=== PATIENT | female | born 1945 | race Caucasian/White ===

== ENCOUNTER → 2017-01-18 | Outpatient (CLI) | payer MEDICARE, MEDICAID ==
[~2017-01-18] MED LIST: ALBU0.632 IH; ALBU0.8322 IH; ALBU8.5H2 IH; ALLBUTEROL; AMOX-355 PO; CITA20TA4 PO; CITALOPRAM PO; DOXY100C2 PO; INHA1INH8 MC; LEVOTHYROXINE PO; LVT.025T PO; LVT.05T PO; PRD20T PO; RIVA1PAT4; SULF1TAB23 PO; SULF1TAB34 PO
[2017-01-18 17:46] LABS: BILIRUBIN,URINE NEGATIVE (NEGATIVE); KETONES,URINE NEGATIVE (NEGATIVE); LEUKOCYTE ESTERASE ,URINE 1+ (NEGATIVE); NITRITE,URINE NEGATIVE (NEGATIVE); PH,URINE 5 (5-9); PROTEIN,URINE 2+ (NEGATIVE); UROBILINOGEN,URINE NORMAL (NORMAL)
== END ==
LOC: LABNPT 17:38
PROVIDERS: ATTEND Internal Medicine
DX: Z87.440 Personal history of urinary (tract) infections (principal)
CPT/HCPCS: 81000

== ENCOUNTER → 2017-03-10 | Outpatient (CLI) | payer MEDICARE, MEDICAID ==
[2017-03-10 20:42] LABS: BILIRUBIN,URINE NEGATIVE (NEGATIVE); KETONES,URINE NEGATIVE (NEGATIVE); LEUKOCYTE ESTERASE ,URINE 3+ (NEGATIVE); NITRITE,URINE NEGATIVE (NEGATIVE); PH,URINE 6 (5-9); PROTEIN,URINE 1+ (NEGATIVE); UROBILINOGEN,URINE NORMAL (NORMAL)
[2017-03-10 20:56] LABS: SQUAMOUS EPITHELIAL CELL,UR 0-2 /HPF; WBC,URINE TNTC /HPF
== END ==
PROVIDERS: ATTEND Internal Medicine
DX: M54.5 Low back pain (principal); R82.90 Unspecified abnormal findings in urine
CPT/HCPCS: 81000; 87088

== ENCOUNTER → 2017-04-24 | Outpatient (CLI) | payer MEDICARE, MEDICAID ==
[~2017-04-24] MED LIST changes: +CATHETER FLUSH 10 ML SYR IV PRN; +REGADENOSON 0.4 MG/5 ML SYR (LEXISCAN) IV ONE
[2017-04-24 09:43] VITALS: BP 153/91
[2017-04-24 09:48] VITALS: BP 143/68
[2017-04-24 09:50] VITALS: BP 145/71
--- NOTE | 2017-04-25 08:49 | STRESS TEST ---
DATE OF SERVICE: 04/24/2017 RESTING AND POST-REGADENOSON TECHNETIUM-[address] IMAGING: Baseline images were carried out after injection of 10.94 mCi technetium-99 Tetrofosmin. This was followed by 0.4 mg regadenoson and 27.8 mCi technetium-99 Tetrofosmin for stress imaging. The electrocardiogram showed sinus rhythm at baseline and did not change significantly. Following regadenoson infusion, she had mild shortness of breath and a tired feeling which resolved in a few minutes. Review of images at rest and following stress does not indicate any significant perfusion defects consistent with significant myocardial ischemia or infarction. Gated images show normal global left ventricular systolic function with normal regional wall motion. Left ventricular ejection fraction is calculated to be 70%. Left ventricular end diastolic volume is 38 mL. TID is absent (1.09). CONCLUSIONS: 1. No evidence of any significant myocardial ischemia or infarction on this study. 2. Normal regional wall motion. 3. Normal global left ventricular systolic function with a calculated ejection fraction of 70%. Job ID: [id number] DocumentID: [id number] Dictated Date: 04/24/2017 13:08:03 Machine Adjuster Leader Case Trim Date: 04/24/2017 15:23:40 Dictated By: JOESPH ROTH MD, MA, FACP, FACC,
== END ==
LOC: CARD 07:43
PROVIDERS: ATTEND Internal Medicine Cardiovascular Disease
DX: R06.02 Shortness of breath (principal); R55 Syncope and collapse; M79.89 Other specified soft tissue disorders; I10 Essential (primary) hypertension; G30.8 Other Alzheimer's disease
CPT/HCPCS: 78452; 93017

== ENCOUNTER → 2017-05-08 | Outpatient (CLI) | payer MEDICARE, MEDICAID ==
[~2017-05-08] MED LIST changes: -CATHETER FLUSH 10 ML SYR IV PRN; -REGADENOSON 0.4 MG/5 ML SYR (LEXISCAN) IV ONE
== END ==
LOC: CARD 09:34
PROVIDERS: ATTEND Internal Medicine Cardiovascular Disease
DX: R06.02 Shortness of breath (principal); R55 Syncope and collapse; I10 Essential (primary) hypertension; M79.89 Other specified soft tissue disorders; G30.8 Other Alzheimer's disease
CPT/HCPCS: 93225; 93226; 93306

== ENCOUNTER → 2017-08-23 | Outpatient (CLI) | payer MEDICARE, MEDICAID ==
[2017-08-23 14:29] LABS: BILIRUBIN,URINE NEGATIVE (NEGATIVE); KETONES,URINE 2+ (NEGATIVE); LEUKOCYTE ESTERASE ,URINE 3+ (NEGATIVE); NITRITE,URINE POSITIVE (NEGATIVE); PH,URINE 5 (5-9); PROTEIN,URINE 2+ (NEGATIVE); UROBILINOGEN,URINE NORMAL (NORMAL)
[2017-08-23 14:40] LABS: WBC,URINE TNTC /HPF
== END ==
PROVIDERS: ATTEND Internal Medicine
DX: R41.82 Altered mental status, unspecified (principal); R82.90 Unspecified abnormal findings in urine
CPT/HCPCS: 81000; 87077; 87088; 87186

== ENCOUNTER 2018-06-11 01:46 | Emergency (ER) | payer MEDICARE, MEDICAID ==
[~2018-06-11] VITALS: Ht 167.6 cm; Wt 63.5 kg
--- NOTE | 2018-06-11 02:38 | ED Fall/Injury ---
General Chief Complaint: Trauma-Non Activation Stated Complaint: FALL,RT WRIST & RIB PAIN Nursing Triage Note: FALL, RIGHT WRIST PAIN Source: patient, EMS Exam Limitations: clinical condition (dementia) History of Present Illness Date Seen by Provider: Jun 11, 2018 Time Seen by Provider: 01:50 Initial Comments Here with report of fall at the [facility] that was unwitnessed. Patient has formerly of the right wrist and they wanted her evaluated for that. Patient denies any other pain. She was able to walk to the cot. Denies head injury. Patient reported a little chest wall pain on the right but then was on the left. No obvious injury except for of the right wrist. Location Injury Occurred: HOME Occurred: this morning (patient found on the floor in her room. Unknown exact time a fall but believed to be recently this morning.) Severity: moderate Injuries/Pain Location: upper extremity Context: unknown Loss of Consciousness: unsure Modifying Factors: Improves With Immobilization; Worse With Movement Associated Symptoms (Fall): No Abdominal Pain, No Headache, No Neck Pain Allergies and Home Medications Allergies Coded Allergies: No Known Drug Allergies (Verified , 01/24/14) Home Medications Albuterol 8.5 Gm Hfa.aer.ad, 2 PUFF IH QID PRN for SHORTNESS OF BREATH, ( Reported) NEEDED FOR SHORTNESS OF BREATH Albuterol Sulfate 2.5 Mg/3 Ml Solution, 2.5 MG IH Q4H PRN for SHORTNESS OF BREATH, (Reported) NEEDED FOR SHORTNESS OF BREATH Citalopram Hydrobromide 20 Mg Tablet, 20 MG PO DAILY @ 1400, (Reported) Levothyroxine Sodium 50 Mcg Tablet, 1 EACH PO DAILY, (Reported) Patient Home Medication List Home Medication List Reviewed: Yes Review of Systems Review of Systems Constitutional: see HPI; No chills, No fever Eyes: No Symptoms Reported Ears, Nose, Mouth, Throat: no symptoms reported Respiratory: no symptoms reported Cardiovascular: no symptoms reported Gastrointestinal: No nausea, No vomiting Genitourinary: no symptoms reported Musculoskeletal: see HPI, joint pain, muscle pain Skin: change in color (right wrist); No lesions Psychiatric/Neurological: Denies Headache, Denies Numbness Past Klqtrwi-Msszdx-Vkbfln Hx Past Med/Social Hx: Reviewed Nursing Past Med/Soc Hx Patient Social History Alcohol Use: Denies Use Recreational Drug Use: No Smoking Status: Never a Smoker 2nd Hand Smoke Exposure: No Recent Foreign Travel: No Contact w/Someone Who Travel: No Recent Infectious Disease Expo: No Recent Hopitalizations: Yes Immunizations Up To Date Tetanus Booster (TDap): Less than 5yrs Date of Pneumonia Vaccine: January 24, 2014 Seasonal Allergies Seasonal Allergies: Yes Past Medical History Surgeries: Yes (COLO-RECTAL CANCER, COLOSTOMY) Respiratory: Yes (ASTHMA) Asthma, COPD, Emphysema Cardiac: Yes High Cholesterol, Hypertension Neurological: Yes Dementia Reproductive Disorders: No Genitourinary: Yes UTI-Chronic Gastrointestinal: Yes (COLOSTOMY) Musculoskeletal: Yes Arthritis, Chronic Back Pain Endocrine: Yes Hypothyroidsim HEENT: No Cancer: Yes Colon Psychosocial: Yes Depression Integumentary: No Blood Disorders: No Family Medical History Reviewed Nursing Family Hx Family history: Diabetes mellitus 19 MOTHER Parkinson's disease 19 FATHER No Family History of: Abdominal aortic aneurysm Physical Exam Vital Signs Vital Signs - First Documented 06/11/18 01:48 Temp 97.3 Pulse 77 Resp 18 B/P (MAP) 140/60 (86) Pulse Ox 99 O2 Delivery Room Air Capillary Refill : Less Than 3 Seconds Height, Weight, BMI Height: 5'6" Weight: 140lbs. 4.0oz. [id number]; 20.17 BMI Method:Estimated General Appearance: WD/WN, no apparent distress HEENT: PERRL/EOMI, pharynx normal Neck: non-tender, full range of motion, supple, normal inspection Cardiovascular: regular rate, rhythm, no murmur Respiratory: lungs clear, normal breath sounds, no respiratory distress, other (question of tenderness to the left anterior chest wall) Gastrointestinal: non tender, soft Back: normal inspection, no CVA tenderness, no vertebral tenderness Extremities: pelvis stable, other (right wrist with pain over the distal radius and ulna with deformity noted) Neurologic/Psychiatric: alert, oriented x 3 Skin: normal color, warm/dry Vikas Coma Score Best Eye Response: (4) Open Spontaneously Best Verbal Response: (5) Oriented Best Motor Response: (6) Obeys Commands Procedures/Interventions Splinting and Joint Reduction : Pre-Proc Neuro Vasc Exam: normal Post-Proc Neuro Vasc Exam: normal Hand-Made Type: fiberglass Splint Application: Short Arm Progress/Results/Core Measures Results/Orders My Orders Orders - SCOTT OSORIO MD Chest 1 View, Ap/Pa Only (06/11/18 01:59) Wrist, Right, 3 Views Or More (06/11/18 01:59) Lidocaine 2% Injection 20 Ml (Xylocaine (06/11/18 03:00) Lidocaine 2% Injection 20 Ml (Xylocaine (06/11/18 02:55) Medications Given in ED Current Medications Medications Dose Ordered Sig/Rosy Route Start Time Stop Time Status Last Admin Dose Admin Lidocaine HCl 20 ml ONCE ONCE INJ 06/11/18 03:00 06/11/18 03:01 DC 06/11/18 03:01 20 ML Vital Signs/I&O 06/11/18 01:48 Temp 97.3 Pulse 77 Resp 18 B/P (MAP) 140/60 (86) Pulse Ox 99 O2 Delivery Room Air Blood Pressure Mean: 86 Progress Progress Note : Progress Note Seen and evaluated. Chest x-ray and right wrist x-ray ordered. Monitor patient. Right wrist x-ray is positive for both distal radius and ulnar fracture. Splint placed after hematoma block with 2 percent lidocaine 4 mL to area of fracture. Discharged home with return precautions. Patient instructions sent with [facility] staff. Diagnostic Imaging Diagonstic Imaging: Xray Plain Films/CT/US/NM/MRI: chest Comments No acute findings Diagonstic Imaging: Xray Plain Films/CT/US/NM/MRI: other (right wrist 3 view) Comments Distal radius and ulna fracture with displacement of the distal radius volar approximately 50 percent. Ulna fracture nondisplaced Reviewed: Reviewed by Me Departure Impression Primary Impression: Right wrist fracture Qualified Codes: S62.101A - Fracture of unspecified carpal bone, right wrist, initial encounter for closed fracture Disposition: HOME, SELF-CARE Condition: Stable Departure-Patient Inst. Decision time for Depature: 02:43 Referrals: JUAN DANIEL CASTELLANOS MD (PCP/Family) Primary Care Physician ALEX LAO MICHAEL P MD Patient Instructions: SPLINT CARE, Wrist Fracture (DC) Add. Discharge Instructions: All discharge instructions reviewed with patient and/or family. Voiced understanding. Keep splint clean and dry. Follow-up with one of the orthopedists listed or of your choosing within one week for recheck and for further evaluation and casting as needed. Call today for appointment. Return for worse pain, weakness , numbness, breathing problems or other concerns as needed. Follow-up with your Dr. within the next few days for recheck and further evaluation as well. Copy Copies To 1: JUAN DANIEL CASTELLANOS MD, TIMOTHY D MD Jun 11, 2018 02:38
[2018-06-11] MEDS ORDERED: LIDOCAINE 2% 20 ML (XYLOCAINE) VIAL ONE (02:55)
[2018-06-11] MEDS ORDERED: LIDOCAINE 2% 20 ML (XYLOCAINE) VIAL INJ ONE (03:00)
[2018-06-11 03:39] VITALS: BP 145/74
--- NOTE | 2018-06-11 07:52 | Diagnostic Imaging Report ---
INDICATION: Fall with right wrist pain. FINDINGS: AP, oblique and lateral views of the right wrist reveal comminuted, angulated fracture of the distal radial metaphysis with dorsal displacement of the distal fracture fragment. There is also mildly displaced fracture involving the distal ulna which extends into the joint space. Carpus appears to be intact. IMPRESSION: Fractures involving distal radius and ulna with dorsal angulation and displacement of the distal radial fracture fragment. Dictated by: Dictated on workstation # [id number]
--- NOTE | 2018-06-11 08:00 | Diagnostic Imaging Report ---
Indication: Fall with wrist fractures. Single AP view of the chest is obtained with comparison made to study of 06/03/2012. Overall heart size within normal limits. There is a small left apical pneumothorax with mild left pleural fluid. No midline shift is seen. Impression: Small left pneumothorax with mild left pleural fluid. Critical finding Dictated by: Dictated on workstation # [id number]
== END 2018-06-11 03:39 | disposition home or self-care (01) ==
LOC: EDUNIT# 01:46 → ER 01:48
DX: S52.601A Unspecified fracture of lower end of right ulna, initial encounter for closed fracture (principal); S52.501A Unspecified fracture of the lower end of right radius, initial encounter for closed fracture; R07.81 Pleurodynia; J43.9 Emphysema, unspecified; E78.00 Pure hypercholesterolemia, unspecified; I10 Essential (primary) hypertension; R40.2142 Coma scale, eyes open, spontaneous, at arrival to emergency department; R40.2252 Coma scale, best verbal response, oriented, at arrival to emergency department; R40.2362 Coma scale, best motor response, obeys commands, at arrival to emergency department; F03.90 Unspecified dementia, unspecified severity, without behavioral disturbance, psychotic disturbance, mood disturbance, and anxiety; E03.9 Hypothyroidism, unspecified; F32.9 Major depressive disorder, single episode, unspecified; Z87.440 Personal history of urinary (tract) infections; Z79.51 Long term (current) use of inhaled steroids; Z93.3 Colostomy status; Z85.048 Personal history of other malignant neoplasm of rectum, rectosigmoid junction, and anus; W19.XXXA Unspecified fall, initial encounter; Y92.129 Unspecified place in nursing home as the place of occurrence of the external cause
CPT/HCPCS: 29125; 71045; 73110

== ENCOUNTER → 2018-06-25 | Outpatient (CLI) | payer MEDICARE, MEDICAID ==
--- NOTE | 2018-06-25 14:44 | Diagnostic Imaging Report ---
INDICATION: Pneumothorax. Comparison is made with prior examination from 06/11/2018. FINDINGS: Heart size is normal. The previously seen left apical pneumothorax has resolved. There is no pleural effusion. Mediastinum is unremarkable. There is minimal scarring in the lung bases. IMPRESSION: 1. No evidence of residual pneumothorax. 2. Minimal scarring in the lung bases. Dictated by: Dictated on workstation # [id number]
== END ==
LOC: RAD 13:36
PROVIDERS: ATTEND Internal Medicine
DX: J93.9 Pneumothorax, unspecified (principal)
CPT/HCPCS: 71046

== ENCOUNTER 2018-07-18 20:43 | Observation (INO) | payer MEDICARE, MEDICAID ==
[~2018-07-18] VITALS: Ht 165.1 cm; Wt 86.0 kg
[2018-07-18 21:08] LABS: BASOPHILS # (AUTO) 0.1 10^3/uL (0.0-0.1); BASOPHILS % (AUTO) 1 % (0-10); EOSINOPHILS # (AUTO) 0.3 10^3/uL (0.0-0.3); EOSINOPHILS % (AUTO) 4 % (0-10); HEMATOCRIT 29 % (35-52); HEMOGLOBIN 9.6 G/DL (11.5-16.0); LYMPHOCYTES # (AUTO) 0.7 X 10^3 (1.0-4.0); LYMPHOCYTES % (AUTO) 10 % (12-44); MEAN CORPUSCULAR HEMOGLOBIN 31 PG (25-34); MEAN CORPUSCULAR HGB CONC 33 G/DL (32-36); MEAN CORPUSCULAR VOLUME 92 FL (80-99); MEAN PLATELET VOLUME 10.4 FL (7.4-10.4); MONOCYTES % (AUTO) 14 % (0-12); NEUTROPHILS # (AUTO) 4.9 X 10^3 (1.8-7.8); NEUTROPHILS % (AUTO) 71 % (42-75); PLATELET COUNT 279 10^3/uL (130-400); RED BLOOD COUNT 3.15 10^6/uL (4.35-5.85); RED CELL DISTRIBUTION WIDTH 14.2 % (10.0-14.5); WHITE BLOOD COUNT 6.8 10^3/uL (4.3-11.0)
[2018-07-18 21:20] LABS: PROTHROMBIN TIME PATIENT 13.4 SEC (12.2-14.7)
[2018-07-18 21:28] LABS: ALANINE AMINOTRANSFERASE 15 U/L (0-55); ALBUMIN 3.4 GM/DL (3.2-4.5); ALKALINE PHOSPHATASE 108 U/L (40-136); BILIRUBIN,TOTAL 0.3 MG/DL (0.1-1.0); BUN/CREATININE RATIO 25; CALCIUM 9.3 MG/DL (8.5-10.1); CARBON DIOXIDE 19 MMOL/L (21-32); CHLORIDE 101 MMOL/L (98-107); CREATININE SERUM 1.85 MG/DL (0.60-1.30); GFR ESTIMATED 27; GLUCOSE 99 MG/DL (70-105); MAGNESIUM 1.8 MG/DL (1.8-2.4); SODIUM 131 MMOL/L (135-145); TOTAL PROTEIN 6.4 GM/DL (6.4-8.2)
[2018-07-18 21:35] LABS: POTASSIUM 5.8 MMOL/L (3.6-5.0)
[2018-07-18] MEDS ORDERED: NS IV 1000 ML 1,000 ML IV ONE (21:41)
--- NOTE | 2018-07-18 21:56 | Diagnostic Imaging Report ---
PROCEDURE: CT head, face, and cervical spine without contrast. TECHNIQUE: Multiple contiguous axial images were obtained through the head, neck, and facial bones without the use of intravenous contrast. Sagittal and coronal reformations through the cervical spine and facial bones were also performed. INDICATION: Fall. Bruised right eye. Comparison with CT head 06/18/2014. FINDINGS: CT head: There is diffuse cortical atrophy present. Ventricles are not dilated. No evidence of masses. No evidence of intracranial hemorrhage. No evidence of recurrent subdural hematomas when compared with previous exam. Basal cisterns are clear. The mastoid air cells are clear. No calvarial fractures are demonstrated. The paranasal sinuses are clear where visualized. IMPRESSION: Marked cortical atrophy and white matter changes consistent with chronic small vessel disease. No acute abnormalities demonstrated. CT facial bones: Paranasal sinuses are clear. No air-fluid levels. There is moderate motion artifact present. No facial bone fractures are demonstrated. Orbital contents are symmetrical. No significant swelling is seen over the right orbit. Orbital contents appear symmetrical and normal. The nasal bone is normal. Mandible appears intact. The temporomandibular joints are symmetrical. IMPRESSION: Limited study with motion artifact. No findings to indicate acute fractures of the facial bones or air-fluid levels within the paranasal sinuses. CT cervical spine: Sagittal and coronal reformatted images show good alignment of vertebral bodies. Body height is well-maintained. Mild narrowing of disc space is noted with hypertrophic lipping of the endplates. The atlantoaxial joint in good alignment with degenerative change. Facets show good alignment throughout. No fractures are demonstrated. The surrounding soft tissues appear normal. IMPRESSION: Degenerative cervical disc disease without acute abnormality. Dictated by: Dictated on workstation # [id number]
--- NOTE | 2018-07-18 22:00 | Diagnostic Imaging Report ---
INDICATION: Fall. FINDINGS: There is comminuted distal right radial fracture involving articulating surface with impaction and dorsal angulation. Also ulnar styloid fracture. The carpal bones appear intact. IMPRESSION: Colles' type fracture of the distal radius with intra-articular involvement with dorsal angulation and impaction right wrist. Dictated by: Dictated on workstation # [id number]
--- NOTE | 2018-07-18 22:01 | Diagnostic Imaging Report ---
INDICATION: Fall. EXAMINATION: Portable chest. FINDINGS: Lungs are well-aerated and clear. Heart is mildly enlarged. No pulmonary edema. No pneumothorax or pleural effusion. No bony abnormalities. IMPRESSION: Cardiomegaly without acute changes. Dictated by: Dictated on workstation # [id number]
--- NOTE | 2018-07-18 22:01 | Diagnostic Imaging Report ---
INDICATION: Fall. FINDINGS: AP pelvis. Bony ring is intact. SI joints show degenerative changes. Hips show normal articulation bilaterally without fracture. IMPRESSION: Degenerative changes without acute abnormality. Dictated by: Dictated on workstation # [id number]
--- NOTE | 2018-07-18 22:01 | Diagnostic Imaging Report ---
Indication: Fall. Findings: Sagittal: Reformatted images the thoracic and lumbar spine. There is supraglottic compression fracture of L1 with approximately 50% loss of body height anteriorly. Minimal posterior bulging of the superior endplate into the canal without high-grade stenosis noted. There is also mild inferior plate compression fracture of L2. There is sclerosis along the endplates. Body height otherwise remains normal throughout the thoracic and lumbar spine. No evidence of pars defect. Moderate degenerative hypertrophic changes noted in the lower lumbar region. The paraspinal soft tissues appear normal. No evidence of hematomas. The lungs are clear were visualized. IMPRESSION: Superior plate compression fracture of L1 and inferior endplate compression fracture of L2. There is no evidence of high-grade stenosis. These are of indeterminate age. Due to sclerosis I suspect these are more likely chronic. The no recent lumbar images for comparison. Dictated by: Dictated on workstation # [id number]
[2018-07-18 22:14] LABS: BILIRUBIN,URINE NEGATIVE (NEGATIVE); CLARITY,URINE VERY CLOUDY; COLOR,URINE YELLOW; GLUCOSE, URINE (UA) NEGATIVE (NEGATIVE); KETONES,URINE 1+ (NEGATIVE); LEUKOCYTE ESTERASE ,URINE 3+ (NEGATIVE); NITRITE,URINE NEGATIVE (NEGATIVE); PH,URINE 5 (5-9); PROTEIN,URINE 1+ (NEGATIVE); UROBILINOGEN,URINE NORMAL (NORMAL)
[2018-07-18 22:42] LABS: BACTERIA,URINE LARGE /HPF; WBC,URINE >100 /HPF
[2018-07-18] MEDS ORDERED: cefTRIAXone FOR IV USE 1,000 MG in NS (IVPB) 50 ML IV ONE (23:00)
[2018-07-18] MEDS ORDERED: NS (IVPB) 50 ML ONE (23:04)
[2018-07-18] MEDS ORDERED: cefTRIAXone 1 GM/10 ML for IV (ROCEPHIN) ONE (23:04)
[2018-07-19] VITALS (8 sets, daily range): BP systolic 118–175; BP diastolic 59–81
[2018-07-19] MEDS: NS IV 1000 ML 1,000 ML IV SCH ×4 (01:25→22:57)
[2018-07-19 05:29] LABS: BASOPHILS # (AUTO) 0.1 10^3/uL (0.0-0.1); BASOPHILS % (AUTO) 1 % (0-10); EOSINOPHILS # (AUTO) 0.3 10^3/uL (0.0-0.3); EOSINOPHILS % (AUTO) 4 % (0-10); HEMATOCRIT 27 % (35-52); HEMOGLOBIN 8.9 G/DL (11.5-16.0); LYMPHOCYTES # (AUTO) 0.7 X 10^3 (1.0-4.0); LYMPHOCYTES % (AUTO) 11 % (12-44); MEAN CORPUSCULAR HEMOGLOBIN 31 PG (25-34); MEAN CORPUSCULAR HGB CONC 33 G/DL (32-36); MEAN CORPUSCULAR VOLUME 93 FL (80-99); MONOCYTES # (AUTO) 1.1 X 10^3 (0.0-1.0); MONOCYTES % (AUTO) 17 % (0-12); NEUTROPHILS # (AUTO) 4.5 X 10^3 (1.8-7.8); NEUTROPHILS % (AUTO) 67 % (42-75); PLATELET COUNT 244 10^3/uL (130-400); RED BLOOD COUNT 2.92 10^6/uL (4.35-5.85); RED CELL DISTRIBUTION WIDTH 14.2 % (10.0-14.5); WHITE BLOOD COUNT 6.7 10^3/uL (4.3-11.0)
[2018-07-19 05:42] LABS: ALBUMIN 2.9 GM/DL (3.2-4.5); BILIRUBIN,TOTAL 0.2 MG/DL (0.1-1.0); CALCIUM 8.5 MG/DL (8.5-10.1); CREATININE SERUM 1.56 MG/DL (0.60-1.30); POTASSIUM 5.1 MMOL/L (3.6-5.0); TOTAL PROTEIN 5.6 GM/DL (6.4-8.2)
--- NOTE | 2018-07-19 06:12 | History & Physicial (CHS) ---
HPI History of Present Illness: 72-year-old female who presents to [facility] emergency department during the evening of July 18, 2018 after having a fall. I spoke with staff from [facility] prior to patient arriving at the emergency department. Apparently she had taken this fall but it was unknown exactly when it occurred. She was found on the floor by nursing staff. Patient is not able to give much history and does not states she hurts anywhere specifically. Source: caregiver Exam Limitations: clinical condition Date seen by provider: Jul 19, 2018 Time Seen by Provider: 06:45 Attending Physician Patric Li MD PCP Patric Li MD Consult Date of Admission Jul 18, 2018 at 22:25 Home Medications Home Medications Reviewed patient Home Medication Reconciliation performed by pharmacy medication reconciliations registered veterinary technician and/or nursing. Patients Allergies have been reviewed. Allergies Coded Allergies: No Known Drug Allergies (Verified , 01/24/14) WYU-Ezxjgl-Eewuaf Hx Patient Social History Alcohol Use: Denies Use Recreational Drug Use: No Smoking Status: Never a Smoker 2nd Hand Smoke Exposure: No Recent Foreign Travel: No Contact w/other who traveled: No Recent Hopitalizations: Yes Recent Infectious Disease Expo: No Physical Abuse Screen: No Sexual Abuse: No Immunizations Up To Date Tetanus Booster (TDap): Less than 5yrs Date of Pneumonia Vaccine: January 24, 2014 Date of Influenza Vaccine: Jul 14, 2018 Family Medical History Family History: Family history: Diabetes mellitus 19 MOTHER Parkinson's disease 19 FATHER No Family History of: Abdominal aortic aneurysm Review of Systems (CHC) Constitutional: see HPI Reviewed Test Results Reviewed Test Results Lab Laboratory Tests Test 07/18/18 20:52 07/18/18 22:07 07/19/18 04:55 Range/Units White Blood Count 6.8 6.7 4.3-11.0 10^3/uL Red Blood Count 3.15 L 2.92 L 4.35-5.85 10^6/uL Hemoglobin 9.6 L 8.9 L 11.5-16.0 G/DL Hematocrit 29 L 27 L 35-52 % Mean Corpuscular Volume 92 93 80-99 FL Mean Corpuscular Hemoglobin 31 31 25-34 PG Mean Corpuscular Hemoglobin Concent 33 33 32-36 G/DL Red Cell Distribution Width 14.2 14.2 10.0-14.5 % Platelet Count 279 244 130-400 10^3/uL Mean Platelet Volume 10.4 11.0 H 7.4-10.4 FL Neutrophils (%) (Auto) 71 67 42-75 % Lymphocytes (%) (Auto) 10 L 11 L 12-44 % Monocytes (%) (Auto) 14 H 17 H 0-12 % Eosinophils (%) (Auto) 4 4 0-10 % Basophils (%) (Auto) 1 1 0-10 % Neutrophils # (Auto) 4.9 4.5 1.8-7.8 X 10^3 Lymphocytes # (Auto) 0.7 L 0.7 L 1.0-4.0 X 10^3 Monocytes # (Auto) 1.0 1.1 H 0.0-1.0 X 10^3 Eosinophils # (Auto) 0.3 0.3 0.0-0.3 10^3/uL Basophils # (Auto) 0.1 0.1 0.0-0.1 10^3/uL Prothrombin Time 13.4 12.2-14.7 SEC INR Comment 1.0 0.8-1.4 Activated Partial Thromboplast Time 27 24-35 SEC Sodium Level 131 L 131 L 135-145 MMOL/L Potassium Level 5.8 H 5.1 H 3.6-5.0 MMOL/L Chloride Level 101 106 98-107 MMOL/L Carbon Dioxide Level 19 L 16 L 21-32 MMOL/L Anion Gap 11 9 5-14 MMOL/L Blood Urea Nitrogen 47 H 41 H 7-18 MG/DL Creatinine 1.85 H 1.56 H 0.60-1.30 MG/DL Estimat Glomerular Filtration Rate 27 33 BUN/Creatinine Ratio 25 26 Glucose Level 99 93 70-105 MG/DL Calcium Level 9.3 8.5 8.5-10.1 MG/DL Corrected Calcium 9.8 9.4 8.5-10.1 MG/DL Magnesium Level 1.8 1.8-2.4 MG/DL Total Bilirubin 0.3 0.2 0.1-1.0 MG/DL Aspartate Amino Transf (AST/SGOT) 15 15 5-34 U/L Alanine Aminotransferase (ALT/SGPT) 15 14 0-55 U/L Alkaline Phosphatase 108 96 40-136 U/L Troponin I < 0.30 <0.30 NG/ML Total Protein 6.4 5.6 L 6.4-8.2 GM/DL Albumin 3.4 2.9 L 3.2-4.5 GM/DL Urine Color YELLOW Urine Clarity VERY CLOUDY H Urine pH 5 5-9 Urine Specific Temple 1.020 1.016-1.022 Urine Protein 1+ H NEGATIVE Urine Glucose (UA) NEGATIVE NEGATIVE Urine Ketones 1+ H NEGATIVE Urine Nitrite NEGATIVE NEGATIVE Urine Bilirubin NEGATIVE NEGATIVE Urine Urobilinogen NORMAL NORMAL MG/DL Urine Leukocyte Esterase 3+ H NEGATIVE Urine RBC (Auto) 2+ H NEGATIVE Urine RBC NONE /HPF Urine WBC >100 H /HPF Urine Squamous Epithelial Cells NONE /HPF Urine Crystals NONE /LPF Urine Bacteria LARGE H /HPF Urine Casts NONE /LPF Urine Mucus NEGATIVE /LPF Urine Culture Indicated YES Radiology NAME: FATOU LUBIN REC#: [id number] PT STATUS: REG ER : 1945 PHYSICIAN: SALO KOENIG DO ADMIT DATE: 07/18/18/ER Signed Date of Exam: 07/18/18 CT HEAD/FACE/CERVICAL WO PROCEDURE: CT head, face, and cervical spine without contrast. TECHNIQUE: Multiple contiguous axial images were obtained through the head, neck, and facial bones without the use of intravenous contrast. Sagittal and coronal reformations through the cervical spine and facial bones were also performed. INDICATION: Fall. Bruised right eye. Comparison with CT head 06/18/2014. FINDINGS: CT head: There is diffuse cortical atrophy present. Ventricles are not dilated. No evidence of masses. No evidence of intracranial hemorrhage. No evidence of recurrent subdural hematomas when compared with previous exam. Basal cisterns are clear. The mastoid air cells are clear. No calvarial fractures are demonstrated. The paranasal sinuses are clear where visualized. IMPRESSION: Marked cortical atrophy and white matter changes consistent with chronic small vessel disease. No acute abnormalities demonstrated. CT facial bones: Paranasal sinuses are clear. No air-fluid levels. There is moderate motion artifact present. No facial bone fractures are demonstrated. Orbital contents are symmetrical. No significant swelling is seen over the right orbit. Orbital contents appear symmetrical and normal. The nasal bone is normal. Mandible appears intact. The temporomandibular joints are symmetrical. IMPRESSION: Limited study with motion artifact. No findings to indicate acute fractures of the facial bones or air-fluid levels within the paranasal sinuses. CT cervical spine: Sagittal and coronal reformatted images show good alignment of vertebral bodies. Body height is well-maintained. Mild narrowing of disc space is noted with hypertrophic lipping of the endplates. The atlantoaxial joint in good alignment with degenerative change. Facets show good alignment throughout. No fractures are demonstrated. The surrounding soft tissues appear normal. IMPRESSION: Degenerative cervical disc disease without acute abnormality. Dictated by: Dictated on workstation # [id number] Dict: 07/18/182135 Trans: 07/18/182158 Interpreted by: JAK HERRING MD Electronically signed by: JAK HERRING MD 07/18/182158 Physical Exam-(CHC) Physical Exam Vital Signs VS - Last 72 Hours, by Label 07/18/18 07/18/18 07/19/18 07/19/18 20:45 23:34 00:00 00:00 Temp 98.1 98.0 97.3 Pulse 103 109 103 Resp 16 18 14 B/P (MAP) 136/65 (88) 129/62 (84) 125/60 (81) Pulse Ox 98 99 97 O2 Delivery Room Air Room Air Room Air 07/19/18 07/19/18 07/19/18 01:36 02:00 04:00 Temp 96.8 97.6 Pulse 99 104 108 Resp 16 16 B/P (MAP) 142/64 (90) 118/59 (78) Pulse Ox 99 98 O2 Delivery Room Air Room Air Capillary Refill : Less Than 3 SecondsLess Than 3 Seconds General Appearance: no apparent distress Eyes: Bilateral Eye Normal Inspection HEENT: other (Mucous membranes mildly moist) Neck: non-tender Respiratory: lungs clear Cardiovascular: regular rate, rhythm (Occasional ectopy) Gastrointestinal: soft Rectal: deferred Skin: other (Rash under left axilla circular and erythematous) Assessment/Plan Assessment/Plan Admission Dx 1. Dehydration 2. Fall most likely secondary to number 1 3. Urinary tract infection 4. Anemia suspect chronic disease 5. Dementia Admission Status: Inpatient Order (span 2 midnights) Reason for Inpatient Admission: To receive IV fluids as well as IV ceftriaxone for urinary tract infection clearing. Corrected electrolyte imbalance Assessment & Plan 1. Dehydration with electrolyte imbalance -IV fluid rehydration 2. Fall most likely secondary to number 1 -Care measures 3. Urinary tract infection -Continuation of ceftriaxone 1 g every 24 hours. She has received first dose in ED. 4. Anemia suspect chronic disease -Monitor CBC 5. Dementia (1) Anemia of chronic disease Status: Chronic (2) Urinary tract infection Status: Acute (3) Dehydration Status: Acute Clinical Quality Measures DVT/VTE Risk/Contraindication: Risk Factor Score Per Nursin RFS Level Per Nursing on Admit: 4+=Very High DARÍO MAC MD Jul 19, 2018 06:12
--- NOTE | 2018-07-19 07:27 | ED General ---
General Chief Complaint: Trauma-Non Activation Stated Complaint: FALL VS SYNCOPE,DEHYDRATION,ACUTE RENAL FAILURE,DE Nursing Triage Note: FALL FROM A STANDING POSITION-BRUISING PRESENT TO LEFT EYE, PATIENT COMPLAINING OF NECK PAIN, HEADACHE Nursing Sepsis Screen: No Definite Risk Source of Information: Assisted Records Exam Limitations: Other (PT WITH DEMENTIA AND UNABLE TO GIVE ANY INFORMATION OF ANY KIND) History of Present Illness Date Seen by Provider: Jul 18, 2018 Time Seen by Provider: 20:46 Initial Comments PT ARRIVES VIA EMS FROM [facility]--C-COLLAR IN PLACE PT HAD AN UNWITNESSED "FALL" --PT WAS FOUND ON FLOOR BY HALFWAY STAFF IS UNKNOWN HOW LONG IT HAD BEEN SINCE PT WAS LAST SEEN PRIOR TO THAT PT IS ABLE TO ANSWER A FEW YES/NO QUESTIONS IN REGARDS TO PAIN. ON DIRECT QUESTIONING ABOUT AREAS OF PAIN" HEADACHE--YES NECK PAIN--YES BACK PAIN--NO CHEST PAIN--A LITTLE ABDOMINAL PAIN--NO ARM PAIN--YES--RIGHT ARM/WRIST--ON REVIEW OF OLD RECORD, PT WAS SEEN HERE ALSO FOR UNWITNESSED "FALL" AND FRACTURED RIGHT WRIST. PT IS NOT WEARING A SPLINT ON ARRIVAL TO ER LEG PAIN--NO HIP PAIN--NO PT DOES HAVE A LARGE LEFT PERIORBITAL HEMATOMA. NO OTHER INFORMATION IS OBTAINABLE FROM PT PCP: DR. CASTELLANOS, [facility] Allergies and Home Medications Allergies Coded Allergies: No Known Drug Allergies (Verified , 01/24/14) Home Medications Albuterol 8.5 Gm Hfa.aer.ad, 2 PUFF IH QID PRN for SHORTNESS OF BREATH, ( Reported) NEEDED FOR SHORTNESS OF BREATH Albuterol Sulfate 2.5 Mg/3 Ml Solution, 2.5 MG IH Q4H PRN for SHORTNESS OF BREATH, (Reported) NEEDED FOR SHORTNESS OF BREATH Citalopram Hydrobromide 20 Mg Tablet, 20 MG PO DAILY @ 1400, (Reported) Levothyroxine Sodium 50 Mcg Tablet, 1 EACH PO DAILY, (Reported) Patient Home Medication List Home Medication List Reviewed: Yes Review of Systems Review of Systems Constitutional: see HPI EENTM: see HPI Cardiovascular: chest pain Gastrointestinal: No abdominal pain Musculoskeletal: see HPI, neck pain Skin: no symptoms reported Psychiatric/Neurological: See HPI, Headache, Pre-Existing Deficit Past Ezluofr-Xxpbjp-Xmadyw Hx Patient Social History Alcohol Use: Denies Use Number of Drinks Today: AA Recreational Drug Use: No Smoking Status: Never a Smoker 2nd Hand Smoke Exposure: No Recent Foreign Travel: No Contact w/Someone Who Travel: No Recent Infectious Disease Expo: No Recent Hopitalizations: Yes Physical Abuse: No Sexual Abuse: No Mistreated: No Fear: No Immunizations Up To Date Tetanus Booster (TDap): Less than 5yrs Date of Pneumonia Vaccine: January 24, 2014 Date of Influenza Vaccine: Jul 14, 2018 Seasonal Allergies Seasonal Allergies: Yes Past Medical History Surgeries: Yes (COLO-RECTAL CANCER, COLOSTOMY) Bowel Surgery Respiratory: Yes (ASTHMA) Asthma, COPD, Emphysema Cardiac: Yes High Cholesterol, Hypertension Neurological: Yes (BILATERAL SUBDURAL HEMATOMAS 2013) Dementia, Traumatic Brain Injury Reproductive Disorders: No Genitourinary: Yes UTI-Chronic Gastrointestinal: Yes (COLON CANCER WITH RESECTION AND COLOSTOMY) Musculoskeletal: Yes (WALKING DIFFICULTY) Arthritis, Chronic Back Pain Endocrine: Yes Hypothyroidsim HEENT: Yes (RHINITIS, BLEPHARITIS, CHALAZION) Cancer: Yes Colon Did You Recieve Any Treatments: Yes What Type of Treatment Did You: Surgical Intervention Psychosocial: Yes Sleep Difficulties, Depression Integumentary: Yes (CELLULLITIS) Blood Disorders: No Family Medical History Family history: Diabetes mellitus 19 MOTHER Parkinson's disease 19 FATHER No Family History of: Abdominal aortic aneurysm Physical Exam Vital Signs Vital Signs - First Documented 07/18/18 07/18/18 20:45 23:34 Temp 98.1 Pulse 103 Resp 16 B/P (MAP) 136/65 (88) Pulse Ox 98 O2 Delivery Room Air Capillary Refill : Less Than 3 SecondsLess Than 3 Seconds Height, Weight, BMI Height: 5'5.00" Weight: 191lbs. 2.0oz. [id number]; 29.3 BMI Method:Estimated General Appearance: No Apparent Distress, WD/WN HEENT: PERRL/EOMI, TMs Normal, Other (LARGE LEFT PERIORBITAL HEMATOMA) Neck: Other (IN CERVICAL COLLAR) Respiratory: Chest Non Tender, Normal Breath Sounds, No Accessory Muscle Use, No Respiratory Distress Cardiovascular: Regular Rate, Rhythm, No Edema, No Murmur Gastrointestinal: Non Tender, Soft Back: Normal Inspection, No CVA Tenderness Extremity: Normal Capillary Refill, Normal Range of Motion, No Pedal Edema, Other (SWELLING AND QUESTIONABLE MILD DEFORMITY TO RIGHT WRIST. NO BRUISING OR SKIN DISCOLORATION. PT FREELY USING RIGHT HAND AND WRIST. ) Neurologic/Psychiatric: Alert, No Motor/Sensory Deficits (GROSSLY INTACT. ), Other (PT WITH HISTORY OF DEMENTIA. ) Skin: Normal Color, Warm/Dry, Ecchymosis Progress/Results/Core Measures Suspected Sepsis Recent Fever Within 48 Hours: No Infection Criteria Present: Documented Infection New/Unexplained Altered Menta: No Sepsis Screen: No Definite Risk SIRS Temperature:97.6 Pulse: 108 Respiratory Rate: 16 Laboratory Tests 07/18/18 20:52: White Blood Count 6.8 07/19/18 04:55: White Blood Count 6.7 Blood Pressure 118 /59 Mean: 78 Laboratory Tests 07/18/18 20:52: Creatinine 1.85H, INR Comment 1.0, Platelet Count 279, Total Bilirubin 0.3 07/19/18 04:55: Creatinine 1.56H, Platelet Count 244, Total Bilirubin 0.2 Results/Orders Lab Results Laboratory Tests Test 07/18/18 20:52 07/18/18 22:07 07/19/18 04:55 Range/Units White Blood Count 6.8 6.7 4.3-11.0 10^3/uL Red Blood Count 3.15 L 2.92 L 4.35-5.85 10^6/uL Hemoglobin 9.6 L 8.9 L 11.5-16.0 G/DL Hematocrit 29 L 27 L 35-52 % Mean Corpuscular Volume 92 93 80-99 FL Mean Corpuscular Hemoglobin 31 31 25-34 PG Mean Corpuscular Hemoglobin Concent 33 33 32-36 G/DL Red Cell Distribution Width 14.2 14.2 10.0-14.5 % Platelet Count 279 244 130-400 10^3/uL Mean Platelet Volume 10.4 11.0 H 7.4-10.4 FL Neutrophils (%) (Auto) 71 67 42-75 % Lymphocytes (%) (Auto) 10 L 11 L 12-44 % Monocytes (%) (Auto) 14 H 17 H 0-12 % Eosinophils (%) (Auto) 4 4 0-10 % Basophils (%) (Auto) 1 1 0-10 % Neutrophils # (Auto) 4.9 4.5 1.8-7.8 X 10^3 Lymphocytes # (Auto) 0.7 L 0.7 L 1.0-4.0 X 10^3 Monocytes # (Auto) 1.0 1.1 H 0.0-1.0 X 10^3 Eosinophils # (Auto) 0.3 0.3 0.0-0.3 10^3/uL Basophils # (Auto) 0.1 0.1 0.0-0.1 10^3/uL Prothrombin Time 13.4 12.2-14.7 SEC INR Comment 1.0 0.8-1.4 Activated Partial Thromboplast Time 27 24-35 SEC Sodium Level 131 L 131 L 135-145 MMOL/L Potassium Level 5.8 H 5.1 H 3.6-5.0 MMOL/L Chloride Level 101 106 98-107 MMOL/L Carbon Dioxide Level 19 L 16 L 21-32 MMOL/L Anion Gap 11 9 5-14 MMOL/L Blood Urea Nitrogen 47 H 41 H 7-18 MG/DL Creatinine 1.85 H 1.56 H 0.60-1.30 MG/DL Estimat Glomerular Filtration Rate 27 33 BUN/Creatinine Ratio 25 26 Glucose Level 99 93 70-105 MG/DL Calcium Level 9.3 8.5 8.5-10.1 MG/DL Corrected Calcium 9.8 9.4 8.5-10.1 MG/DL Magnesium Level 1.8 1.8-2.4 MG/DL Total Bilirubin 0.3 0.2 0.1-1.0 MG/DL Aspartate Amino Transf (AST/SGOT) 15 15 5-34 U/L Alanine Aminotransferase (ALT/SGPT) 15 14 0-55 U/L Alkaline Phosphatase 108 96 40-136 U/L Troponin I < 0.30 <0.30 NG/ML Total Protein 6.4 5.6 L 6.4-8.2 GM/DL Albumin 3.4 2.9 L 3.2-4.5 GM/DL Urine Color YELLOW Urine Clarity VERY CLOUDY H Urine pH 5 5-9 Urine Specific [place] 1.020 1.016-1.022 Urine Protein 1+ H NEGATIVE Urine Glucose (UA) NEGATIVE NEGATIVE Urine Ketones 1+ H NEGATIVE Urine Nitrite NEGATIVE NEGATIVE Urine Bilirubin NEGATIVE NEGATIVE Urine Urobilinogen NORMAL NORMAL MG/DL Urine Leukocyte Esterase 3+ H NEGATIVE Urine RBC (Auto) 2+ H NEGATIVE Urine RBC NONE /HPF Urine WBC >100 H /HPF Urine Squamous Epithelial Cells NONE /HPF Urine Crystals NONE /LPF Urine Bacteria LARGE H /HPF Urine Casts NONE /LPF Urine Mucus NEGATIVE /LPF Urine Culture Indicated YES My Orders Orders - SALO KOENIG DO Saline Lock/Iv-Start (07/18/18 20:51) Ekg Tracing (07/18/18 20:51) Monitor-Rhythm Ecg Trace Only (07/18/18 20:51) Straight Cath For Spec.-Adult (07/18/18 20:51) Ct Head/Face/Cervical Wo (07/18/18 20:51) Ct Thoracic/Lumbar Spine Wo (07/18/18 20:51) Cbc With Automated Diff (07/18/18 20:51) Comprehensive Metabolic Panel (07/18/18 20:51) Magnesium (07/18/18 20:51) Protime With Inr (07/18/18 20:51) Partial Thromboplastin Time (07/18/18 20:51) Troponin I (07/18/18 20:51) Ua Culture If Indicated (07/18/18 20:51) Chest 1 View, Ap/Pa Only (07/18/18 20:51) Wrist, Right, 3 Views Or More (07/18/18 20:51) Pelvis (07/18/18 20:51) Saline Lock/Iv-Start (07/18/18 21:41) Ns Iv 1000 Ml (Sodium Chloride 0.9%) (07/18/18 21:41) Restraints: Medically Indicate Q2H (07/18/18 22:30) Urine Culture (07/18/18 22:07) Ceftriaxone For Iv Use (Rocephin For I (07/18/18 23:00) Ceftriaxone For Iv Use (Rocephin For I (07/18/18 23:04) Ns (Ivpb) (Sodium Chloride 0.9% Ivpb Bag (07/18/18 23:04) Medications Given in ED Current Medications Medications Dose Ordered Sig/Rosy Route Start Time Stop Time Status Last Admin Dose Admin Sodium Chloride 1,000 ml @ 0 mls/hr Q0M ONCE IV 07/18/18 21:41 07/18/18 21:54 DC 07/18/18 22:02 1,000 MLS/HR Vital Signs/I&O 07/18/18 07/18/18 07/19/18 07/19/18 20:45 23:34 00:00 00:00 Temp 98.1 98.0 97.3 Pulse 103 109 103 Resp 16 18 14 B/P (MAP) 136/65 (88) 129/62 (84) 125/60 (81) Pulse Ox 98 99 97 O2 Delivery Room Air Room Air Room Air 07/19/18 07/19/18 07/19/18 01:36 02:00 04:00 Temp 96.8 97.6 Pulse 99 104 108 Resp 16 16 B/P (MAP) 142/64 (90) 118/59 (78) Pulse Ox 99 98 O2 Delivery Room Air Room Air Capillary Refill : Less Than 3 SecondsLess Than 3 Seconds Blood Pressure Mean: 78 Progress Note : Progress Note PT PULLED OFF HER COLOSTOMY BAG X 2 IN ER--FLINGING AND SPILLING STOOL ALL OVER HERSELF, ER CART, FLOOR , EQUIPMENT, ETC. PT PLACED IN SOFT WRIST RESTRAINTS AFTER SHE WAS CLEANED UP . 2221--CERVICAL COLLAR REMOVED ON RECEIVING CT SCAN REPORT. NO DETERIORATION IN PT'S CONDITION DURING ER STAY ECG Initial ECG Impression Date: Jul 18, 2018 Initial ECG Impression Time: 21:58 Initial ECG Rate: 95 Initial ECG Rhythm: Normal Sinus Diagnostic Imaging Comments CXR--NO ACUTE PROCESS CT HEAD/MAXILLOFACIALS/CERVICAL SPINE--SOFT TISSUE SWELLING LEFT PERIORBITAL AREA CT THORACIC/LUMBAR SPINE--CHRONIC APPEARING COMPRESSION FRACTURES L1 AND L2 RIGHT WRIST XRAYS--IMPACTED COMMINUTED COLLES' FRACTURE OF DISTAL RADIUS. ALL PER RADIOLOGIST REPORTS AT 2207 Reviewed: Reviewed by Me Departure Communication (Admissions) 2224--SPOKE WITH DR. MAC, [facility]. ACCEPTS PT FOR ADMIT. Impression Primary Impression: FALL VS SYNCOPE Additional Impressions: DEHYDRATION RENAL FAILURE ANEMIA UTI HYPERKALEMIA DEMENTIA Disposition: 09 ADMITTED INPATIENT Condition: Stable Admissions Decision to Admit Reason: Admit from ER (General) Decision to Admit/Date: Jul 18, 2018 Time/Decision to Admit Time: 22:25 Departure-Patient Inst. Referrals: JUAN DANIEL CASTELLANOS MD (PCP/Family) Primary Care Physician SALO KOENIG DO Jul 19, 2018 07:26
[2018-07-19] MEDS ORDERED: FLU QUADRIvalent (5+ YOA) 2018-2019 (AFLURIA) 0.5 ML IM ONE (08:00)
[2018-07-19] MEDS: CLOTRIMAZOLE 1% CREAM (LOTRIMIN) 30 GM TOP SCH ×2 (08:59→20:30)
[2018-07-19] MEDS ORDERED: cefTRIAXone 1 GM/NS 50 ML IVPB IV SCH ×2 (23:00)
[2018-07-20 03:35] VITALS: BP 170/88
[2018-07-20] MEDS: NS IV 1000 ML 1,000 ML IV SCH ×2 (06:03→11:46)
[2018-07-20 07:33] VITALS: BP 162/85
[2018-07-20 07:40] LABS: BASOPHILS % (AUTO) 1 % (0-10); EOSINOPHILS # (AUTO) 0.2 10^3/uL (0.0-0.3); EOSINOPHILS % (AUTO) 3 % (0-10); HEMATOCRIT 27 % (35-52); HEMOGLOBIN 8.6 G/DL (11.5-16.0); LYMPHOCYTES # (AUTO) 0.5 X 10^3 (1.0-4.0); LYMPHOCYTES % (AUTO) 9 % (12-44); MEAN CORPUSCULAR HEMOGLOBIN 30 PG (25-34); MEAN CORPUSCULAR HGB CONC 32 G/DL (32-36); MEAN CORPUSCULAR VOLUME 94 FL (80-99); MEAN PLATELET VOLUME 9.8 FL (7.4-10.4); MONOCYTES # (AUTO) 0.9 X 10^3 (0.0-1.0); MONOCYTES % (AUTO) 15 % (0-12); NEUTROPHILS # (AUTO) 4.6 X 10^3 (1.8-7.8); NEUTROPHILS % (AUTO) 73 % (42-75); PLATELET COUNT 256 10^3/uL (130-400); RED BLOOD COUNT 2.86 10^6/uL (4.35-5.85); RED CELL DISTRIBUTION WIDTH 14.1 % (10.0-14.5); WHITE BLOOD COUNT 6.3 10^3/uL (4.3-11.0)
[2018-07-20 07:57] LABS: CALCIUM 8.4 MG/DL (8.5-10.1); POTASSIUM 4.7 MMOL/L (3.6-5.0)
[2018-07-20] MEDS ORDERED: amLODIPine 5 MG (NORVASC) TAB PO ONE (08:45)
[2018-07-20] MEDS: CLOTRIMAZOLE 1% CREAM (LOTRIMIN) 30 GM TOP SCH (08:53)
[2018-07-20] MEDS ORDERED: amLODIPine 5 MG (NORVASC) TAB PO SCH (09:00)
[2018-07-20] MEDS ORDERED: CLOT15CR5 TOP (09:39)
[2018-07-20] MEDS ORDERED: AMLO5TAB7 PO (09:39)
[2018-07-20] MEDS ORDERED: CEFD300C3 PO (09:41)
--- NOTE | 2018-07-20 09:43 | Discharge Summary-Hospitalist ---
Diagnosis/Chief Complaint Date of Admission Jul 18, 2018 at 22:25 Date of Discharge Discharge Date: Jul 20, 2018 Discharge Diagnosis (1) Anemia of chronic disease Status: Chronic (2) Urinary tract infection Status: Acute (3) Dehydration Status: Acute Discharge Summary Discharge Physical Exam Allergies: Coded Allergies: No Known Drug Allergies (Verified , 01/24/14) Vitals & I&Os Vital Signs Date Time Temp Pulse Resp B/P (MAP) Pulse Ox O2 Delivery O2 Flow Rate FiO2 07/20/18 08:00 Room Air 07/20/18 07:33 98.9 111 12 162/85 (110) 96 Hospital Course Labs (last 24 hrs) Laboratory Tests 07/20/18 07:34: White Blood Count 6.3, Red Blood Count 2.86L, Hemoglobin 8.6L, Hematocrit 27L, Mean Corpuscular Volume 94, Mean Corpuscular Hemoglobin 30, Mean Corpuscular Hemoglobin Concent 32, Red Cell Distribution Width 14.1, Platelet Count 256, Mean Platelet Volume 9.8, Neutrophils (%) (Auto) 73, Lymphocytes (%) (Auto) 9L, Monocytes (%) (Auto) 15H, Eosinophils (%) (Auto) 3, Basophils (%) (Auto) 1, Neutrophils # (Auto) 4.6, Lymphocytes # (Auto) 0.5L, Monocytes # (Auto) 0.9, Eosinophils # (Auto) 0.2, Basophils # (Auto) 0.0, Sodium Level 134L, Potassium Level 4.7, Chloride Level 109H, Carbon Dioxide Level 17L, Anion Gap 8, Blood Urea Nitrogen 20H, Creatinine 1.00, Estimat Glomerular Filtration Rate 55, BUN/ Creatinine Ratio 20, Glucose Level 72, Calcium Level 8.4L Microbiology 07/18/18 Urine Culture - Preliminary, Resulted Klebsiella pneumoniae Patient resulted labs reviewed. Pending Labs Laboratory Tests 07/20/18 07:34: White Blood Count 6.3, Red Blood Count 2.86, Hemoglobin 8.6, Hematocrit 27, Mean Corpuscular Volume 94, Mean Corpuscular Hemoglobin 30, Mean Corpuscular Hemoglobin Concent 32, Red Cell Distribution Width 14.1, Platelet Count 256, Mean Platelet Volume 9.8, Neutrophils (%) (Auto) 73, Lymphocytes (%) (Auto) 9, Monocytes (%) (Auto) 15, Eosinophils (%) (Auto) 3, Basophils (%) (Auto) 1, Neutrophils # (Auto) 4.6, Lymphocytes # (Auto) 0.5, Monocytes # (Auto) 0.9, Eosinophils # (Auto) 0.2, Basophils # (Auto) 0.0, Sodium Level 134, Potassium Level 4.7, Chloride Level 109, Carbon Dioxide Level 17, Anion Gap 8, Blood Urea Nitrogen 20, Creatinine 1.00, Estimat Glomerular Filtration Rate 55, BUN/ Creatinine Ratio 20, Glucose Level 72, Calcium Level 8.4 Discharge Home Medications: Active Scripts Active Cefdinir 300 Mg Capsule 300 Mg PO BID Clotrimazole 15 Gm Cream..g. 0 Gm TOP BID Amlodipine Besylate 5 Mg Tablet 5 Mg PO DAILY Reported Melatonin 3 Mg Tablet 3 Mg PO HS Lisinopril 20 Mg Tablet 20 Mg PO DAILY Incruse Ellipta (Umeclidinium [place]) 62.5 Mcg Blst.w.dev 1 Puff IH 1500 Ibuprofen 400 Mg Tablet 400 Mg PO Q6H PRN Fluticasone Propionate 16 Gm [place].susp 2 Sprays NS HS Cyanocobalamin Injection (Cyanocobalamin) 1,000 Mcg/Ml Inj 1,000 Mcg IM EVERY 14 DAYS Vitamin D3 (Cholecalciferol (Vitamin D3)) 1,000 Unit Capsule 2,000 Unit PO DAILY Tramadol HCl 50 Mg Tablet 100 Mg PO BID Toprol Xl (Metoprolol Succinate) 50 Mg Tab.er.24h 50 Mg PO DAILY Symbicort 80-4.5 Mcg Inhaler (Budesonide/Formoterol Fumarate) 10.2 Gm Hfa.aer.ad 2 Puff IH BID Risperidone 1 Mg Tablet 1 Mg PO BID Potassium Chloride 20 Meq Tablet.er 20 Meq PO DAILY Zofran (Ondansetron HCl) 8 Mg Tablet 8 Mg PO Q6H PRN Namzaric 28 mg-10 mg Capsule (Memantine HCl/Donepezil HCl) 1 Each Cap.spr.24 1 Cap PO DAILY Levothyroxine Sodium 75 Mcg Tablet 75 Mcg PO DAILY Proair Hfa (Albuterol Sulfate) 1 Puff Puff 2 Puff IH Q6H PRN 1 PUFF = 90 MCG Instructions to patient/family Please see electronic discharge instructions given to patient. Clinical Quality Measures DVT/VTE Risk/Contraindication: Risk Factor Score Per Nursin RFS Level Per Nursing on Admit: 4+=Very High DMITRIY WEST DO Jul 20, 2018 09:43
[2018-07-20] MEDS ORDERED: LISI-552 PO (10:21)
[2018-07-20] MEDS ORDERED: UMEC62.5 IH (10:21)
[2018-07-20] MEDS ORDERED: TRAM50TA2 PO (10:21)
[2018-07-20] MEDS ORDERED: METO-352 PO (10:21)
[2018-07-20] MEDS ORDERED: LEVO75TA6 PO (10:21)
[2018-07-20] MEDS ORDERED: POTA-51 PO (10:21)
[2018-07-20] MEDS ORDERED: RISP1TAB3 PO (10:21)
[2018-07-20] MEDS ORDERED: BUDE10.22 IH (10:21)
[2018-07-20] MEDS ORDERED: CNC1KV IM (10:21)
[2018-07-20] MEDS ORDERED: CHOL10007 PO (10:21)
[2018-07-20] MEDS ORDERED: RT-ALBUINH IH (10:21)
[2018-07-20] MEDS ORDERED: FLUT16SP22 NS (10:21)
[2018-07-20] MEDS ORDERED: ONDA8TAB6 PO (10:21)
[2018-07-20] MEDS ORDERED: MELA3TAB PO (10:21)
[2018-07-20] MEDS ORDERED: MEMA1CAP3 PO (10:21)
[2018-07-20] MEDS ORDERED: IBUP-1779 PO (10:21)
--- NOTE | 2018-07-20 10:29 | Discharge Summary-Hospitalist ---
Diagnosis/Chief Complaint Date of Admission Jul 18, 2018 at 22:25 Date of Discharge Discharge Date: Jul 20, 2018 Discharge Diagnosis (1) Urinary tract infection Status: Acute (2) Dehydration Status: Acute (3) Anemia of chronic disease Status: Chronic (4) Dementia Status: Chronic (5) DNR (do not resuscitate) Status: Chronic (6) Poor prognosis Status: Chronic (7) Hypertension Status: Chronic (8) Asthma Status: Chronic Discharge Summary Discharge Physical Exam Allergies: Coded Allergies: No Known Drug Allergies (Verified , 01/24/14) Vitals & I&Os Vital Signs Date Time Temp Pulse Resp B/P (MAP) Pulse Ox O2 Delivery O2 Flow Rate FiO2 07/20/18 08:00 Room Air 07/20/18 07:33 98.9 111 12 162/85 (110) 96 General Appearance: No Apparent Distress, Other (minimal conversation) Respiratory: Lungs Clear Cardiovascular: Regular Rate, Rhythm Neurologic/Psychiatric: Alert, Disoriented Hospital Course Hospital course: Patient had an uneventful and short hospital course on observation. Patient was admitted from snf for dehydration and UTI placed on empiric Rocephin and IV antibiotics. Klebsiella was revealed on urine culture and all home medications were restarted. Overall poor prognosis because of the severe dementia and history of subdural hematomas and just overall poor prognosis she will be readmitted back to the snf maintain DO NOT RESUSCITATE status complete antibiotics and restarted all home meds. Labs (last 24 hrs) Laboratory Tests 07/20/18 07:34: White Blood Count 6.3, Red Blood Count 2.86L, Hemoglobin 8.6L, Hematocrit 27L, Mean Corpuscular Volume 94, Mean Corpuscular Hemoglobin 30, Mean Corpuscular Hemoglobin Concent 32, Red Cell Distribution Width 14.1, Platelet Count 256, Mean Platelet Volume 9.8, Neutrophils (%) (Auto) 73, Lymphocytes (%) (Auto) 9L, Monocytes (%) (Auto) 15H, Eosinophils (%) (Auto) 3, Basophils (%) (Auto) 1, Neutrophils # (Auto) 4.6, Lymphocytes # (Auto) 0.5L, Monocytes # (Auto) 0.9, Eosinophils # (Auto) 0.2, Basophils # (Auto) 0.0, Sodium Level 134L, Potassium Level 4.7, Chloride Level 109H, Carbon Dioxide Level 17L, Anion Gap 8, Blood Urea Nitrogen 20H, Creatinine 1.00, Estimat Glomerular Filtration Rate 55, BUN/ Creatinine Ratio 20, Glucose Level 72, Calcium Level 8.4L Microbiology 07/18/18 Urine Culture - Preliminary, Resulted Klebsiella pneumoniae Patient resulted labs reviewed. Pending Labs Laboratory Tests 07/20/18 07:34: White Blood Count 6.3, Red Blood Count 2.86, Hemoglobin 8.6, Hematocrit 27, Mean Corpuscular Volume 94, Mean Corpuscular Hemoglobin 30, Mean Corpuscular Hemoglobin Concent 32, Red Cell Distribution Width 14.1, Platelet Count 256, Mean Platelet Volume 9.8, Neutrophils (%) (Auto) 73, Lymphocytes (%) (Auto) 9, Monocytes (%) (Auto) 15, Eosinophils (%) (Auto) 3, Basophils (%) (Auto) 1, Neutrophils # (Auto) 4.6, Lymphocytes # (Auto) 0.5, Monocytes # (Auto) 0.9, Eosinophils # (Auto) 0.2, Basophils # (Auto) 0.0, Sodium Level 134, Potassium Level 4.7, Chloride Level 109, Carbon Dioxide Level 17, Anion Gap 8, Blood Urea Nitrogen 20, Creatinine 1.00, Estimat Glomerular Filtration Rate 55, BUN/ Creatinine Ratio 20, Glucose Level 72, Calcium Level 8.4 Discussion & Recommendations Discharge Planning: <30 minutes discharge planning Discharge Home Medications: Active Scripts Active Cefdinir 300 Mg Capsule 300 Mg PO BID Clotrimazole 15 Gm Cream..g. 0 Gm TOP BID Amlodipine Besylate 5 Mg Tablet 5 Mg PO DAILY Reported Melatonin 3 Mg Tablet 3 Mg PO HS Lisinopril 20 Mg Tablet 20 Mg PO DAILY Incruse Ellipta (Umeclidinium [place]) 62.5 Mcg Blst.w.dev 1 Puff IH 1500 Ibuprofen 400 Mg Tablet 400 Mg PO Q6H PRN Fluticasone Propionate 16 Gm [place].susp 2 Sprays NS HS Cyanocobalamin Injection (Cyanocobalamin) 1,000 Mcg/Ml Inj 1,000 Mcg IM EVERY 14 DAYS Vitamin D3 (Cholecalciferol (Vitamin D3)) 1,000 Unit Capsule 2,000 Unit PO DAILY Tramadol HCl 50 Mg Tablet 100 Mg PO BID Toprol Xl (Metoprolol Succinate) 50 Mg Tab.er.24h 50 Mg PO DAILY Symbicort 80-4.5 Mcg Inhaler (Budesonide/Formoterol Fumarate) 10.2 Gm Hfa.aer.ad 2 Puff IH BID Risperidone 1 Mg Tablet 1 Mg PO BID Potassium Chloride 20 Meq Tablet.er 20 Meq PO DAILY Zofran (Ondansetron HCl) 8 Mg Tablet 8 Mg PO Q6H PRN Namzaric 28 mg-10 mg Capsule (Memantine HCl/Donepezil HCl) 1 Each Cap.spr.24 1 Cap PO DAILY Levothyroxine Sodium 75 Mcg Tablet 75 Mcg PO DAILY Proair Hfa (Albuterol Sulfate) 1 Puff Puff 2 Puff IH Q6H PRN 1 PUFF = 90 MCG Instructions to patient/family Please see electronic discharge instructions given to patient. Clinical Quality Measures DVT/VTE Risk/Contraindication: Risk Factor Score Per Nursin RFS Level Per Nursing on Admit: 4+=Very High Problem Qualifiers (1) Dementia: Dementia type: Alzheimer's disease Alzheimer's disease onset: unspecified onset Dementia behavioral disturbance: without behavioral disturbance Qualified Codes: G30.9 - Alzheimer's disease, unspecified; F02.80 - Dementia in other diseases classified elsewhere without behavioral disturbance (2) Hypertension: Hypertension type: essential hypertension Qualified Codes: I10 - Essential ( primary) hypertension (3) Asthma: Asthma severity: unspecified severity Asthma persistence: unspecified Asthma complication type: unspecified Qualified Codes: J45.909 - Unspecified asthma, uncomplicated DMITRIY WEST DO Jul 20, 2018 10:29
[2018-07-20 12:08] VITALS: BP 145/68
== END 2018-07-20 09:42 ==
LOC: EDUNIT# 20:43 → ER 20:44 → 4TH 22:25
PROVIDERS: ADMIT Family Medicine; ATTEND Internal Medicine
DX: E86.0 Dehydration (principal); N39.0 Urinary tract infection, site not specified; S05.12XA Contusion of eyeball and orbital tissues, left eye, initial encounter; E87.5 Hyperkalemia; D63.8 Anemia in other chronic diseases classified elsewhere; I10 Essential (primary) hypertension; G30.9 Alzheimer's disease, unspecified; F02.80 Dementia in other diseases classified elsewhere, unspecified severity, without behavioral disturbance, psychotic disturbance, mood disturbance, and anxiety; Z66 Do not resuscitate; J43.9 Emphysema, unspecified; J45.909 Unspecified asthma, uncomplicated; E78.00 Pure hypercholesterolemia, unspecified; E03.9 Hypothyroidism, unspecified; B96.1 Klebsiella pneumoniae [K. pneumoniae] as the cause of diseases classified elsewhere; Z85.038 Personal history of other malignant neoplasm of large intestine; W19.XXXA Unspecified fall, initial encounter; Y92.129 Unspecified place in nursing home as the place of occurrence of the external cause; Z93.3 Colostomy status; Z87.820 Personal history of traumatic brain injury; Z79.899 Other long term (current) drug therapy
CPT/HCPCS: 36415; 51701; 70450; 70486; 71045; 72125; 72128; 72131; 72170; 73110; 80048; 80053; 81000; 83735; 84484; 85025; 85610; 85730; 87077; 87088; 87186; 93005; 96361; 96374; G0378

== ENCOUNTER 2018-08-22 13:50 | Inpatient (IN) | payer MEDICARE, MEDICAID ==
[~2018-08-22] VITALS: Ht 165.1 cm; Wt 86.0 kg
[~2018-08-22 13:50] MED LIST changes: +AMLO5TAB7 PO; +BUDE10.22 IH; +CEFD300C3 PO; +CHOL10007 PO; +CLOT15CR5 TOP; +CNC1KV IM; +FLUT16SP22 NS; +IBUP-1779 PO; +LEVO75TA6 PO; +LISI-552 PO; +MELA3TAB PO; +MEMA1CAP3 PO; +METO-352 PO; +ONDA8TAB6 PO; +POTA-51 PO; +RISP1TAB3 PO; +RT-ALBUINH IH; +TRAM50TA2 PO; +UMEC62.5 IH
[2018-08-22] MEDS ORDERED: cefTRIAXone FOR IV USE 2,000 MG in NS (IVPB) 50 ML IV ONE (14:00)
[2018-08-22 14:11] LABS: BASOPHILS % (AUTO) 1 % (0-10); EOSINOPHILS # (AUTO) 0.4 10^3/uL (0.0-0.3); EOSINOPHILS % (AUTO) 6 % (0-10); HEMATOCRIT 30 % (35-52); HEMOGLOBIN 9.2 G/DL (11.5-16.0); LYMPHOCYTES # (AUTO) 0.5 X 10^3 (1.0-4.0); LYMPHOCYTES % (AUTO) 8 % (12-44); MEAN CORPUSCULAR HEMOGLOBIN 30 PG (25-34); MEAN CORPUSCULAR HGB CONC 31 G/DL (32-36); MEAN CORPUSCULAR VOLUME 98 FL (80-99); MEAN PLATELET VOLUME 12.6 FL (7.4-10.4); MONOCYTES # (AUTO) 0.9 X 10^3 (0.0-1.0); MONOCYTES % (AUTO) 13 % (0-12); NEUTROPHILS # (AUTO) 4.9 X 10^3 (1.8-7.8); NEUTROPHILS % (AUTO) 72 % (42-75); PLATELET COUNT 188 10^3/uL (130-400); RED BLOOD COUNT 3.03 10^6/uL (4.35-5.85); RED CELL DISTRIBUTION WIDTH 14.4 % (10.0-14.5); WHITE BLOOD COUNT 6.7 10^3/uL (4.3-11.0)
--- NOTE | 2018-08-22 14:15 | ED General ---
General Chief Complaint: Fever-Adult/Adol Stated Complaint: DECREASED LOC/FEVER Source of Information: Patient, EMS Exam Limitations: Physical Impairments History of Present Illness Date Seen by Provider: Aug 22, 2018 Time Seen by Provider: 14:11 Initial Comments This 72-year-old white female presents with a decreased level of consciousness in last 24 hours. Patient has had associated fever. Patient has demonstrated a mild cough. EMSs brought the patient from the intermediate. Allergies and Home Medications Allergies Coded Allergies: No Known Drug Allergies (Verified , 01/24/14) Home Medications Albuterol Sulfate 1 Puff Puff, 2 PUFF IH Q6H PRN for SHORTNESS OF BREATH, ( Reported) 1 PUFF = 90 MCG Amlodipine Besylate 5 Mg Tablet, 5 MG PO DAILY Prescribed by: DMITRIY WEST on 07/20/18 09 Budesonide/Formoterol Fumarate 10.2 Gm Hfa.aer.ad, 2 PUFF IH BID, (Reported) Cefdinir 300 Mg Capsule, 300 MG PO BID Prescribed by: DMITRIY WEST on 07/20/18 0941 Cholecalciferol (Vitamin D3) 1,000 Unit Capsule, 2,000 UNIT PO DAILY, (Reported) Clotrimazole 15 Gm Cream..g., 0 GM TOP BID Prescribed by: DMITRIY WEST on 07/20/18938 Cyanocobalamin 1,000 Mcg/Ml Inj, 1,000 MCG IM EVERY 14 DAYS, (Reported) Fluticasone Propionate 16 Gm [place].susp, 2 SPRAYS NS HS, (Reported) Ibuprofen 400 Mg Tablet, 400 MG PO Q6H PRN for PAIN-MILD, (Reported) Levothyroxine Sodium 75 Mcg Tablet, 75 MCG PO DAILY, (Reported) Lisinopril 20 Mg Tablet, 20 MG PO DAILY, (Reported) Melatonin 3 Mg Tablet, 3 MG PO HS, (Reported) Memantine HCl/Donepezil HCl 1 Each Cap.spr.24, 1 CAP PO DAILY, (Reported) Metoprolol Succinate 50 Mg Tab.er.24h, 50 MG PO DAILY, (Reported) Ondansetron HCl 8 Mg Tablet, 8 MG PO Q6H PRN for NAUSEA/VOMITING-1ST LINE, ( Reported) Potassium Chloride 20 Meq Tablet.er, 20 MEQ PO DAILY, (Reported) Risperidone 1 Mg Tablet, 1 MG PO BID, (Reported) Tramadol HCl 50 Mg Tablet, 100 MG PO BID, (Reported) Umeclidinium [place] 62.5 Mcg Blst.w.dev, 1 PUFF IH 1500, (Reported) Patient Home Medication List Home Medication List Reviewed: Yes Review of Systems Review of Systems Constitutional: fever, weakness EENTM: no symptoms reported Respiratory: see HPI, cough; No short of breath Cardiovascular: No chest pain, No palpitations Gastrointestinal: No abdominal pain, No diarrhea, No nausea, No vomiting Genitourinary: No dysuria, No hematuria : No Musculoskeletal: No back pain, No joint pain Skin: No change in color, No rash Psychiatric/Neurological: No Symptoms Reported Hematologic/Lymphatic: No Symptoms Reported Immunological/Allergic: no symptoms reported Past Hnahsjg-Ugeeen-Fnczjl Hx Past Med/Social Hx: Reviewed Nursing Past Med/Soc Hx Patient Social History 2nd Hand Smoke Exposure: No Recent Hopitalizations: Yes Immunizations Up To Date Tetanus Booster (TDap): Less than 5yrs Date of Pneumonia Vaccine: January 24, 2014 Date of Influenza Vaccine: Jul 14, 2018 Seasonal Allergies Seasonal Allergies: Yes Past Medical History Surgeries: Yes (COLO-RECTAL CANCER, COLOSTOMY) Bowel Surgery Respiratory: Yes (ASTHMA) Asthma, COPD, Emphysema Cardiac: Yes High Cholesterol, Hypertension Neurological: Yes (BILATERAL SUBDURAL HEMATOMAS 2013) Dementia, Traumatic Brain Injury Reproductive Disorders: No Genitourinary: Yes UTI-Chronic Gastrointestinal: Yes (COLON CANCER WITH RESECTION AND COLOSTOMY) Musculoskeletal: Yes (WALKING DIFFICULTY) Arthritis, Chronic Back Pain Endocrine: Yes Hypothyroidsim HEENT: Yes (RHINITIS, BLEPHARITIS, CHALAZION) Cancer: Yes Colon Did You Recieve Any Treatments: Yes What Type of Treatment Did You: Surgical Intervention Psychosocial: Yes Sleep Difficulties, Depression Integumentary: Yes (CELLULLITIS) Blood Disorders: No Family Medical History Family history: Diabetes mellitus 19 MOTHER Parkinson's disease 19 FATHER No Family History of: Abdominal aortic aneurysm Physical Exam-Suspected Sepsis Physical Exam Vital Signs Vital Signs - First Documented 08/22/18 13:50 Temp 100.1 Pulse 96 Resp 20 B/P (MAP) 135/61 (85) Pulse Ox 96 O2 Delivery Room Air Capillary Refill : Height, Weight, BMI Height: 5'5.00" Weight: 189lbs. 11.2oz. [id number]; 29.3 BMI Method:Estimated General Appearance: No Apparent Distress, Obese Eyes: Bilateral Eye Normal Inspection HEENT: Normal ENT Inspection Neck: Full Range of Motion, Normal Inspection, Non Tender, Supple Respiratory: Decreased Breath Sounds Cardiovascular: Regular Rate, Rhythm Gastrointestinal: Normal Bowel Sounds, Non Tender, Soft Back: Normal Inspection Extremity: Normal Capillary Refill Neurologic/Psychiatric: No Motor/Sensory Deficits Skin: normal color; No rash on exposed areas Focused Exam Lactate Level 08/22/18 14:00: Lactic Acid Level 0.62 Lactic Acid Level Laboratory Tests Test 08/22/18 14:00 Lactic Acid Level 0.62 MMOL/L (0.50-2.00) Progress/Results/Core Measures Suspected Sepsis SIRS Temperature: Pulse: Respiratory Rate: Laboratory Tests 08/22/18 14:00: White Blood Count 6.7 Blood Pressure / Mean: 08/22/18 14:00: Lactic Acid Level 0.62 Laboratory Tests 08/22/18 14:00: Creatinine 1.50H, Platelet Count 188, Total Bilirubin 0.3 Results/Orders Lab Results Laboratory Tests Test 08/22/18 14:00 08/22/18 14:19 Range/Units White Blood Count 6.7 4.3-11.0 10^3/uL Red Blood Count 3.03 L 4.35-5.85 10^6/uL Hemoglobin 9.2 L 11.5-16.0 G/DL Hematocrit 30 L 35-52 % Mean Corpuscular Volume 98 80-99 FL Mean Corpuscular Hemoglobin 30 25-34 PG Mean Corpuscular Hemoglobin Concent 31 L 32-36 G/DL Red Cell Distribution Width 14.4 10.0-14.5 % Platelet Count 188 130-400 10^3/uL Mean Platelet Volume 12.6 H 7.4-10.4 FL Neutrophils (%) (Auto) 72 42-75 % Lymphocytes (%) (Auto) 8 L 12-44 % Monocytes (%) (Auto) 13 H 0-12 % Eosinophils (%) (Auto) 6 0-10 % Basophils (%) (Auto) 1 0-10 % Neutrophils # (Auto) 4.9 1.8-7.8 X 10^3 Lymphocytes # (Auto) 0.5 L 1.0-4.0 X 10^3 Monocytes # (Auto) 0.9 0.0-1.0 X 10^3 Eosinophils # (Auto) 0.4 H 0.0-0.3 10^3/uL Basophils # (Auto) 0.0 0.0-0.1 10^3/uL Neutrophils % (Manual) 69 % Lymphocytes % (Manual) 7 % Monocytes % (Manual) 16 % Eosinophils % (Manual) 7 % Basophils % (Manual) 1 % Band Neutrophils 0 % Blood Morphology Comment NORMAL Sodium Level 142 135-145 MMOL/L Potassium Level 5.4 H 3.6-5.0 MMOL/L Chloride Level 114 H 98-107 MMOL/L Carbon Dioxide Level 20 L 21-32 MMOL/L Anion Gap 8 5-14 MMOL/L Blood Urea Nitrogen 61 H 7-18 MG/DL Creatinine 1.50 H 0.60-1.30 MG/DL Estimat Glomerular Filtration Rate 34 BUN/Creatinine Ratio 41 Glucose Level 86 70-105 MG/DL Lactic Acid Level 0.62 0.50-2.00 MMOL/L Calcium Level 9.4 8.5-10.1 MG/DL Corrected Calcium 10.0 8.5-10.1 MG/DL Total Bilirubin 0.3 0.1-1.0 MG/DL Aspartate Amino Transf (AST/SGOT) 20 5-34 U/L Alanine Aminotransferase (ALT/SGPT) 17 0-55 U/L Alkaline Phosphatase 99 40-136 U/L Total Protein 6.3 L 6.4-8.2 GM/DL Albumin 3.3 3.2-4.5 GM/DL Urine Color YELLOW Urine Clarity SLIGHTLY CLOUDY Urine pH 5 5-9 Urine Specific [place] 1.020 1.016-1.022 Urine Protein 1+ H NEGATIVE Urine Glucose (UA) NEGATIVE NEGATIVE Urine Ketones 1+ H NEGATIVE Urine Nitrite NEGATIVE NEGATIVE Urine Bilirubin NEGATIVE NEGATIVE Urine Urobilinogen NORMAL NORMAL MG/DL Urine Leukocyte Esterase 1+ H NEGATIVE Urine RBC (Auto) 2+ H NEGATIVE Urine RBC 2-5 H /HPF Urine WBC RARE /HPF Urine Squamous Epithelial Cells 0-2 /HPF Urine Crystals NONE /LPF Urine Bacteria NEGATIVE /HPF Urine Casts NONE /LPF Urine Mucus NEGATIVE /LPF Urine Culture Indicated NO Micro Results Microbiology 08/22/18 Influenza Types A,B Antigen (OLLIE) - Final, Complete My Orders Orders - NNAMDI MOON MD Cbc With Automated Diff (08/22/18 13:57) Comprehensive Metabolic Panel (08/22/18 13:57) Ua Culture If Indicated (08/22/18 13:57) Blood Culture (08/22/18 13:57) Chest 1 View, Ap/Pa Only (08/22/18 13:57) Lactic Acid Analyzer (08/22/18 13:57) Ceftriaxone For Iv Use (Rocephin For I (08/22/18 14:00) Manual Differential (08/22/18 14:00) Influenza A And B Antigens (08/22/18 14:21) Medications Given in ED Current Medications Medications Dose Ordered Sig/Rosy Route Start Time Stop Time Status Last Admin Dose Admin Ceftriaxone Sodium 2000 mg/ Sodium Chloride 50 ml @ 100 mls/hr ONCE ONCE IV 08/22/18 14:00 08/22/18 14:29 DC 08/22/18 14:35 100 MLS/HR Vital Signs/I&O 08/22/18 13:50 Temp 100.1 Pulse 96 Resp 20 B/P (MAP) 135/61 (85) Pulse Ox 96 O2 Delivery Room Air Capillary Refill : Progress Note : Time: 15:00 Progress Note Patient's laboratory and radiographic evaluation emesis treated evidence of a possible UTI, essentially clear chest x-ray, and significant dehydration ( creatinine 1.5 and BUN 50) Patient received 2 g Rocephin long the emergency department and IV fluids. Telephone consultation was undertaken with who was kind enough to admit the patient. The patient is DO NOT RESUSCITATE. ECG Initial ECG Impression Date: Aug 22, 2018 Departure Communication (Admissions) Time/Spoke to Admitting Phy: 15:01 Dr. Ramires. Impression Primary Impression: Dehydration Additional Impression: Fever Qualified Codes: R50.9 - Fever, unspecified Disposition: 09 ADMITTED INPATIENT Condition: Improved Admissions Decision to Admit Reason: Admit from ER (General) Decision to Admit/Date: Aug 22, 2018 Time/Decision to Admit Time: 15:02 Departure-Patient Inst. Referrals: JUAN DANIEL CASTELLANOS MD (PCP/Family) Primary Care Physician NNAMDI MOON MD Aug 22, 2018 14:15
--- NOTE | 2018-08-22 14:23 | Diagnostic Imaging Report ---
INDICATION: Weakness and pneumonia. TIME OF EXAM: 2:09 PM Comparison is made with prior chest from 07/18/2018. FINDINGS: The heart size is normal. The pulmonary vascularity is unremarkable. The lungs are clear. No infiltrate, effusion or pneumothorax is detected. IMPRESSION: No acute cardiopulmonary process is detected. Dictated by: Dictated on workstation # [id number]
[2018-08-22 14:27] LABS: BILIRUBIN,URINE NEGATIVE (NEGATIVE); CLARITY,URINE SLIGHTLY CLOUDY; COLOR,URINE YELLOW; GLUCOSE, URINE (UA) NEGATIVE (NEGATIVE); KETONES,URINE 1+ (NEGATIVE); LEUKOCYTE ESTERASE ,URINE 1+ (NEGATIVE); NITRITE,URINE NEGATIVE (NEGATIVE); PH,URINE 5 (5-9); PROTEIN,URINE 1+ (NEGATIVE); UROBILINOGEN,URINE NORMAL (NORMAL)
[2018-08-22 14:29] LABS: ALBUMIN 3.3 GM/DL (3.2-4.5); BILIRUBIN,TOTAL 0.3 MG/DL (0.1-1.0); CALCIUM 9.4 MG/DL (8.5-10.1); CREATININE SERUM 1.5 MG/DL (0.60-1.30); POTASSIUM 5.4 MMOL/L (3.6-5.0); TOTAL PROTEIN 6.3 GM/DL (6.4-8.2)
[2018-08-22 14:50] LABS: BACTERIA,URINE NEGATIVE /HPF; SQUAMOUS EPITHELIAL CELL,UR 0-2 /HPF; WBC,URINE RARE /HPF
[2018-08-22 14:55] LABS: BAND NEUTROPHILS 0 %; BASOPHILS % (MANUAL) 1 %; EOSINOPHILS % (MANUAL) 7 %; LYMPHOCYTES % (MANUAL) 7 %; MONOCYTES % (MANUAL) 16 %; NEUTROPHILS % (MANUAL) 69 %; RBC MORPH NORMAL
--- OUTSIDE RECORDS SUMMARY | 2018-08-22 16:01 | XMS REPORT ---
Author Author JUAN DANIEL CASTELLANOS [facility] Address [address] [place] [address] Care Team Providers Care Dishwasher Preparer Name Role Phone JUAN DANIEL CASTELLANOS Unavailable PROBLEMS Type Condition ICD9-CM Code PVZ79-TU Code Onset Dates Condition Status SNOMED Code Problem Anorexia R63.0 Active 08762517 Problem Brief psychotic disorder F23 Active 9554385 Problem Primary insomnia F51.01 Active 5898428 Problem Recurrent major depressive disorder, remission status unspecified F33.9 Active 81214969 Problem 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 Active 48949032 Problem Hyperlipidemia, unspecified hyperlipidemia type E78.5 Active 15517375 Problem Dementia with behavioral disturbance, unspecified dementia type F03.91 Active 4048235225263 Problem Essential (primary) hypertension I10 Active 08035864 Problem Dementia F03.90 Active 58043410 Problem Acquired hypothyroidism E03.9 Active 949545279 Problem COPD (chronic obstructive pulmonary disease) J44.9 Active 20629822 Problem Allergy, subsequent encounter T78.40XD Active 675092305 ALLERGIES No Information ENCOUNTERS Encounter Location Date Diagnosis [place] [address], [place] [address] Jul, Left hip pain M25.552 [facility] [address] [place] [address] Jun, Urinary tract infection without hematuria, site unspecified N39.0 ; Dehydration E86.0 and Fall, sequela W19.XXXS [facility] [address], [place] [address] Jun, Weight loss R63.4 and Acquired hypothyroidism E03.9 [facility] [id number] [address] Jun, Left hip pain M25.552 [facility] [address] [place] [id number] May, Dementia with behavioral disturbance, unspecified dementia type F03.91 [facility] [address] [place] [id number] [place] [address] 64231- 2738 22 May, 2018 [facility] [address] [place] [id number] May, Traumatic pneumothorax, initial encounter S27.0XXA ; COPD (chronic obstructive pulmonary disease) J44.9 and Dementia F03.90 [place] [id number] [place] [address] 14690- 8983 18 May, 2018 [place] [id number] [place] [address] 15518- 4669 May, Left hip pain M25.552 [place] [id number] [place] [address] 97983- 3815 May, Dementia with behavioral disturbance, unspecified dementia type F03.91 [place] [id number] [place] [address] 10321- 8065 Apr, Left hip pain M25.552 [place] [address] [id number] [place] [address] 65248- 9418 Apr, [facility] [address] [place] [id number] Apr, [place] [address] [place] [address] 73729- 6355 Apr, Left hip pain M25.552 [facility] [address] [place] [id number] Apr, Dementia F03.90 and Left hip pain M25.552 [place] [id number] [place] [address] 31981- 0481 Mar, [facility] [id number] [place] [address] 78834- 8085 Mar, [facility] [id number] [place] [address] 57341- 3150 Mar, [facility] [address] [place] [id number] Feb, Dementia F03.90 [facility] [address] [facility] [id number], [place] [address] Feb, [facility] [address] [facility] [id number], [place] [address] January, [facility] [id number], [place] [address] Dec, [facility] [address] [place] [place] [id number] Nov, Dementia F03.90 and COPD (chronic obstructive pulmonary disease) J44.9 [facility] [id number] [id number] Nov, [facility] [address] [id number] [address] Oct, [facility] [address] [place] [id number] Sep, Anemia, unspecified type D64.9 [facility] [id number], [place] [address] Sep, [facility] [id number], [place] [address] Sep, [facility] [address] [place] [id number] [address] Sep, [facility] [address] [id number] [id number] Aug, [facility] [address] [id number] [address] Aug, [facility] [address] [facility] [id number], [place] [address] Aug, [facility] [address] [id number][place] [id number] Aug, [facility] [id number], [place] [address] 25[address] Aug, [facility] [address] [id number], [place] [address] Jul, [facility] [address] [id number][place] [id number] Jul, [facility] [address] [id number][place] [address] Jul, [facility] [address] [id number][place] [address] Jun, [facility] [address] [facility] [id number], [place] [address] Jun, [facility] [address] [place] [id number] Jun, Left hip pain M25.552 and Dementia F03.90 [facility] [address] [facility] [id number], [place] [address] May, [facility] [address] [id number][place] [address] May, [facility] [address] [id number][place] [address] May, [facility] [address] [facility] [id number], [place] [address] May, [facility] [address] [id number], [place] [id number] Apr, [facility] [address] [facility] [id number], [place] [address] 2546 Apr, [facility] [address] [facility] [id number], [place] [address] 64[address] Apr, [facility] [address] [id number], [place] [id number] Apr, Dementia F03.90 [facility] [address] [id number], [place] [address] Apr, [facility] [address] [facility] [id number], [place] [address]- [address] Apr, [facility] [address] [place] [id number] Apr, Edema of both legs R60.0 [facility] [address] [id number], [place] [id number] Mar, [facility] [address] [id number][place] [address] Mar, [facility] [address] [id number], [place] [id number] Mar, Anorexia R63.0 [facility] [address] [id number], [place] [address]- 2546 Mar, [facility] [address] [id number], [place] [address] Mar, [facility] [address] [id number], [place] [id number] Feb, [facility] [address] [id number], [place] [address] Feb, [facility] [address] [facility] [id number], [place] [address]106 Feb, Urinary tract infection without hematuria, site unspecified N39.0 [facility] [address] [id number] [address] January, Anorexia R63.0 [facility] [address] [id number], [place] [address] 2546 January, [facility] [address] [id number][place] [id number] January, [facility] [address] [id number], [place] [address] 4[address] January, Dementia F03.90 [facility] [address] [id number], [place] [address] January, [facility] [address] [place] [id number] Dec, Left hip pain M25.552 and Dementia F03.90 [facility] [address] [place] [address] [id number], [place] [address] Dec, [facility] [address] [id number], [place] [address] Nov, [facility] [address] [facility] [id number], [place] [address]- 7742 Oct, [facility] [address] [place] [id number] Oct, Dementia F03.90 and Other depression F32.89 [facility] [address] [place] [id number] Oct, Dementia F03.90 ; Essential (primary) hypertension I10 and COPD (chronic obstructive pulmonary disease) J44.9 [place] [address], [place] [address] Oct, [facility] [address], [place] [address]- 3482 Sep, [facility] [address] [place] [id number] Aug, COPD (chronic obstructive pulmonary disease) J44.9 and Dementia F03.90 [facility] [address] [place] [id number] Jun, Dementia F03.90 and COPD (chronic obstructive pulmonary disease) J44.9 [facility] [address] [place] [id number] Apr, COPD (chronic obstructive pulmonary disease) J44.9 and Essential (primary ) hypertension I10 [facility] [address] [facility] [id number], [place] [address]- 6624 Apr, [facility] [address] [facility] [id number], [place] [address]- 0165 Mar, [facility] [address] [facility] [id number], [place] [address]- 2268 Mar, COPD (chronic obstructive pulmonary disease) J44.9 [facility] [address] [place] [id number] [place] [address] 20522- 0124 January, COPD (chronic obstructive pulmonary disease) J44.9 and Allergy, subsequent encounter T78.40XD [place] [address] [place] [id number] [place] [address] 28330- 8107 Nov, COPD (chronic obstructive pulmonary disease) J44.9 ; Dementia F03.90 and Essential (primary) hypertension I10 [place] [address] [address] [id number] [place] [address] 35418- 1600 Oct, COPD (chronic obstructive pulmonary disease) J44.9 [place] [address] [address] [id number] [place] [address] 95457- 2970 Sep, COPD (chronic obstructive pulmonary disease) J44.9 [place] [address] [address] [id number] [place] [address] 55803- 0868 Sep, Essential (primary) hypertension I10 [place] [address] [address] [id number] [place] [address] 52858- 4634 Sep, Dementia F03.90 and Essential hypertension, benign 401.1 [place] [address] [address] [id number] [place] [address] 18712- 9567 Jul, Dementia F03.90 and COPD (chronic obstructive pulmonary disease) J44.9 [place] [address] [place] [id number] [place] [address] 73885- 8717 Jun, [place] [address] [id number] [place] [address] 36045- 2782 Jun, [place] [address] [place] [address] [id number] [place] [address] 14128- 7349 May, Chronic airway obstruction, not elsewhere classified 496 and Essential hypertension, benign 401.1 [place] [address] [place] [id number] [place] [address] 26251- 9137 Mar, Essential hypertension, benign 401.1 and Dementia 294.20 [place] [address] [place] [address] [id number] [place] [address] 55437- 5162 January, Dementia 294.20 [facility] [address] [id number] [place] [address]- 0898 Dec, [facility] [address] [id number] [place] [address]- 8523 Dec, [facility] [address] [place] [id number] Nov, [facility] [address] [id number] [place] [address]- 1119 Nov, [facility] [address] [id number] [place] [address]- 0947 Sep, [facility] [address] [id number] [place] [address]- 5606 Sep, [facility] [address] [id number] [place] [address] Aug, [facility] [address] [id number] [place] [address]- 3825 Aug, [facility] [address] [id number] [place] [address]- 5086 Jul, [facility] [address] [id number] [place] [address]- 7428 Jul, [facility] [address] [id number] [place] [address]- 9327 Jun, [facility] [address] [id number] [place] [address]- 6015 Jun, [facility] [address] [id number] [place] [address]- 2422 Mar, [facility] [place] [facility] [address] [id number] [place] [address] 8189 Mar, [facility] [address] [id number] [place] [address]- 2130 Mar, [facility] [address] [id number] [place] [address]- 6419 Mar, [facility] [place] [facility] [address] [id number] [place] [address]- 4641 Mar, [facility] [place] [facility] [address] [id number] [place] [address]- 6935 Mar, [facility] [place] [facility] [address] [id number] [place] [address]- 1561 January, [facility] [place] [facility] [address] [id number] [place] [address]- 4608 January, [facility] [place] [facility] [address] [id number] [place] [address]- 0241 January, [facility] [place] [facility] [address] [id number] [place] [address]- 1729 January, [facility] [place] [facility] [address] [id number] [place] [address]- 8802 January, [facility] [place] [facility] [address] [id number] [place] [address]- 9880 Aug, [facility] [place] [facility] [address] [id number] [place] [address]- 4320 Aug, [facility] [place] [facility] [address] [id number] [place] [address]- 5687 Mar, [facility] [place] [facility] [address] [id number] [place] [address]- 3252 Mar, [facility] [place] [facility] [address] [id number] [place] [address]- 6164 Jun, [facility] [place] [facility] [address] [id number] [place] [address]- 7220 Jun, [facility] [place] [facility] [address] [id number] [place] 1320 Jun, [facility] [place] [facility] [address] [id number] [place] [address] Jun, [facility] [place] [facility] [address], [place] [address]- 7323 10 Jun, 2012 [facility] [address], [place] [address]- 7182 Jun, [facility] [address], [place] [address]- 3956 Jun, [facility] [address], [place] [address]- 6586 Apr, [facility] [address], [place] [address]- 9903 Feb, [facility] [address] [place] [address] 87825- 2443 Oct, [facility] [address] [place] [address] 64051- 0896 Aug, [facility] [address] [place] [address] 56092- 9471 Aug, [facility] [address] 7387 Aug, [facility] [address] [place] [address] 739187- 5721 Aug, [facility] [address] [address]- 5866 Apr, [facility] [address], [place] [address]- 7416 January, [facility] [address], [place] [address]- 2135 January, [facility] [address], [place] [address]- 0914 Dec, IMMUNIZATIONS No Known Immunizations SOCIAL HISTORY Never Assessed REASON FOR VISIT PLAN OF CARE VITAL SIGNS MEDICATIONS Medication Instructions Dosage Frequency Start Date End Date Duration Status Tramadol HCl 50 mg Orally 2 times a day 2 tablet 12h 30 Feb, 2017 Dec, 28 days Active RESULTS No Results PROCEDURES No Known procedures INSTRUCTIONS MEDICATIONS ADMINISTERED No Known Medications MEDICAL (GENERAL) HISTORY Type Description Date Surgical History No Surgical history information
--- OUTSIDE RECORDS SUMMARY | 2018-08-22 16:01 | XMS REPORT ---
Author Author TEJ CHILEL [facility] Address [address] [place] [address] Care Team Providers Care Social Welfare Administrator Name Role Phone TEJ CHILEL Unavailable PROBLEMS Type Condition ICD9-CM Code UNR46-OG Code Onset Dates Condition Status SNOMED Code Problem Anorexia R63.0 Active 46763395 Problem Brief psychotic disorder F23 Active 4455152 Problem Primary insomnia F51.01 Active 0898252 Problem Recurrent major depressive disorder, remission status unspecified F33.9 Active 07453695 Problem 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 Active 97651714 Problem Hyperlipidemia, unspecified hyperlipidemia type E78.5 Active 76086486 Problem Dementia with behavioral disturbance, unspecified dementia type F03.91 Active 1734859577327 Problem Essential (primary) hypertension I10 Active 05091385 Problem Dementia F03.90 Active 93371473 Problem Acquired hypothyroidism E03.9 Active 636451285 Problem COPD (chronic obstructive pulmonary disease) J44.9 Active 38282450 Problem Allergy, subsequent encounter T78.40XD Active 136064910 ALLERGIES No Known Allergies ENCOUNTERS Encounter Location Date Diagnosis [facility] [address] [place] [id number] Jun, Urinary tract infection without hematuria, site unspecified N39.0 ; Dehydration E86.0 and Fall, sequela W19.XXXS [facility] [address] [facility] [id number] [address] Jun, Weight loss R63.4 and Acquired hypothyroidism E03.9 [facility] [address] [facility] [id number], [place] [address] Jun, Left hip pain M25.552 [facility] [address] [place] [id number] May, Dementia with behavioral disturbance, unspecified dementia type F03.91 [facility] [address], [place] [address] May, [facility] [address] [place] [id number] May, Traumatic pneumothorax, initial encounter S27.0XXA ; COPD (chronic obstructive pulmonary disease) J44.9 and Dementia F03.90 [place] [facility] [address] [id number] [address] 18 May, 2018 [place] [id number] [place] [address]- [address]349 14 May, 2018 Left hip pain M25.552 [facility] [id number] [place] [address]- 4229 May, Dementia with behavioral disturbance, unspecified dementia type F03.91 [place] [id number] [place] [address]5785- 5448 Apr, Left hip pain M25.552 [facility] [id number] [place] [address]95- 4282 Apr, [facility] [address] [place] [id number] Apr, [place] [address] [place] [address]37- 6640 Apr, Left hip pain M25.552 [facility] [address] [place] [id number] Apr, Dementia F03.90 and Left hip pain M25.552 [place] [address], [place] [address] Mar, [facility] [facility] [id number] [place] [address]78- 0676 Mar, [facility] [id number] [place] [address] 05286- 5818 Mar, [facility] [address] [place] [id number] Feb, Dementia F03.90 [place] [address] [id number], [place] [address] Feb, [facility] [address] [facility] [id number], [place] [address] January, [facility] [address] [facility] [id number], [place] [address] Dec, [facility] [address] [place] [id number] Nov, Dementia F03.90 and COPD (chronic obstructive pulmonary disease) J44.9 [facility] [address] [id number][place] [id number] Nov, [facility] [id number] [place] [id number] Oct, [facility] [address] [place] [id number] Sep, Anemia, unspecified type D64.9 [facility] [address], [place] [address] Sep, [facility] [address], [place] [address] Sep, [facility] [address] [id number] [id number] Sep, [facility] [id number][place] [id number] Aug, [facility] [id number], [place] [id number] Aug, [facility] [address] [facility] [id number], [place] [address] Aug, [facility] [address] [id number] [address] Aug, [facility] [address] [facility] [id number], [place] [address] Aug, [facility] [address] [id number], [place] [address] Jul, [facility] [address] [id number][place] [id number] Jul, [facility] [address] [id number][place] [id number] Jul, [facility] [address] [id number][place] [address] Jun, [facility] [address] [facility] [id number], [place] [address] Jun, [facility] [address] [id number] Jun, Left hip pain M25.552 and Dementia F03.90 [facility] [address] [facility] [id number], [place] [address] May, [facility] [address] [id number] [id number] May, [facility] [address] [id number] [id number] May, [facility] [address] [facility] [id number], [place] [address] May, [facility] [address] [id number][place] [address] Apr, [facility] [address] [id number], [place] [address] 7[address] Apr, [facility] [address], [place] [address] Apr, [facility] [address] [id number][place] [id number] Apr, Dementia F03.90 [facility] [address] [facility] [id number], [place] [address] Apr, [facility] [address] [facility] [id number], [place] [address] Apr, [facility] [address] [id number] Apr, Edema of both legs R60.0 [facility] [address] [id number], [place] [id number] Mar, [facility] [address] [id number][place] [id number] Mar, [facility] [address] [id number][place] [id number] Mar, Anorexia R63.0 [facility] [address] [facility] [id number], [place] [address]- [address]46 Mar, [facility] [address] [id number], [place] [address] Mar, [facility] [id number] [place] [id number] Feb, [facility] [address] [id number] [id number] Feb, [facility] [address], [place] [address] Feb, Urinary tract infection without hematuria, site unspecified N39.0 [facility] [address], [place] [address] January, Anorexia R63.0 [facility] [address] [id number], [place] [address]46 January, [facility] [id number], [place] [address] January, [facility] [address] [id number], [place] [address]46 January, Dementia F03.90 [facility] [id number], [place] [id number] January, [facility] [address] [place] [id number] Dec, Left hip pain M25.552 and Dementia F03.90 [facility] [id number], [place] [address] Dec, [facility] [id number], [place] [id number] Nov, [facility] [address] [place] [address] 46375- 6099 Oct, [facility] [address] [place] [id number] Oct, Dementia F03.90 and Other depression F32.89 [facility] [address] [place] [id number] Oct, Dementia F03.90 ; Essential (primary) hypertension I10 and COPD (chronic obstructive pulmonary disease) J44.9 [facility] [address], [place] [address]- 7110 Oct, [facility] [address] [place] [address] 73279- 1138 Sep, [facility] [address] [place] [id number] Aug, COPD (chronic obstructive pulmonary disease) J44.9 and Dementia F03.90 [facility] [address] [place] [id number] Jun, Dementia F03.90 and COPD (chronic obstructive pulmonary disease) J44.9 [facility] [address] [place] [address] Apr, COPD (chronic obstructive pulmonary disease) J44.9 and Essential (primary ) hypertension I10 [facility] [address], [place] [address]- 2682 Apr, [facility] [address], [place] [address]- 1602 Mar, [facility] [address] [place] [address] 02904- 6226 Mar, COPD (chronic obstructive pulmonary disease) J44.9 [facility] [address], [place] [address]- 6[address] January, COPD (chronic obstructive pulmonary disease) J44.9 and Allergy, subsequent encounter T78.40XD [facility] [address], [place] [address]- 2589 Nov, COPD (chronic obstructive pulmonary disease) J44.9 ; Dementia F03.90 and Essential (primary) hypertension I10 [facility] [id number] [place] [address] 98103- 9652 Oct, COPD (chronic obstructive pulmonary disease) J44.9 [facility] [id number] [place] [address] 29636- 2844 Sep, COPD (chronic obstructive pulmonary disease) J44.9 [facility] [id number] [place] [address] 87318- 2366 Sep, Essential (primary) hypertension I10 [place] [id number] [place] [address] 66546- 8099 Sep, Dementia F03.90 and Essential hypertension, benign 401.1 [place] [id number] [place] [address] 75243- 3820 Jul, Dementia F03.90 and COPD (chronic obstructive pulmonary disease) J44.9 [facility] [id number] [place] [address] 70827- 3886 Jun, [facility] [id number] [place] [address] 26858- 4626 Jun, [facility] [id number] [place] [address] 89910- 1899 May, Chronic airway obstruction, not elsewhere classified 496 and Essential hypertension, benign 401.1 [facility] [id number] [place] [address] 92556- 1664 Mar, Essential hypertension, benign 401.1 and Dementia 294.20 [facility] [id number] [place] [address] 98448- 8682 January, Dementia 294.20 [facility] [id number] [place] [address] 64223- 5467 Dec, [facility] [place] [facility] [address] [id number] [place] [address]- 9456 Dec, [facility] [address] [facility] [place] [id number] Nov, [facility] [address] [id number] [place] [address]- 1759 Nov, [facility] [address] [id number] [place] [address]- 4143 Sep, [facility] [place] [facility] [address] [id number] [place] [address]- 2588 Sep, [facility] [address] [id number] [place] [address]- 7617 Aug, [facility] [place] [facility] [address] [id number] [place] [address]- 7746 Aug, [facility] [place] [facility] [address] [id number] [place] [address]- 6549 Jul, [facility] [place] [facility] [address] [id number] [place] [address]- 8012 Jul, [facility] [place] [facility] [address] [id number] [place] [address]- 5585 Jun, [facility] [place] [facility] [address] [id number] [place] [address]- 0642 Jun, [facility] [place] [facility] [address] [id number] [place] [address]- 7653 Mar, [facility] [place] [facility] [address] [id number] [place] [address]- 5315 Mar, [facility] [place] [facility] [address] [id number] [place] [address]- 8779 Mar, [facility] [place] [facility] [address] [id number] [place] [address]- 2611 Mar, [facility] [place] [facility] [address] [id number] [place] [address]- 1584 Mar, [facility] [place] [facility] [address] [id number] [place] [address]- 3968 Mar, [facility] [place] [facility] [address] [id number] [place] [address]- 8765 January, [facility] [place] [facility] [address] [id number] [place] [address]- 3672 January, [facility] [place] [facility] [address] [id number] [place] [address]- 3419 January, [facility] [place] [facility] [address] [id number] [place] [address]- 1004 January, [facility] [place] [facility] [address] [id number] [place] [address]- 2802 January, [facility] [place] [facility] [address] [id number] [place] [address]- 9980 Aug, [facility] [place] [facility] [address] [id number] [place] [address]- 4546 Aug, [facility] [place] [facility] [address] [id number] [place] [address]- 7688 Mar, [facility] [place] [facility] [address] [id number] [place] [address]- 6709 Mar, [facility] [place] [facility] [address] [id number] [place] [address]- 8048 Jun, [facility] [place] [facility] [address] [id number], [place] [address]- 0881 Jun, [facility] [place] [facility] [address] [id number] [place] [address]- 6620 Jun, [facility] [place] [facility] [address] [id number] [place] [address]- 2980 Jun, [facility] [place] [facility] [address] [id number] [place] [address]- 1277 Jun, [facility] [place] [facility] [address], [place] [address]- 1039 10 Jun, 2012 [facility] [address], [place] [address]- 5272 Jun, [facility] [address], [place] [address]- 9026 Apr, [facility] [address], [place] [address]- 7438 Feb, [facility] [address], [place] [address]- 6453 Oct, [facility] [address] [place] [address] 70171- 9405 Aug, [facility] [address] [place] [address] 13260- 6056 Aug, [facility] [address] [place] [address] 955611- 7619 Aug, [facility] [address] 5038 Aug, [facility] [address] [place] [address] 007092- 9319 Apr, [facility] [address], [place] [address]- 6914 January, [facility] [address], [place] [address]- 0069 January, [facility] [address], [place] [address]- 5241 Dec, IMMUNIZATIONS No Known Immunizations SOCIAL HISTORY Never Assessed REASON FOR VISIT Hospital follow up --ANGI Willoughby PLAN OF CARE Activity Details Follow Up prn Reason: VITAL SIGNS MEDICATIONS Medication Instructions Dosage Frequency Start Date End Date Duration Status Tramadol HCl 50 mg Orally 2 times a day 2 tablet 12h Feb, 28 days Active Risperidone 1 MG Orally 2 times a day 1 tablet 12h Jul, 30 days Active RESULTS No Results PROCEDURES Procedure Date Ordered Result Body Site Minor complication (15 mins) Jul 21, 2018 INSTRUCTIONS MEDICATIONS ADMINISTERED No Known Medications MEDICAL (GENERAL) HISTORY Type Description Date Surgical History No Surgical history information
--- OUTSIDE RECORDS SUMMARY | 2018-08-22 16:02 | XMS REPORT ---
Author Author TEJ CHILEL [facility] Address [address] [place] [address] Care Team Providers Care Furnace Stock Inspector Name Role Phone TEJ CHILEL Unavailable PROBLEMS Type Condition ICD9-CM Code WWO77-RO Code Onset Dates Condition Status SNOMED Code Problem Anorexia R63.0 Active 47231162 Problem Brief psychotic disorder F23 Active 1396121 Problem Primary insomnia F51.01 Active 5310982 Problem Recurrent major depressive disorder, remission status unspecified F33.9 Active 31397370 Problem 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 Active 98390604 Problem Hyperlipidemia, unspecified hyperlipidemia type E78.5 Active 22655911 Problem Dementia with behavioral disturbance, unspecified dementia type F03.91 Active 7234907695408 Problem Essential (primary) hypertension I10 Active 42635670 Problem Dementia F03.90 Active 39559381 Problem Acquired hypothyroidism E03.9 Active 266083762 Problem COPD (chronic obstructive pulmonary disease) J44.9 Active 07252349 Problem Allergy, subsequent encounter T78.40XD Active 287023216 ALLERGIES No Information ENCOUNTERS Encounter Location Date Diagnosis [facility] [address] [place] [id number] May, Dementia with behavioral disturbance, unspecified dementia type F03.91 [facility] [address] [id number] [address] May, [facility] [address] [place] [id number] May, Traumatic pneumothorax, initial encounter S27.0XXA ; COPD (chronic obstructive pulmonary disease) J44.9 and Dementia F03.90 [facility] [address] [id number], [place] [address] May, [facility] [address] [id number] [address] May, Left hip pain M25.552 [facility] [address] [facility] [id number], [place] [address] May, Dementia with behavioral disturbance, unspecified dementia type F03.91 [facility] [address], [place] [address] Apr, Left hip pain M25.552 [facility] [address], [place] [address] Apr, [facility] [address] [place] [id number] Apr, [place] [address], [place] [address] Apr, Left hip pain M25.552 [facility] [address] [place] [id number] Apr, Dementia F03.90 and Left hip pain M25.552 [facility] [address], [place] [address] Mar, [facility] [address], [place] [address] Mar, [facility] [address], [place] [address] Mar, [facility] [address] [place] [id number] Feb, Dementia F03.90 [facility] [address], [place] [address] Feb, [facility] [address], [place] [address] January, [facility] [address], [place] [address] Dec, [facility] [address] [place] [id number] Nov, Dementia F03.90 and COPD (chronic obstructive pulmonary disease) J44.9 [facility] [address] [id number] [id number] Nov, [facility] [address] [id number] [id number] Oct, [facility] [address] [id number] Sep, Anemia, unspecified type D64.9 [facility] [address] [facility] [id number], [place] [address] Sep, [facility] [address] [facility] [id number], [place] [address] Sep, [facility] [address] [id number] [id number] Sep, [facility] [address] [id number] [id number] Aug, [facility] [address] [id number] [id number] Aug, [facility] [address] [facility] [id number], [place] [address] Aug, [facility] [address] [id number] [id number] Aug, [facility] [address] [facility] [id number], [place] [address] Aug, [facility] [address] [facility] [id number], [place] [address] Jul, [facility] [address] [id number][place] [id number] Jul, [facility] [address] [id number][place] [id number] Jul, [facility] [address] [id number][place] [id number] Jun, [facility] [address] [facility] [id number], [place] [address] Jun, [facility] [address] [id number] Jun, Left hip pain M25.552 and Dementia F03.90 [facility] [address] [facility] [id number], [place] [address] May, [facility] [address] [id number][place] [id number] May, [facility] [address] [id number] [id number] May, [facility] [address] [facility] [id number], [place] [address] May, [facility] [address] [id number][place] [id number] Apr, [facility] [address] [facility] [id number], [place] [address] Apr, [facility] [address] [facility] [id number] [address] Apr, [facility] [address] [id number], [place] [address] Apr, Dementia F03.90 [facility] [address] [facility] [id number][place] Apr, [facility] [address] [facility] [id number], [place] [address] Apr, [facility] [address] [facility] [place] [place] [id number] Apr, Edema of both legs R60.0 [facility] [address] [id number][place] [address] Mar, [facility] [address] [id number], [place] [id number] Mar, [facility] [address] [id number][place] [id number] Mar, Anorexia R63.0 [facility] [address] [facility] [id number], [place] [address] Mar, [facility] [address] [id number], [place] [id number] Mar, [facility] [address] [id number] [id number] Feb, [facility] [id number], [place] [address] Feb, [facility] [address] [id number], [place] [address] Feb, Urinary tract infection without hematuria, site unspecified N39.0 [facility] [address] [id number], [place] [address] January, Anorexia R63.0 [facility] [address] [id number], [place] [address] January, [facility] [id number] [id number] January, [facility] [address] [id number], [place] [address] January, Dementia F03.90 [facility] [address] [id number], [place] [id number] January, [facility] [address] [id number] Dec, Left hip pain M25.552 and Dementia F03.90 [facility] [address] [id number], [place] [id number] Dec, [facility] [address] [id number], [place] [address] Nov, [facility] [address] [facility] [id number], [place] [address] Oct, [facility] [address] [id number] Oct, Dementia F03.90 and Other depression F32.89 [facility] [address] [id number] Oct, Dementia F03.90 ; Essential (primary) hypertension I10 and COPD (chronic obstructive pulmonary disease) J44.9 [facility] [address], [place] [address] Oct, [facility] [address], [place] [address] Sep, [facility] [address] [id number] Aug, COPD (chronic obstructive pulmonary disease) J44.9 and Dementia F03.90 [facility] [address] [id number] Jun, Dementia F03.90 and COPD (chronic obstructive pulmonary disease) J44.9 [facility] [address] [place] [id number] Apr, COPD (chronic obstructive pulmonary disease) J44.9 and Essential (primary ) hypertension I10 [facility] [address], [place] [address] Apr, [facility] [address], [place] [address] Mar, [facility] [id number] [place] [address] Mar, COPD (chronic obstructive pulmonary disease) J44.9 [facility] [address], [place] [address] January, COPD (chronic obstructive pulmonary disease) J44.9 and Allergy, subsequent encounter T78.40XD [facility] [address], [place] [address] Nov, COPD (chronic obstructive pulmonary disease) J44.9 ; Dementia F03.90 and Essential (primary) hypertension I10 [facility] [address], [place] [address] Oct, COPD (chronic obstructive pulmonary disease) J44.9 [facility] [address], [place] [address] Sep, COPD (chronic obstructive pulmonary disease) J44.9 [facility] [address], [place] [address] 87[address] Sep, Essential (primary) hypertension I10 [facility] [address] [place] [address] Sep, Dementia F03.90 and Essential hypertension, benign 401.1 [facility] [id number] [place] [address] Jul, Dementia F03.90 and COPD (chronic obstructive pulmonary disease) J44.9 [facility] [address], [place] [address] Jun, [facility] [id number] [place] [address] Jun, [facility] [id number] [place] [address] May, Chronic airway obstruction, not elsewhere classified 496 and Essential hypertension, benign 401.1 [facility] [address] [place] [address]98 Mar, Essential hypertension, benign 401.1 and Dementia 294.20 [facility] [address] [place] [address] January, Dementia 294.20 [facility] [address], [place] [address] 39[address] Dec, [facility] [address], [place] [address] Dec, [facility] [address] [place] [id number] Nov, [facility] [address] [place] [address] Nov, [facility] [address], [place] [address]- [address] Sep, [facility] [id number] [place] [address] [place] [address] Sep, [facility] [place] [facility] [address] [id number] [place] [address] Aug, [facility] [place] [facility] [address] [id number] [place] [address]- 289[address] Aug, [facility] [place] [facility] [address] [id number] [place] [address]- [address]18 Jul, [facility] [place] [facility] [address] [id number] [place] [address] Jul, [facility] [place] [facility] [address] [id number] [place] [address]- 9143 Jun, [facility] [place] [facility] [address] [id number] [place] [address]- 1849 Jun, [facility] [place] [facility] [address] [id number] [place] [address]- 1723 Mar, [facility] [place] [facility] [address] [id number] [place] [address]- 4299 Mar, [facility] [place] [facility] [address] [id number] [place] [address]- 4[address] Mar, [facility] [place] [facility] [address] [id number] [place] [address]- 4036 Mar, [facility] [place] [facility] [address] [id number] [place] [address]- 4797 Mar, [facility] [place] [facility] [address] [id number] [place] [address]- 4261 Mar, [facility] [place] [facility] [address] [id number] [place] [address]- 2889 January, [facility] [place] [facility] [address] [id number] [place] [address]- 4467 January, [facility] [place] [facility] [address] [id number] [place] [address]- 8734 January, [facility] [place] [facility] [address] [id number] [place] [address]- 5199 January, [facility] [place] [facility] [address] [id number] [place] [address]- 7552 January, [facility] [place] [facility] [address] [id number] [place] [address]- 1420 Aug, [facility] [place] [facility] [address] [id number] [place] [address]- 4251 Aug, [facility] [place] [facility] [address] [id number] [place] [address]- 0505 Mar, [facility] [place] [facility] [address] [id number] [place] [address]- 1169 Mar, [facility] [place] [facility] [address] [id number] [place] [address]- 0063 Jun, [facility] [place] [facility] [address] [id number] [place] [address]- 7684 Jun, [facility] [place] [facility] [address] [id number] [place] [address]- 6038 Jun, [facility] [place] [facility] [address] [id number] [place] [address]- 9316 Jun, [facility] [place] [facility] [address] [id number] [place] [address]- 9609 Jun, [facility] [place] [facility] [address] [id number] [place] [address]- 6842 Jun, [facility] [place] [facility] [address] [id number] [place] [address]- 5452 Jun, [facility] [place] [facility] [address] [id number] [place] [address]- 6245 Apr, [facility] [place] [facility] [address] [id number] [place] [address] 2542 Feb, [facility] [place] [facility] [address] [id number] [place] [address]- 1069 Oct, [facility] [id number] Aug, [facility] [address] Aug, [facility] [address] Aug, [facility] [address], [place] [address]- 8470 Aug, [facility] [address], [place] [address]- 4777 Apr, [facility] [address] 5[address] January, [facility] [address], [place] [address]- [address] January, [facility] [address] Dec, IMMUNIZATIONS No Known Immunizations SOCIAL HISTORY Never Assessed REASON FOR VISIT Requests return call PLAN OF CARE VITAL SIGNS MEDICATIONS Unknown Medications RESULTS No Results PROCEDURES No Known procedures INSTRUCTIONS MEDICATIONS ADMINISTERED No Known Medications
--- OUTSIDE RECORDS SUMMARY | 2018-08-22 16:02 | XMS REPORT ---
Author Author TEJ CHILEL [facility] Address [address] [place] [address] Care Team Providers Care Buttermilk Drier Operator Name Role Phone TEJ CHILEL Unavailable PROBLEMS Type Condition ICD9-CM Code CZR33-HA Code Onset Dates Condition Status SNOMED Code Problem Anorexia R63.0 Active 92634691 Problem Brief psychotic disorder F23 Active 4894292 Problem Primary insomnia F51.01 Active 6954244 Problem Recurrent major depressive disorder, remission status unspecified F33.9 Active 09445473 Problem 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 Active 65196479 Problem Hyperlipidemia, unspecified hyperlipidemia type E78.5 Active 75762198 Problem Dementia with behavioral disturbance, unspecified dementia type F03.91 Active 0477146300665 Problem Essential (primary) hypertension I10 Active 79470327 Problem Dementia F03.90 Active 05913566 Problem Acquired hypothyroidism E03.9 Active 380326319 Problem COPD (chronic obstructive pulmonary disease) J44.9 Active 93760824 Problem Allergy, subsequent encounter T78.40XD Active 737930985 ALLERGIES No Information ENCOUNTERS Encounter Location Date Diagnosis [facility] [address] [place] [id number] May, Dementia with behavioral disturbance, unspecified dementia type F03.91 [facility] [address] [id number], [place] [address] May, [facility] [address] [place] [id number] May, Traumatic pneumothorax, initial encounter S27.0XXA ; COPD (chronic obstructive pulmonary disease) J44.9 and Dementia F03.90 [facility] [address] [id number], [place] [address] May, [facility] [address] [id number], [place] [address] May, Left hip pain M25.552 [facility] [address] [address] [facility] [id number], [place] [address] May, Dementia with behavioral disturbance, unspecified dementia type F03.91 [facility] [address], [place] [address] Apr, Left hip pain M25.552 [facility] [address], [place] [address] Apr, [facility] [address] [place] [id number] Apr, [place] [address], [place] [address] Apr, Left hip pain M25.552 [facility] [address] [place] [id number] Apr, Dementia F03.90 and Left hip pain M25.552 [facility] [address], [place] [address] Mar, [facility] [address], [place] [address] Mar, [facility] [address], [place] [address] Mar, [facility] [address] [place] [id number] Feb, Dementia F03.90 [facility] [address], [place] [address] Feb, [facility] [address], [place] [address] January, [facility] [address], [place] [address] Dec, [facility] [address] [place] [id number] Nov, Dementia F03.90 and COPD (chronic obstructive pulmonary disease) J44.9 [facility] [address] [id number] [id number] Nov, [facility] [address] [id number] [id number] Oct, [facility] [address] [place] [id number] Sep, Anemia, unspecified type D64.9 [facility] [address] [address] [facility] [id number], [place] [address] Sep, [facility] [address] [facility] [id number], [place] [address] Sep, [facility] [address] [id number] [id number] Sep, [facility] [address] [id number] [id number] Aug, [facility] [address] [id number] [id number] Aug, [facility] [address] [facility] [id number], [place] [address] Aug, [facility] [address] [id number] [id number] Aug, [facility] [address] [facility] [id number], [place] [address] Aug, [facility] [address] [facility] [id number], [place] [address] Jul, [facility] [address] [id number] [id number] Jul, [facility] [address] [id number][place] [address] Jul, [facility] [address] [id number] [id number] Jun, [facility] [address] [facility] [id number], [place] [address] Jun, [facility] [address] [place] [id number] Jun, Left hip pain M25.552 and Dementia F03.90 [facility] [address] [facility] [id number], [place] [address] May, [facility] [address] [id number] [id number] May, [facility] [address] [id number] [id number] May, [facility] [address] [facility] [id number], [place] [address] May, [facility] [address] [id number] [id number] Apr, [facility] [address] [facility] [id number], [place] [address] Apr, [facility] [address] [facility] [id number] [address] Apr, [facility] [address] [id number] [address] Apr, Dementia F03.90 [facility] [address] [facility] [id number] [address] Apr, [facility] [address] [facility] [id number] [address] Apr, [facility] [address] [facility] [place] [place] [id number] Apr, Edema of both legs R60.0 [facility] [address] [id number] [id number] Mar, [facility] [address] [id number] [id number] Mar, [facility] [address] [id number], [place] [id number] Mar, Anorexia R63.0 [facility] [address] [facility] [id number], [place] [address] Mar, [facility] [address] [id number] [id number] Mar, [facility] [address] [id number] [id number] Feb, [facility] [id number] [address] Feb, [facility] [address] [id number], [place] [address] Feb, Urinary tract infection without hematuria, site unspecified N39.0 [facility] [address] [id number], [place] [address] January, Anorexia R63.0 [facility] [address] [id number], [place] [address] January, [facility] [id number], [place] [id number] January, [facility] [address] [id number], [place] [address] January, Dementia F03.90 [facility] [address] [id number], [place] [address] January, [facility] [address] [place] [id number] Dec, Left hip pain M25.552 and Dementia F03.90 [facility] [address] [id number], [place] [id number] Dec, [facility] [address] [id number] [id number] Nov, [facility] [address] [facility] [id number], [place] [address] Oct, [facility] [address] [id number] Oct, Dementia F03.90 and Other depression F32.89 [facility] [address] [place] [id number] Oct, Dementia F03.90 ; Essential (primary) hypertension I10 and COPD (chronic obstructive pulmonary disease) J44.9 [facility] [address], [place] [address] Oct, [facility] [address], [place] [address] Sep, [facility] [address] [place] [id number] Aug, COPD (chronic obstructive pulmonary disease) J44.9 and Dementia F03.90 [facility] [address] [place] [id number] Jun, Dementia F03.90 and COPD (chronic obstructive pulmonary disease) J44.9 [facility] [address] [place] [id number] Apr, COPD (chronic obstructive pulmonary disease) J44.9 and Essential (primary ) hypertension I10 [facility] [address], [place] [address] Apr, [facility] [address], [place] [address] Mar, [facility] [id number] [place] [address] Mar, COPD (chronic obstructive pulmonary disease) J44.9 [facility] [address], [place] [address] January, COPD (chronic obstructive pulmonary disease) J44.9 and Allergy, subsequent encounter T78.40XD [facility] [address], [place] [address] Nov, COPD (chronic obstructive pulmonary disease) J44.9 ; Dementia F03.90 and Essential (primary) hypertension I10 [facility] [address], [place] [address] Oct, COPD (chronic obstructive pulmonary disease) J44.9 [facility] [address], [place] [address] Sep, COPD (chronic obstructive pulmonary disease) J44.9 [facility] [address], [place] [address] Sep, Essential (primary) hypertension I10 [facility] [address] [place] [address] Sep, Dementia F03.90 and Essential hypertension, benign 401.1 [facility] [id number] [place] [address] Jul, Dementia F03.90 and COPD (chronic obstructive pulmonary disease) J44.9 [facility] [address], [place] [address] Jun, [facility] [id number] [place] [address] Jun, [facility] [id number] [place] [address] May, Chronic airway obstruction, not elsewhere classified 496 and Essential hypertension, benign 401.1 [facility] [address] [place] [address] Mar, Essential hypertension, benign 401.1 and Dementia 294.20 [facility] [address] [place] [address] 2630 January, Dementia 294.20 [facility] [address], [place] [address] Dec, [facility] [address], [place] [address] Dec, [facility] [address] [place] [id number] Nov, [facility] [address] [place] [address] Nov, [facility] [address], [place] [address]- 6[address] Sep, [facility] [id number] [place] [address] [place] [address] Sep, [facility] [place] [facility] [address] [id number] [place] [address] Aug, [facility] [place] [facility] [address] [id number] [place] [address]- 0459 Aug, [facility] [place] [facility] [address] [id number] [place] [address]- 57[address] Jul, [facility] [place] [facility] [address] [id number] [place] [address]- 1338 Jul, [facility] [place] [facility] [address] [id number] [place] [address]- 2424 Jun, [facility] [place] [facility] [address] [id number] [place] [address]- 5128 Jun, [facility] [place] [facility] [address] [id number] [place] [address]- 3831 Mar, [facility] [place] [facility] [address] [id number] [place] [address]- 3582 Mar, [facility] [place] [facility] [address] [id number] [place] [address]- 0651 Mar, [facility] [place] [facility] [address] [id number] [place] [address]- 5967 Mar, [facility] [place] [facility] [address] [id number] [place] [address]- 9176 Mar, [facility] [place] [facility] [address] [id number] [place] [address]- 4703 Mar, [facility] [place] [facility] [address] [id number] [place] [address]- 5112 January, [facility] [place] [facility] [address] [id number] [place] [address]- 0685 January, [facility] [place] [facility] [address] [id number] [place] [address]- 2768 January, [facility] [place] [facility] [address] [id number] [place] [address]- 5136 January, [facility] [place] [facility] [address] [id number] [place] [address]- 1051 January, [facility] [place] [facility] [address] [id number] [place] [address]- 8198 Aug, [facility] [place] [facility] [address] [id number] [place] [address]- 3126 Aug, [facility] [place] [facility] [address] [id number] [place] [address]- 0077 Mar, [facility] [place] [facility] [address] [id number] [place] [address]- 1380 Mar, [facility] [place] [facility] [address] [id number] [place] [address]- 8256 Jun, [facility] [place] [facility] [address] [id number] [place] [address]- 3472 Jun, [facility] [place] [facility] [address] [id number] [place] [address]- 5170 Jun, [facility] [place] [facility] [address] [id number] [place] [address]- 0615 Jun, [facility] [place] [facility] [address] [id number] [place] [address]- 0781 Jun, [facility] [place] [facility] [address] [id number] [place] [address]- 2919 Jun, [facility] [place] [facility] [address] [id number] [place] [address]- 6599 Jun, [facility] [place] [facility] [address] [id number] [place] [address]- 7846 Apr, [facility] [place] [facility] [address] [id number] [place] [address] 2544 Feb, [facility] [place] [facility] [address] [id number] [place] [address]- 6446 Oct, [facility] [id number], [place] [address] Aug, [facility] [address], [place] [address] Aug, [facility] [address], [place] [address] Aug, [facility] [address], [place] [address]- 2[address] Aug, [facility] [address], [place] [address]15 Apr, [facility] [address], [place] [address]- 4889 January, [facility] [address], [place] [address] January, [facility] [address], [place] [address] 2531 Dec, IMMUNIZATIONS No Known Immunizations SOCIAL HISTORY Never Assessed REASON FOR VISIT Alf PLAN OF CARE Activity Details Follow Up prn Reason: VITAL SIGNS MEDICATIONS Medication Instructions Dosage Frequency Start Date End Date Duration Status Risperidone 1 MG Orally 2 times a day 1 tablet 12h Jul, 30 days Active RESULTS No Results PROCEDURES Procedure Date Ordered Result Body Site Stable Visit (10 minutes) Jun 16, 2018 INSTRUCTIONS MEDICATIONS ADMINISTERED No Known Medications
--- OUTSIDE RECORDS SUMMARY | 2018-08-22 16:02 | XMS REPORT ---
Author Author TEJ CHILEL [facility] Address [address] [place] [address] Care Team Providers Care Wireless Sales Representative Name Role Phone TEJ CHILEL Unavailable PROBLEMS Type Condition ICD9-CM Code CHW88-ZV Code Onset Dates Condition Status SNOMED Code Problem Anorexia R63.0 Active 21010567 Problem Brief psychotic disorder F23 Active 6908488 Problem Primary insomnia F51.01 Active 1969053 Problem Recurrent major depressive disorder, remission status unspecified F33.9 Active 33506327 Problem 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 Active 57584350 Problem Hyperlipidemia, unspecified hyperlipidemia type E78.5 Active 46189882 Problem Dementia with behavioral disturbance, unspecified dementia type F03.91 Active 2090213260193 Problem Essential (primary) hypertension I10 Active 63704868 Problem Dementia F03.90 Active 16952419 Problem Acquired hypothyroidism E03.9 Active 871174188 Problem COPD (chronic obstructive pulmonary disease) J44.9 Active 22125735 Problem Allergy, subsequent encounter T78.40XD Active 640847079 ALLERGIES No Information ENCOUNTERS Encounter Location Date Diagnosis [facility] [id number] [place] [address]- [address] Jun, Left hip pain M25.552 [facility] [address] [place] [id number] May, Dementia with behavioral disturbance, unspecified dementia type F03.91 [facility] [address] [place] [address]- [address] May, [facility] [address] [place] [id number] May, Traumatic pneumothorax, initial encounter S27.0XXA ; COPD (chronic obstructive pulmonary disease) J44.9 and Dementia F03.90 [facility] [id number] [place] [address] 38345- 8483 18 May, 2018 [facility] [address] [facility] [id number] [place] [address] May, Left hip pain M25.552 [facility] [address] [facility] [id number] [address] 11 May, 2018 Dementia with behavioral disturbance, unspecified dementia type F03.91 [facility] [address] [facility] [id number] [place] [address] Apr, Left hip pain M25.552 [facility] [address] [facility] [id number] [place] [address] Apr, [facility] [address] [place] [id number] Apr, [facility] [address] [address] Apr, Left hip pain M25.552 [facility] [address] [place] [id number] Apr, Dementia F03.90 and Left hip pain M25.552 [facility] [address] [address] Mar, [facility] [id number] [address] Mar, [facility] [address] [address] Mar, [facility] [address] [place] [id number] Feb, Dementia F03.90 [facility] [address] [facility] [id number] [place] [address] Feb, [facility] [address] [address] January, [facility] [address] [id number] [address] Dec, [facility] [address] [place] [id number] Nov, Dementia F03.90 and COPD (chronic obstructive pulmonary disease) J44.9 [facility] [address] [id number] [place] [id number] Nov, [facility] [address] [id number] [place] [id number] Oct, [facility] [address] [place] [id number] Sep, Anemia, unspecified type D64.9 [facility] [address] [id number] [place] [address] Sep, [facility] [address] [id number] [place] [address] 25[address] Sep, [facility] [address] [id number] [place] [id number] Sep, [facility] [address] [id number] [place] [address] Aug, [facility] [address] [id number] [place] [id number] Aug, [facility] [address] [id number] [place] [address] Aug, [facility] [address] [id number] [place] [id number] Aug, [facility] [address] [id number] [place] [address] Aug, [facility] [address] [id number] [place] [address] Jul, [facility] [address] [id number] [place] [id number] Jul, [facility] [address] [id number] [place] [id number] Jul, [facility] [address] [id number] [place] [id number] Jun, [facility] [address] [id number] [place] Jun, [facility] [address] [place] [id number] Jun, Left hip pain M25.552 and Dementia F03.90 [facility] [address] [id number] [place] [address] May, [facility] [address] [id number] [place] [address] May, [facility] [address] [id number] [place] [address] May, [facility] [address] [id number] [place] [address] May, [facility] [address] [id number] [place] [id number] Apr, [facility] [address] [facility] [id number] [place] [address]- 4436 Apr, [facility] [address] [facility] [id number] [place] [address]- 8196 Apr, [facility] [address] [id number] [place] [id number] Apr, Dementia F03.90 [facility] [address] [facility] [id number] [place] [address] 3980 Apr, [facility] [address] [facility] [id number] [place] [address]- 89[address] Apr, [facility] [address] [place] [id number] Apr, Edema of both legs R60.0 [facility] [address] [id number] [place] [id number] Mar, [facility] [address] [id number] [place] [id number] Mar, [facility] [address] [id number] [place] [id number] Mar, Anorexia R63.0 [facility] [address] [facility] [id number] [place] [address] 2546 Mar, [facility] [address] [id number] [place] [id number] Mar, [facility] [address] [id number] [place] [address] Feb, [facility] [address] [id number] [place] [id number] Feb, [facility] [address] [facility] [id number] [place] [address] Feb, Urinary tract infection without hematuria, site unspecified N39.0 [facility] [address] [facility] [id number] [place] [address]- 6466 January, Anorexia R63.0 [facility] [address] [id number] [address]- 2426 January, [facility] [address] [id number] [place] [address] January, [facility] [address] [facility] [id number] [place] [address]- 8726 January, Dementia F03.90 [facility] [address] [id number] [place] [address] January, [facility] [address] [place] [id number] Dec, Left hip pain M25.552 and Dementia F03.90 [facility] [address] [id number] [place] [id number] Dec, [facility] [address] [id number] [place] [address] Nov, [facility] [address] [facility] [id number] [place] [address]- 2546 Oct, [facility] [address] [id number] Oct, Dementia F03.90 and Other depression F32.89 [facility] [address] [place] [id number] Oct, Dementia F03.90 ; Essential (primary) hypertension I10 and COPD (chronic obstructive pulmonary disease) J44.9 [facility] [address]100[place] [address] 97[address] Oct, [facility] [id number] [place] [address] 29149- 6065 Sep, [facility] [address] [place] [id number] Aug, COPD (chronic obstructive pulmonary disease) J44.9 and Dementia F03.90 [facility] [address] [place] [id number] Jun, Dementia F03.90 and COPD (chronic obstructive pulmonary disease) J44.9 [facility] [address] [place] [id number] Apr, COPD (chronic obstructive pulmonary disease) J44.9 and Essential (primary ) hypertension I10 [facility] [address] [id number] [address]- 6301 Apr, [facility] [id number] [place] [address] 84749- 6309 Mar, [facility] [id number] [place] [address] 31962- 8914 Mar, COPD (chronic obstructive pulmonary disease) J44.9 [facility] [address] [id number] [address]- 0879 January, COPD (chronic obstructive pulmonary disease) J44.9 and Allergy, subsequent encounter T78.40XD [facility] [id number] [place] [address] 67666- 9625 Nov, COPD (chronic obstructive pulmonary disease) J44.9 ; Dementia F03.90 and Essential (primary) hypertension I10 [facility] [address] [address]- 5[address] Oct, COPD (chronic obstructive pulmonary disease) J44.9 [facility] [address]100[place] [address]- 0605 Sep, COPD (chronic obstructive pulmonary disease) J44.9 [facility] [address] [place] [address] 54990- 9685 Sep, Essential (primary) hypertension I10 [facility] [address] [place] [address] 61603- 7492 Sep, Dementia F03.90 and Essential hypertension, benign 401.1 [facility] [id number] [place] [address] 72319- 0135 Jul, Dementia F03.90 and COPD (chronic obstructive pulmonary disease) J44.9 [facility] [address] [id number] [address]- 2542 Jun, [facility] [id number] [place] [address] 95741- 7745 Jun, [facility] [address] [address]- [address] May, Chronic airway obstruction, not elsewhere classified 496 and Essential hypertension, benign 401.1 [facility] [address] [address]- 9431 Mar, Essential hypertension, benign 401.1 and Dementia 294.20 [address] [place] [address] 33570- 2305 January, Dementia 294.20 [facility] [address] [address]- [address]361 Dec, [place] [address] [place] [address] 64652- 6911 Dec, [facility] [address] [place] [id number] Nov, [facility] [address]100[place] [address]- 1115 Nov, [facility] [id number] [place] [address]- 3910 Sep, [facility] [place] [facility] [address] [id number] [place] [address]- 0889 Sep, [facility] [place] [facility] [address] [id number] [place] [address]- 6900 Aug, [facility] [place] [facility] [address] [id number] [place] [address]- 5578 Aug, [facility] [place] [facility] [address] [id number] [place] [address]- 3187 Jul, [facility] [place] [facility] [address] [id number] [place] [address]- 4536 Jul, [facility] [place] [facility] [address] [id number] [place] [address]- 6967 Jun, [facility] [place] [facility] [address] [id number] [place] [address]- 3767 Jun, [facility] [place] [facility] [address] [id number] [place] [address]- 7735 Mar, [facility] [place] [facility] [address] [id number] [place] [address]- 1733 Mar, [facility] [place] [facility] [address] [id number] [place] [address]- 3293 Mar, [facility] [place] [facility] [address] [id number] [place] [address]- 9226 Mar, [facility] [place] [facility] [address] [id number] [place] [address]- 3459 Mar, [facility] [place] [facility] [address] [id number] [place] [address]- 0621 Mar, [facility] [place] [facility] [address] [id number] [place] [address]- 1022 January, [facility] [place] [facility] [address] [id number] [place] [address]- 8437 January, [facility] [place] [facility] [address] [id number] [place] [address]- 2785 January, [facility] [place] [facility] [address] [id number] [place] [address]- 7683 January, [facility] [place] [facility] [address] [id number] [place] [address] January, [facility] [place] [facility] [address] [id number] [place] [address]- 0080 Aug, [facility] [place] [facility] [address] [id number] [place] [address]- 1017 Aug, [facility] [place] [facility] [address] [id number] [place] [address]- 5552 Mar, [facility] [place] [facility] [address] [id number] [place] [address]- 7250 Mar, [facility] [place] [facility] [address] [id number] [place] [address]- 4498 Jun, [facility] [place] [facility] [address] [id number] [place] [address]- 3335 Jun, [facility] [place] [facility] [address] [id number] [place] [address]- 4549 Jun, [facility] [place] [facility] [address] [id number] [place] [address]- 8642 Jun, [facility] [place] [facility] [address] [id number] [place] [address]- 4979 Jun, [facility] [place] [facility] [address] [id number] [place] [address]- 4330 Jun, [facility] [place] [facility] [address] [id number] [place] [address]- 9145 Jun, [facility] [place] [facility] [address] [id number] [place] [address]329 Apr, [facility] [place] [facility] [address] [id number] [place] [address]- 8890 Feb, [facility] [id number] [address]- 2439 Oct, [facility] [address] [address]- 2812 Aug, [facility] [address] [address]- 5542 Aug, [facility] [address] [address]- 7477 Aug, [facility] [address] [address]- 8723 Aug, [facility] [address] [address]- 8158 Apr, [facility] [address] [address]- 2560 January, [facility] [address] [id number] [address]- 3660 January, [facility] [address] [id number] [address] 2699 Dec, IMMUNIZATIONS No Known Immunizations SOCIAL HISTORY Never Assessed REASON FOR VISIT Controlled Med Refill PLAN OF CARE VITAL SIGNS MEDICATIONS Medication Instructions Dosage Frequency Start Date End Date Duration Status Tramadol HCl 50 mg Orally 2 times a day 2 tablet 12h Feb, 28 days Active RESULTS No Results PROCEDURES No Known procedures INSTRUCTIONS MEDICATIONS ADMINISTERED No Known Medications
--- OUTSIDE RECORDS SUMMARY | 2018-08-22 16:03 | XMS REPORT ---
Author Author JUAN DANIEL CASTELLANOS [facility] Address [address] [place] [address] Care Team Providers Care Clerical Transcriber Name Role Phone JUAN DANIEL CASTELLANOS Unavailable PROBLEMS ALLERGIES No Information ENCOUNTERS IMMUNIZATIONS No Known Immunizations SOCIAL HISTORY No smoking Hx information available REASON FOR VISIT PLAN OF CARE VITAL SIGNS MEDICATIONS RESULTS No Results PROCEDURES INSTRUCTIONS MEDICATIONS ADMINISTERED No Known Medications
--- OUTSIDE RECORDS SUMMARY | 2018-08-22 16:03 | XMS REPORT ---
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 Active 76419723 Problem Hyperlipidemia, unspecified hyperlipidemia type E78.5 Active 27214433 Problem Dementia with behavioral disturbance, unspecified dementia type F03.91 Active 7951930536226 Problem Essential (primary) hypertension I10 Active 64048067 Problem Dementia F03.90 Active 39670545 Problem Acquired hypothyroidism E03.9 Active 079165150 Problem COPD (chronic obstructive pulmonary disease) J44.9 Active 80399859 Problem Allergy, subsequent encounter T78.40XD Active 567575828 ALLERGIES No Information ENCOUNTERS Encounter Location Date Diagnosis [facility] [address] [place] [id number] May, Dementia with behavioral disturbance, unspecified dementia type F03.91 [facility] [id number] [address] May, [facility] [address] [place] [id number] May, Traumatic pneumothorax, initial encounter S27.0XXA ; COPD (chronic obstructive pulmonary disease) J44.9 and Dementia F03.90 [facility] [id number], [place] [address] May, [facility] [address] [id number], [place] [address] May, Left hip pain M25.552 [facility] [address] [facility] [id number], [place] [address] May, Dementia with behavioral disturbance, unspecified dementia type F03.91 [facility] [address], [place] [address] Apr, Left hip pain M25.552 [facility] [address], [place] [address] Apr, [facility] [address] [place] [id number] Apr, [place] [address], [place] [address] Apr, Left hip pain M25.552 [facility] [address] [place] [id number] Apr, Dementia F03.90 and Left hip pain M25.552 [facility] [address], [place] [address] Mar, [facility] [address], [place] [address] Mar, [facility] [address], [place] [address] Mar, [facility] [address] [place] [id number] Feb, Dementia F03.90 [facility] [address], [place] [address] Feb, [facility] [address], [place] [address] January, [facility] [address], [place] [address] Dec, [facility] [address] [place] [id number] Nov, Dementia F03.90 and COPD (chronic obstructive pulmonary disease) J44.9 [facility] [id number] [id number] Nov, [facility] [address] [id number] [id number] Oct, [facility] [address] [place] [id number] Sep, Anemia, unspecified type D64.9 [facility] [address] [facility] [id number], [place] [address] Sep, [facility] [address] [facility] [id number], [place] [address] Sep, [facility] [address] [id number] [id number] Sep, [facility] [address] [id number][place] [id number] Aug, [facility] [address] [id number] [id number] Aug, [facility] [address] [facility] [id number], [place] [address] Aug, [facility] [address] [id number] [address] Aug, [facility] [address] [facility] [id number], [place] [address] Aug, [facility] [address] [facility] [id number], [place] [address] Jul, [facility] [address] [id number] [id number] Jul, [facility] [address] [id number][place] [id number] Jul, [facility] [address] [id number][place] [address] Jun, [facility] [address] [facility] [id number], [place] [address] Jun, [facility] [address] [id number] Jun, Left hip pain M25.552 and Dementia F03.90 [facility] [address] [facility] [id number], [place] [address] May, [facility] [address] [id number][place] [id number] May, [facility] [address] [id number][place] [address] May, [facility] [address] [facility] [id number], [place] [address] May, [facility] [address] [id number][place] [id number] Apr, [facility] [address] [facility] [id number], [place] [address] Apr, [facility] [address] [facility] [id number], [place] [address] Apr, [facility] [address] [id number][place] [address] Apr, Dementia F03.90 [facility] [address] [facility] [id number], [place] Apr, [facility] [address] [facility] [id number][place] [address] Apr, [facility] [address] [facility] [place] [id number] Apr, Edema of both legs R60.0 [facility] [address] [id number][place] [id number] Mar, [facility] [address] [id number][place] [id number] Mar, [facility] [address] [id number], [place] [address] Mar, Anorexia R63.[address] [facility] [address] [facility] [id number], [place] [address] Mar, [facility] [address] [id number][place] [id number] Mar, [facility] [address] [id number], [place] [id number] Feb, [facility] [id number] [address] Feb, [facility] [address] [id number], [place] [address] Feb, Urinary tract infection without hematuria, site unspecified N39.0 [facility] [address] [id number], [place] [address] January, Anorexia R63.0 [facility] [address] [id number], [place] [address] January, [facility] [id number] [id number] January, [facility] [address] [id number], [place] [address] January, Dementia F03.90 [facility] [address] [id number], [place] [address] January, [facility] [address] [place] [id number] Dec, Left hip pain M25.552 and Dementia F03.90 [facility] [address] [id number] [address] Dec, [facility] [address] [id number], [place] [address] Nov, [facility] [address] [facility] [id number], [place] [address] Oct, [facility] [address] [id number] Oct, Dementia F03.90 and Other depression F32.89 [facility] [address] [id number] Oct, Dementia F03.90 ; Essential (primary) hypertension I10 and COPD (chronic obstructive pulmonary disease) J44.9 [facility] [address], [place] [address] Oct, [facility] [address], [place] [address] Sep, [facility] [address] [id number] Aug, COPD (chronic obstructive pulmonary disease) J44.9 and Dementia F03.90 [facility] [address] [id number] Jun, Dementia F03.90 and COPD (chronic obstructive pulmonary disease) J44.9 [facility] [address] [place] [id number] Apr, COPD (chronic obstructive pulmonary disease) J44.9 and Essential (primary ) hypertension I10 [facility] [address], [place] [address] Apr, [facility] [address], [place] [address] Mar, [facility] [id number] [place] [address] Mar, COPD (chronic obstructive pulmonary disease) J44.9 [facility] [address], [place] [address] January, COPD (chronic obstructive pulmonary disease) J44.9 and Allergy, subsequent encounter T78.40XD [facility] [address], [place] [address] Nov, COPD (chronic obstructive pulmonary disease) J44.9 ; Dementia F03.90 and Essential (primary) hypertension I10 [facility] [address], [place] [address] Oct, COPD (chronic obstructive pulmonary disease) J44.9 [facility] [address], [place] [address] Sep, COPD (chronic obstructive pulmonary disease) J44.9 [facility] [address], [place] [address] 79[address] Sep, Essential (primary) hypertension I10 [facility] [address] [place] [address] Sep, Dementia F03.90 and Essential hypertension, benign 401.1 [facility] [id number] [place] [address] Jul, Dementia F03.90 and COPD (chronic obstructive pulmonary disease) J44.9 [facility] [address], [place] [address]- [address] Jun, [facility] [id number] [place] [address]- 56[address] Jun, [facility] [id number] [place] [address]- [address] May, Chronic airway obstruction, not elsewhere classified 496 and Essential hypertension, benign 401.1 [facility] [address] [place] [address]70 Mar, Essential hypertension, benign 401.1 and Dementia 294.20 [facility] [address] [place] [address]- [address]25 January, Dementia 294.20 [facility] [address], [place] [address]- 6[address] Dec, [facility] [address], [place] [address] Dec, [facility] [address] [place] [id number] Nov, [facility] [address] [place] [address]- 5898 Nov, [facility] [address], [place] [address]- [address]70 Sep, [facility] [id number] [place] [address] [place] [address] Sep, [facility] [place] [facility] [address] [id number] [place] Aug, [facility] [place] [facility] [address] [id number] [place] [address]- 2035 Aug, [facility] [place] [facility] [address] [id number] [place] [address]- 7[address] Jul, [facility] [place] [facility] [address] [id number] [place] [address]- 7443 Jul, [facility] [place] [facility] [address] [id number] [place] [address]- 1290 Jun, [facility] [place] [facility] [address] [id number] [place] [address]- 2909 Jun, [facility] [place] [facility] [address] [id number] [place] [address]- 0469 Mar, [facility] [place] [facility] [address] [id number] [place] [address]- 4515 Mar, [facility] [place] [facility] [address] [id number] [place] [address]- 4327 Mar, [facility] [place] [facility] [address] [id number] [place] [address]- 5679 Mar, [facility] [place] [facility] [address] [id number] [place] [address]- 5216 Mar, [facility] [place] [facility] [address] [id number] [place] [address]- 4812 Mar, [facility] [place] [facility] [address] [id number] [place] [address]- 2909 January, [facility] [place] [facility] [address] [id number] [place] [address]- 9[address] January, [facility] [place] [facility] [address] [id number] [place] [address]- 9098 January, [facility] [place] [facility] [address] [id number] [place] [address]- 2913 January, [facility] [place] [facility] [address] [id number] [place] [address]- 9987 January, [facility] [place] [facility] [address] [id number] [place] [address]- 0322 Aug, [facility] [place] [facility] [address] [id number] [place] [address]- 1807 Aug, [facility] [place] [facility] [address] [id number] [place] [address]- 6175 Mar, [facility] [place] [facility] [address] [id number] [place] [address]- 2173 Mar, [facility] [place] [facility] [address] [id number] [place] [address]- 0033 Jun, [facility] [place] [facility] [address] [id number] [place] [address]- 9826 Jun, [facility] [place] [facility] [address] [id number] [place] [address]- 8311 Jun, [facility] [place] [facility] [address] [id number] [place] [address]- 7115 Jun, [facility] [place] [facility] [address] [id number] [place] [address]- 6670 Jun, [facility] [place] [facility] [address] [id number] [place] [address]- 4540 Jun, [facility] [place] [facility] [address] [id number] [place] [address]- 4317 Jun, [facility] [place] [facility] [address] [id number] [place] [address]- 4639 Apr, [facility] [place] [facility] [address] [id number] [place] [address] 2542 Feb, [facility] [place] [facility] [address] [id number] [place] [address]- 9258 Oct, [facility] [address] [id number], [place] [address] Aug, [facility] [address], [place] [address] 9[address] Aug, [facility] [address], [place] [address]- 06[address] Aug, [facility] [address], [place] [address]- 8499 Aug, [facility] [address], [place] [address]- 6[address] Apr, [facility] [address], [place] [address] 89[address] January, [facility] [address], [place] [address]- [address] January, [facility] [id number], [place] [address] 4270 Dec, IMMUNIZATIONS No Known Immunizations SOCIAL HISTORY Never Assessed REASON FOR VISIT Controlled Med Refill PLAN OF CARE VITAL SIGNS MEDICATIONS Medication Instructions Dosage Frequency Start Date End Date Duration Status Tramadol HCl 50 mg Orally 2 times a day 2 tablet 12h 30 Feb, 2017 28 days Active RESULTS No Results PROCEDURES No Known procedures INSTRUCTIONS MEDICATIONS ADMINISTERED No Known Medications
--- OUTSIDE RECORDS SUMMARY | 2018-08-22 16:03 | XMS REPORT ---
Author Author TEJ CHILEL [facility] Address [address] [place] [address] Care Team Providers Care Field Assessor Name Role Phone TEJ CHILEL Unavailable PROBLEMS Type Condition ICD9-CM Code [id number] Code Onset Dates Condition Status SNOMED Code Problem Anorexia R63.0 Active 59311821 Problem Brief psychotic disorder F23 Active 9045252 Problem Primary insomnia F51.01 Active 0595619 Problem Recurrent major depressive disorder, remission status unspecified F33.9 Active 15514530 Problem 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 Active 96864028 Problem Hyperlipidemia, unspecified hyperlipidemia type E78.5 Active 26391218 Problem Dementia with behavioral disturbance, unspecified dementia type F03.91 Active 4708988595609 Problem Essential (primary) hypertension I10 Active 38588587 Problem Dementia F03.90 Active 12883336 Problem Acquired hypothyroidism E03.9 Active 907325097 Problem COPD (chronic obstructive pulmonary disease) J44.9 Active 58832324 Problem Allergy, subsequent encounter T78.40XD Active [id number] ALLERGIES No Information ENCOUNTERS Encounter Location Date Diagnosis [facility] [address] [place] [id number] May, Dementia with behavioral disturbance, unspecified dementia type F03.91 [facility] [address] [id number] [address] May, [facility] [address] [place] [id number] May, Traumatic pneumothorax, initial encounter S27.0XXA ; COPD (chronic obstructive pulmonary disease) J44.9 and Dementia F03.90 [facility] [address] [id number], [place] [address] May, [facility] [address] [id number], [place] [address] May, Left hip pain M25.552 [facility] [address] [facility] [id number], [place] [address] May, Dementia with behavioral disturbance, unspecified dementia type F03.91 [facility] [address], [place] [address] Apr, Left hip pain M25.552 [facility] [address], [place] [address] Apr, [facility] [address] [place] [id number] Apr, [place] [address], [place] [address] Apr, Left hip pain M25.552 [facility] [address] [place] [id number] Apr, Dementia F03.90 and Left hip pain M25.552 [facility] [address], [place] [address] Mar, [facility] [address], [place] [address] Mar, [facility] [address], [place] [address] Mar, [facility] [address] [place] [id number] Feb, Dementia F03.90 [facility] [address], [place] [address] Feb, [facility] [address], [place] [address] January, [facility] [address], [place] [address] Dec, [facility] [address] [place] [id number] Nov, Dementia F03.90 and COPD (chronic obstructive pulmonary disease) J44.9 [facility] [address] [id number] [id number] Nov, [facility] [address] [id number] [id number] Oct, [facility] [address] [place] [id number] Sep, Anemia, unspecified type D64.9 [facility] [address] [facility] [id number], [place] [address] Sep, [facility] [address] [facility] [id number], [place] [address] Sep, [facility] [address] [id number][place] [id number] Sep, [facility] [address] [id number] [id number] Aug, [facility] [address] [id number] [id number] Aug, [facility] [address] [facility] [id number], [place] [address] Aug, [facility] [address] [id number] [id number] Aug, [facility] [address] [facility] [id number], [place] [address] Aug, [facility] [address] [facility] [id number], [place] [address] Jul, [facility] [address] [id number] [address] Jul, [facility] [address] [id number] [address] Jul, [facility] [address] [id number][place] [address] Jun, [facility] [address] [facility] [id number], [place] [address] Jun, [facility] [address] [place] [id number] Jun, Left hip pain M25.552 and Dementia F03.90 [facility] [address] [facility] [id number], [place] [address] May, [facility] [address] [id number][place] [id number] May, [facility] [address] [id number] [id number] May, [facility] [address] [facility] [id number], [place] [address] May, [facility] [address] [id number], [place] [id number] Apr, [facility] [address] [facility] [facility] [id number][place] [address] Apr, [facility] [address] [facility] [id number][place] [address] Apr, [facility] [address] [id number] [address] Apr, Dementia F03.90 [facility] [address] [facility] [id number][place] [address] Apr, [facility] [address] [facility] [id number][place] [address] Apr, [facility] [address] [facility] [place] [id number] Apr, Edema of both legs R60.0 [facility] [address] [id number][place] [id number] Mar, [facility] [address] [id number][place] [id number] Mar, [facility] [address] [id number][place] [address] Mar, Anorexia R63.0 [facility] [address] [id number], [place] [address] Mar, [facility] [address] [id number][place] [address] Mar, [facility] [address] [id number] [id number] Feb, [facility] [id number] [id number] Feb, [facility] [address] [id number], [place] [address] Feb, Urinary tract infection without hematuria, site unspecified N39.0 [facility] [address] [id number], [place] [address] January, Anorexia R63.0 [facility] [address] [id number], [place] [address] January, [facility] [id number], [place] [address] January, [facility] [address] [id number], [place] [address] January, Dementia F03.90 [facility] [address] [id number][place] [address] January, [facility] [address] [place] [id number] Dec, Left hip pain M25.552 and Dementia F03.90 [facility] [address] [id number][place] [address] Dec, [facility] [address] [id number] [id number] Nov, [facility] [address] [id number], [place] [address] Oct, [facility] [address] [place] [id number] Oct, Dementia F03.90 and Other depression F32.89 [facility] [address] [place] [id number] Oct, Dementia F03.90 ; Essential (primary) hypertension I10 and COPD (chronic obstructive pulmonary disease) J44.9 [facility] [address], [place] [address] Oct, [facility] [address], [place] [address] Sep, [facility] [address] [place] [place] [id number] Aug, COPD (chronic obstructive pulmonary disease) J44.9 and Dementia F03.90 [facility] [address] [place] [place] [id number] Jun, Dementia F03.90 and COPD (chronic obstructive pulmonary disease) J44.9 [facility] [address] [place] [id number] Apr, COPD (chronic obstructive pulmonary disease) J44.9 and Essential (primary ) hypertension I10 [facility] [address], [place] [address] Apr, [facility] [address], [place] [address] Mar, [facility] [id number] [place] [address] Mar, COPD (chronic obstructive pulmonary disease) J44.9 [facility] [address], [place] [address] January, COPD (chronic obstructive pulmonary disease) J44.9 and Allergy, subsequent encounter T78.40XD [facility] [address], [place] [address] Nov, COPD (chronic obstructive pulmonary disease) J44.9 ; Dementia F03.90 and Essential (primary) hypertension I10 [facility] [address], [place] [address] Oct, COPD (chronic obstructive pulmonary disease) J44.9 [facility] [address], [place] [address] Sep, COPD (chronic obstructive pulmonary disease) J44.9 [facility] [address], [place] [address] Sep, Essential (primary) hypertension I10 [facility] [address] [place] [address] Sep, Dementia F03.90 and Essential hypertension, benign 401.1 [facility] [id number] [place] [address] Jul, Dementia F03.90 and COPD (chronic obstructive pulmonary disease) J44.9 [facility] [address], [place] [address] Jun, [facility] [id number] [place] [address] Jun, [facility] [id number] [place] [address]61 May, Chronic airway obstruction, not elsewhere classified 496 and Essential hypertension, benign 401.1 [facility] [address] [place] [address]99 Mar, Essential hypertension, benign 401.1 and Dementia 294.20 [facility] [address] [place] [address] January, Dementia 294.20 [facility] [address], [place] [address] Dec, [facility] [address], [place] [address] Dec, [facility] [address] [place] [id number] Nov, [facility] [address] [place] [address] 0795 Nov, [facility] [address], [place] [address] Sep, [facility] [id number] [place] [address] [place] [address] Sep, [facility] [place] [facility] [address] [id number] [place] [address] Aug, [facility] [place] [facility] [address] [id number] [place] [address] Aug, [facility] [place] [facility] [address] [id number] [place] [address]- 7874 Jul, [facility] [place] [facility] [address] [id number] [place] [address] 3633 Jul, [facility] [place] [facility] [address] [id number] [place] [address] Jun, [facility] [place] [facility] [address] [id number] [place] [address]- 2737 Jun, [facility] [place] [facility] [address] [id number] [place] [address]- 0027 Mar, [facility] [place] [facility] [address] [id number] [place] [address]- 4938 Mar, [facility] [place] [facility] [address] [id number] [place] [address]- 7440 Mar, [facility] [place] [facility] [address] [id number] [place] [address]- 5961 Mar, [facility] [place] [facility] [address] [id number] [place] [address]- 1414 Mar, [facility] [place] [facility] [address] [id number] [place] [address]- 5030 Mar, [facility] [place] [facility] [address] [id number] [place] [address]- 4909 January, [facility] [place] [facility] [address] [id number] [place] [address]- 0680 January, [facility] [place] [facility] [address] [id number] [place] [address]- 5439 January, [facility] [place] [facility] [address] [id number] [place] [address]- 2327 January, [facility] [place] [facility] [address] [id number] [place] [address]- 7188 January, [facility] [place] [facility] [address] [id number] [place] [address]- 2435 Aug, [facility] [place] [facility] [address] [id number] [place] [address]- 0878 Aug, [facility] [place] [facility] [address] [id number] [place] [address]- 7503 Mar, [facility] [place] [facility] [address] [id number] [place] [address]- 7[address] Mar, [facility] [place] [facility] [address] [id number] [place] [address]- 1365 Jun, [facility] [place] [facility] [address] [id number] [place] [address]- 5293 Jun, [facility] [place] [facility] [address] [id number] [place] [address]- 5995 Jun, [facility] [place] [facility] [address] [id number] [place] [address]- 8880 Jun, [facility] [place] [facility] [address] [id number] [place] [address]- 0169 Jun, [facility] [place] [facility] [address] [id number] [place] [address]- 0946 Jun, [facility] [place] [facility] [address] [id number] [place] [address]- 2886 Jun, [facility] [place] [facility] [address] [id number] [place] [address]- 9716 Apr, [facility] [place] [facility] [address] [id number] [place] [address] 254 Feb, [facility] [place] [facility] [address] [id number] [place] [address]- 9873 Oct, [facility] [address] [id number], [place] [address] Aug, [facility] [address], [place] [address] 6[address] Aug, [facility] [address], [place] [address] 6347 Aug, [facility] [address], [place] [address] Aug, [facility] [address], [place] [address] 3836 Apr, [facility] [address], [place] [address] 5326 January, [facility] [address], [place] [address] 0[address] January, [facility] [address], [place] [address] Dec, IMMUNIZATIONS No Known Immunizations SOCIAL HISTORY Never Assessed REASON FOR VISIT routine visit PLAN OF CARE Activity Details Follow Up prn Reason: VITAL SIGNS MEDICATIONS Medication Instructions Dosage Frequency Start Date End Date Duration Status Tramadol HCl 50 mg Orally 2 times a day 1 tablet 12h 30 Feb, 2017 Active RESULTS No Results PROCEDURES Procedure Date Ordered Result Body Site Minor complication (15 mins) Apr 28, 2018 INSTRUCTIONS MEDICATIONS ADMINISTERED No Known Medications
--- OUTSIDE RECORDS SUMMARY | 2018-08-22 16:04 | XMS REPORT ---
Author Author TEJ CHILEL [facility] Address [address] [place] [address] Care Team Providers Care Mechanic Name Role Phone TEJ CHILEL Unavailable PROBLEMS Type Condition ICD9-CM Code [id number] Code Onset Dates Condition Status SNOMED Code Problem Anorexia R63.0 Active 67298665 Problem Brief psychotic disorder F23 Active 4312082 Problem Primary insomnia F51.01 Active 7675110 Problem Recurrent major depressive disorder, remission status unspecified F33.9 Active 82605739 Problem 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 Active 85704015 Problem Hyperlipidemia, unspecified hyperlipidemia type E78.5 Active 31803698 Problem Dementia with behavioral disturbance, unspecified dementia type F03.91 Active 2615428092026 Problem Essential (primary) hypertension I10 Active 08876315 Problem Dementia F03.90 Active 03194554 Problem Acquired hypothyroidism E03.9 Active 413095308 Problem COPD (chronic obstructive pulmonary disease) J44.9 Active 61791660 Problem Allergy, subsequent encounter T78.40XD Active 730655294 ALLERGIES No Information ENCOUNTERS Encounter Location Date Diagnosis [facility] [address] [place] [id number] May, Dementia with behavioral disturbance, unspecified dementia type F03.91 [facility] [address] [id number] [address] May, [facility] [address] [place] [id number] May, Traumatic pneumothorax, initial encounter S27.0XXA ; COPD (chronic obstructive pulmonary disease) J44.9 and Dementia F03.90 [facility] [id number] [address] May, [facility] [address] [id number] [address] May, Left hip pain M25.552 [facility] [address] [facility] [id number] [place] [address] May, Dementia with behavioral disturbance, unspecified dementia type F03.91 [facility] [address] [address] Apr, Left hip pain M25.552 [facility] [address] [address] Apr, [facility] [address] [place] [id number] Apr, [place] [address] [address] Apr, Left hip pain M25.552 [facility] [address] [place] [id number] Apr, Dementia F03.90 and Left hip pain M25.552 [facility] [address] [address] Mar, [facility] [address] [address] Mar, [facility] [address] [address] Mar, [facility] [address] [place] [id number] Feb, Dementia F03.90 [facility] [address] [address] Feb, [facility] [address] [address] January, [facility] [address] [address] Dec, [facility] [address] [place] [id number] Nov, Dementia F03.90 and COPD (chronic obstructive pulmonary disease) J44.9 [facility] [address] [id number] [address] Nov, [facility] [address] [id number] [place] [address] Oct, [facility] [address] [place] [id number] Sep, Anemia, unspecified type D64.9 [facility] [address] [facility] [id number] [place] [address] Sep, [facility] [address] [facility] [id number] [place] [address] Sep, [facility] [address] [id number] [place] [address] Sep, [facility] [address] [id number] [place] [address] Aug, [facility] [address] [id number] [address] Aug, [facility] [address] [facility] [id number] [place] [address] Aug, [facility] [address] [id number] [id number] Aug, [facility] [address] [facility] [id number] [place] [address] Aug, [facility] [address] [facility] [id number] [place] [address] Jul, [facility] [address] [id number] [place] [id number] Jul, [facility] [address] [id number] [place] [address] Jul, [facility] [address] [id number] [place] [address] Jun, [facility] [address] [facility] [id number] [place] [address] Jun, [facility] [address] [place] [id number] Jun, Left hip pain M25.552 and Dementia F03.90 [facility] [address] [facility] [id number] [place] [address] May, [facility] [address] [id number] [place] [address] May, [facility] [address] [id number] [place] [address] May, [facility] [address] [facility] [id number] [place] [address] May, [facility] [address] [id number] [place] [address] Apr, [facility] [address] [facility] [id number] [place] [address] Apr, [facility] [address] [facility] [id number] [place] [address] Apr, [facility] [address] [id number] [place] [address] Apr, Dementia F03.90 [facility] [address] [facility] [id number] [place] Apr, [facility] [address] [facility] [id number] [place] Apr, [facility] [address] [facility] [place] [address] Apr, Edema of both legs R60.0 [facility] [address] [id number] [place] [address] Mar, [facility] [address] [id number] [place] [address] Mar, [facility] [address] [id number] [place] [address] Mar, Anorexia R63.0 [facility] [address] [facility] [id number] [place] [address] Mar, [facility] [address] [id number] [place] [address] Mar, [facility] [address] [id number] [place] [address] Feb, [facility] [id number] [place] [address] Feb, [facility] [address] [id number] [address] Feb, Urinary tract infection without hematuria, site unspecified N39.0 [facility] [id number] [address] January, Anorexia R63.0 [facility] [id number] [address] January, [facility] [id number] [place] [address] January, [facility] [id number] [address] January, Dementia F03.90 [facility] [address] [id number] [place] [address] January, [facility] [address] [id number] Dec, Left hip pain M25.552 and Dementia F03.90 [facility] [address] [id number] [place] [address] Dec, [facility] [address] [id number] [place] [address] Nov, [facility] [address] [facility] [id number] [place] [address] Oct, [facility] [address] [id number] Oct, Dementia F03.90 and Other depression F32.89 [facility] [address] [id number] Oct, Dementia F03.90 ; Essential (primary) hypertension I10 and COPD (chronic obstructive pulmonary disease) J44.9 [facility] [address] [address] Oct, [facility] [address] [address] Sep, [facility] [address] [id number] Aug, COPD (chronic obstructive pulmonary disease) J44.9 and Dementia F03.90 [facility] [address] [id number] Jun, Dementia F03.90 and COPD (chronic obstructive pulmonary disease) J44.9 [facility] [address] [place] [id number] Apr, COPD (chronic obstructive pulmonary disease) J44.9 and Essential (primary ) hypertension I10 [facility] [address] [address] Apr, [facility] [address] [address] Mar, [facility] [id number] [place] [address] Mar, COPD (chronic obstructive pulmonary disease) J44.9 [facility] [address] [address] January, COPD (chronic obstructive pulmonary disease) J44.9 and Allergy, subsequent encounter T78.40XD [facility] [address] [address] Nov, COPD (chronic obstructive pulmonary disease) J44.9 ; Dementia F03.90 and Essential (primary) hypertension I10 [facility] [address] [address] Oct, COPD (chronic obstructive pulmonary disease) J44.9 [facility] [address] [address] Sep, COPD (chronic obstructive pulmonary disease) J44.9 [facility] [address] [address]- [address] Sep, Essential (primary) hypertension I10 [facility] [address] [place] [address]- [address] Sep, Dementia F03.90 and Essential hypertension, benign 401.1 [facility] [id number] [place] [address] Jul, Dementia F03.90 and COPD (chronic obstructive pulmonary disease) J44.9 [facility] [address] [address]- 8[address] Jun, [facility] [id number] [place] [address]- [address]127 Jun, [facility] [id number] [place] [address] 4767 May, Chronic airway obstruction, not elsewhere classified 496 and Essential hypertension, benign 401.1 [facility] [address] [place] [address]- [address]25 Mar, Essential hypertension, benign 401.1 and Dementia 294.20 [facility] [address] [place] [address]- [address] January, Dementia 294.20 [facility] [address] [address]- [address] Dec, [facility] [address] [address]- [address] Dec, [facility] [address] [place] [id number] Nov, [facility] [address] [place] [address]- [address] Nov, [facility] [address] [address]- 98[address] Sep, [facility] [id number] [place] [address] [place] [address] Sep, [facility] [place] [facility] [address] [id number] [place] [address] Aug, [facility] [place] [facility] [address] [id number] [place] [address]- [address] Aug, [facility] [place] [facility] [address] [id number] [place] [address]- 4032 Jul, [facility] [place] [facility] [address] [id number] [place] [address]- [address] Jul, [facility] [place] [facility] [address] [id number] [place] [address]- 2408 Jun, [facility] [place] [facility] [address] [id number] [place] [address]- 3726 Jun, [facility] [place] [facility] [address] [id number] [place] [address]- 6619 Mar, [facility] [place] [facility] [address] [id number] [place] [address]- 4285 Mar, [facility] [place] [facility] [address] [id number] [place] [address] Mar, [facility] [place] [facility] [address] [id number] [place] [address]- 34[address] Mar, [facility] [place] [facility] [address] [id number] [place] [address]- 0091 Mar, [facility] [place] [facility] [address] [id number] [place] [address]- 4869 Mar, [facility] [place] [facility] [address] [id number] [place] [address]- [address]157 January, [facility] [place] [facility] [address] [id number] [place] [address]- 2586 January, [facility] [place] [facility] [address] [id number] [place] [address]- 6485 January, [facility] [place] [facility] [address] [id number] [place] [address]- 6861 January, [facility] [place] [facility] [address] [id number] [place] [address]- 7085 January, [facility] [place] [facility] [address] [id number] [place] [address]- 0655 Aug, [facility] [place] [facility] [address] [id number] [place] [address]- 5386 Aug, [facility] [place] [facility] [address] [id number] [place] [address]- 8483 Mar, [facility] [place] [facility] [address] [id number] [place] [address]- 0257 Mar, [facility] [place] [facility] [address] [id number] [place] [address]- 2334 Jun, [facility] [place] [facility] [address] [id number] [place] [address]- 7696 Jun, [facility] [place] [facility] [address] [id number] [place] [address]- 0395 Jun, [facility] [place] [facility] [address] [id number] [place] [address]- 0103 Jun, [facility] [place] [facility] [address] [id number] [place] [address]- 9176 Jun, [facility] [place] [facility] [address] [id number] [place] [address]- 7414 Jun, [facility] [place] [facility] [address] [id number] [place] [address]- 9075 Jun, [facility] [place] [facility] [address] [id number] [place] [address]- 1328 Apr, [facility] [place] [facility] [address] [id number] [place] [address] 2549 Feb, [facility] [place] [facility] [address] [id number] [place] [address]- 8256 Oct, [facility] [id number] [address]- 285[address] Aug, [facility] [address] [address]- 5686 Aug, [facility] [address] [address]- 4716 Aug, [facility] [address] [place] [address]- 2546 Aug, [facility] [address] [address]- 4930 Apr, [facility] [address] [place] [address]- 3496 January, [facility] [address] [address]- 0[address] January, [facility] [address] [address]- 1738 Dec, IMMUNIZATIONS No Known Immunizations SOCIAL HISTORY Never Assessed REASON FOR VISIT increase Risperadol PLAN OF CARE VITAL SIGNS MEDICATIONS Medication Instructions Dosage Frequency Start Date End Date Duration Status Risperidone 0.5 MG Orally in AM and 2 in PM 1 tablet Jul, 28 days Active RESULTS No Results PROCEDURES No Known procedures INSTRUCTIONS MEDICATIONS ADMINISTERED No Known Medications
--- OUTSIDE RECORDS SUMMARY | 2018-08-22 16:04 | XMS REPORT ---
Author Author TEJ CHILEL [facility] Address [address] [place] [address] Care Team Providers Care Fluid Pump Operator Name Role Phone TEJ CHILEL Unavailable PROBLEMS Type Condition ICD9-CM Code KDQ62-DC Code Onset Dates Condition Status SNOMED Code Problem Anorexia R63.0 Active 72049856 Problem Brief psychotic disorder F23 Active 8392877 Problem Primary insomnia F51.01 Active 3098296 Problem Recurrent major depressive disorder, remission status unspecified F33.9 Active 35865163 Problem 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 Active 57392834 Problem Hyperlipidemia, unspecified hyperlipidemia type E78.5 Active 37939999 Problem Dementia with behavioral disturbance, unspecified dementia type F03.91 Active 0455654394563 Problem Essential (primary) hypertension I10 Active 95630409 Problem Dementia F03.90 Active 96789878 Problem Acquired hypothyroidism E03.9 Active 822365723 Problem COPD (chronic obstructive pulmonary disease) J44.9 Active 36412156 Problem Allergy, subsequent encounter T78.40XD Active 612269289 ALLERGIES No Information ENCOUNTERS Encounter Location Date Diagnosis [facility] [address] [facility] [place] [id number] May, Traumatic pneumothorax, initial encounter S27.0XXA ; COPD (chronic obstructive pulmonary disease) J44.9 and Dementia F03.90 [facility] [id number] [address] 18 May, 2018 [facility] [id number] [address] 14 May, 2018 Left hip pain M25.552 [facility] [id number] [address] 11 May, 2018 Dementia with behavioral disturbance, unspecified dementia type F03.91 [facility] [id number] [address] Apr, Left hip pain M25.552 [facility] [address] [facility] [id number] [address] Apr, [facility] [address] [id number] Apr, [facility] [address] [facility] [id number] [address] Apr, Left hip pain M25.552 [facility] [address] [id number] Apr, Dementia F03.90 and Left hip pain M25.552 [facility] [address] [facility] [id number], [place] [address] Mar, [facility] [address], [place] [address] Mar, [facility] [id number] [address] Mar, [facility] [address] [place] [id number] Feb, Dementia F03.90 [facility] [address] [facility] [id number] [address] Feb, [facility] [id number] [address] January, [facility] [id number] [address] Dec, [facility] [address] [id number] Nov, Dementia F03.90 and COPD (chronic obstructive pulmonary disease) J44.9 [facility] [id number] [id number] Nov, [facility] [address] [id number] [id number] Oct, [facility] [address] [id number] Sep, Anemia, unspecified type D64.9 [facility] [id number] [address] Sep, [facility] [address], [place] [address] Sep, [facility] [id number] [id number] Sep, [facility] [address] [id number] [id number] Aug, [facility] [address] [id number] [id number] Aug, [facility] [address], [place] [address] Aug, [facility] [id number] [id number] Aug, [facility] [address], [place] [address] Aug, [facility] [id number], [place] [address] Jul, [facility] [id number] [id number] Jul, [facility] [id number] [address] Jul, [facility] [id number] [id number] Jun, [facility] [address] [facility] [id number] [address] Jun, [facility] [address] [place] [id number] Jun, Left hip pain M25.552 and Dementia F03.90 [facility] [address] [facility] [id number], [place] [address] May, [facility] [address] [id number] [id number] May, [facility] [address] [id number] [id number] May, [facility] [address] [facility] [id number], [place] [address] May, [facility] [address] [id number] [address] Apr, [facility] [address] [facility] [id number] Apr, [facility] [address] [facility] [id number] [address] Apr, [facility] [id number] [id number] Apr, Dementia F03.90 [facility] [address] Apr, [facility] [id number] [address] Apr, [facility] [address] [facility] [place] [id number] Apr, Edema of both legs R60.0 [facility] [address] [id number] [id number] Mar, [facility] [address] [id number] [id number] Mar, [facility] [address] [id number] [id number] Mar, Anorexia R63.0 [facility] [address] [facility] [id number] [address] Mar, [facility] [address] [id number] [id number] Mar, [facility] [address] [id number] [id number] Feb, [facility] [id number], [place] [address] Feb, [facility] [address]00565[address], [place] [address] Feb, Urinary tract infection without hematuria, site unspecified N39.0 [facility] [address] [address] January, Anorexia R63.0 [facility] [address], [place] [address] January, [facility] [id number][place] [address] January, [facility] [address] [address] January, Dementia F03.90 [facility] [address] [id number] [id number] January, [facility] [address] [place] [id number] Dec, Left hip pain M25.552 and Dementia F03.90 [facility] [id number], [place] [id number] Dec, [facility] [id number] [place] [id number] Nov, [facility] [id number] [address] Oct, [facility] [address] [id number] Oct, Dementia F03.90 and Other depression F32.89 [facility] [address] [id number] Oct, Dementia F03.90 ; Essential (primary) hypertension I10 and COPD (chronic obstructive pulmonary disease) J44.9 [facility] [id number] [address] Oct, [facility] [address]65[address], [place] [address] Sep, [facility] [address] [place] [address] Aug, COPD (chronic obstructive pulmonary disease) J44.9 and Dementia F03.90 [facility] [address] [place] [id number] Jun, Dementia F03.90 and COPD (chronic obstructive pulmonary disease) J44.9 [facility] [address] [place] [id number] Apr, COPD (chronic obstructive pulmonary disease) J44.9 and Essential (primary ) hypertension I10 [facility] [address]65[address] [address] Apr, [facility] [id number] [place] [address]- [address] Mar, [place] [id number] [place] [address]- [address]387 Mar, COPD (chronic obstructive pulmonary disease) J44.9 [facility] [address] [id number] [address] January, COPD (chronic obstructive pulmonary disease) J44.9 and Allergy, subsequent encounter T78.40XD [facility] [address], [place] [address] Nov, COPD (chronic obstructive pulmonary disease) J44.9 ; Dementia F03.90 and Essential (primary) hypertension I10 [facility] [address], [place] [address] Oct, COPD (chronic obstructive pulmonary disease) J44.9 [facility] [address], [place] [address]- 1495 Sep, COPD (chronic obstructive pulmonary disease) J44.9 [facility] [address], [place] [address]- [address]99 Sep, Essential (primary) hypertension I10 [facility] [id number] [place] [address]- [address]223 Sep, Dementia F03.90 and Essential hypertension, benign 401.1 [facility] [id number] [place] [address]- 7839 Jul, Dementia F03.90 and COPD (chronic obstructive pulmonary disease) J44.9 [facility] [id number] [place] [address]71- 1896 Jun, [facility] [id number] [place] [address]325- 9080 Jun, [facility] [id number] [place] [address]60- 0228 May, Chronic airway obstruction, not elsewhere classified 496 and Essential hypertension, benign 401.1 [facility] [id number] [place] [address]- 2388 Mar, Essential hypertension, benign 401.1 and Dementia 294.20 [facility] [id number] [place] [address]- 5807 January, Dementia 294.20 [facility] [id number] [place] [address]37- 4471 Dec, [facility] [id number] [place] [address]5721- 5894 Dec, [facility] [address] [place] [id number] Nov, [facility] [id number] [place] [address]345- 3417 Nov, [facility] [id number] [place] [address] 79393- 0371 Sep, [facility] [id number] [place] [address] 25209- 7598 Sep, [facility] [id number] [place] [address] 05668- 9994 Aug, [facility] [id number] [place] [address]- 5895 Aug, [facility] [place] [facility] [address] [id number] [place] [address] Jul, [facility] [place] [facility] [address] [id number] [place] [address]- 8336 Jul, [facility] [place] [facility] [address] [id number] [place] [address]- 9123 Jun, [facility] [place] [facility] [address] [id number] [place] [address]- 7614 Jun, [facility] [place] [facility] [address] [id number] [place] [address]- 5460 Mar, [facility] [place] [facility] [address] [id number] [place] [address]- 6623 Mar, [facility] [place] [facility] [address] [id number] [place] [address]- 1876 Mar, [facility] [place] [facility] [address] [id number] [place] [address]- 4066 Mar, [facility] [place] [facility] [address] [id number] [place] [address]- 4964 Mar, [facility] [place] [facility] [address] [id number] [place] [address]- 7769 Mar, [facility] [place] [facility] [address] [id number] [place] [address]- 7179 January, [facility] [place] [facility] [address] [id number] [place] [address]- 1058 January, [facility] [place] [facility] [address] [id number] [place] [address]- 0333 January, [facility] [place] [facility] [address] [id number] [place] [address]- 1815 January, [facility] [place] [facility] [address] [id number] [place] [address]- 0822 January, [facility] [place] [facility] [address] [id number] [place] [address]- 2908 Aug, [facility] [place] [facility] [address] [id number] [place] [address]- 9830 Aug, [facility] [place] [facility] [address] [id number] [place] [address]- 2126 Mar, [facility] [place] [facility] [address] [id number] [place] [address]- 7646 Mar, [facility] [place] [facility] [address] [id number] [place] [address]- 0609 Jun, [facility] [place] [facility] [address] [id number] [place] [address] Jun, [facility] [place] [facility] [address] [id number] [place] [address]- 8332 Jun, [facility] [place] [facility] [address] [id number] [place] [address]- 4062 Jun, [facility] [address] [id number] [place] [address]- 9409 Jun, [facility] [place] [facility] [address] [id number] [place] [address]- 4676 Jun, [facility] [address] [id number] [place] [address]- 1169 Jun, [facility] [place] [facility] [address] [id number] [place] [address]- 2344 Apr, [facility] [place] [facility] [address] [id number] [place] [address]- 0026 Feb, [facility] [place] [facility] [address] [id number] [place] [address]- 7834 Oct, [facility] [place] [facility] [address] [id number] [place] [address]- 4846 Aug, [facility] [place] [facility] [address] [id number] [place] [address]- 3661 Aug, [facility] [address] [facility] [id number], [place] [address]- 0033 Aug, [facility] [address], [place] [address]- 7206 Aug, [facility] [id number] [address]- 7244 Apr, [facility] [address], [place] [address]- 8564 January, [facility] [id number], [place] [address]- 3500 January, [facility] [address], [place] [address]- 4061 Dec, IMMUNIZATIONS No Known Immunizations SOCIAL HISTORY Never Assessed REASON FOR VISIT increased behaviors PLAN OF CARE VITAL SIGNS MEDICATIONS Medication Instructions Dosage Frequency Start Date End Date Duration Status Tramadol HCl 50 mg Orally 2 times a day 2 tablet 12h Feb, May, 28 days Active Risperidone 0.5 MG Orally twice a day 1 tablet 12h Jul, 28 days Active RESULTS No Results PROCEDURES No Known procedures INSTRUCTIONS MEDICATIONS ADMINISTERED No Known Medications
--- OUTSIDE RECORDS SUMMARY | 2018-08-22 16:05 | XMS REPORT ---
Author Author TEJ CHILEL [facility] Address [address] [place] [address] Care Team Providers [employer] Porter Name Role Phone TEJ CHILEL Unavailable PROBLEMS Type Condition ICD9-CM Code HBC65-LE Code Onset Dates Condition Status SNOMED Code Problem Anorexia R63.0 Active 43617052 Problem Brief psychotic disorder F23 Active 1749094 Problem Primary insomnia F51.01 Active 8490657 Problem Recurrent major depressive disorder, remission status unspecified F33.9 Active 68409963 Problem 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 Active 73336913 Problem Hyperlipidemia, unspecified hyperlipidemia type E78.5 Active 56877529 Problem Dementia with behavioral disturbance, unspecified dementia type F03.91 Active 9578747530352 Problem Essential (primary) hypertension I10 Active 44683985 Problem Dementia F03.90 Active 58481066 Problem Acquired hypothyroidism E03.9 Active 552946929 Problem COPD (chronic obstructive pulmonary disease) J44.9 Active 51135599 Problem Allergy, subsequent encounter T78.40XD Active 552384993 ALLERGIES No Information ENCOUNTERS Encounter Location Date Diagnosis [place] [id number], [place] [address] May, [facility] [address] [place] [address] 14 May, 2018 Left hip pain M25.552 [facility] [address] [place] [address]- 3918 May, Dementia with behavioral disturbance, unspecified dementia type F03.91 [facility] [address] [place] [address]18- 8430 Apr, Left hip pain M25.552 [place] [address] [place] [id number] [place] [address]49- 6711 Apr, [facility] [address] [place] [id number] Apr, [facility] [address] [facility] [id number] [address] Apr, Left hip pain M25.552 [facility] [address] [place] [id number] Apr, Dementia F03.90 and Left hip pain M25.552 [facility] [address] [facility] [id number], [place] [address] Mar, [facility] [address] [facility] [id number], [place] [address] Mar, [facility] [address], [place] [address] Mar, [facility] [address] [place] [id number] Feb, Dementia F03.90 [facility] [address], [place] [address] Feb, [facility] [address], [place] [address] January, [facility] [address], [place] [address] Dec, [facility] [address] [place] [id number] Nov, Dementia F03.90 and COPD (chronic obstructive pulmonary disease) J44.9 [facility] [id number] [id number] Nov, [facility] [id number] [id number] Oct, [facility] [address] [place] [id number] Sep, Anemia, unspecified type D64.9 [facility] [address], [place] [address] Sep, [facility] [address] [id number], [place] [address] Sep, [facility] [address] [place] [id number] [address] Sep, [facility] [address] [id number] [id number] Aug, [facility] [address] [id number] [id number] Aug, [facility] [address] [facility] [id number], [place] [address] Aug, [facility] [address] [id number] [id number] Aug, [facility] [address] [facility] [id number], [place] [address] Aug, [facility] [address], [place] [address] Jul, [facility] [address] [id number] [id number] Jul, [facility] [id number] [id number] Jul, [facility] [id number] [id number] Jun, [facility] [address] [id number], [place] [address] Jun, [facility] [address] [place] [address] Jun, Left hip pain M25.552 and Dementia F03.90 [facility] [address] [id number], [place] [address] 29 May, 2017 [facility] [address] [id number][place] [id number] May, [facility] [address] [id number] [id number] 05 May, 2017 [facility] [address] [facility] [id number], [place] [address] 2546 May, [facility] [address] [id number][place] [id number] Apr, [facility] [address] [facility] [id number], [place] [address] Apr, [facility] [address] [facility] [id number], [place] [address] Apr, [facility] [address] [id number][place] [id number] Apr, Dementia F03.90 [facility] [address] [facility] [id number], [place] [address] Apr, [facility] [address] [facility] [id number], [place] [address] Apr, [facility] [address] [place] [id number] Apr, Edema of both legs R60.0 [facility] [address] [id number], [place] [id number] Mar, [facility] [address] [id number], [place] [id number] Mar, [facility] [address] [id number] [id number] Mar, Anorexia R63.0 [facility] [address] [facility] [id number], [place] [address] Mar, [facility] [address] [id number] [id number] Mar, [facility] [address] [id number], [place] [id number] Feb, [facility] [address] [id number], [place] [id number] Feb, [facility] [address] [id number], [place] [address] Feb, Urinary tract infection without hematuria, site unspecified N39.0 [facility] [address] [id number], [place] [address] January, Anorexia R63.0 [facility] [address] [address] January, [facility] [address] [id number] [id number] January, [facility] [address]100[place], [place] [address] January, Dementia F03.90 [facility] [id number] [place] [id number] January, [facility] [address] [place] [id number] Dec, Left hip pain M25.552 and Dementia F03.90 [facility] [id number] [place] [id number] Dec, [facility] [id number] [place] [id number] Nov, [facility] [address], [place] [address] Oct, [facility] [address] [place] [id number] Oct, Dementia F03.90 and Other depression F32.89 [facility] [address] [place] [id number] Oct, Dementia F03.90 ; Essential (primary) hypertension I10 and COPD (chronic obstructive pulmonary disease) J44.9 [facility] [address] [id number], [place] [address] 4085 Oct, [facility] [address], [place] [address] Sep, [facility] [address] [place] [id number] Aug, COPD (chronic obstructive pulmonary disease) J44.9 and Dementia F03.90 [facility] [address] [place] [id number] Jun, Dementia F03.90 and COPD (chronic obstructive pulmonary disease) J44.9 [facility] [address] [place] [id number] Apr, COPD (chronic obstructive pulmonary disease) J44.9 and Essential (primary ) hypertension I10 [facility] [address] [id number], [place] [address] Apr, [facility] [id number] [place] [address] 15185- 7004 Mar, [place] [address] [id number] [place] [address] 81407- 4172 Mar, COPD (chronic obstructive pulmonary disease) J44.9 [place] [address] [place] [id number] [place] [address] 96408- 5546 January, COPD (chronic obstructive pulmonary disease) J44.9 and Allergy, subsequent encounter T78.40XD [place] [address] [place] [id number] [place] [address] 89451- 4540 Nov, COPD (chronic obstructive pulmonary disease) J44.9 ; Dementia F03.90 and Essential (primary) hypertension I10 [facility] [address] [place] [address] [id number], [place] [address]- 9[address] Oct, COPD (chronic obstructive pulmonary disease) J44.9 [facility] [address] [id number] [place] [address] 028[address]- 2508 Sep, COPD (chronic obstructive pulmonary disease) J44.9 [facility] [address] [place] [address] [id number], [place] [address]- 3260 Sep, Essential (primary) hypertension I10 [place] [address] [place] [id number] [place] [address] 36397- 9936 Sep, Dementia F03.90 and Essential hypertension, benign 401.1 [place] [address] [place] [id number] [place] [address] 46459- 3187 Jul, Dementia F03.90 and COPD (chronic obstructive pulmonary disease) J44.9 [facility] [address]100[place], [place] [address]- 8242 Jun, [facility] [address] [address] Jun, [facility] [address] May, Chronic airway obstruction, not elsewhere classified 496 and Essential hypertension, benign 401.1 [facility] [address] Mar, Essential hypertension, benign 401.1 and Dementia 294.20 [facility] [address] [place] [id number] [place] [address] 80906- 8942 January, Dementia 294.20 [facility] [address], [place] [address]- 3385 Dec, [facility] [address], [place] [address]- 2146 Dec, [facility] [address] [place] [id number] Nov, [facility] [address], [place] [address]- 9565 Nov, [facility] [address], [place] [address]- 3018 Sep, [facility] [address], [place] [address]- 5923 Sep, [facility] [address] 395[address] Aug, [facility] [address] [address] Aug, [facility] [address] 8[address] Jul, [facility] [address] [id number] [place] [address] Jul, [facility] [place] [facility] [address] [id number] [place] [address]- 6174 Jun, [facility] [place] [facility] [address] [id number] [place] [address]- 6266 Jun, [facility] [place] [facility] [address] [id number] [place] [address]- 4514 Mar, [facility] [place] [facility] [address] [id number] [place] [address]- 0011 Mar, [facility] [place] [facility] [address] [id number] [place] [address]- 3650 Mar, [facility] [place] [facility] [address] [id number] [place] [address]- 4328 Mar, [facility] [place] [facility] [address] [id number] [place] [address]- 7955 Mar, [facility] [place] [facility] [address] [id number] [place] [address]- 1670 Mar, [facility] [place] [facility] [address] [id number] [place] [address]- 9676 January, [facility] [place] [facility] [address] [id number] [place] [address]- 7231 January, [facility] [place] [facility] [address] [id number] [place] [address]- 9228 January, [facility] [place] [facility] [address] [id number] [place] [address]- 9469 January, [facility] [place] [facility] [address] [id number] [place] [address]- 8490 January, [facility] [place] [facility] [address] [id number] [place] [address]- 3060 Aug, [facility] [place] [facility] [address] [id number] [place] [address]- 9751 Aug, [facility] [place] [facility] [address] [id number] [place] [address]- 4052 Mar, [facility] [place] [facility] [address] [id number] [place] [address]- 5817 Mar, [facility] [place] [facility] [address] [id number] [place] [address]- 4659 Jun, [facility] [place] [facility] [address] [id number] [place] [address]- 4292 Jun, [facility] [place] [facility] [address] [id number] [place] [address]- 8532 Jun, [facility] [place] [facility] [address] [id number] [place] [address]- 2445 Jun, [facility] [place] [facility] [address] [id number] [place] [address]- 0316 Jun, [facility] [place] [facility] [address] [id number] [place] [address]- 9971 Jun, [facility] [place] [facility] [address] [id number] [place] [address]- 2767 Jun, [facility] [place] [facility] [address] [id number] [place] [address]- 5462 Apr, [facility] [place] [facility] [address] [id number] [place] [address]- 1195 Feb, [facility] [place] [facility] [address] [id number] [place] [address]- 7636 15 Oct, 2010 [facility] [place] [facility] [address] [id number] [place] [address]- 3956 Aug, [facility] [place] [facility] [address] [id number] [place] [address]- 2414 Aug, [facility] [place] [facility] [address] [id number] [place] [address]- 0393 14 Aug, 2010 [facility] [place] [facility] [address] [facility] [id number], [place] [address]- 2546 14 Aug, 2010 [facility] [address] [id number], [place] [address]- 2546 Apr, [facility] [address] [id number], [place] [address] 2546 January, [facility] [address] [id number], [place] [address] 2546 January, [facility] [address] [id number], [place] [address] 2546 Dec, IMMUNIZATIONS No Known Immunizations SOCIAL HISTORY Never Assessed REASON FOR VISIT Resident is more unsteady and having more behaviors PLAN OF CARE VITAL SIGNS MEDICATIONS Unknown Medications RESULTS No Results PROCEDURES No Known procedures INSTRUCTIONS MEDICATIONS ADMINISTERED No Known Medications
--- OUTSIDE RECORDS SUMMARY | 2018-08-22 16:05 | XMS REPORT ---
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 Active 28069177 Problem Hyperlipidemia, unspecified hyperlipidemia type E78.5 Active 32579921 Problem Dementia with behavioral disturbance, unspecified dementia type F03.91 Active 2083915138818 Problem Essential (primary) hypertension I10 Active 70694884 Problem Dementia F03.90 Active 08188206 Problem Acquired hypothyroidism E03.9 Active 415836241 Problem COPD (chronic obstructive pulmonary disease) J44.9 Active 43905620 Problem Allergy, subsequent encounter T78.40XD Active 043262437 ALLERGIES No Information ENCOUNTERS Encounter Location Date Diagnosis [place] [address] [address] May, [facility] [address] [place] [address] 14 May, 2018 Left hip pain M25.552 [facility] [address] [place] [address] May, Dementia with behavioral disturbance, unspecified dementia type F03.91 [facility] [address] [place] [address] Apr, Left hip pain M25.552 [place] [address] [place] [id number] [place] [address] Apr, [facility] [address] [place] [id number] Apr, [facility] [address] [facility] [id number] [address] Apr, Left hip pain M25.552 [facility] [address] [place] [id number] Apr, Dementia F03.90 and Left hip pain M25.552 [facility] [address] [facility] [id number] [address] Mar, [facility] [address] [facility] [id number] [place] [address] Mar, [facility] [address] [address] Mar, [facility] [address] [place] [id number] Feb, Dementia F03.90 [facility] [address] [address] Feb, [facility] [address] [address] January, [facility] [address] [address] Dec, [facility] [address] [place] [id number] Nov, Dementia F03.90 and COPD (chronic obstructive pulmonary disease) J44.9 [facility] [id number] [id number] Nov, [facility] [address] [place] [id number] [id number] Oct, [facility] [address] [place] [id number] Sep, Anemia, unspecified type D64.9 [facility] [address] [address] Sep, [facility] [address] [id number] [place] [address] Sep, [facility] [address] [place] [id number] [id number] Sep, [facility] [address] [id number] [place] [id number] Aug, [facility] [address] [place] [address] [id number] [address] Aug, [facility] [address] [facility] [id number] [place] [address] Aug, [facility] [address] [place] [id number] [place] [id number] Aug, [facility] [address] [facility] [id number] [place] [address] Aug, [facility] [address] [address] Jul, [facility] [address] [place] [address] [id number] [place] [id number] Jul, [facility] [id number] [address] Jul, [facility] [id number] [place] [address] Jun, [facility] [address] [place] [address] [id number] [address] Jun, [facility] [address] [place] [id number] Jun, Left hip pain M25.552 and Dementia F03.90 [facility] [address] [id number] [place] [address] 29 May, 2017 [facility] [address] [id number] [place] [id number] May, [facility] [address] [place] [address] [id number] [place] [id number] 05 May, 2017 [facility] [address] [facility] [id number] [place] [address] May, [facility] [address] [id number] [place] [address] Apr, [facility] [address] [facility] [id number] [place] [address] Apr, [facility] [address] [facility] [id number] [place] [address] Apr, [facility] [address] [id number] [place] [address] Apr, Dementia F03.90 [facility] [address] [facility] [id number] [place] [address] Apr, [facility] [address] [facility] [id number] [place] [address] Apr, [facility] [address] [place] [id number] Apr, Edema of both legs R60.0 [facility] [address] [id number] [place]REEK[place] [id number] Mar, [facility] [address] [place] [id number] [address] Mar, [facility] [address] [place] [id number] [place] [address] Mar, Anorexia R63.0 [facility] [address] [facility] [id number] [place] [address] 38[address] Mar, [facility] [address] [id number] [place] [id number] Mar, [facility] [address] [id number] [place] [address] Feb, [facility] [place] [facility] [address] [id number] [place]REEK[place] [id number] Feb, [facility] [address] [id number] [place] [address] Feb, Urinary tract infection without hematuria, site unspecified N39.0 [facility] [address] [id number] [address] January, Anorexia R63.0 [facility] [address] [address] January, [facility] [address] [place] [address] [id number] [id number] January, [facility] [address] [address] 60[address] January, Dementia F03.90 [facility] [address] [place] [id number] [place] [id number] January, [facility] [address] [place] [address] Dec, Left hip pain M25.552 and Dementia F03.90 [facility] [address] [place] [id number] [place] [id number] Dec, [facility] [id number] [place] [id number] Nov, [facility] [address] [address]- [address] Oct, [facility] [address] [place] [id number] Oct, Dementia F03.90 and Other depression F32.89 [facility] [address] [place] [id number] Oct, Dementia F03.90 ; Essential (primary) hypertension I10 and COPD (chronic obstructive pulmonary disease) J44.9 [facility] [address] [id number] [address] Oct, [facility] [address] [address]- [address] Sep, [facility] [address] [place] [id number] Aug, COPD (chronic obstructive pulmonary disease) J44.9 and Dementia F03.90 [facility] [address] [place] [place] [id number] Jun, Dementia F03.90 and COPD (chronic obstructive pulmonary disease) J44.9 [facility] [address] [place] [place] [id number] Apr, COPD (chronic obstructive pulmonary disease) J44.9 and Essential (primary ) hypertension I10 [facility] [address] [place] [address] [id number] [address]- [address]28 Apr, [facility] [address] [place] [id number] [place] [address]1124- 6419 Mar, [place] [address] [place] [id number] [place] [address]57- 5495 Mar, COPD (chronic obstructive pulmonary disease) J44.9 [place] [address] [place] [id number] [place] [address]351- 6790 January, COPD (chronic obstructive pulmonary disease) J44.9 and Allergy, subsequent encounter T78.40XD [place] [address] [place] [id number] [place] [address]08- 8072 Nov, COPD (chronic obstructive pulmonary disease) J44.9 ; Dementia F03.90 and Essential (primary) hypertension I10 [facility] [address] [place] [address] [id number] [address]- 7095 Oct, COPD (chronic obstructive pulmonary disease) J44.9 [facility] [address] [place] [id number] [place] [address]257- 6093 Sep, COPD (chronic obstructive pulmonary disease) J44.9 [facility] [address] [place] [address] [id number] [address]- 7753 Sep, Essential (primary) hypertension I10 [place] [address] [place] [id number] [place] [address] 12753- 8028 Sep, Dementia F03.90 and Essential hypertension, benign 401.1 [place] [address] [place] [id number] [place] [address]78- 9287 Jul, Dementia F03.90 and COPD (chronic obstructive pulmonary disease) J44.9 [facility] [address] [address]- 5659 Jun, [facility] [address] [address] Jun, [facility] [address] May, Chronic airway obstruction, not elsewhere classified 496 and Essential hypertension, benign 401.1 [facility] [address] [address] Mar, Essential hypertension, benign 401.1 and Dementia 294.20 [facility] [address] [place] [id number] [place] [address] 29425- 1697 January, Dementia 294.20 [facility] [address] [address]- 7969 Dec, [facility] [address] [address]- [address] Dec, [facility] [address] [place] [id number] Nov, [facility] [address] [address]- 1834 Nov, [facility] [address] [address]- 4118 Sep, [facility] [address] [address]- 7926 Sep, [facility] [address] [address] Aug, [facility] [address] [address]39 Aug, [facility] [address] [address] Jul, [facility] [address] [place] [address] [id number] [address]- 98[address] Jul, [facility] [place] [facility] [address] [id number] [place] [address]- 2414 Jun, [facility] [place] [facility] [address] [id number] [place] [address]- 6796 Jun, [facility] [place] [facility] [address] [id number] [place] [address]- 4596 Mar, [facility] [place] [facility] [address] [id number] [place] [address]- 2482 Mar, [facility] [place] [facility] [address] [id number] [place] [address]- 5551 Mar, [facility] [place] [facility] [address] [id number] [place] [address]- 4182 Mar, [facility] [place] [facility] [address] [id number] [place] [address]- 5900 Mar, [facility] [place] [facility] [address] [id number] [place] [address]- 8997 Mar, [facility] [place] [facility] [address] [id number] [place] [address]- 5043 January, [facility] [place] [facility] [address] [id number] [place] [address]- 5108 January, [facility] [place] [facility] [address] [id number] [place] [address]- 7132 January, [facility] [place] [facility] [address] [id number] [place] [address]- 5369 January, [facility] [place] [facility] [address] [id number] [place] [address]- 1528 January, [facility] [place] [facility] [address] [id number] [place] [address]- 6326 Aug, [facility] [place] [facility] [address] [id number] [place] [address]- 9637 Aug, [facility] [place] [facility] [address] [id number] [place] [address]- 0113 Mar, [facility] [place] [facility] [address] [id number] [place] [address]- 7854 Mar, [facility] [place] [facility] [address] [id number] [place] [address]- 1101 Jun, [facility] [place] [facility] [address] [id number] [place] [address]- 9867 Jun, [facility] [place] [facility] [address] [id number] [place] [address]- 7170 Jun, [facility] [place] [facility] [address] [id number] [place] [address]- 9356 Jun, [facility] [place] [facility] [address] [id number] [place] [address]- 3792 Jun, [facility] [place] [facility] [address] [id number] [place] [address]- 6238 Jun, [facility] [place] [facility] [address] [id number] [place] [address]- 1029 Jun, [facility] [place] [facility] [address] [id number] [place] [address]- 6721 Apr, [facility] [place] [facility] [address] [id number] [place] [address]- 5354 Feb, [facility] [place] [facility] [address] [id number] [place] [address]- 2636 15 Oct, 2010 [facility] [place] [facility] [address] [id number] [place] [address]- 7416 Aug, [facility] [place] [facility] [address] [id number] [place] [address]- 0279 Aug, [facility] [place] [facility] [address] [id number] [place] [address]- 4179 14 Aug, 2010 [facility] [place] [facility] [address] [id number] [address]- 2546 Aug, [facility] [address] [id number] [address]- 6531 Apr, [facility] [address] [id number] [address]- 4376 January, [facility] [address] [id number] [address]- 53[address] January, [facility] [address] [id number] [address]- 9480 Dec, IMMUNIZATIONS No Known Immunizations SOCIAL HISTORY Never Assessed REASON FOR VISIT Requests return call PLAN OF CARE VITAL SIGNS MEDICATIONS Unknown Medications RESULTS No Results PROCEDURES No Known procedures INSTRUCTIONS MEDICATIONS ADMINISTERED No Known Medications
--- OUTSIDE RECORDS SUMMARY | 2018-08-22 16:05 | XMS REPORT ---
Author Author TEJ CHILEL [facility] Address [address] [place] [address] Care Team Providers Care Director Of Field Sales Name Role Phone TEJ CHILEL Unavailable PROBLEMS Type Condition ICD9-CM Code MVH49-HT Code Onset Dates Condition Status SNOMED Code Problem Anorexia R63.0 Active 84351598 Problem Brief psychotic disorder F23 Active 7912522 Problem Primary insomnia F51.01 Active 1017874 Problem Recurrent major depressive disorder, remission status unspecified F33.9 Active 83310722 Problem 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 Active 50478848 Problem Hyperlipidemia, unspecified hyperlipidemia type E78.5 Active 27610854 Problem Dementia with behavioral disturbance, unspecified dementia type F03.91 Active 6984406546097 Problem Essential (primary) hypertension I10 Active 43401025 Problem Dementia F03.90 Active 82793226 Problem Acquired hypothyroidism E03.9 Active 743014204 Problem COPD (chronic obstructive pulmonary disease) J44.9 Active 12133365 Problem Allergy, subsequent encounter T78.40XD Active 926515959 ALLERGIES No Information ENCOUNTERS Encounter Location Date Diagnosis [place] [id number] [address] May, Left hip pain M25.552 [place] [id number] [place] [address] May, Dementia with behavioral disturbance, unspecified dementia type F03.91 [facility] [address] [place] [address]- 9192 Apr, Left hip pain M25.552 [place] [address] [address] Apr, [facility] [place] [address] [facility] [address] [place] [id number] Apr, [facility] [address] [facility] [id number] [place] [address] Apr, Left hip pain M25.552 [facility] [address] [id number] Apr, Dementia F03.90 and Left hip pain M25.552 [facility] [address] [facility] [id number] [place] [address] Mar, [facility] [address] [facility] [id number] [place] [address] Mar, [facility] [address] [facility] [id number] [place] [address] Mar, [facility] [address] [id number] Feb, Dementia F03.90 [facility] [address] [address] Feb, [facility] [address] [address] January, [facility] [address] [address] Dec, [facility] [address] [place] [id number] Nov, Dementia F03.90 and COPD (chronic obstructive pulmonary disease) J44.9 [facility] [id number] [place] [id number] Nov, [facility] [address] [id number] [id number] Oct, [facility] [address] [id number] Sep, Anemia, unspecified type D64.9 [facility] [address] [id number] [address] Sep, [facility] [address] [address] Sep, [facility] [address] [id number] [place] [id number] Sep, [facility] [address] [id number] [place] [id number] Aug, [facility] [address] [id number] [place] [id number] Aug, [facility] [address] [id number] [place] [address] Aug, [facility] [address] [id number] [place] [id number] Aug, [facility] [address] [id number] [place] [address] Aug, [facility] [address] [id number] [place] [address] Jul, [facility] [address] [id number] [place] [id number] Jul, [facility] [address] [id number] [place] [id number] Jul, [facility] [address] [id number] [place] [id number] Jun, [facility] [address] [facility] [id number] [place] [address] Jun, [facility] [address] [place] [id number] Jun, Left hip pain M25.552 and Dementia F03.90 [facility] [address] [id number] [place] [address] 29 May, 2017 [facility] [address] [id number] [place] [id number] May, [facility] [address] [id number] [place] [id number] May, [facility] [address] [id number] [place] [address] May, [facility] [address] [id number] [place] [id number] Apr, [facility] [address] [facility] [id number] [place] [address] Apr, [facility] [address] [facility] [id number] [place] [address] Apr, [facility] [id number] [place] [id number] Apr, Dementia F03.90 [facility] [address] [facility] [id number] [place] Apr, [facility] [address] [address] Apr, [facility] [address] [place] [id number] Apr, Edema of both legs R60.0 [facility] [id number] [place] [id number] Mar, [facility] [address] [id number] [place] [address] Mar, [facility] [id number] [place] [id number] Mar, Anorexia R63.0 [facility] [address] [id number] [address] Mar, [facility] [id number] [place] [address] Mar, [facility] [address] [id number] [place] [id number] Feb, [facility] [address] [id number] [place] [id number] Feb, [facility] [address] [facility] [id number] [place] [address] Feb, Urinary tract infection without hematuria, site unspecified N39.0 [facility] [address] [id number] [address] January, Anorexia R63.0 [facility] [address] [facility] [id number] [place] January, [facility] [id number] [place] [id number] January, [facility] [address] [id number] [address] January, Dementia F03.90 [facility] [address] [id number] [address] January, [facility] [address] [place] [id number] Dec, Left hip pain M25.552 and Dementia F03.90 [facility] [id number] [place] [id number] Dec, [facility] [id number] [place] [address] Nov, [facility] [address] [facility] [id number] [place] [address] Oct, [facility] [address] [place] [id number] Oct, Dementia F03.90 and Other depression F32.89 [facility] [address] [id number] Oct, Dementia F03.90 ; Essential (primary) hypertension I10 and COPD (chronic obstructive pulmonary disease) J44.9 [facility] [address] [facility] [id number] [place] [address] Oct, [facility] [address] [id number] Sep, [facility] [address] [id number] Aug, COPD (chronic obstructive pulmonary disease) J44.9 and Dementia F03.90 [facility] [address] [id number] Jun, Dementia F03.90 and COPD (chronic obstructive pulmonary disease) J44.9 [facility] [address] [place] [id number] Apr, COPD (chronic obstructive pulmonary disease) J44.9 and Essential (primary ) hypertension I10 [facility] [address] [address]- [address] Apr, [facility] [id number] [place] [address]- [address] Mar, [facility] [id number] [place] [address]- 5765 Mar, COPD (chronic obstructive pulmonary disease) J44.9 [place] [id number] [place] [address] 239[address]- 0254 January, COPD (chronic obstructive pulmonary disease) J44.9 and Allergy, subsequent encounter T78.40XD [place] [id number] [place] [address]- [address]81 Nov, COPD (chronic obstructive pulmonary disease) J44.9 ; Dementia F03.90 and Essential (primary) hypertension I10 [facility] [id number] [place] [address]- 0593 Oct, COPD (chronic obstructive pulmonary disease) J44.9 [facility] [id number] [place] [address]- 7793 Sep, COPD (chronic obstructive pulmonary disease) J44.9 [facility] [id number] [place] [address] 78391- 1879 Sep, Essential (primary) hypertension I10 [facility] [id number] [place] [address] 88653- 3140 Sep, Dementia F03.90 and Essential hypertension, benign 401.1 [facility] [id number] [place] [address] 24395- 8953 Jul, Dementia F03.90 and COPD (chronic obstructive pulmonary disease) J44.9 [facility] [address] [id number] [address]- 74[address] Jun, [facility] [address] [address]- 9[address] Jun, [facility] [id number] [place] [address] 786199- 6543 May, Chronic airway obstruction, not elsewhere classified 496 and Essential hypertension, benign 401.1 [facility] [id number] [place] [address] 493093- 9466 Mar, Essential hypertension, benign 401.1 and Dementia 294.20 [facility] [id number] [place] [address]14- 3312 January, Dementia 294.20 [facility] [id number] [place] [address]40- 6846 Dec, [facility] [id number] [place] [address] 35888- 9054 Dec, [facility] [address] [place] [id number] Nov, [facility] [address] [address] Nov, [facility] [address] [address]- 2535 Sep, [facility] [address] [address]- 6[address] Sep, [facility] [address] [address]- 5[address] Aug, [facility] [address] [address]- 6[address] Aug, [facility] [address]005[address] [address]- 1704 Jul, [facility] [address] [address]- 6755 Jul, [facility] [address] [id number] [address]- 37[address] Jun, [facility] [address] [id number] [place] [address]- 5301 Jun, [facility] [place] [facility] [address] [id number] [place] [address]- 1033 Mar, [facility] [place] [facility] [address] [id number] [place] [address]- 3144 Mar, [facility] [place] [facility] [address] [id number] [place] [address]- 0114 Mar, [facility] [place] [facility] [address] [id number] [place] [address]- 7647 Mar, [facility] [place] [facility] [address] [id number] [place] [address]- 5691 Mar, [facility] [place] [facility] [address] [id number] [place] [address]- 7492 Mar, [facility] [address] [id number] [place] [address]- 3772 January, [facility] [place] [facility] [address] [id number] [place] [address]- 1231 January, [facility] [address] [id number] [place] [address]- 9961 January, [facility] [place] [facility] [address] [id number] [place] [address]- 0673 January, [facility] [place] [facility] [address] [id number] [place] [address]- 5601 January, [facility] [place] [facility] [address] [id number] [place] [address]- 3055 Aug, [facility] [place] [facility] [address] [id number] [place] [address]- 5558 Aug, [facility] [place] [facility] [address] [id number] [place] [address]- 8590 Mar, [facility] [place] [facility] [address] [id number] [place] [address]- 8231 Mar, [facility] [place] [facility] [address] [id number] [place] [address]- 3844 Jun, [facility] [place] [facility] [address] [id number] [place] [address]- 7786 Jun, [facility] [place] [facility] [address] [id number] [place] [address]- 5617 Jun, [facility] [place] [facility] [address] [id number] [place] [address]- 8091 Jun, [facility] [place] [facility] [address] [id number] [place] [address]- 6388 Jun, [facility] [place] [facility] [address] [id number] [place] [address]- 1149 Jun, [facility] [place] [facility] [address] [id number] [place] [address]- 5086 Jun, [facility] [place] [facility] [address] [id number] [place] [address]- 9722 Apr, [facility] [place] [facility] [address] [id number] [place] [address]- 7098 Feb, [facility] [place] [facility] [address] [id number] [place] [address]- 6821 15 Oct, 2010 [facility] [place] [facility] [address] [id number] [place] [address]- 3195 Aug, [facility] [place] [facility] [address] [id number] [place] [address]- 9580 Aug, [facility] [place] [facility] [address] [id number] [place] [address]- 5388 14 Aug, 2010 [facility] [place] [facility] [address] [id number] [place] [address]- 4373 14 Aug, 2010 [facility] [place] [facility] [address] [facility] [id number] [place] [address]- 1346 Apr, [facility] [address] [facility] [id number] [place] [address]- 3656 January, [facility] [address] [facility] [id number] [place] [address]- 2726 January, [facility] [address] [facility] [id number] [place] [address]- 7569 Dec, IMMUNIZATIONS No Known Immunizations SOCIAL HISTORY Never Assessed REASON FOR VISIT Controlled Med Refill PLAN OF CARE VITAL SIGNS MEDICATIONS Medication Instructions Dosage Frequency Start Date End Date Duration Status Tramadol HCl 50 mg Orally 2 times a day 1 tablet 12h Feb, 28 days Active RESULTS No Results PROCEDURES No Known procedures INSTRUCTIONS MEDICATIONS ADMINISTERED No Known Medications
--- OUTSIDE RECORDS SUMMARY | 2018-08-22 16:06 | XMS REPORT ---
Author Author TEJ CHILEL [facility] Address [address] [place] [address] Care Team Providers Care Design Technician Name Role Phone TEJ CHILEL Unavailable PROBLEMS Type Condition ICD9-CM Code [id number] Code Onset Dates Condition Status SNOMED Code Problem Primary insomnia F51.01 Active 3648237 Problem Recurrent major depressive disorder, remission status unspecified F33.9 Active 74147897 Problem Brief psychotic disorder F23 Active 2813919 Problem Acquired hypothyroidism E03.9 Active 465737446 Problem Anorexia R63.0 Active 72624633 Problem Essential (primary) hypertension I10 Active 67790150 Problem COPD (chronic obstructive pulmonary disease) J44.9 Active 19106952 Problem Hyperlipidemia, unspecified hyperlipidemia type E78.5 Active 74158097 Problem 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 Active 37239356 Problem Allergy, subsequent encounter T78.40XD Active 985221519 Problem Dementia F03.90 Active 89087639 ALLERGIES No Information ENCOUNTERS Encounter Location Date Diagnosis [id number] [address] Apr, Left hip pain M25.552 [facility] [id number] [address] Apr, [facility] [address] [place] [id number] Apr, [facility] [id number] [place] [address] Apr, Left hip pain M25.552 [facility] [address] [place] [id number] Apr, Dementia F03.90 and Left hip pain M25.552 [facility] [id number] [place] [address]6 Mar, [facility] [address] [facility] [place] [id number] [place] [address] Mar, [facility] [id number] [address] Mar, [facility] [address] [place] [id number] Feb, Dementia F03.90 [facility] [address] [facility] [place] [id number] [place] [address] Feb, [facility] [id number] [address] January, [facility] [id number] [address] Dec, [facility] [address] [place] [id number] Nov, Dementia F03.90 and COPD (chronic obstructive pulmonary disease) J44.9 [facility] [id number] [place] [id number] Nov, [facility] [id number] [id number] Oct, [facility] [address] [place] [id number] Sep, Anemia, unspecified type D64.9 [facility] [id number] [address] Sep, [facility] [id number] [address] Sep, [facility] [id number] [place] [id number] Sep, [facility] [id number] [place] [id number] Aug, [facility] [id number] [place] [id number] Aug, [facility] [id number] [address] Aug, [facility] [address] [id number] [place] [id number] Aug, [facility] [address] [facility] [place] [id number] [address] Aug, [facility] [address] [facility] [place] [id number] [address] Jul, [facility] [address] [id number] [place] [id number] Jul, [facility] [address] [id number] [place] [address] Jul, [facility] [id number] [place] [id number] Jun, [facility] [id number] [address] Jun, [facility] [address] [facility] [place] [id number] Jun, Left hip pain M25.552 and Dementia F03.90 [facility] [address] [facility] [place] [id number] [place] [address] May, [facility] [address] [id number] [place] [id number] May, [facility] [address] [id number] [place] [id number] May, [facility] [address] [facility] [place] [id number] [place] [address] May, [facility] [address] [id number] [place] [id number] Apr, [facility] [address] [facility] [place] [id number] [place] [address] Apr, [facility] [address] [facility] [place] [id number] [place] [address] Apr, [facility] [address] [id number] [place] [id number] Apr, Dementia F03.90 [facility] [address] [facility] [place] [id number] [place] [address] Apr, [facility] [id number] [address] Apr, [facility] [address] [place] [id number] Apr, Edema of both legs R60.0 [facility] [address] [id number] [place] [id number] Mar, [facility] [id number] [id number] Mar, [facility] [address] [id number] [place] [id number] Mar, Anorexia R63.0 [facility] [address] [address] Mar, [facility] [address] [id number] [place] [address] Mar, [facility] [id number] [place] [id number] Feb, [facility] [address] [id number] [place] [address] Feb, [facility] [id number] [address] Feb, Urinary tract infection without hematuria, site unspecified N39.0 [facility] [address] [facility] [place] [id number] [address] January, Anorexia R63.0 [facility] [address] [facility] [id number] [place] [address] January, [facility] [address] [id number] [place] [id number] January, [facility] [id number] [address] January, Dementia F03.90 [facility] [address] [id number] [place] [id number] January, [facility] [address] [place] [id number] Dec, Left hip pain M25.552 and Dementia F03.90 [facility] [address] [id number] [place] [id number] Dec, [facility] [address] [id number] [place] [id number] Nov, [facility] [address] [facility] [place] [id number] [place] [address] Oct, [facility] [address] [place] [id number] Oct, Dementia F03.90 and Other depression F32.89 [facility] [address] [place] [id number] Oct, Dementia F03.90 ; Essential (primary) hypertension I10 and COPD (chronic obstructive pulmonary disease) J44.9 [facility] [id number] [address] Oct, [facility] [id number] [address] 8936 Sep, [facility] [address] [facility] [id number] Aug, COPD (chronic obstructive pulmonary disease) J44.9 and Dementia F03.90 [facility] [address] [place] [id number] Jun, Dementia F03.90 and COPD (chronic obstructive pulmonary disease) J44.9 [facility] [address] [place] [id number] Apr, COPD (chronic obstructive pulmonary disease) J44.9 and Essential (primary ) hypertension I10 [facility] [address] [facility] [place] [id number] [address] Apr, [facility] [id number] [address]- 8108 Mar, [facility] [id number] [place] [address]11- 0163 Mar, COPD (chronic obstructive pulmonary disease) J44.9 [facility] [id number] [place] [address] 45405- 0763 January, COPD (chronic obstructive pulmonary disease) J44.9 and Allergy, subsequent encounter T78.40XD [facility] [id number] [place] [address]9020- 0178 Nov, COPD (chronic obstructive pulmonary disease) J44.9 ; Dementia F03.90 and Essential (primary) hypertension I10 [facility] [id number] [place] [address] 82000- 9222 Oct, COPD (chronic obstructive pulmonary disease) J44.9 [facility] [id number] [place] [address] 43224- 2678 Sep, COPD (chronic obstructive pulmonary disease) J44.9 [facility] [id number] [place] [address] 05819- 8425 Sep, Essential (primary) hypertension I10 [facility] [id number] [place] [address] 11761- 0020 Sep, Dementia F03.90 and Essential hypertension, benign 401.1 [facility] [id number] [place] [address] 48232- 3049 Jul, Dementia F03.90 and COPD (chronic obstructive pulmonary disease) J44.9 [facility] [id number] [place] [address] 58490- 5114 Jun, [facility] [address] [address]- [address] Jun, [facility] [id number] [place] [address] 39410- 9196 May, Chronic airway obstruction, not elsewhere classified 496 and Essential hypertension, benign 401.1 [facility] [address] [facility] [id number] [place] [address]- [address] Mar, Essential hypertension, benign 401.1 and Dementia 294.20 [facility] [id number] [place] [address]- 1440 January, Dementia 294.20 [facility] [id number] [place] [address]- 4870 Dec, [facility] [address] [facility] [id number] [address]- 39[address] Dec, [facility] [address] [id number] Nov, [facility] [id number] [address]- 2773 Nov, [facility] [id number] [place] [address]- 3289 Sep, [facility] [id number] [address]- 6702 Sep, [facility] [id number] [place] [address]- 7711 Aug, [facility] [id number] [address]- 4302 Aug, [facility] [id number] [address]- 1037 Jul, [facility] [id number] [address]- 8322 Jul, [facility] [address] [facility] [id number] [place] [address]- 8137 Jun, [facility] [address] [facility] [id number] [address]- 8086 Jun, [facility] [address] [facility] [id number] [place] [address]- 6555 Mar, [facility] [address] [facility] [id number] [place] [address]- 4096 Mar, [facility] [place] [facility] [address] [id number] [place] [address]- 0241 Mar, [facility] [place] [facility] [address] [id number] [place] [address]- 1921 Mar, [facility] [place] [facility] [address] [id number] [place] [address]- 4356 Mar, [facility] [place] [facility] [address] [id number] [place] [address]- 4457 Mar, [facility] [place] [facility] [address] [id number] [place] [address]- 2110 January, [facility] [place] [facility] [address] [id number] [place] [address]- 5421 January, [facility] [place] [facility] [address] [id number] [place] [address]- 7933 January, [facility] [place] [facility] [address] [id number] [place] [address]- 2455 January, [facility] [place] [facility] [address] [id number] [place] [address]- 0447 January, [facility] [place] [facility] [address] [id number] [place] [address]- 2925 Aug, [facility] [place] [facility] [address] [id number] [place] [address]- 3779 Aug, [facility] [place] [facility] [address] [id number] [place] [address]- 9171 Mar, [facility] [place] [facility] [address] [id number] [place] [address]- 1071 Mar, [facility] [place] [facility] [address] [id number] [place] [address]- 3039 Jun, [facility] [place] [facility] [address] [id number] [place] [address]- 2423 Jun, [facility] [place] [facility] [address] [id number] [place] [address]- 6465 11 Jun, 2012 [facility] [place] [facility] [address] [id number] [place] [address]- 7486 10 Jun, 2012 [facility] [place] [facility] [address] [id number] [place] [address]- 0076 10 Jun, 2012 [facility] [place] [facility] [address] [id number] [place] [address]- 0836 10 Jun, 2012 [facility] [place] [facility] [address] [id number] [place] [address]- 3120 Jun, [facility] [place] [facility] [address] [id number] [place] [address]- 8320 Apr, [facility] [place] [facility] [address] [id number] [place] [address]- 7972 Feb, [facility] [place] [facility] [address] [id number] [place] [address]- 6526 15 Oct, 2010 [facility] [place] [facility] [address] [id number] [place] [address]- 6489 Aug, [facility] [place] [facility] [address] [id number] [place] [address]- 4023 27 Aug, 2010 [facility] [place] [facility] [address] [id number] [place] [address]- 2184 14 Aug, 2010 [facility] [place] [facility] [address] [id number] [place] [address]- 5011 14 Aug, 2010 [facility] [place] [facility] [address] [id number] [place] [address]- 3902 Apr, [facility] [place] [facility] [address] [id number] [place] [address]- 2542 January, [facility] [place] [facility] [address] [id number] [place] [address] January, [facility] [place] [facility] [address] [id number] [place] [address]- 1786 Dec, IMMUNIZATIONS No Known Immunizations SOCIAL HISTORY Never Assessed REASON FOR VISIT med changes per Pharmacy request PLAN OF CARE VITAL SIGNS MEDICATIONS Medication Instructions Dosage Frequency Start Date End Date Duration Status Risperidone 0.25 MG Orally twice a day 1 tablet 12h Jul, Active Sertraline HCl 25 MG Orally every other day for 30 days and stop 1 tablet Jul, Active RESULTS No Results PROCEDURES No Known procedures INSTRUCTIONS MEDICATIONS ADMINISTERED No Known Medications
--- OUTSIDE RECORDS SUMMARY | 2018-08-22 16:06 | XMS REPORT ---
Author Author TEJ CHILEL [facility] Address [address] [place] [address] Care Team Providers Care Powder Shoveler Name Role Phone TEJ CHILEL Unavailable PROBLEMS Type Condition ICD9-CM Code [id number] Code Onset Dates Condition Status SNOMED Code Problem Primary insomnia F51.01 Active 9203298 Problem Recurrent major depressive disorder, remission status unspecified F33.9 Active 33474016 Problem Brief psychotic disorder F23 Active 8478701 Problem Acquired hypothyroidism E03.9 Active 992080563 Problem Anorexia R63.0 Active 92241210 Problem Essential (primary) hypertension I10 Active 20056610 Problem COPD (chronic obstructive pulmonary disease) J44.9 Active 97149979 Problem Hyperlipidemia, unspecified hyperlipidemia type E78.5 Active 28949212 Problem 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 Active 39543034 Problem Allergy, subsequent encounter T78.40XD Active 254005085 Problem Dementia F03.90 Active 95121530 ALLERGIES No Information ENCOUNTERS Encounter Location Date Diagnosis [place] [id number] [address] Apr, Left hip pain M25.552 [facility] [address], [place] [address] Apr, [facility] [address] [place] [id number] Apr, [facility] [id number] [place] [address] Apr, Left hip pain M25.552 [facility] [address] [place] [id number] Apr, Dementia F03.90 and Left hip pain M25.552 [facility] [address], [place] [address] Mar, [facility] [address] [facility] [id number], [place] [address] Mar, [facility] [address], [place] [address] Mar, [facility] [address] [place] [id number] Feb, Dementia F03.90 [facility] [address] [facility] [id number], [place] [address] Feb, [facility] [id number], [place] [address] January, [facility] [address], [place] [address] Dec, [facility] [address] [place] [id number] Nov, Dementia F03.90 and COPD (chronic obstructive pulmonary disease) J44.9 [facility] [id number][place] [address] Nov, [facility] [id number] [address] Oct, [facility] [address] [place] [id number] Sep, Anemia, unspecified type D64.9 [facility] [id number], [place] [address] Sep, [facility] [id number], [place] [address] Sep, [facility] [id number][place] [id number] Sep, [facility] [id number][place] [address] Aug, [facility] [id number][place] [id number] Aug, [facility] [id number], [place] [address] Aug, [facility] [address] [id number][place] [id number] Aug, [facility] [address] [facility] [id number], [place] [address] Aug, [facility] [address] [facility] [id number], [place] [address] Jul, [facility] [address] [id number][place] [id number] Jul, [facility] [address] [id number] [address] Jul, [facility] [id number] [place] [id number] Jun, [facility] [id number], [place] [address] Jun, [facility] [address] [facility] [place] [address] Jun, Left hip pain M25.552 and Dementia F03.90 [facility] [address] [facility] [id number], [place] [address] May, [facility] [address] [id number][place] [id number] May, [facility] [address] [id number][place] [id number] May, [facility] [address] [facility] [id number], [place] [address] May, [facility] [address] [id number][place] [address] Apr, [facility] [address] [facility] [id number], [place] [address] Apr, [facility] [address] [facility] [id number], [place] [address] Apr, [facility] [address] [id number][place] [address] Apr, Dementia F03.90 [facility] [address] [facility] [id number], [place] [address] Apr, [facility] [id number], [place] [address] Apr, [facility] [address] [place] [id number] Apr, Edema of both legs R60.0 [facility] [address] [id number], [place] [id number] Mar, [facility] [address] [id number] [address] Mar, [facility] [address] [id number][place] [address] Mar, Anorexia R63.0 [facility] [address]005[address]100[place], [place] [address] Mar, [facility] [address] [id number], [place] [address] Mar, [facility] [id number], [place] [address] Feb, [facility] [address] [id number][place] [address] Feb, [facility] [id number], [place] [address] Feb, Urinary tract infection without hematuria, site unspecified N39.0 [facility] [address] [facility] [id number], [place] [address] January, Anorexia R63.0 [facility] [address] [facility] [id number], [place] [address] January, [facility] [address] [id number][place] [address] January, [facility] [id number], [place] [address] January, Dementia F03.90 [facility] [address] [id number] [place] [address] January, [facility] [address] [place] [id number] Dec, Left hip pain M25.552 and Dementia F03.90 [facility] [address] [id number][place] [address] Dec, [facility] [address] [id number][place] [id number] Nov, [facility] [address] [facility] [id number], [place] [address] Oct, [facility] [address] [facility] [place] [id number] Oct, Dementia F03.90 and Other depression F32.89 [facility] [address] [place] [id number] Oct, Dementia F03.90 ; Essential (primary) hypertension I10 and COPD (chronic obstructive pulmonary disease) J44.9 [facility] [id number] [address] Oct, [facility] [id number], [place] [address] Sep, [facility] [address] [facility] [place] [id number] Aug, COPD (chronic obstructive pulmonary disease) J44.9 and Dementia F03.90 [facility] [address] [place] [id number] Jun, Dementia F03.90 and COPD (chronic obstructive pulmonary disease) J44.9 [facility] [address] [place] [id number] Apr, COPD (chronic obstructive pulmonary disease) J44.9 and Essential (primary ) hypertension I10 [facility] [address] [facility] [id number], [place] [address] Apr, [facility] [address] [id number], [place] [address] Mar, [facility] [id number] [place] [address] Mar, COPD (chronic obstructive pulmonary disease) J44.9 [facility] [id number] [place] [address] January, COPD (chronic obstructive pulmonary disease) J44.9 and Allergy, subsequent encounter T78.40XD [facility] [id number] [place] [address] Nov, COPD (chronic obstructive pulmonary disease) J44.9 ; Dementia F03.90 and Essential (primary) hypertension I10 [facility] [id number] [place] [address] 6016 Oct, COPD (chronic obstructive pulmonary disease) J44.9 [facility] [id number] [place] [address] 8448 Sep, COPD (chronic obstructive pulmonary disease) J44.9 [facility] [id number] [place] [address] Sep, Essential (primary) hypertension I10 [facility] [id number] [place] [address]- [address] Sep, Dementia F03.90 and Essential hypertension, benign 401.1 [facility] [id number] [place] [address]- 9262 Jul, Dementia F03.90 and COPD (chronic obstructive pulmonary disease) J44.9 [facility] [id number] [place] [address]- 1360 Jun, [facility] [address] [address] Jun, [facility] [id number] [place] [address]- 9384 May, Chronic airway obstruction, not elsewhere classified 496 and Essential hypertension, benign 401.1 [facility] [address] [facility] [id number] [place] [address] Mar, Essential hypertension, benign 401.1 and Dementia 294.20 [facility] [address] [place] [address] January, Dementia 294.20 [facility] [address]65100[facility] [place] [place] [address] Dec, [facility] [address] [facility] [id number], [place] [address] Dec, [facility] [address] [id number] Nov, [facility] [address], [place] [address] Nov, [facility] [address]65[address] [place] [address]- [address] Sep, [facility] [address], [place] [address]- [address] Sep, [facility] [address] [id number] [place] [place] [address]- [address] Aug, [facility] [address], [place] [address] Aug, [facility] [id number], [place] [address]- 6[address] Jul, [facility] [id number], [place] [address]- [address] Jul, [facility] [address] [facility] [id number] [place] [address]- 7946 Jun, [facility] [address] [facility] [id number], [place] [address]- 3686 Jun, [facility] [address] [facility] [id number], [place] [address]- 0918 Mar, [facility] [address] [facility] [id number] [place] [address]- 64[address] Mar, [facility] [place] [facility] [address] [id number] [place] [address]- 5047 Mar, [facility] [place] [facility] [address] [id number] [place] [address]- 2308 Mar, [facility] [place] [facility] [address] [id number] [place] [address]- 4021 Mar, [facility] [place] [facility] [address] [id number] [place] [address]- 6856 Mar, [facility] [place] [facility] [address] [id number] [place] [address]- 0420 January, [facility] [place] [facility] [address] [id number] [place] [address]- 5906 January, [facility] [place] [facility] [address] [id number] [place] [address]- 0079 January, [facility] [place] [facility] [address] [id number] [place] [address]- 8994 January, [facility] [place] [facility] [address] [id number] [place] [address]- 3538 January, [facility] [place] [facility] [address] [id number] [place] [address]- 6889 Aug, [facility] [place] [facility] [address] [id number] [place] [address]- 0793 Aug, [facility] [place] [facility] [address] [id number] [place] [address]- 6324 Mar, [facility] [place] [facility] [address] [id number] [place] [address]- 2577 Mar, [facility] [place] [facility] [address] [id number] [place] [address]- 7786 Jun, [facility] [place] [facility] [address] [id number] [place] [address]- 6572 Jun, [facility] [place] [facility] [address] [id number] [place] [address]- 8106 11 Jun, 2012 [facility] [place] [facility] [address] [id number] [place] [address]- 7052 10 Jun, 2012 [facility] [place] [facility] [address] [id number] [place] [address]- 8806 10 Jun, 2012 [facility] [place] [facility] [address] [id number] [place] [address]- 3146 10 Jun, 2012 [facility] [place] [facility] [address] [id number] [place] [address]- 5698 Jun, [facility] [place] [facility] [address] [id number] [place] [address]- 0270 Apr, [facility] [place] [facility] [address] [id number] [place] [address]- 8730 Feb, [facility] [place] [facility] [address] [id number] [place] [address]- 0579 15 Oct, 2010 [facility] [place] [facility] [address] [id number] [place] [address]- 3578 Aug, [facility] [place] [facility] [address] [id number] [place] [address]- 9481 27 Aug, 2010 [facility] [place] [facility] [address] [id number] [place] [address]- 9635 14 Aug, 2010 [facility] [place] [facility] [address] [id number] [place] [address]- 3283 14 Aug, 2010 [facility] [place] [facility] [address] [id number] [place] [address]- 1137 Apr, [facility] [place] [facility] [address] [id number] [place] [address]- 2549 January, [facility] [place] [facility] [address] [id number] [place] [address] January, [facility] [place] [facility] [address] [id number] [place] [address]- [address]50 Dec, IMMUNIZATIONS No Known Immunizations SOCIAL HISTORY Never Assessed REASON FOR VISIT Controlled Med Refill PLAN OF CARE VITAL SIGNS MEDICATIONS Medication Instructions Dosage Frequency Start Date End Date Duration Status Tramadol HCl 50 mg Orally 2 times a day 2 tablets 12h 30 Feb, 2017 28 days Active RESULTS No Results PROCEDURES No Known procedures INSTRUCTIONS MEDICATIONS ADMINISTERED No Known Medications
--- OUTSIDE RECORDS SUMMARY | 2018-08-22 16:06 | XMS REPORT ---
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 Active 70635068 Problem Hyperlipidemia, unspecified hyperlipidemia type E78.5 Active 46733400 Problem Dementia with behavioral disturbance, unspecified dementia type F03.91 Active 5494570498817 Problem Essential (primary) hypertension I10 Active 17313913 Problem Dementia F03.90 Active 14510830 Problem Acquired hypothyroidism E03.9 Active 871326219 Problem COPD (chronic obstructive pulmonary disease) J44.9 Active 33479384 Problem Allergy, subsequent encounter T78.40XD Active 458189725 ALLERGIES No Information ENCOUNTERS Encounter Location Date Diagnosis [id number] [address] May, Dementia with behavioral disturbance, unspecified dementia type F03.91 [facility] [address], [place] [address] Apr, Left hip pain M25.552 [place] [address] [id number] [place] [address] Apr, [facility] [address] [place] [id number] Apr, [place] [address] [id number] [address] Apr, Left hip pain M25.552 [facility] [address] [place] [id number] Apr, Dementia F03.90 and Left hip pain M25.552 [facility] [address] [facility] [id number], [place] [address] Mar, [facility] [address] [facility] [id number] Mar, [facility] [address] [facility] [id number], [place] [address] Mar, [facility] [address] [place] [id number] Feb, Dementia F03.90 [facility] [address] [facility] [id number], [place] [address] Feb, [facility] [address], [place] [address] January, [facility] [address], [place] [address] Dec, [facility] [address] [place] [id number] Nov, Dementia F03.90 and COPD (chronic obstructive pulmonary disease) J44.9 [facility] [id number] [id number] Nov, [facility] [id number][place] [id number] Oct, [facility] [address] [place] [id number] Sep, Anemia, unspecified type D64.9 [facility] [address] [facility] [id number][place] [address] Sep, [facility] [address] [facility] [id number], [place] [address] Sep, [facility] [address] [id number] [id number] Sep, [facility] [id number] [id number] Aug, [facility] [address] [id number][place] [id number] Aug, [facility] [address] [facility] [id number], [place] [address] Aug, [facility] [address] [id number][place] [id number] Aug, [facility] [address] [facility] [id number], [place] [address] Aug, [facility] [address] [facility] [id number], [place] [address] Jul, [facility] [address] [id number] [id number] Jul, [facility] [address] [id number] [id number] Jul, [facility] [id number] [place] [id number] Jun, [facility] [id number], [place] [address] Jun, [facility] [address] [facility] [place] [id number] Jun, Left hip pain M25.552 and Dementia F03.90 [facility] [id number], [place] [address] May, [facility] [address] [id number][place] [id number] May, [facility] [address] [id number][place] [address] May, [facility] [address] [facility] [id number], [place] [address] May, [facility] [address] [id number][place] [id number] Apr, [facility] [address] [facility] [id number], [place] [address] Apr, [facility] [address] [facility] [id number], [place] [address] Apr, [facility] [id number] [address] Apr, Dementia F03.90 [facility] [address] [facility] [id number], [place] [address] Apr, [facility] [id number], [place] [address] Apr, [facility] [address] [place] [id number] Apr, Edema of both legs R60.0 [facility] [address] [id number] [id number] Mar, [facility] [address] [id number] [id number] Mar, [facility] [id number] [id number] Mar, Anorexia R63.0 [facility] [address]00565[address], [place] [address] Mar, [facility] [id number], [place] [id number] Mar, [facility] [id number], [place] [address] Feb, [facility] [address] [id number][place] [address] Feb, [facility] [address] [facility] [id number], [place] [address] Feb, Urinary tract infection without hematuria, site unspecified N39.0 [facility] [address] [facility] [id number], [place] [address] January, Anorexia R63.0 [facility] [id number], [place] [address] January, [facility] [address] [id number], [place] [id number] January, [facility] [address]00565[address], [place] [address]46 January, Dementia F03.90 [facility] [id number], [place] [address] January, [facility] [address] [place] [id number] Dec, Left hip pain M25.552 and Dementia F03.90 [facility] [address] [id number], [place] [id number] Dec, [facility] [id number], [place] [id number] Nov, [facility] [address] [facility] [id number], [place] [address] Oct, [facility] [address] [place] [id number] Oct, Dementia F03.90 and Other depression F32.89 [facility] [address] [place] [id number] Oct, Dementia F03.90 ; Essential (primary) hypertension I10 and COPD (chronic obstructive pulmonary disease) J44.9 [facility] [id number], [place] [address] 2546 Oct, [facility] [id number], [place] [address] Sep, [facility] [address] [place] [id number] Aug, COPD (chronic obstructive pulmonary disease) J44.9 and Dementia F03.90 [facility] [address] [place] [place] [id number] Jun, Dementia F03.90 and COPD (chronic obstructive pulmonary disease) J44.9 [facility] [address] [place] [place] [id number] Apr, COPD (chronic obstructive pulmonary disease) J44.9 and Essential (primary ) hypertension I10 [facility] [address]00565100[place], [place] [address] Apr, [facility] [id number] [place] [address] Mar, [facility] [id number] [place] [address] 8764 Mar, COPD (chronic obstructive pulmonary disease) J44.9 [facility] [id number] [place] [address] January, COPD (chronic obstructive pulmonary disease) J44.9 and Allergy, subsequent encounter T78.40XD [facility] [id number] [place] [address] Nov, COPD (chronic obstructive pulmonary disease) J44.9 ; Dementia F03.90 and Essential (primary) hypertension I10 [facility] [address] [address] Oct, COPD (chronic obstructive pulmonary disease) J44.9 [facility] [id number] [place] [address]83- 5602 Sep, COPD (chronic obstructive pulmonary disease) J44.9 [facility] [id number] [place] [address]- 9251 Sep, Essential (primary) hypertension I10 [facility] [id number] [place] [address]- 4679 Sep, Dementia F03.90 and Essential hypertension, benign 401.1 [facility] [id number] [place] [address]- 7726 Jul, Dementia F03.90 and COPD (chronic obstructive pulmonary disease) J44.9 [facility] [id number] [place] [address]65- 3688 Jun, [facility] [address] [address] Jun, [facility] [id number] [address] May, Chronic airway obstruction, not elsewhere classified 496 and Essential hypertension, benign 401.1 [facility] [address], [place] [address] Mar, Essential hypertension, benign 401.1 and Dementia 294.20 [facility] [id number] [place] [address]- 3055 January, Dementia 294.20 [facility] [address], [place] [address]- [address] Dec, [facility] [id number] [place] [address]45- 0131 Dec, [address] [place] [id number] Nov, [facility] [address], [place] [address]- 4[address] Nov, [facility] [address], [place] [address]- 4778 Sep, [facility] [address], [place] [address]- 9[address] Sep, [facility] [address], [place] [address]- 7601 Aug, [facility] [address], [place] [address]- [address] Aug, [facility] [id number], [place] [address]- 6226 Jul, [facility] [address], [place] [address]- 5[address] Jul, [facility] [id number], [place] [address]- 7215 Jun, [facility] [address] [place] [address]- 83[address] Jun, [facility] [place] [facility] [address] [id number] [place] [address]- 8763 Mar, [facility] [place] [facility] [address] [id number] [place] [address]- 4872 Mar, [facility] [place] [facility] [address] [id number] [place] [address]- 1162 Mar, [facility] [place] [facility] [address] [id number] [place] [address]- 5765 Mar, [facility] [place] [facility] [address] [id number] [place] [address]- 1417 Mar, [facility] [place] [facility] [address] [id number] [place] [address]- 8669 Mar, [facility] [place] [facility] [address] [id number] [place] [address]- 9878 January, [facility] [place] [facility] [address] [id number] [place] [address]- 7492 January, [facility] [place] [facility] [address] [id number] [place] [address]- 5269 January, [facility] [place] [facility] [address] [id number] [place] [address]- 4677 January, [facility] [place] [facility] [address] [id number] [place] [address]- 1755 January, [facility] [place] [facility] [address] [id number] [place] [address]- 4027 Aug, [facility] [place] [facility] [address] [id number] [place] [address]- 6921 Aug, [facility] [place] [facility] [address] [id number] [place] [address]- 0360 Mar, [facility] [place] [facility] [address] [id number] [place] [address]- 9337 Mar, [facility] [place] [facility] [address] [id number] [place] [address]- 4040 Jun, [facility] [place] [facility] [address] [id number] [place] [address]- 1846 Jun, [facility] [place] [facility] [address] [id number] [place] [address]- 5586 Jun, [facility] [place] [facility] [address] [id number] [place] [address]- 4856 Jun, [facility] [place] [facility] [address] [id number] [place] [address]- 2549 Jun, [facility] [place] [facility] [address] [id number] [place] [address]- 5059 Jun, [facility] [place] [facility] [address] [id number] [place] [address]- 1847 Jun, [facility] [place] [facility] [address] [id number] [place] [address]- 6252 Apr, [facility] [place] [facility] [address] [id number] [place] [address]- 1752 Feb, [facility] [place] [facility] [address] [id number] [place] [address]- 4527 15 Oct, 2010 [facility] [place] [facility] [address] [id number] [place] [address]- 0351 28 Aug, 2010 [facility] [place] [facility] [address] [id number] [place] [address]- 254 27 Aug, 2010 [facility] [place] [facility] [address] [id number] [place] [address] 2546 14 Aug, 2010 [facility] [place] [facility] [address] [id number] [place] [address] 2546 14 Aug, 2010 [facility] [place] [facility] [address] [id number] [place] [address]- 2544 Apr, [facility] [place] [facility] [address] [id number] [place] [address]- 5897 January, [facility] [address] [facility] [id number] [place] [address]- 8456 January, [facility] [address] [facility] [id number] [place] [address]- 1356 Dec, IMMUNIZATIONS No Known Immunizations SOCIAL HISTORY [...]
--- OUTSIDE RECORDS SUMMARY | 2018-08-22 16:07 | XMS REPORT ---
Author Author TEJ CHIELL [facility] Address [address] [place] [address] Care Team Providers Care Tmr Teacher Name Role Phone TEJ CHILEL Unavailable PROBLEMS Type Condition ICD9-CM Code VYD46-JS Code Onset Dates Condition Status SNOMED Code Problem Primary insomnia F51.01 Active 1766230 Problem Recurrent major depressive disorder, remission status unspecified F33.9 Active 20862172 Problem Brief psychotic disorder F23 Active 0437233 Problem Acquired hypothyroidism E03.9 Active 429489751 Problem Anorexia R63.0 Active 03494568 Problem Essential (primary) hypertension I10 Active 22300766 Problem COPD (chronic obstructive pulmonary disease) J44.9 Active 64393020 Problem Hyperlipidemia, unspecified hyperlipidemia type E78.5 Active 52014980 Problem 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 Active 20273612 Problem Allergy, subsequent encounter T78.40XD Active 093133935 Problem Dementia F03.90 Active 49034148 ALLERGIES No Information ENCOUNTERS Encounter Location Date Diagnosis [place] [id number] [address] Apr, Left hip pain M25.552 [facility] [address], [place] [address] Apr, [facility] [address] [place] [id number] Apr, [facility] [id number] [place] [address] Apr, Left hip pain M25.552 [facility] [address] [place] [id number] Apr, Dementia F03.90 and Left hip pain M25.552 [facility] [address], [place] [address] Mar, [facility] [address] [facility] [id number], [place] [address] Mar, [facility] [address], [place] [address] Mar, [facility] [address] [place] [id number] Feb, Dementia F03.90 [facility] [address] [facility] [id number], [place] [address] Feb, [facility] [id number] [address] January, [facility] [address], [place] [address] Dec, [facility] [address] [place] [id number] Nov, Dementia F03.90 and COPD (chronic obstructive pulmonary disease) J44.9 [facility] [id number] [id number] Nov, [facility] [id number] [id number] Oct, [facility] [address] [place] [id number] Sep, Anemia, unspecified type D64.9 [facility] [id number] [address] Sep, [facility] [id number] [address] Sep, [facility] [id number] [id number] Sep, [facility] [id number] [id number] Aug, [facility] [id number] [id number] Aug, [facility] [id number] [address] Aug, [facility] [address] [id number] [id number] Aug, [facility] [address] [facility] [id number], [place] [address] Aug, [facility] [address] [facility] [id number], [place] [address] Jul, [facility] [address] [id number] [address] Jul, [facility] [address] [id number] [id number] Jul, [facility] [id number] [place] [id number] Jun, [facility] [id number] [address] Jun, [facility] [address] [facility] [place] [id number] Jun, Left hip pain M25.552 and Dementia F03.90 [facility] [address] [facility] [id number], [place] [address] May, [facility] [address] [id number] [id number] May, [facility] [address] [id number] [id number] May, [facility] [address] [facility] [id number], [place] [address] May, [facility] [address] [id number] [id number] Apr, [facility] [address] [facility] [id number], [place] [address] Apr, [facility] [address] [facility] [id number], [place] [address] Apr, [facility] [address] [id number][place] [id number] Apr, Dementia F03.90 [facility] [address] [facility] [id number], [place] [address] Apr, [facility] [id number], [place] [address] Apr, [facility] [address] [place] [id number] Apr, Edema of both legs R60.0 [facility] [address] [id number] [address] Mar, [facility] [address] [id number] [id number] Mar, [facility] [address] [id number] [id number] Mar, Anorexia R63.0 [facility] [address], [place] [address] Mar, [facility] [address] [id number] [id number] Mar, [facility] [id number], [place] [id number] Feb, [facility] [address] [id number] [address] Feb, [facility] [id number], [place] [address] Feb, Urinary tract infection without hematuria, site unspecified N39.0 [facility] [address] [facility] [id number], [place] [address] January, Anorexia R63.0 [facility] [address] [facility] [id number], [place] [address] January, [facility] [address] [id number] [id number] January, [facility] [id number], [place] [address] January, [address]03.[address] [facility] [address] [id number] [place] [id number] January, [facility] [address] [place] [id number] Dec, Left hip pain M25.[address] [facility] [address] [id number][place] [id number] Dec, [facility] [address] [id number][place] [id number] Nov, [facility] [address] [facility] [id number], [place] [address] Oct, [facility] [address] [place] [id number] Oct, Dementia F03.90 and Other depression F32.89 [facility] [address] [place] [id number] Oct, Dementia F03.90 ; Essential (primary) hypertension I10 and COPD (chronic obstructive pulmonary disease) J44.9 [facility] [id number] [address] Oct, [facility] [id number], [place] [address] Sep, [facility] [address] [facility] [place] [id number] Aug, COPD (chronic obstructive pulmonary disease) J44.9 and Dementia F03.90 [facility] [address] [place] [id number] Jun, Dementia F03.90 and COPD (chronic obstructive pulmonary disease) J44.9 [facility] [address] [place] [id number] Apr, COPD (chronic obstructive pulmonary disease) J44.9 and Essential (primary ) hypertension I10 [facility] [address] [facility] [id number], [place] [address] Apr, [facility] [id number], [place] [address] Mar, [facility] [id number] [place] [address] Mar, COPD (chronic obstructive pulmonary disease) J44.9 [facility] [id number] [place] [address] January, COPD (chronic obstructive pulmonary disease) J44.9 and Allergy, subsequent encounter T78.40XD [facility] [id number] [place] [address]- 2161 Nov, COPD (chronic obstructive pulmonary disease) J44.9 ; Dementia F03.90 and Essential (primary) hypertension I10 [facility] [id number] [place] [address]- 7330 Oct, COPD (chronic obstructive pulmonary disease) J44.9 [facility] [id number] [place] [address]69- 4130 Sep, COPD (chronic obstructive pulmonary disease) J44.9 [facility] [id number] [place] [address]- 265[address] Sep, Essential (primary) hypertension I10 [facility] [id number] [place] [address]- 9515 Sep, Dementia F03.90 and Essential hypertension, benign 401.1 [facility] [id number] [place] [address]694- 9917 Jul, Dementia F03.90 and COPD (chronic obstructive pulmonary disease) J44.9 [facility] [id number] [place] [address]- 4367 Jun, [facility] [address] [address] Jun, [facility] [id number] [place] [address]- 2460 May, Chronic airway obstruction, not elsewhere classified 496 and Essential hypertension, benign 401.1 [facility] [address] [facility] [id number] [place] [address]- [address] Mar, Essential hypertension, benign 401.1 and Dementia 294.20 [facility] [address] [place] [address] January, Dementia 294.20 [facility] [address] [place] [address]- [address] Dec, [facility] [address] [facility] [id number], [place] [address]- [address] Dec, [facility] [address] [place] [id number] Nov, [facility] [address], [place] [address]- 8[address] Nov, [facility] [address] [place] [address]- [address] Sep, [facility] [address]100[place], [place] [address]- [address] Sep, [facility] [id number] [place] [address]- 3556 Aug, [facility] [address], [place] [address] Aug, [facility] [id number], [place] [address]- 139[address] Jul, [facility] [id number], [place] [address]- [address] Jul, [facility] [address] [facility] [id number] [place] [address]- 1227 Jun, [facility] [address] [facility] [id number], [place] [address]- 5[address] Jun, [facility] [address] [facility] [id number], [place] [address]- 4[address] Mar, [facility] [address] [facility] [id number] [place] [address]- 9[address] Mar, [facility] [place] [facility] [address] [id number] [place] [address]- 4428 Mar, [facility] [place] [facility] [address] [id number] [place] [address]- 8792 Mar, [facility] [place] [facility] [address] [id number] [place] [address]- 4083 Mar, [facility] [place] [facility] [address] [id number] [place] [address]- 9110 Mar, [facility] [place] [facility] [address] [id number] [place] [address]- 3224 January, [facility] [place] [facility] [address] [id number] [place] [address]- 3137 January, [facility] [place] [facility] [address] [id number] [place] [address]- 7429 January, [facility] [place] [facility] [address] [id number] [place] [address]- 5926 January, [facility] [place] [facility] [address] [id number] [place] [address]- 6140 January, [facility] [place] [facility] [address] [id number] [place] [address]- 68[address] Aug, [facility] [place] [facility] [address] [id number] [place] [address]- 3561 Aug, [facility] [place] [facility] [address] [id number] [place] [address]- 2533 Mar, [facility] [place] [facility] [address] [id number] [place] [address]- 9238 Mar, [facility] [place] [facility] [address] [id number] [place] [address]- 5936 Jun, [facility] [place] [facility] [address] [id number] [place] [address]- 4629 Jun, [facility] [place] [facility] [address] [id number] [place] [address]- 9774 11 Jun, 2012 [facility] [place] [facility] [address] [id number] [place] [address]- 3197 10 Jun, 2012 [facility] [place] [facility] [address] [id number] [place] [address]- 2786 10 Jun, 2012 [facility] [place] [facility] [address] [id number] [place] [address]- 4116 10 Jun, 2012 [facility] [place] [facility] [address] [id number] [place] [address]- 0683 Jun, [facility] [place] [facility] [address] [id number] [place] [address]- 3609 Apr, [facility] [place] [facility] [address] [id number] [place] [address]- 8409 Feb, [facility] [place] [facility] [address] [id number] [place] [address]- 2080 15 Oct, 2010 [facility] [place] [facility] [address] [id number] [place] [address]- 1085 Aug, [facility] [place] [facility] [address] [id number] [place] [address]- 3940 27 Aug, 2010 [facility] [place] [facility] [address] [id number] [place] [address]- 0356 14 Aug, 2010 [facility] [place] [facility] [address] [id number] [place] [address]- 1736 14 Aug, 2010 [facility] [place] [facility] [address] [id number] [place] [address]- 0626 Apr, [facility] [place] [facility] [address] [id number] [place] [address]- 2543 January, [facility] [place] [facility] [address] [id number] [place] [address] January, [facility] [place] [facility] [address] [id number] [place] [address]- [address]204 Dec, IMMUNIZATIONS No Known Immunizations SOCIAL HISTORY [...]
--- OUTSIDE RECORDS SUMMARY | 2018-08-22 16:07 | XMS REPORT ---
Author Author TEJ CHILEL [facility] Address [address] [place] [address] Care Team Providers [employer] Name Role Phone TEJ CHILEL Unavailable PROBLEMS Type Condition ICD9-CM Code AVF41-GS Code Onset Dates Condition Status SNOMED Code Problem Primary insomnia F51.01 Active 9801012 Problem Recurrent major depressive disorder, remission status unspecified F33.9 Active 87425176 Problem Brief psychotic disorder F23 Active 9846096 Problem Acquired hypothyroidism E03.9 Active 497135458 Problem Anorexia R63.0 Active 89133617 Problem Essential (primary) hypertension I10 Active 77983801 Problem COPD (chronic obstructive pulmonary disease) J44.9 Active 87553137 Problem Hyperlipidemia, unspecified hyperlipidemia type E78.5 Active 12439427 Problem 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 Active 68790369 Problem Allergy, subsequent encounter T78.40XD Active 949860233 Problem Dementia F03.90 Active 01357953 ALLERGIES No Information ENCOUNTERS Encounter Location Date Diagnosis [place] [id number] [address] Apr, Left hip pain M25.552 [facility] [address] [address] Apr, [facility] [address] [place] [id number] Apr, [facility] [id number] [place] [address] Apr, Left hip pain M25.552 [facility] [address] [place] [id number] Apr, Dementia F03.90 and Left hip pain M25.552 [facility] [address] [address] Mar, [facility] [address] [facility] [id number] [place] [address] Mar, [facility] [address] [address] Mar, [facility] [address] [place] [id number] Feb, Dementia F03.90 [facility] [address] [facility] [id number] [place] [address] Feb, [facility] [id number] [address] January, [facility] [address] [address] Dec, [facility] [address] [place] [id number] Nov, Dementia F03.90 and COPD (chronic obstructive pulmonary disease) J44.9 [facility] [id number] [place] [id number] Nov, [facility] [id number] [id number] Oct, [facility] [address] [place] [id number] Sep, Anemia, unspecified type D64.9 [facility] [id number] [address] Sep, [facility] [id number] [address] Sep, [facility] [id number] [place] [address] Sep, [facility] [id number] [place] [id number] Aug, [facility] [id number] [place] [address] Aug, [facility] [id number] [address] Aug, [facility] [address] [id number] [place] [id number] Aug, [facility] [address] [facility] [id number] [place] [address] Aug, [facility] [address] [facility] [id number] [place] [address] Jul, [facility] [address] [id number] [place] [id number] Jul, [facility] [address] [id number] [place] [address] Jul, [facility] [id number] [place] [id number] Jun, [facility] [id number] [address] Jun, [facility] [address] [facility] [place] [place] [id number] Jun, Left hip pain M25.552 and Dementia F03.90 [facility] [address] [facility] [id number] [place] [address] May, [facility] [address] [id number] [place] [address] May, [facility] [address] [id number] [place] [address] May, [facility] [address] [facility] [id number] [place] [address] May, [facility] [address] [id number] [place] [id number] Apr, [facility] [address] [facility] [id number] [place] [address] Apr, [facility] [address] [facility] [id number] [place] [address] Apr, [facility] [address] [id number] [place] [address] Apr, Dementia F03.90 [facility] [address] [facility] [id number] [place] [address] Apr, [facility] [id number] [address] Apr, [facility] [address] [place] [id number] Apr, Edema of both legs R60.0 [facility] [address] [id number] [place] [id number] Mar, [facility] [id number] [id number] Mar, [facility] [address] [id number] [place] [address] Mar, Anorexia R63.0 [facility] [address] [address] Mar, [facility] [address] [id number] [place] [address] Mar, [facility] [id number] [place] [address] Feb, [facility] [address] [id number] [place] [address] Feb, [facility] [id number] [address] Feb, Urinary tract infection without hematuria, site unspecified N39.0 [facility] [address] [facility] [id number] [place] [address] January, Anorexia R63.0 [facility] [address] [facility] [id number] [place] [address] January, [facility] [address] [id number] [place] [id number] January, [facility] [id number] [address] January, Dementia F03.90 [facility] [address] [id number] [place] [id number] January, [facility] [address] [place] [id number] Dec, Left hip pain M25.552 and Dementia F03.90 [facility] [address] [id number] [place] [address] Dec, [facility] [address] [id number] [place] [address] Nov, [facility] [address] [facility] [id number] [place] [address] Oct, [facility] [address] [facility] [address] [place] [id number] Oct, Dementia F03.90 and Other depression F32.89 [facility] [address] [facility] [address] [place] [id number] Oct, Dementia F03.90 ; Essential (primary) hypertension I10 and COPD (chronic obstructive pulmonary disease) J44.9 [facility] [id number] [address] Oct, [facility] [id number] [address] Sep, [facility] [address] [facility] [place] [id number] Aug, COPD (chronic obstructive pulmonary disease) J44.9 and Dementia F03.90 [facility] [address] [facility] [address] [place] [id number] Jun, Dementia F03.90 and COPD (chronic obstructive pulmonary disease) J44.9 [facility] [address] [place] [id number] Apr, COPD (chronic obstructive pulmonary disease) J44.9 and Essential (primary ) hypertension I10 [facility] [address] [facility] [id number] [place] [address] Apr, [facility] [id number] [address] Mar, [facility] [address] [place] [address] Mar, COPD (chronic obstructive pulmonary disease) J44.9 [facility] [id number] [place] [address]- [address] January, COPD (chronic obstructive pulmonary disease) J44.9 and Allergy, subsequent encounter T78.40XD [facility] [id number] [place] [address] Nov, COPD (chronic obstructive pulmonary disease) J44.9 ; Dementia F03.90 and Essential (primary) hypertension I10 [facility] [id number] [place] [address] Oct, COPD (chronic obstructive pulmonary disease) J44.9 [facility] [id number] [place] [address] Sep, COPD (chronic obstructive pulmonary disease) J44.9 [facility] [id number] [place] [address] Sep, Essential (primary) hypertension I10 [facility] [id number] [place] [address]- [address] Sep, Dementia F03.90 and Essential hypertension, benign 401.1 [facility] [id number] [place] [address] Jul, Dementia F03.90 and COPD (chronic obstructive pulmonary disease) J44.9 [facility] [id number] [place] [address]- [address] Jun, [facility] [address] [address] Jun, [facility] [id number] [place] [address]- 67[address] May, Chronic airway obstruction, not elsewhere classified 496 and Essential hypertension, benign 401.1 [facility] [address] [facility] [id number] [place] [address] Mar, Essential hypertension, benign 401.1 and Dementia 294.20 [facility] [address] [address] January, Dementia 294.20 [facility] [address] [address]- [address] Dec, [facility] [address] [facility] [id number] [place] [address]- [address] Dec, [facility] [address] [place] [id number] Nov, [facility] [address] [address]- [address] Nov, [facility] [address] [address]- [address] Sep, [facility] [address] [address]- [address] Sep, [facility] [id number] [address]- [address] Aug, [facility] [address] [address]- [address] Aug, [facility] [id number] [address]- 68[address] Jul, [facility] [id number] [address]- 235[address] Jul, [facility] [address] [facility] [id number] [place] [address]- [address] Jun, [facility] [address] [facility] [id number] [place] [address]- 8596 Jun, [facility] [address] [facility] [id number] [place] [address]- 99[address] Mar, [facility] [address] [facility] [id number] [place] [address]- 4[address] Mar, [facility] [place] [facility] [address] [id number] [place] [address]- 3[address] Mar, [facility] [place] [facility] [address] [id number] [place] [address]- 0[address] Mar, [facility] [place] [facility] [address] [id number] [place] [address]- 74[address] Mar, [facility] [place] [facility] [address] [id number] [place] [address]- 7861 Mar, [facility] [place] [facility] [address] [id number] [place] [address]- [address] January, [facility] [place] [facility] [address] [id number] [place] [address]- 5[address] January, [facility] [place] [facility] [address] [id number] [place] [address]- 05[address] January, [facility] [place] [facility] [address] [id number] [place] [address]- 9[address] January, [facility] [place] [facility] [address] [id number] [place] [address]- [address] January, [facility] [place] [facility] [address] [id number] [place] [address]- 2[address] Aug, [facility] [place] [facility] [address] [id number] [place] [address]- 2228 Aug, [facility] [place] [facility] [address] [id number] [place] [address]- 1892 Mar, [facility] [place] [facility] [address] [id number] [place] [address]- 9936 Mar, [facility] [place] [facility] [address] [id number] [place] [address]- 7921 Jun, [facility] [place] [facility] [address] [id number] [place] [address]- 8[address] Jun, [facility] [place] [facility] [address] [id number] [place] [address]- 4072 11 Jun, 2012 [facility] [place] [facility] [address] [id number] [place] [address]- 1846 10 Jun, 2012 [facility] [place] [facility] [address] [id number] [place] [address]- 3626 10 Jun, 2012 [facility] [place] [facility] [address] [id number] [place] [address]- 9386 10 Jun, 2012 [facility] [place] [facility] [address] [id number] [place] [address]- 9[address] Jun, [facility] [place] [facility] [address] [id number] [place] [address]- 2[address] Apr, [facility] [place] [facility] [address] [id number] [place] [address]- 46[address] Feb, [facility] [place] [facility] [address] [id number] [place] [address]- 8[address] 15 Oct, 2010 [facility] [place] [facility] [address] [id number] [place] [address]- 87[address] Aug, [facility] [place] [facility] [address] [id number] [place] [address]- 5279 27 Aug, 2010 [facility] [place] [facility] [address] [id number] [place] [address]- 76[address] 14 Aug, 2010 [facility] [place] [facility] [address] [id number] [place] [address]- 3592 14 Aug, 2010 [facility] [place] [facility] [address] [id number] [place] [address]- 9670 Apr, [facility] [place] [facility] [address] [id number] [place] [address]- 2542 January, [facility] [place] [facility] [address] [id number] [place] [address] January, [facility] [place] [facility] [address] [id number] [place] [address]- [address] Dec, IMMUNIZATIONS No Known Immunizations SOCIAL HISTORY Never Assessed REASON FOR VISIT routine Visit PLAN OF CARE Activity Details Follow Up prn Reason: VITAL SIGNS MEDICATIONS Medication Instructions Dosage Frequency Start Date End Date Duration Status Symbicort 80-4.5 MCG/ACT Inhalation Twice a day 2 puffs 12h Active Vitamin D3 1000 UNIT Orally Once a day 2 tablets 24h Active Tramadol HCl 50 mg Orally 2 times a day 2 tablets 12h Feb, 28 days Active Melatonin 3 MG Orally Once a day 1 tablet at bedtime as needed with food 24h Apr, Active Toprol XL 50 MG Orally Once a day 1 tablet 24h Apr, 30 day(s) Active Synthroid 75 MCG Orally Once a day 1 tablet 24h January, Active Lisinopril 20 MG Orally Once a day 1 tablet 24h Active Ibuprofen 400 mg Orally every 6 hours as needed 1 tablet with food or milk as needed Dec, Active Namzaric 14-10 MG Orally Once a day 1 capsule in the evening 24h Apr, 30 day(s) Active Cyanocobalamin 1000 MCG/ML Injection every 2 weeks 1000mcg Active ProAir HFA 108 (90 Base) MCG/ACT Inhalation every 6 hrs 2 puffs as needed 6h Active Risperidone 0.5 MG Orally twice a day 1 tablet 12h Jul, Active Flonase 50 MCG/ACT Nasally Once a day 2 spray in each nostril 24h Active Incruse Ellipta 62.5 MCG/INH Inhalation Once a day 1 puff 24h Active Sertraline HCl 25 MG Orally Once a day 1 tablet 24h Jul, 30 day (s) Active Klor-Con M20 20 MEQ Orally Once a day 1 tablet with food 24h Active Aquacel Ag Foam 6 Externally to colostomy site daily as needed Active RESULTS No Results PROCEDURES Procedure Date Ordered Result Body Site Minor complication (15 mins) February 24, 2018 INSTRUCTIONS MEDICATIONS ADMINISTERED No Known Medications
--- OUTSIDE RECORDS SUMMARY | 2018-08-22 16:07 | XMS REPORT ---
Author Author TEJ CHILEL [facility] Address [address] [place] [address] Care Team Providers Care Analytical Lab Technician Name Role Phone TEJ CHILEL Unavailable PROBLEMS Type Condition ICD9-CM Code TQF29-ZO Code Onset Dates Condition Status SNOMED Code Problem Primary insomnia F51.01 Active 3017648 Problem Recurrent major depressive disorder, remission status unspecified F33.9 Active 08830278 Problem Brief psychotic disorder F23 Active 3148019 Problem Acquired hypothyroidism E03.9 Active 307241734 Problem Anorexia R63.0 Active 40818695 Problem Essential (primary) hypertension I10 Active 14361490 Problem COPD (chronic obstructive pulmonary disease) J44.9 Active 42845187 Problem Hyperlipidemia, unspecified hyperlipidemia type E78.5 Active 44538148 Problem 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 Active 58316449 Problem Allergy, subsequent encounter T78.40XD Active 265965346 Problem Dementia F03.90 Active 72557727 ALLERGIES No Information ENCOUNTERS Encounter Location Date Diagnosis [facility] [address] [id number] Apr, Dementia F03.90 and Left hip pain M25.552 [facility] [address] [id number] [address] Mar, [facility] [address] [address] Mar, [facility] [id number] [place] [address] Mar, [facility] [address] [place] [id number] Feb, Dementia F03.90 [facility] [address] [id number] [address] Feb, [facility] [address] [facility] [id number] [address] January, [facility] [address] [id number] [address] Dec, [facility] [address] [place] [id number] Nov, Dementia F03.90 and COPD (chronic obstructive pulmonary disease) J44.9 [facility] [address] [id number] [id number] Nov, [facility] [address] [id number] [id number] Oct, [facility] [address] [place] [id number] Sep, Anemia, unspecified type D64.9 [facility] [address] [id number] [address] Sep, [facility] [address] [address] Sep, [facility] [address] [id number] [id number] Sep, [facility] [id number] [address] Aug, [facility] [address] [id number] [id number] Aug, [facility] [address] [id number] [address] Aug, [facility] [address] [id number] [place] [address] Aug, [facility] [address] [id number] [address] Aug, [facility] [address] [facility] [id number] [address] Jul, [facility] [id number] [place] [id number] Jul, [facility] [address] [id number] [place] [address] Jul, [facility] [address] [id number] [place] [id number] Jun, [facility] [address] [facility] [id number] [address] Jun, [facility] [address] [place] [id number] Jun, Left hip pain M25.552 and Dementia F03.90 [facility] [address] [id number] [place] [address] May, [facility] [address] [id number] [id number] May, [facility] [address] [id number] [place] [address] May, [facility] [address] [facility] [id number] [place] [address] May, [facility] [address] [id number] [address] Apr, [facility] [address] [facility] [id number] 100[address] [address] Apr, [facility] [address] [facility] [id number] [address] Apr, [facility] [address] [id number] [place] [address] Apr, Dementia F03.90 [facility] [address] [facility] [id number] [address] Apr, [facility] [address] [facility] [id number] [place] Apr, [facility] [address] [place] [id number] Apr, Edema of both legs R60.0 [facility] [address] [id number] [place] [id number] Mar, [facility] [address] [id number] [place] [id number] Mar, [facility] [address] [id number] [place] [address] Mar, Anorexia R63.0 [facility] [address] [id number] [place] [address] Mar, [facility] [address] [id number] [place] [id number] Mar, [facility] [address] [id number] [place] [address] Feb, [facility] [address] [id number] [place] [id number] Feb, [facility] [address] [facility] [id number] [address] Feb, Urinary tract infection without hematuria, site unspecified N39.0 [facility] [address] [id number] [place] [address] January, Anorexia R63.0 [facility] [address] [facility] [id number] [address] 2546 January, [facility] [address] [id number] [id number] January, [facility] [address] [facility] [id number] [place] [address]- [address] January, Dementia F03.90 [facility] [address] [id number] [place] [address] January, [facility] [address] [place] [id number] Dec, Left hip pain M25.552 and Dementia F03.90 [facility] [address] [id number] [place] [id number] Dec, [facility] [address] [id number] [place] [id number] Nov, [facility] [address]00565100[place] [address] Oct, [facility] [address] [place] [id number] Oct, Dementia F03.90 and Other depression F32.89 [facility] [address] [place] [id number] Oct, Dementia F03.90 ; Essential (primary) hypertension I10 and COPD (chronic obstructive pulmonary disease) J44.9 [address] [address] [id number] [address] Oct, [address] [id number] [place] [address] Sep, [facility] [address] [place] [id number] Aug, COPD (chronic obstructive pulmonary disease) J44.9 and Dementia F03.90 [facility] [address] [place] [id number] Jun, Dementia F03.90 and COPD (chronic obstructive pulmonary disease) J44.9 [facility] [address] [place] [id number] Apr, COPD (chronic obstructive pulmonary disease) J44.9 and Essential (primary ) hypertension I10 [address] [address]005[address] [address] Apr, [place] [address]100[place] [address] Mar, [address] [address] [id number] [address] Mar, COPD (chronic obstructive pulmonary disease) J44.9 [address] [address] [id number] [address]- [address]93 January, COPD (chronic obstructive pulmonary disease) J44.9 and Allergy, subsequent encounter T78.40XD [place] [address] [id number] [address]- [address] Nov, COPD (chronic obstructive pulmonary disease) J44.9 ; Dementia F03.90 and Essential (primary) hypertension I10 [facility] [id number] [place] [address] Oct, COPD (chronic obstructive pulmonary disease) J44.9 [facility] [id number] [place] [address]557- 2513 Sep, COPD (chronic obstructive pulmonary disease) J44.9 [facility] [id number] [place] [address]- 3041 Sep, Essential (primary) hypertension I10 [address] [address] [address] Sep, Dementia F03.90 and Essential hypertension, benign 401.1 [place] [address] [address] Jul, Dementia F03.90 and COPD (chronic obstructive pulmonary disease) J44.9 [facility] [id number] [place] [address]- 7501 Jun, [facility] [address] [address]- [address]21 Jun, [place] [id number] [place] [address]- 9871 May, Chronic airway obstruction, not elsewhere classified 496 and Essential hypertension, benign 401.1 [facility] [id number] [place] [address]71- 8715 Mar, Essential hypertension, benign 401.1 and Dementia 294.20 [facility] [address] [place] [address]- [address]20 January, Dementia 294.20 [address] [place] [id number] [place] [address]37- 0966 Dec, [place] [address] [address]- [address]44 Dec, [facility] [address] [place] [place] [id number] Nov, [facility] [address] [id number] [place] [address]- [address] Nov, [facility] [place] [facility] [address] [id number] [place] [address]- 4842 Sep, [facility] [place] [facility] [address] [id number] [place] [address]- 0789 Sep, [facility] [place] [facility] [address] [id number] [place] [address]- 7504 Aug, [facility] [place] [facility] [address] [id number] [place] [address]- 5686 Aug, [facility] [place] [facility] [address] [id number] [place] [address]- 3037 Jul, [facility] [place] [facility] [address] [id number] [place] [address]- 3066 Jul, [facility] [place] [facility] [address] [id number] [place] [address]- 8995 Jun, [facility] [place] [facility] [address] [id number] [place] [address]- 3342 Jun, [facility] [place] [facility] [address] [id number] [place] [address]- 1290 Mar, [facility] [place] [facility] [address] [id number] [place] [address]- 3848 Mar, [facility] [place] [facility] [address] [id number] [place] [address]- 4405 Mar, [facility] [place] [facility] [address] [id number] [place] [address]- 2958 Mar, [facility] [place] [facility] [address] [id number] [place] [address]- 0804 Mar, [facility] [place] [facility] [address] [id number] [place] [address]- 1095 Mar, [facility] [place] [facility] [address] [id number] [place] [address]- 6989 January, [facility] [place] [facility] [address] [id number] [place] [address]- 6180 January, [facility] [place] [facility] [address] [id number] [place] [address]28 January, [facility] [place] [facility] [address] [id number] [place] [address]- 5632 January, [facility] [place] [facility] [address] [id number] [place]- 4626 January, [facility] [place] [facility] [address] [id number] [place] [address]- 9869 Aug, [facility] [place] [facility] [address] [id number] [place] [address]- 1894 Aug, [facility] [place] [facility] [address] [id number] [place] [address]- 5718 Mar, [facility] [place] [facility] [address] [id number] [place] [address]- 3636 Mar, [facility] [place] [facility] [address] [id number] [place] [address]- 8565 Jun, [facility] [place] [facility] [address] [id number] [place] [address]- 1938 Jun, [facility] [place] [facility] [address] [id number] [address]- 7489 Jun, [facility] [place] [facility] [address] [id number] [place] [address]- 3731 Jun, [facility] [place] [facility] [address] [id number] [place] [address]- 6849 Jun, [facility] [place] [facility] [address] [id number] [place] [address]- 5507 Jun, [facility] [place] [facility] [address] [address]- [address] 10 Jun, 2012 [facility] [address] [address]- 5[address] Apr, [facility] [address] [address]- 8810 Feb, [facility] [address]100[place] [address]- 9316 Oct, [facility] [address] [address]- 0124 Aug, [facility] [id number] [place] [address]- 1750 Aug, [facility] [address]- [address] Aug, [facility] [id number] [place] [address] 29545- 3934 Aug, [facility] [address] [address]- 1324 Apr, [facility] [address]- [address]82 January, [facility] [address] [address]- 8977 January, [facility] [address] [address]- 9960 Dec, IMMUNIZATIONS No Known Immunizations SOCIAL HISTORY [...]
--- OUTSIDE RECORDS SUMMARY | 2018-08-22 16:08 | XMS REPORT ---
Author Author TEJ CHILEL [facility] Address [address] [place] [address] Care Team Providers Care Cuff Stitcher Name Role Phone TEJ CHILEL Unavailable PROBLEMS Type Condition ICD9-CM Code GYY44-EQ Code Onset Dates Condition Status SNOMED Code Problem Primary insomnia F51.01 Active 6671593 Problem Recurrent major depressive disorder, remission status unspecified F33.9 Active 46039544 Problem Brief psychotic disorder F23 Active 6968342 Problem Acquired hypothyroidism E03.9 Active 750203420 Problem Anorexia R63.0 Active 65114769 Problem Essential (primary) hypertension I10 Active 35016912 Problem COPD (chronic obstructive pulmonary disease) J44.9 Active 76450359 Problem Hyperlipidemia, unspecified hyperlipidemia type E78.5 Active 25503055 Problem 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 Active 72376176 Problem Allergy, subsequent encounter T78.40XD Active 592734256 Problem Dementia F03.90 Active 38433137 ALLERGIES No Information ENCOUNTERS Encounter Location Date Diagnosis [facility] [address], [place] [address] Mar, [facility] [address] [id number] [address] Mar, [facility] [address] [place] [id number] Feb, Dementia F03.90 [facility] [address], [place] [address] Feb, [facility] [id number] [place] [address] January, [facility] [address], [place] [address] Dec, [facility] [address] [place] [id number] Nov, Dementia F03.90 and COPD (chronic obstructive pulmonary disease) J44.9 [facility] [place] [address] [id number] [id number] Nov, [facility] [place] [facility] [address] [id number] [address] Oct, [facility] [address] [place] [id number] Sep, Anemia, unspecified type D64.9 [facility] [address] [id number], [place] [address] Sep, [facility] [address] [id number], [place] [address] Sep, [facility] [place] [address] [id number] [id number] Sep, [facility] [place] [address] [id number] [id number] Aug, [facility] [place] [address] [id number] [id number] Aug, [facility] [address] [id number], [place] [address] Aug, [facility] [place] [address] [id number] [id number] Aug, [facility] [address] [id number], [place] [address] Aug, [facility] [address] [id number], [place] [address] Jul, [facility] [place] [address] [id number] [id number] Jul, [facility] [place] [address] [id number] [id number] Jul, [facility] [place] [address] [id number] [id number] Jun, [facility] [address] [id number] Jun, [facility] [address] [place] [id number] Jun, Left hip pain M25.552 and Dementia F03.90 [facility] [address] [id number], [place] [address] May, [facility] [address] [id number] [id number] May, [facility] [address] [id number] [id number] May, [facility] [address] [id number], [place] [address] May, [facility] [address] [id number] [id number] Apr, [facility] [address] [facility] [id number], [place] [address] Apr, [facility] [address] [id number], [place] [address] Apr, [facility] [address] [id number] [id number] Apr, Dementia F03.90 [facility] [address] [facility] [address] [id number], [place] [address] Apr, [facility] [address] [facility] [address] [id number], [place] [address] Apr, [facility] [address] [place] [id number] Apr, Edema of both legs R60.0 [facility] [address] [id number], [place] [id number] Mar, [facility] [address] [id number][place] [id number] Mar, [facility] [address] [id number] [id number] Mar, Anorexia R63.0 [facility] [address] [facility] [id number], [place] [address] Mar, [facility] [address] [id number][place] [id number] Mar, [facility] [address] [id number] [address] Feb, [facility] [address] [id number] [id number] Feb, [facility] [address] [facility] [id number], [place] [address] Feb, Urinary tract infection without hematuria, site unspecified N39.0 [facility] [address] [facility] [id number], [place] [address] January, Anorexia R63.0 [facility] [address] [id number], [place] [address] January, [facility] [address] [id number] [id number] January, [facility] [address] [facility] [id number], [place] [address] January, Dementia F03.90 [facility] [address] [id number][place] [id number] January, [facility] [address] [id number] Dec, Left hip pain M25.552 and Dementia F03.90 [facility] [address] [id number] [id number] Dec, [facility] [address] [id number] [id number] Nov, [facility] [address] [facility] [id number], [place] [address] Oct, [facility] [address] [id number] Oct, Dementia F03.90 and Other depression F32.89 [facility] [address] [place] [id number] Oct, Dementia F03.90 ; Essential (primary) hypertension I10 and COPD (chronic obstructive pulmonary disease) J44.9 [facility] [address], [place] [address] Oct, [facility] [id number] [place] [address] Sep, [facility] [address] [id number] Aug, COPD (chronic obstructive pulmonary disease) J44.9 and Dementia F03.90 [facility] [address] [place] [id number] Jun, Dementia F03.90 and COPD (chronic obstructive pulmonary disease) J44.9 [facility] [address] [place] [id number] Apr, COPD (chronic obstructive pulmonary disease) J44.9 and Essential (primary ) hypertension I10 [facility] [address] [id number], [place] [address] Apr, [facility] [id number] [place] [address] Mar, [facility] [id number] [place] [address] Mar, COPD (chronic obstructive pulmonary disease) J44.9 [facility] [address] [id number], [place] [address] January, COPD (chronic obstructive pulmonary disease) J44.9 and Allergy, subsequent encounter T78.40XD [facility] [id number] [place] [address] Nov, COPD (chronic obstructive pulmonary disease) J44.9 ; Dementia F03.90 and Essential (primary) hypertension I10 [facility] [address], [place] [address] Oct, COPD (chronic obstructive pulmonary disease) J44.9 [facility] [address], [place] [address] Sep, COPD (chronic obstructive pulmonary disease) J44.9 [facility] [id number] [place] [address] Sep, Essential (primary) hypertension I10 [facility] [id number] [place] [address]- [address]85 Sep, Dementia F03.90 and Essential hypertension, benign 401.1 [facility] [id number] [place] [address]- [address] Jul, Dementia F03.90 and COPD (chronic obstructive pulmonary disease) J44.9 [facility] [address] [id number], [place] [address] Jun, [facility] [id number] [place] [address] Jun, [facility] [address], [place] [address] May, Chronic airway obstruction, not elsewhere classified 496 and Essential hypertension, benign 401.1 [facility] [address], [place] [address] Mar, Essential hypertension, benign 401.1 and Dementia 294.20 [address] [place] [address]- 7[address] January, Dementia 294.20 [facility] [address], [place] [address] Dec, [place] [address] [id number] [place] [address]- 9275 Dec, [facility] [address] [place] [id number] Nov, [facility] [address], [place] [address] Nov, [facility] [id number] [place] [address] Sep, [facility] [place] [facility] [address] [id number] [place] [address]- [address] Sep, [facility] [place] [facility] [address] [id number] [place] [address]- 1252 Aug, [facility] [place] [facility] [address] [id number] [place] [address]- 6[address] Aug, [facility] [place] [facility] [address] [id number] [place] [address]- 5679 Jul, [facility] [place] [facility] [address] [id number] [place] [address]- [address] Jul, [facility] [place] [facility] [address] [id number] [place] [address]- 1610 Jun, [facility] [place] [facility] [address] [id number] [place] [address]- 8984 Jun, [facility] [place] [facility] [address] [id number] [place] [address]- 3098 Mar, [facility] [place] [facility] [address] [id number] [place] [address]- [address] Mar, [facility] [place] [facility] [address] [id number] [place] [address]- [address] Mar, [facility] [place] [facility] [address] [id number] [place] [address]- 4084 Mar, [facility] [place] [facility] [address] [id number] [place] [address]- 1454 Mar, [facility] [place] [facility] [address] [id number] [place] [address]- 134[address] Mar, [facility] [place] [facility] [address] [id number] [place] [address]- [address] January, [facility] [place] [facility] [address] [id number] [place] [address]- 8979 January, [facility] [place] [facility] [address] [id number] [place] [address]- 1344 January, [facility] [place] [facility] [address] [id number] [place] [address]- 2566 January, [facility] [place] [facility] [address] [id number] [place] [address] January, [facility] [place] [facility] [address] [id number] [place] [address]- 8099 Aug, [facility] [place] [facility] [address] [id number] [place] [address]- 0012 Aug, [facility] [place] [facility] [address] [id number] [place] [address]- 2155 Mar, [facility] [place] [facility] [address] [id number] [place] [address]- 9415 Mar, [facility] [place] [facility] [address] [id number] [place] [address]- 1004 Jun, [facility] [place] [facility] [address] [id number] [place] [address]- 4385 Jun, [facility] [place] [facility] [address] [id number] [place] [address]- 2478 Jun, [facility] [place] [facility] [address] [id number] [place] [address]- 7[address] Jun, [facility] [place] [facility] [address] [id number] [place] [address]- 8744 Jun, [facility] [place] [facility] [address] [id number] [place] [address]- 6016 Jun, [facility] [place] [facility] [address] [id number] [place] [address]- 9709 Jun, [facility] [place] [facility] [address] [id number] [place] [address] Apr, [facility] [place] [facility] [address] [id number], [place] [address]- 0148 Feb, [facility] [address] [id number], [place] [address] 15 Oct, 2010 [facility] [address], [place] [address] Aug, [facility] [address], [place] [address]- [address] Aug, [facility] [address], [place] [address]- [address] Aug, [facility] [address], [place] [address]- 1361 Aug, [facility] [address], [place] [address]- 4[address] Apr, [facility] [address], [place] [address]- 30[address] January, [facility] [address] [id number], [place] [address] January, [facility] [id number] [address] Dec, IMMUNIZATIONS No Known Immunizations SOCIAL HISTORY Never Assessed REASON FOR VISIT Controlled Med Refill PLAN OF CARE VITAL SIGNS MEDICATIONS Medication Instructions Dosage Frequency Start Date End Date Duration Status Tramadol HCl 50 mg Orally 2 times a day 2 tablets 12h Feb, 28 days Active RESULTS No Results PROCEDURES No Known procedures INSTRUCTIONS MEDICATIONS ADMINISTERED No Known Medications
--- OUTSIDE RECORDS SUMMARY | 2018-08-22 16:08 | XMS REPORT ---
Author Author TEJ CHILEL [facility] Address [address] [place] [address] Care Team Providers Care Product Inspection Coordinator Name Role Phone TEJ CHILEL Unavailable PROBLEMS Type Condition ICD9-CM Code [id number] Code Onset Dates Condition Status SNOMED Code Problem Primary insomnia F51.01 Active 3589780 Problem Recurrent major depressive disorder, remission status unspecified F33.9 Active 71743467 Problem Brief psychotic disorder F23 Active 7544840 Problem Acquired hypothyroidism E03.9 Active 953877383 Problem Anorexia R63.0 Active 16565145 Problem Essential (primary) hypertension I10 Active 51879916 Problem COPD (chronic obstructive pulmonary disease) J44.9 Active 23470687 Problem Hyperlipidemia, unspecified hyperlipidemia type E78.5 Active 62816347 Problem 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 Active 52705447 Problem Allergy, subsequent encounter T78.40XD Active 861678920 Problem Dementia F03.90 Active 02185987 ALLERGIES No Information ENCOUNTERS Encounter Location Date Diagnosis [facility] [address] [address] Mar, [facility] [id number] [address] Mar, [facility] [address] [place] [id number] Feb, Dementia F03.90 [facility] [address] [address] Feb, [facility] [id number] [place] [address] January, [facility] [address] [address] Dec, [facility] [address] [place] [id number] Nov, Dementia F03.90 and COPD (chronic obstructive pulmonary disease) J44.9 [facility] [address] [id number] [id number] Nov, [facility] [address] [id number] [place] [id number] Oct, [facility] [address] [place] [id number] Sep, Anemia, unspecified type D64.9 [facility] [address] [id number] [address] Sep, [facility] [address] [id number] [place] [address] Sep, [facility] [address] [id number] [id number] Sep, [facility] [address] [id number] [id number] Aug, [facility] [address] [id number] [place] [id number] Aug, [facility] [address] [id number] [place] [address] Aug, [facility] [address] [id number] [place] [id number] Aug, [facility] [address] [id number] [place] [address] Aug, [facility] [address] [id number] [place] [address] Jul, [facility] [address] [id number] [place] [id number] Jul, [facility] [address] [id number] [place] [id number] Jul, [facility] [address] [id number] [place] [id number] Jun, [facility] [address] [id number] [place] [address] Jun, [facility] [address] [place] [id number] Jun, Left hip pain M25.552 and Dementia F03.90 [facility] [address] [id number] [place] [address] May, [facility] [address] [id number] [place] [id number] May, [facility] [address] [id number] [place] [id number] May, [facility] [address] [id number] [place] [address] May, [facility] [address] [id number] [place] [id number] Apr, [facility] [address] [facility] [id number] [address] Apr, [facility] [address] [facility] [id number] [place] [address] Apr, [facility] [address] [id number] [place] [id number] Apr, Dementia F03.90 [facility] [address] [facility] [id number] [place] [address] Apr, [facility] [address] [facility] [id number] [place] [address] Apr, [facility] [address] [place] [id number] Apr, Edema of both legs R60.0 [facility] [address] [id number] [place] [id number] Mar, [facility] [address] [id number] [place] [id number] Mar, [facility] [address] [id number] [place] [id number] Mar, Anorexia R63.0 [facility] [address] [facility] [id number] [place] [address] Mar, [facility] [address] [id number] [place] [id number] Mar, [facility] [address] [id number] [place] [id number] Feb, [facility] [address] [id number] [place] [id number] Feb, [facility] [address] [facility] [id number] [place] [address] Feb, Urinary tract infection without hematuria, site unspecified N39.0 [facility] [address] [facility] [id number] [place] [address] January, Anorexia R63.0 [facility] [address] [id number] [address] January, [facility] [address] [id number] [place] [id number] January, [facility] [address] [facility] [id number] [place] [address] January, Dementia F03.90 [facility] [address] [id number] [place] [address] January, [facility] [address] [place] [id number] Dec, Left hip pain M25.552 and Dementia F03.90 [facility] [address] [id number] [place] [id number] Dec, [facility] [address] [id number] [place] [id number] Nov, [facility] [address] [facility] [id number] [place] [address] Oct, [facility] [address] [id number] Oct, Dementia F03.90 and Other depression F32.89 [facility] [address] [place] [id number] Oct, Dementia F03.90 ; Essential (primary) hypertension I10 and COPD (chronic obstructive pulmonary disease) J44.9 [facility] [address] [address] Oct, [facility] [id number] [place] [address]- [address] Sep, [facility] [address] [id number] Aug, COPD (chronic obstructive pulmonary disease) J44.9 and Dementia F03.90 [facility] [address] [place] [id number] Jun, Dementia F03.90 and COPD (chronic obstructive pulmonary disease) J44.9 [facility] [address] [place] [id number] Apr, COPD (chronic obstructive pulmonary disease) J44.9 and Essential (primary ) hypertension I10 [facility] [address] [id number] [address] Apr, [facility] [id number] [place] [address] Mar, [facility] [id number] [place] [address]- 7693 Mar, COPD (chronic obstructive pulmonary disease) J44.9 [facility] [address] [id number] [address] January, COPD (chronic obstructive pulmonary disease) J44.9 and Allergy, subsequent encounter T78.40XD [facility] [id number] [place] [address]- [address] Nov, COPD (chronic obstructive pulmonary disease) J44.9 ; Dementia F03.90 and Essential (primary) hypertension I10 [facility] [address] [address] Oct, COPD (chronic obstructive pulmonary disease) J44.9 [facility] [address] [address] Sep, COPD (chronic obstructive pulmonary disease) J44.9 [facility] [address] [place] [address] 63969- 7927 Sep, Essential (primary) hypertension I10 [facility] [address] [place] [address]- 6397 Sep, Dementia F03.90 and Essential hypertension, benign 401.1 [facility] [id number] [place] [address]67- 9845 Jul, Dementia F03.90 and COPD (chronic obstructive pulmonary disease) J44.9 [facility] [address] [id number] [address] Jun, [facility] [id number] [place] [address]- 7759 Jun, [facility] [address] [address] May, Chronic airway obstruction, not elsewhere classified 496 and Essential hypertension, benign 401.1 [facility] [address] [address] Mar, Essential hypertension, benign 401.1 and Dementia 294.20 [address] [place] [address]28[address]- [address]65 January, Dementia 294.20 [facility] [address] [address]- [address] Dec, [address] [id number] [place] [address]- 6[address] Dec, [facility] [address] [place] [id number] Nov, [facility] [address] [address]- 98[address] Nov, [facility] [id number] [address] Sep, [facility] [place] [facility] [address] [id number] [place] [address]- [address] Sep, [facility] [place] [facility] [address] [id number] [place] [address]- [address]30 Aug, [facility] [place] [facility] [address] [id number] [place] [address]- 74[address] Aug, [facility] [place] [facility] [address] [id number] [place] [address]- 1515 Jul, [facility] [place] [facility] [address] [id number] [place] [address]- 3[address] Jul, [facility] [place] [facility] [address] [id number] [place] [address]- 6007 Jun, [facility] [place] [facility] [address] [id number] [place] [address]- 1542 Jun, [facility] [place] [facility] [address] [id number] [place] [address]- 4[address] Mar, [facility] [place] [facility] [address] [id number] [place] [address]- [address] Mar, [facility] [place] [facility] [address] [id number] [place] [address]- 288[address] Mar, [facility] [place] [facility] [address] [id number] [place] [address] 1980 Mar, [facility] [place] [facility] [address] [id number] [place] [address]- 5[address] Mar, [facility] [place] [facility] [address] [id number] [place] [address]- 2197 Mar, [facility] [place] [facility] [address] [id number] [place] [address]- 6[address] January, [facility] [place] [facility] [address] [id number] [place] [address]- [address] January, [facility] [place] [facility] [address] [id number] [place] [address]- 4173 January, [facility] [place] [facility] [address] [id number] [place] [address]- 5864 January, [facility] [place] [facility] [address] [id number] [place] [address] January, [facility] [place] [facility] [address] [id number] [place] [address]- 9106 Aug, [facility] [place] [facility] [address] [id number] [place] [address]- 6043 Aug, [facility] [place] [facility] [address] [id number] [place] [address]- 1315 Mar, [facility] [place] [facility] [address] [id number] [place] [address]- 8511 Mar, [facility] [place] [facility] [address] [id number] [place] [address]- 3150 Jun, [facility] [place] [facility] [address] [id number] [place] [address]- 3110 Jun, [facility] [place] [facility] [address] [id number] [place] [address]- 7823 Jun, [facility] [place] [facility] [address] [id number] [place] [address]- 5631 Jun, [facility] [place] [facility] [address] [id number] [place] [address]- 6864 Jun, [facility] [place] [facility] [address] [id number] [place] [address]- 7734 Jun, [facility] [place] [facility] [address] [id number] [place] [address]- 9137 Jun, [facility] [place] [facility] [address] [id number] [place] [address] Apr, [facility] [place] [facility] [address] [id number] [place] [address]- 3693 Feb, [facility] [address] [id number] [address]- [address] 15 Oct, 2010 [facility] [address] [address]- 5[address] Aug, [facility] [address] [address]- 8[address] Aug, [facility] [address] [address]- [address] Aug, [facility] [address] [address]- 8[address] Aug, [facility] [address] [address]- [address] Apr, [facility] [address] [address]- 9871 January, [facility] [address] [id number] [address]- 6965 January, [facility] [id number] Dec, IMMUNIZATIONS No Known Immunizations SOCIAL HISTORY [...]
--- OUTSIDE RECORDS SUMMARY | 2018-08-22 16:08 | XMS REPORT ---
Author Author TEJ CHILEL [facility] Address [address] [place] [address] Care Team Providers Care Appointment Setter Name Role Phone TEJ CHILEL Unavailable PROBLEMS Type Condition ICD9-CM Code [id number] Code Onset Dates Condition Status SNOMED Code Problem Primary insomnia F51.01 Active 8228368 Problem Recurrent major depressive disorder, remission status unspecified F33.9 Active 17897637 Problem Brief psychotic disorder F23 Active 5068171 Problem Acquired hypothyroidism E03.9 Active 226226990 Problem Anorexia R63.0 Active 29982449 Problem Essential (primary) hypertension I10 Active 42425328 Problem COPD (chronic obstructive pulmonary disease) J44.9 Active 94695351 Problem Hyperlipidemia, unspecified hyperlipidemia type E78.5 Active 02063117 Problem 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 Active 86517669 Problem Allergy, subsequent encounter T78.40XD Active 206844149 Problem Dementia F03.90 Active 63034898 ALLERGIES No Information ENCOUNTERS Encounter Location Date Diagnosis [facility] [address] [id number] Feb, Dementia F03.90 [facility] [address] [facility] [id number] [place] [address] Feb, [facility] [address] [id number] [place] [address] January, [facility] [address] [facility] [id number] [place] [address] Dec, [facility] [address] [place] [id number] Nov, Dementia F03.90 and COPD (chronic obstructive pulmonary disease) J44.9 [facility] [address] [id number] [place] [id number] Nov, [facility] [address] [id number] [id number] Oct, [facility] [address] [place] [id number] Sep, Anemia, unspecified type D64.9 [facility] [address] [id number] [place] [address] Sep, [facility] [address] [facility] [id number] [place] [address] Sep, [facility] [address] [id number] [place] [id number] Sep, [facility] [address] [id number] [id number] Aug, [facility] [address] [id number] [place] [address] Aug, [facility] [address] [id number] [place] [address] Aug, [facility] [address] [id number] [place] [id number] Aug, [facility] [address] [id number] [place] [address] Aug, [facility] [address] [id number] [place] [address] Jul, [facility] [id number] [place] [id number] Jul, [facility] [address] [id number] [place] [address] Jul, [facility] [address] [id number] [place] [id number] Jun, [facility] [address] [facility] [id number] [place] [address] Jun, [facility] [address] [place] [id number] Jun, Left hip pain M25.552 and Dementia F03.90 [facility] [address] [facility] [id number] [place] [address] May, [facility] [address] [id number] [place] [id number] May, [facility] [place] [facility] [address] [id number] [place] [id number] May, [facility] [address] [facility] [id number] [place] [address] May, [facility] [place] [facility] [address] [id number] [place] [id number] Apr, [facility] [address] [facility] [id number] [place] [address] Apr, [facility] [address] [facility] [id number] [place] [address] Apr, [facility] [address] [id number] [place] [id number] Apr, Dementia F03.90 [facility] [address] [facility] [id number] [place] [address] Apr, [facility] [address] [facility] [id number] [place] [address] Apr, [facility] [address] [place] [id number] Apr, Edema of both legs R60.0 [facility] [address] [id number] [place] [id number] Mar, [facility] [place] [facility] [address] [id number] [place] [id number] Mar, [facility] [address] [id number] [place] [id number] Mar, Anorexia R63.0 [facility] [address] [facility] [id number] [place] [address] Mar, [facility] [address] [id number] [place] [id number] Mar, [facility] [place] [facility] [id number] [place] [id number] Feb, [facility] [id number] [place] [id number] Feb, [facility] [address] [id number] [place] [address] Feb, Urinary tract infection without hematuria, site unspecified N39.0 [facility] [address]00565100[place] [address] January, Anorexia R63.0 [facility] [address] [id number] [place] [address] January, [facility] [id number] [place] [address] January, [facility] [address] [id number] [place] [address] January, Dementia F03.90 [facility] [id number] [place] [address] January, [facility] [address] [place] [id number] Dec, Left hip pain M25.552 and Dementia F03.90 [facility] [id number] [place] [id number] Dec, [facility] [id number] [place] [address] Nov, [facility] [address] [id number] [place] [address] Oct, [facility] [address] [place] [id number] Oct, Dementia F03.90 and Other depression F32.89 [facility] [address] [place] [id number] Oct, Dementia F03.90 ; Essential (primary) hypertension I10 and COPD (chronic obstructive pulmonary disease) J44.9 [facility] [address] [id number] [place] [address] Oct, [facility] [address]00565100[place] [address] Sep, [facility] [address] [place] [id number] Aug, COPD (chronic obstructive pulmonary disease) J44.9 and Dementia F03.90 [facility] [address] [place] [id number] Jun, Dementia F03.90 and COPD (chronic obstructive pulmonary disease) J44.9 [facility] [address] [place] [id number] Apr, COPD (chronic obstructive pulmonary disease) J44.9 and Essential (primary) hypertension I10 [facility] [id number] [place] [address] Apr, [facility] [id number] [place] [address]- [address] Mar, [facility] [address] [address] Mar, COPD (chronic obstructive pulmonary disease) J44.9 [facility] [id number] [place] [address] January, COPD (chronic obstructive pulmonary disease) J44.9 and Allergy, subsequent encounter T78.40XD [facility] [address] [id number] [place] [address] Nov, COPD (chronic obstructive pulmonary disease) J44.9 ; Dementia F03.90 and Essential (primary) hypertension I10 [facility] [id number] [place] [address]95 Oct, COPD (chronic obstructive pulmonary disease) J44.9 [facility] [id number] [place] [address]- [address]9 Sep, COPD (chronic obstructive pulmonary disease) J44.9 [facility] [address] [id number] [place] [address] Sep, Essential (primary) hypertension [id number] [address] Sep, Dementia F03.90 and Essential hypertension, benign 401.1 [facility] [id number] [place] [address]51 Jul, Dementia F03.90 and COPD (chronic obstructive pulmonary disease) J44.9 [facility] [id number] [place] [address]- [address]202 Jun, [facility] [id number] [place] [address]- 3094 Jun, [facility] [id number] [place] [address]- 4[address] May, Chronic airway obstruction, not elsewhere classified 496 and Essential hypertension, benign 401.1 [facility] [id number] [place] [address]- [address]19 Mar, Essential hypertension, benign 401.1 and Dementia 294.20 [facility] [id number] [place] [address]- 8591 January, Dementia 294.20 [facility] [id number] [place] [address]- 2811 Dec, [facility] [id number] [address] Dec, [facility] [address] [address] Nov, [facility] [address]00565100[place] [address] Nov, [facility] [id number] [place] [address]- 4779 Sep, [facility] [address]00565100[place] [address] Sep, [facility] [id number] [place] [address]9973- 0585 Aug, [facility] [place] [facility] [address] [id number] [place] [address] Aug, [facility] [place] [facility] [address] [id number] [place] [address]- 1823 Jul, [facility] [place] [facility] [address] [id number] [place] [address] Jul, [facility] [place] [facility] [address] [id number] [place] [address]- 1696 Jun, [facility] [place] [facility] [address] [id number] [place] [address]- 7007 Jun, [facility] [place] [facility] [address] [id number] [place] [address]- 0141 Mar, [facility] [place] [facility] [address] [id number] [place] [address]- 4[address] Mar, [facility] [place] [facility] [address] [id number] [place] [address]- 4089 Mar, [facility] [place] [facility] [address] [id number] [place] [address]- 3[address] Mar, [facility] [place] [facility] [address] [id number] [place] [address]- 5157 Mar, [facility] [place] [facility] [address] [id number] [place] [address]- 5111 Mar, [facility] [place] [facility] [address] [id number] [place] [address] 1984 January, [facility] [place] [facility] [address] [id number] [place] [address]- 2692 January, [facility] [place] [facility] [address] [id number] [place] [address]- 5888 January, [facility] [place] [facility] [address] [id number] [place] [address]- 5573 January, [facility] [place] [facility] [address] [id number] [place] [address]- 0261 January, [facility] [place] [facility] [address] [id number] [place] [address]- 7958 Aug, [facility] [place] [facility] [address] [id number] [place] [address]- 5279 Aug, [facility] [place] [facility] [address] [id number] [place] [address]- 7776 Mar, [facility] [place] [facility] [address] [id number] [place] [address]- 5524 Mar, [facility] [place] [facility] [address] [id number] [place] [address]- 2480 Jun, [facility] [place] [facility] [address] [id number] [place] [address] 1971 Jun, [facility] [place] [facility] [address] [facility] [id number] [place] [address]- 7928 Jun, [facility] [place] [facility] [address] [facility] [id number] [place] [address]- 2459 Jun, [facility] [place] [facility] [address] [facility] [id number] [place] [address]- 1346 Jun, [facility] [place] [facility] [address] [facility] [id number] [place] [address]- 8601 Jun, [facility] [place] [facility] [address] [id number] [place] [address]- 2778 Jun, [facility] [place] [facility] [address] [facility] [id number] [place] [address]- 5145 Apr, [facility] [place] [facility] [address] [id number] [place] [address]- 3956 Feb, [facility] [place] [facility] [address] [id number] [place] [address]- [address] 15 Oct, 2010 [facility] [place] [facility] [address] [facility] [id number] [place] [address]- 8236 Aug, [facility] [place] [facility] [address] [id number] [address] 2546 Aug, [facility] [address] [id number] [address]- 9138 Aug, [facility] [id number] [address]- 67[address] Aug, [facility] [address] [id number] [address]- 6894 Apr, [facility] [address] [id number] [address]- 4086 January, [facility] [address] [id number] [address]- 4767 January, [facility] [address] [id number] [address]268 Dec, IMMUNIZATIONS No Known Immunizations SOCIAL HISTORY Never Assessed REASON FOR VISIT Refill request PLAN OF CARE VITAL SIGNS MEDICATIONS Medication Instructions Dosage Frequency Start Date End Date Duration Status Tramadol HCl 50 mg Orally 2 times a day 2 tablets 12h 30 Feb, 2017 28 days Active RESULTS No Results PROCEDURES No Known procedures INSTRUCTIONS MEDICATIONS ADMINISTERED No Known Medications
--- OUTSIDE RECORDS SUMMARY | 2018-08-22 16:08 | XMS REPORT ---
Author Author JUAN DANIEL CASTELLANOS [facility] Address [address] [place] [address] Care Team Providers Care Reconstructive Surgeon Name Role Phone JUAN DANIEL CASTELLANOS Unavailable PROBLEMS Type Condition ICD9-CM Code TXC89-NP Code Onset Dates Condition Status SNOMED Code Problem Primary insomnia F51.01 Active 7447255 Problem Recurrent major depressive disorder, remission status unspecified F33.9 Active 27140139 Problem Brief psychotic disorder F23 Active 6793004 Problem Acquired hypothyroidism E03.9 Active 343357756 Problem Anorexia R63.0 Active 70827887 Problem Essential (primary) hypertension I10 Active 63879382 Problem COPD (chronic obstructive pulmonary disease) J44.9 Active 00962084 Problem Hyperlipidemia, unspecified hyperlipidemia type E78.5 Active 59355554 Problem 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 Active 72555207 Problem Allergy, subsequent encounter T78.40XD Active 896890048 Problem Dementia F03.90 Active 14889815 ALLERGIES No Information ENCOUNTERS Encounter Location Date Diagnosis [facility] [address] [id number] [address] Mar, [facility] [address], [place] [address] Mar, [facility] [address] [place] [id number] Feb, Dementia F03.90 [facility] [address], [place] [address] Feb, [facility] [id number] [place] [address] January, [facility] [address], [place] [address] Dec, [facility] [address] [place] [id number] Nov, Dementia F03.90 and COPD (chronic obstructive pulmonary disease) J44.9 [facility] [id number] [id number] Nov, [facility] [id number] [id number] Oct, [facility] [address] [place] [id number] Sep, Anemia, unspecified type D64.9 [facility] [address] [facility] [id number], [place] [address] Sep, [facility] [address], [place] [address] Sep, [facility] [id number] [id number] Sep, [facility] [address] [id number] [id number] Aug, [facility] [address] [id number] [id number] Aug, [facility] [address], [place] [address] Aug, [facility] [id number] [id number] Aug, [facility] [address] [id number], [place] [address] Aug, [facility] [address] [id number], [place] [address] Jul, [facility] [address] [id number] [id number] Jul, [facility] [address] [id number] [address] Jul, [facility] [address] [id number] [address] Jun, [facility] [address] [facility] [id number] [address] Jun, [facility] [address] [place] [id number] Jun, Left hip pain M25.552 and Dementia F03.90 [facility] [address] [facility] [id number] [address] May, [facility] [address] [id number] [address] May, [facility] [address] [id number] [address] May, [facility] [address] [facility] [id number] [address] May, [facility] [address] [id number][place] [address] Apr, [facility] [address] [facility] [id number], [place] [address] Apr, [facility] [address] [facility] [id number], [place] [address] Apr, [facility] [address] [id number] [id number] Apr, Dementia F03.90 [facility] [address] [facility] [id number], [place] [address] Apr, [facility] [address] [facility] [id number], [place] [address] Apr, [facility] [address] [place] [id number] Apr, Edema of both legs R60.0 [facility] [address] [id number], [place] [id number] Mar, [facility] [address] [id number][place] [id number] Mar, [facility] [address] [id number], [place] [address] Mar, Anorexia R63.0 [facility] [address] [id number], [place] [address] Mar, [facility] [address] [id number][place] [address] Mar, [facility] [address] [id number][place] [address] Feb, [facility] [address] [id number], [place] [id number] Feb, [facility] [address] [id number], [place] [address] Feb, Urinary tract infection without hematuria, site unspecified N39.0 [facility] [address] [id number], [place] [address] January, Anorexia R63.0 [facility] [address] [id number], [place] [address] January, [facility] [id number], [place] [address] January, [facility] [address] [facility] [id number], [place] [address] January, Dementia F03.90 [facility] [address] [id number][place] [id number] January, [facility] [address] [id number] Dec, Left hip pain M25.552 and Dementia F03.90 [facility] [address] [id number][place] [id number] Dec, [facility] [address] [id number], [place] [id number] Nov, [facility] [address] [facility] [id number], [place] [address]46 Oct, [facility] [address] [id number] Oct, Dementia F03.90 and Other depression F32.89 [facility] [address] [place] [id number] Oct, Dementia F03.90 ; Essential (primary) hypertension I10 and COPD (chronic obstructive pulmonary disease) J44.9 [facility] [address], [place] [address] Oct, [facility] [address] [id number], [place] [address] Sep, [facility] [address] [place] [id number] Aug, COPD (chronic obstructive pulmonary disease) J44.9 and Dementia F03.90 [facility] [address] [place] [id number] Jun, Dementia F03.90 and COPD (chronic obstructive pulmonary disease) J44.9 [facility] [address] [place] [id number] Apr, COPD (chronic obstructive pulmonary disease) J44.9 and Essential (primary ) hypertension I10 [facility] [address] [id number], [place] [address] Apr, [facility] [id number] [place] [address] Mar, [facility] [id number] [place] [address] Mar, COPD (chronic obstructive pulmonary disease) J44.9 [facility] [address], [place] [address] January, COPD (chronic obstructive pulmonary disease) J44.9 and Allergy, subsequent encounter T78.40XD [facility] [address] [place] [address] Nov, COPD (chronic obstructive pulmonary disease) J44.9 ; Dementia F03.90 and Essential (primary) hypertension I10 [facility] [address], [place] [address] Oct, COPD (chronic obstructive pulmonary disease) J44.9 [address], [place] [address] Sep, COPD (chronic obstructive pulmonary disease) J44.9 [facility] [address], [place] [address] Sep, Essential (primary) hypertension I10 [facility] [address] [id number], [place] [address] Sep, Dementia F03.90 and Essential hypertension, benign 401.1 [facility] [id number] [place] [address] Jul, Dementia F03.90 and COPD (chronic obstructive pulmonary disease) J44.9 [facility] [address], [place] [address] Jun, [facility] [id number] [place] [address] Jun, [facility] [address] [id number], [place] [address] May, Chronic airway obstruction, not elsewhere classified 496 and Essential hypertension, benign 401.1 [address], [place] [address] Mar, Essential hypertension, benign 401.1 and Dementia 294.20 [facility] [address], [place] [address] January, Dementia 294.20 [facility] [address], [place] [address] Dec, [facility] [address] [place] [address]- [address] Dec, [facility] [address] [place] [id number] Nov, [facility] [address] [id number], [place] [address] Nov, [facility] [address] [id number] [place] [address] 08 Sep, 2014 [facility] [place] [facility] [address] [id number] [place] [address]- [address] Sep, [facility] [place] [facility] [address] [id number] [place] [address]- [address] Aug, [facility] [place] [facility] [address] [id number] [place] [address]- [address] Aug, [facility] [place] [facility] [address] [id number] [place] [address]- [address] Jul, [facility] [place] [facility] [address] [id number] [place] [address]- 96[address] Jul, [facility] [place] [facility] [address] [id number] [place] [address]- 5416 Jun, [facility] [place] [facility] [address] [id number] [place] [address]- 43[address] Jun, [facility] [place] [facility] [address] [id number] [place] [address]- [address] Mar, [facility] [place] [facility] [address] [id number] [place] [address]- 69[address] Mar, [facility] [place] [facility] [address] [id number] [place] [address]- [address] Mar, [facility] [place] [facility] [address] [id number] [place] [address]- 1836 Mar, [facility] [place] [facility] [address] [id number] [place] [address]- 69[address] Mar, [facility] [place] [facility] [address] [id number] [place] [address]- [address] Mar, [facility] [place] [facility] [address] [id number] [place] [address]- 3606 January, [facility] [place] [facility] [address] [id number] [place] [address]- 9474 January, [facility] [place] [facility] [address] [id number] [place] [address]- 8468 January, [facility] [place] [facility] [address] [id number] [place] [address] January, [facility] [place] [facility] [address] [id number] [place] [address]- [address] January, [facility] [place] [facility] [address] [id number] [place] [address]- 0016 Aug, [facility] [place] [facility] [address] [id number] [place] [address]- 6[address] Aug, [facility] [place] [facility] [address] [id number] [place] [address]- 388[address] Mar, [facility] [place] [facility] [address] [id number] [place] [address]- 53[address] Mar, [facility] [place] [facility] [address] [id number] [place] [address]- 2381 Jun, [facility] [place] [facility] [address] [id number] [place] [address]- 59[address] Jun, [facility] [place] [facility] [address] [id number] [place] [address]- 8730 Jun, [facility] [place] [facility] [address] [id number] [place] [address]- 2573 Jun, [facility] [place] [facility] [address] [id number] [place] [address]- 0279 Jun, [facility] [place] [facility] [address] [id number] [place] [address]- 9236 Jun, [facility] [place] [facility] [address] [id number] [place] [address]- 6690 Jun, [facility] [place] [facility] [address] [id number] [place] [address]- 3165 Apr, [facility] [place] [facility] [address] [id number], [place] [address]- [address] Feb, [facility] [address], [place] [address] Oct, [facility] [address] [address] Aug, [facility] [address], [place] [address] Aug, [facility] [address], [place] [address]- [address] Aug, [facility] [address], [place] [address] Aug, [facility] [address] Apr, [facility] [address], [place] [address] January, [facility] [address], [place] [address]- [address] January, [facility] [address], [place] [address] Dec, IMMUNIZATIONS No Known Immunizations SOCIAL HISTORY Never Assessed REASON FOR VISIT Routine visit PLAN OF CARE Activity Details Follow Up 2 Months Reason: VITAL SIGNS MEDICATIONS Medication Instructions Dosage Frequency Start Date End Date Duration Status Vitamin D3 1000 UNIT Orally Once a day 2 tablets 24h Active Sertraline HCl 25 MG Orally Once a day 1 tablet 24h Jul, 30 day (s) Active Toprol XL 50 MG Orally Once a day 1 tablet 24h Apr, 30 day(s) Active Ibuprofen 400 mg Orally every 6 hours as needed 1 tablet with food or milk as needed Dec, Active Aquacel Ag Foam 6 Externally to colostomy site daily as needed Active Klor-Con M20 20 MEQ Orally Once a day 1 tablet with food 24h Active Tramadol HCl 50 mg Orally 2 times a day 2 tablets 12h Feb, 28 days Active Lisinopril 20 MG Orally Once a day 1 tablet 24h Active Synthroid 75 MCG Orally Once a day 1 tablet 24h January, Active Risperidone 0.5 MG Orally twice a day 1 tablet 12h Jul, Active Melatonin 3 MG Orally Once a day 1 tablet at bedtime as needed with food 24h Apr, Active Flonase 50 MCG/ACT Nasally Once a day 2 spray in each nostril 24h Active Namzaric 14-10 MG Orally Once a day 1 capsule in the evening 24h Apr, 30 day(s) Active Cyanocobalamin 1000 MCG/ML Injection every 2 weeks 1000mcg Active ProAir HFA 108 (90 Base) MCG/ACT Inhalation every 6 hrs 2 puffs as needed 6h Active Symbicort 80-4.5 MCG/ACT Inhalation Twice a day 2 puffs 12h Active Incruse Ellipta 62.5 MCG/INH Inhalation Once a day 1 puff 24h Active RESULTS No Results PROCEDURES Procedure Date Ordered Result Body Site Stable Visit (10 minutes) December 04, 2017 INSTRUCTIONS MEDICATIONS ADMINISTERED No Known Medications
--- OUTSIDE RECORDS SUMMARY | 2018-08-22 16:09 | XMS REPORT ---
Author Author JUAN DANIEL CASTELLANOS Organization [employer] Address Unknown Phone Unavailable Care Team Providers Care Nurse Charge Rn Name Role Phone JUAN DANIEL CASTELLANOS CP Unavailable Allergies No Known Allergies Problems Problem Type Condition Code Onset Dates Condition Status Problem Dementia F03.90 Active Problem COPD (chronic obstructive pulmonary disease) J44.9 Active Problem Essential (primary) hypertension I10 Active Problem Essential hypertension, benign 401.1 Active Assessment Essential (primary) hypertension I10 Active Medications No Known Medications Results No Known Results Summary Purpose [employer] Submission
--- OUTSIDE RECORDS SUMMARY | 2018-08-22 16:09 | XMS REPORT ---
Author Author TEJ CHILEL [facility] Address [address] [place] [address] Care Team Providers Care Crossband Layer Name Role Phone TEJ CHILEL Unavailable PROBLEMS Type Condition ICD9-CM Code GEM56-ON Code Onset Dates Condition Status SNOMED Code Problem Primary insomnia F51.01 Active 8986277 Problem Recurrent major depressive disorder, remission status unspecified F33.9 Active 39041809 Problem Acquired hypothyroidism E03.9 Active 029101418 Problem Anorexia R63.0 Active 98807620 Problem Essential (primary) hypertension I10 Active 67159675 Problem COPD (chronic obstructive pulmonary disease) J44.9 Active 13616025 Problem Hyperlipidemia, unspecified hyperlipidemia type E78.5 Active 63673694 Problem 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
--- OUTSIDE RECORDS SUMMARY | 2018-08-22 16:09 | XMS REPORT ---
Author Author TEJ CHILEL [facility] Address [address] [place] [address] Care Team Providers Care Correspondent Name Role Phone TEJ CHILEL Unavailable PROBLEMS Type Condition ICD9-CM Code [id number] Code Onset Dates Condition Status SNOMED Code Problem Primary insomnia F51.01 Active 5327141 Problem Recurrent major depressive disorder, remission status unspecified F33.9 Active 24397354 Problem Brief psychotic disorder F23 Active 2708892 Problem Acquired hypothyroidism E03.9 Active 836036636 Problem Anorexia R63.0 Active 34794776 Problem Essential (primary) hypertension I10 Active 39361928 Problem COPD (chronic obstructive pulmonary disease) J44.9 Active 07914358 Problem Hyperlipidemia, unspecified hyperlipidemia type E78.5 Active 76673422 Problem 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 Active 34318384 Problem Allergy, subsequent encounter T78.40XD Active 558929556 Problem Dementia F03.90 Active 33788667 ALLERGIES No Information ENCOUNTERS Encounter Location Date Diagnosis [place] [id number] [address] January, [place] [address] [place] [address] Dec, [facility] [address] [place] [id number] Nov, Dementia F03.90 and COPD (chronic obstructive pulmonary disease) J44.9 [facility] [address] [id number] [place] [id number] Nov, [place] [id number] [place] [id number] 13 Oct, 2017 [facility] [address] [place] [id number] Sep, Anemia, unspecified type D64.9 [place] [address] [id number] [address] Sep, [facility] [address] [facility] [id number] [place] [address] Sep, [facility] [address] [id number] [place] [id number] Sep, [facility] [address] [id number] [place] [id number] Aug, [facility] [address] [id number] [place] [id number] Aug, [facility] [address] [facility] [id number] [place] [address] Aug, [facility] [address] [id number] [place] [id number] Aug, [facility] [address] [address] Aug, [facility] [address] [facility] [id number] [address] Jul, [facility] [id number] [place] [id number] Jul, [facility] [address] [id number] [place] [id number] Jul, [facility] [id number] [place] [id number] Jun, [facility] [address] [facility] [id number] [place] [address] Jun, [facility] [address] [facility] [place] [id number] Jun, Left hip pain M25.552 and Dementia F03.90 [facility] [address] [id number] [address] 29 May, 2017 [facility] [address] [id number] [place] [id number] 13 May, 2017 [facility] [address] [id number] [place] [id number] May, [facility] [address] [facility] [id number] [address] May, [facility] [address] [id number] [place] [id number] Apr, [facility] [address] [facility] [id number] [place] [address] Apr, [facility] [address] [facility] [id number] [place] [address]33[place] [address] Apr, [facility] [address] [id number] [place] [id number] Apr, Dementia F03.90 [facility] [address] [facility] [id number] [place] [address] Apr, [facility] [address]005[address]100[place] [address] Apr, [facility] [address] [place] [id number] Apr, Edema of both legs R60.0 [facility] [address] [id number] [place] [id number] Mar, [facility] [address] [id number] [place] [address] Mar, [facility] [address] [id number] [place] [address] Mar, Anorexia R63.0 [facility] [address] [facility] [id number] [address] Mar, [facility] [address] [id number] [place] [id number] Mar, [facility] [address] [id number] [place] [id number] Feb, [facility] [address] [id number] [place] [id number] Feb, [facility] [address] [id number] [address] Feb, Urinary tract infection without hematuria, site unspecified N39.0 [facility] [address]00565100[place] [address] January, Anorexia R63.0 [facility] [address]005[address]100[place] [address] January, [facility] [id number] [place] [id number] January, [facility] [address]00565100[place] [address] January, Dementia F03.90 [facility] [id number] [place] [id number] January, [facility] [address] [place] [id number] Dec, Left hip pain M25.552 and Dementia F03.90 [facility] [id number] [place] [address] Dec, [facility] [id number] [place] [address] [id number] Nov, [facility] [address] [id number] [address] Oct, [facility] [address] [place] [id number] Oct, Dementia F03.90 and Other depression F32.89 [facility] [address] [place] [id number] Oct, Dementia F03.90 ; Essential (primary) hypertension I10 and COPD (chronic obstructive pulmonary disease) J44.9 [facility] [address]00565100[place] [address] Oct, [facility] [address] [id number] [address] Sep, [facility] [address] [place] [id number] Aug, COPD (chronic obstructive pulmonary disease) J44.9 and Dementia F03.90 [facility] [address] [place] [id number] Jun, Dementia F03.90 and COPD (chronic obstructive pulmonary disease) J44.9 [facility] [address] [place] [id number] Apr, COPD (chronic obstructive pulmonary disease) J44.9 and Essential (primary) hypertension I10 [facility] [address] [address] Apr, [facility] [address] [address] Mar, [facility] [address] [address] Mar, COPD (chronic obstructive pulmonary disease) J44.9 [facility] [id number] [place] [address] January, COPD (chronic obstructive pulmonary disease) J44.9 and Allergy, subsequent encounter T78.40XD [facility] [id number] [place] [address]- [address] Nov, COPD (chronic obstructive pulmonary disease) J44.9 ; Dementia F03.90 and Essential (primary) hypertension I10 [facility] [id number] [place] [address]- 8429 Oct, COPD (chronic obstructive pulmonary disease) J44.9 [facility] [id number] [place] [address]- 4759 Sep, COPD (chronic obstructive pulmonary disease) J44.9 [facility] [id number] [place] [address]- 9[address] Sep, Essential (primary) hypertension I10 [facility] [id number] [place] [address]- [address]689 Sep, Dementia F03.90 and Essential hypertension, benign 401.1 [facility] [address] [place] [address] Jul, Dementia F03.90 and COPD (chronic obstructive pulmonary disease) J44.9 [facility] [id number] [place] [address]- [address]76 Jun, [facility] [address] [id number] [address] Jun, [facility] [id number] [place] [address] 110993- 28[address] May, Chronic airway obstruction, not elsewhere classified 496 and Essential hypertension, benign 401.1 [facility] [id number] [place] [address]- 4910 Mar, Essential hypertension, benign 401.1 and Dementia 294.20 [facility] [id number] [place] [address] 256039- 3821 January, Dementia 294.20 [facility] [id number] [place] [address]- 8457 Dec, [facility] [address] [place] [address]99- 1053 Dec, [facility] [address] [place] [id number] Nov, [facility] [address]00565100[place] [address]- [address] Nov, [facility] [address]00565100[place] [address]- 6[address] Sep, [facility] [address]00565100[place] [address]- 8[address] Sep, [facility] [address] [id number] [address] Aug, [facility] [address]100[place] [address] Aug, [facility] [address] [place] [address] 78116- 0025 Jul, [facility] [place] [facility] [address] [id number] [place] [address]- 47[address] Jul, [facility] [place] [facility] [address] [id number] [place] [address]- 8[address] Jun, [facility] [place] [facility] [address] [id number] [place] [address]- 8159 Jun, [facility] [place] [facility] [address] [id number] [place] [address]- 1837 Mar, [facility] [place] [facility] [address] [id number] [place] [address] Mar, [facility] [place] [facility] [address] [id number] [place] [address]- 4363 Mar, [facility] [place] [facility] [address] [id number] [place] [address]- 0306 Mar, [facility] [place] [facility] [address] [id number] [place] [address]- 7107 Mar, [facility] [place] [facility] [address] [id number] [place] [address]- 9144 Mar, [facility] [place] [facility] [address] [id number] [place] [address]- 4503 January, [facility] [place] [facility] [address] [id number] [place] [address]- 9764 January, [facility] [place] [facility] [address] [id number] [address]- [address] January, [facility] [place] [facility] [address] [id number] [place] [address]- 1605 January, [facility] [place] [facility] [address] [id number] [place] [address]- 7142 January, [facility] [place] [facility] [address] [id number] [place] [address]- 0224 Aug, [facility] [place] [facility] [address] [id number] [place] [address]- 8292 27 Aug, 2013 [facility] [place] [facility] [address] [id number] [place] [address]- 0337 Mar, [facility] [place] [facility] [address] [id number] [place] [address]- 8106 Mar, [facility] [place] [facility] [address] [id number] [place] [address]- 0051 Jun, [facility] [place] [facility] [address] [id number] [place] [address]- 9123 Jun, [facility] [place] [facility] [address] [id number] [place] [address]- 7962 Jun, [facility] [place] [facility] [address] [id number] [place] [address]- 7802 Jun, [facility] [place] [facility] [address] [id number] [place] [address]- 9237 Jun, [facility] [place] [facility] [address] [id number] [place] [address]- 6901 Jun, [facility] [place] [facility] [address] [id number] [place] [address]- 1457 Jun, [facility] [place] [facility] [address] [facility] [id number] [place] [address]- 5143 Apr, [facility] [place] [facility] [address] [id number] [place] [address]- 0942 Feb, [facility] [place] [facility] [address] [id number] [place] [address]- 8635 15 Oct, 2010 [facility] [place] [facility] [address] [id number] [place] [address]- 6884 28 Aug, 2010 [facility] [place] [facility] [address] [id number] [place] [address]- 2549 27 Aug, 2010 [facility] [place] [facility] [address] [id number] [place] [address] Aug, [facility] [address] [facility] [id number] [address]- 2546 Aug, [facility] [address] [id number] [address]- 2546 Apr, [facility] [address] [id number] [address]- 2546 January, [facility] [address] [id number] [address]- 2546 January, [facility] [address] [facility] [id number] [address]- 2546 Dec, IMMUNIZATIONS No Known Immunizations SOCIAL HISTORY Never Assessed REASON FOR VISIT decrease in appetite PLAN OF CARE VITAL SIGNS MEDICATIONS Medication Instructions Dosage Frequency Start Date End Date Duration Status Risperidone 0.25 MG Orally Once a day 1 tablet 24h Jul, 30 day( s) Active Sertraline HCl 25 MG Orally Once a day 1 tablet 24h Jul, 30 day (s) Active RESULTS No Results PROCEDURES No Known procedures INSTRUCTIONS MEDICATIONS ADMINISTERED No Known Medications
--- OUTSIDE RECORDS SUMMARY | 2018-08-22 16:09 | XMS REPORT ---
Author Author JUAN DANIEL CASTELLANOS [facility] Address [address] [place] [address] Care Team Providers Care Fuel Cell Test Engineer Name Role Phone JUAN DANIEL CASTELLANOS Unavailable PROBLEMS Type Condition ICD9-CM Code IAX81-RH Code Onset Dates Condition Status SNOMED Code Problem Primary insomnia F51.01 Active 0067889 Problem Recurrent major depressive disorder, remission status unspecified F33.9 Active 41852759 Problem Brief psychotic disorder F23 Active 4674348 Problem Acquired hypothyroidism E03.9 Active 911840791 Problem Anorexia R63.0 Active 83480703 Problem Essential (primary) hypertension I10 Active 42759458 Problem COPD (chronic obstructive pulmonary disease) J44.9 Active 17443506 Problem Hyperlipidemia, unspecified hyperlipidemia type E78.5 Active 55570953 Problem 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 Active 89130517 Problem Allergy, subsequent encounter T78.40XD Active 812967283 Problem Dementia F03.90 Active 13302653 ALLERGIES No Information ENCOUNTERS Encounter Location Date Diagnosis [facility] [address] [place] [id number] Feb, Dementia F03.90 [facility] [address] [facility]NOTE 3] [id number] [address] Feb, [facility] [address] [id number], [place] [address] January, [facility] [address] [facility]NOTE 3] [id number] [address] Dec, [facility] [address] [place] [id number] Nov, Dementia F03.90 and COPD (chronic obstructive pulmonary disease) J44.9 [facility] [address] [id number] [id number] Nov, [facility] [address] [id number] [address] Oct, [facility] [address] [place] [id number] Sep, Anemia, unspecified type D64.9 [facility] [address]00565[address], [place] [address] Sep, [facility] [address] [facility]NOTE 3] [id number], [place] [address] Sep, [facility] [address] [id number] [address] Sep, [facility] [address] [id number] [address] Aug, [facility] [address] [id number] [address] Aug, [facility] [address], [place] [address] Aug, [facility] [address] [id number] [address] Aug, [facility] [address] [id number], [place] [address] Aug, [facility] [address], [place] [address] Jul, [facility] [id number] [address] Jul, [facility] [address] [id number] [address] Jul, [facility] [place] [facility] [address] [id number] [address] Jun, [facility] [address] [facility]NOTE 3] [id number], [place] [address] Jun, [facility] [address] [place] [address] Jun, Left hip pain M25.552 and Dementia F03.90 [facility] [address] [facility]NOTE 3] [id number], [place] [address] May, [facility] [place] [facility] [address] [id number][place] [id number] May, [facility] [place] [facility] [address] [id number][place] [address] May, [facility] [address] [facility]NOTE 3] [id number] [address] May, [facility] [place] [facility] [address] [id number][place] [address] Apr, [facility] [address] [facility]NOTE 3] [id number], [place] [address] Apr, [facility] [place] [facility] [address] [facility]NOTE 3] [id number], [place] [address] Apr, [facility] [address] [id number] [id number] Apr, Dementia F03.90 [facility] [address] [id number], [place] [address] Apr, [facility] [address]005[address], [place] [address] Apr, [facility] [address] [id number] Apr, Edema of both legs R60.0 [facility] [address] [id number], [place] [address] Mar, [facility] [place] [facility] [address] [id number] [address] Mar, [facility] [place] [facility] [address] [id number], [place] [address] Mar, Anorexia R63.0 [facility] [address] [facility]NOTE 3] [id number], [place] [address] Mar, [facility] [place] [facility] [address] [id number][place] [address] Mar, [facility] [place] [facility] [id number], [place] [address] Feb, [facility] [id number], [place] [address] Feb, [facility] [address] [address] Feb, Urinary tract infection without hematuria, site unspecified N39.0 [facility] [address]005[address], [place] [address] January, Anorexia R63.0 [facility] [address] [id number], [place] [address] January, [facility] [id number] [place] [id number] January, [facility] [address] [address] January, Dementia F03.90 [facility] [address] [id number] [address] January, [facility] [address] [place] [address] Dec, Left hip pain M25.552 and Dementia F03.90 [facility] [id number], [place] [address] Dec, [facility] [id number], [place] [address] Nov, [facility] [address] [id number] [address] Oct, [facility] [address] [place] [address] Oct, Dementia F03.90 and Other depression F32.89 [facility] [address] [place] [id number] Oct, Dementia F03.90 ; Essential (primary) hypertension I10 and COPD (chronic obstructive pulmonary disease) J44.9 [facility] [address] [id number], [place] [address] Oct, [facility] [address]00565100[place], [place] [address] Sep, [facility] [address] [place] [address] Aug, COPD (chronic obstructive pulmonary disease) J44.9 and Dementia F03.90 [facility] [address] [place] [address] Jun, Dementia F03.90 and COPD (chronic obstructive pulmonary disease) J44.9 [facility] [address] [place], [place] [address] Apr, COPD (chronic obstructive pulmonary disease) J44.9 and Essential (primary) hypertension I10 [facility] [id number] [place] [address] Apr, [facility] [id number] [place] [address] Mar, [facility] [id number] [place] [address] Mar, COPD (chronic obstructive pulmonary disease) J44.9 [facility] [address] [id number], [place] [address] January, COPD (chronic obstructive pulmonary disease) J44.9 and Allergy, subsequent encounter T78.40XD [facility] [address] [id number], [place] [address] Nov, COPD (chronic obstructive pulmonary disease) J44.9 ; Dementia F03.90 and Essential (primary) hypertension I10 [facility] [address]00565100[place], [place] [address] Oct, COPD (chronic obstructive pulmonary disease) J44.9 [facility] [id number] [place] [address] Sep, COPD (chronic obstructive pulmonary disease) J44.9 [facility] [address]005[address]100[place], [place] [address] Sep, Essential (primary) hypertension I10 [facility] [address]00565100[place], [place] [address] Sep, Dementia F03.90 and Essential hypertension, benign 401.1 [facility] [id number] [place] [address] Jul, Dementia F03.90 and COPD (chronic obstructive pulmonary disease) J44.9 [facility] [id number] [place] [address] Jun, [facility] [id number] [place] [address] 8459 Jun, [facility] [id number] [place] [address] May, Chronic airway obstruction, not elsewhere classified 496 and Essential hypertension, benign 401.1 [facility] [id number] [place] [address]44 Mar, Essential hypertension, benign 401.1 and Dementia 294.20 [facility] [id number] [place] [address]1 January, Dementia 294.20 [facility] [id number] [place] [address]- [address]8 Dec, [facility] [address]005[address]100[place], [place] [address] Dec, [facility] [address] [id number] Nov, [facility] [address], [place] [address] Nov, [facility] [id number] [place] [address]- [address]65 Sep, [facility] [address] [address] Sep, [facility] [id number] [place] [address]- 5771 Aug, [facility] [place] [facility] [address] [id number] [place] [address]- 9369 Aug, [facility] [place] [facility] [address] [id number] [place] [address]- 1749 Jul, [facility] [place] [facility] [address] [id number] [place] [address]- 5[address] Jul, [facility] [place] [facility] [address] [id number] [place] [address]- 2706 Jun, [facility] [place] [facility] [address] [id number] [place] [address]- 8[address] Jun, [facility] [place] [facility] [address] [id number] [place] [address]- 7597 Mar, [facility] [place] [facility] [address] [id number] [place] [address]- 6291 Mar, [facility] [place] [facility] [address] [id number] [place] [address]- 3343 Mar, [facility] [place] [facility] [address] [id number] [place] [address]- 4148 Mar, [facility] [place] [facility] [address] [id number] [place] [address]- 3546 Mar, [facility] [place] [facility] [address] [id number] [place] [address]- 54[address] Mar, [facility] [place] [facility] [address] [id number] [place] [address]- 3[address] January, [facility] [place] [facility] [address] [id number] [place] [address]- 9407 January, [facility] [place] [facility] [address] [id number] [place] [address]- 6935 January, [facility] [place] [facility] [address] [id number] [place] [address]- 1583 January, [facility] [place] [facility] [address] [id number] [place] [address]- 0676 January, [facility] [place] [facility] [address] [id number] [place] [address]- 9661 Aug, [facility] [place] [facility] [address] [id number] [place] [address]- 4600 Aug, [facility] [place] [facility] [address] [id number] [place] [address]- 5580 Mar, [facility] [place] [facility] [address] [id number] [place] [address]- 6211 Mar, [facility] [place] [facility] [address] [id number] [place] [address]- 4298 Jun, [facility] [place] [facility] [address] [id number] [place] [address]- 0605 Jun, [facility] [place] [facility] [address] [id number] [place] [address]- 9537 Jun, [facility] [place] [facility] [address] [id number] [place] [address]- 3839 Jun, [facility] [place] [facility] [address] [id number] [place] [address]- 6116 Jun, [facility] [place] [facility] [address] [id number] [place] [address]- 6892 Jun, [facility] [place] [facility] [address] [id number] [place] [address]- 2687 Jun, [facility] [place] [facility] [address] [id number] [place] [address]- 5188 Apr, [facility] [place] [facility] [address] [id number] [place] [address]- 5270 Feb, [facility] [place] [facility] [address] [id number] [place] [address]- 8853 Oct, [facility] [place] [facility] [address] [id number] [place] [address]- 7693 Aug, [facility] [place] [facility] [address] [id number], [place] [address] Aug, [facility] [address] [id number], [place] [address] 6967 Aug, [facility] [address], [place] [address]- [address] Aug, [facility] [address], [place] [address]- [address] Apr, [facility] [address], [place] [address]- [address] January, [facility] [address] [id number], [place] [address] January, [facility] [address] [id number], [place] [address] Dec, IMMUNIZATIONS No Known Immunizations SOCIAL HISTORY Never Assessed REASON FOR VISIT Refill request PLAN OF CARE VITAL SIGNS MEDICATIONS Unknown Medications RESULTS No Results PROCEDURES No Known procedures INSTRUCTIONS MEDICATIONS ADMINISTERED No Known Medications
--- OUTSIDE RECORDS SUMMARY | 2018-08-22 16:09 | XMS REPORT ---
Author Author TEJ CHILEL [facility] Address [address] [place] [address] Care Team Providers Care Director Of Blood Name Role Phone TEJ CHILEL Unavailable PROBLEMS Type Condition ICD9-CM Code WLR43-UU Code Onset Dates Condition Status SNOMED Code Problem Primary insomnia F51.01 Active 2523212 Problem Recurrent major depressive disorder, remission status unspecified F33.9 Active 97697421 Problem Acquired hypothyroidism E03.9 Active 288817901 Problem Anorexia R63.0 Active 68128021 Problem Essential (primary) hypertension I10 Active 04920501 Problem COPD (chronic obstructive pulmonary disease) J44.9 Active 38164233 Problem Hyperlipidemia, unspecified hyperlipidemia type E78.5 Active 88555992 Problem 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 Active 53983965 Problem Allergy, subsequent encounter T78.40XD Active 704644237 Problem Dementia F03.90 Active 85477804 ALLERGIES No Information SOCIAL HISTORY Never Assessed PLAN OF CARE VITAL SIGNS MEDICATIONS Unknown Medications RESULTS No Results PROCEDURES No Known procedures IMMUNIZATIONS No Known Immunizations
--- OUTSIDE RECORDS SUMMARY | 2018-08-22 16:09 | XMS REPORT ---
Author Author JUAN DANIEL CASTELLANOS [facility] Address [address] [place] [address] Care Team Providers Care Green Building Design Specialist Name Role Phone JUAN DANIEL CASTELLANOS Unavailable PROBLEMS Type Condition ICD9-CM Code DSR44-EP Code Onset Dates Condition Status SNOMED Code Problem Primary insomnia F51.01 Active 1743570 Problem Recurrent major depressive disorder, remission status unspecified F33.9 Active 98203627 Problem Acquired hypothyroidism E03.9 Active 538812986 Problem Anorexia R63.0 Active 35481684 Problem Essential (primary) hypertension I10 Active 39034805 Problem COPD (chronic obstructive pulmonary disease) J44.9 Active 85702040 Problem Hyperlipidemia, unspecified hyperlipidemia type E78.5 Active 35186629 Problem 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 Active 61950516 Problem Allergy, subsequent encounter T78.40XD Active 090478199 Problem Dementia F03.90 Active 20770051 ALLERGIES Unknown Allergies SOCIAL HISTORY No smoking Hx information available PLAN OF CARE Activity Details Follow Up 2 Months Reason: VITAL SIGNS MEDICATIONS Unknown Medications RESULTS No Results PROCEDURES Procedure Date Ordered Related Diagnosis Body Site Stable Visit (10 minutes) Aug 29, 2016 IMMUNIZATIONS No Known Immunizations
--- OUTSIDE RECORDS SUMMARY | 2018-08-22 16:10 | XMS REPORT ---
Author Author JUAN DANIEL CASTELLANOS Organization [employer] Address Unknown Phone Unavailable Care Team Providers Care Filling Machine Set Up Mechanic Name Role Phone JUAN DANIEL CASTELLANOS CP Unavailable Allergies No Known Allergies Problems Problem Type Condition Code Onset Dates Condition Status Problem COPD (chronic obstructive pulmonary disease) J44.9 Active Problem Essential hypertension, benign 401.1 Active Problem Dementia F03.90 Active Assessment Dementia F03.90 Active Assessment COPD (chronic obstructive pulmonary disease) J44.9 Active Medications No Known Medications Procedures Procedure Coding System Code Date Stable Visit (10 minutes) CPT-4 73209 Jul 27, 2015 Results No Known Results Summary Purpose [employer] Submission
--- OUTSIDE RECORDS SUMMARY | 2018-08-22 16:10 | XMS REPORT ---
Author Author TEJ CHILEL [facility] Address [address] [place] [address] Care Team Providers Care Wash Test Checker Name Role Phone TEJ CHILEL Unavailable PROBLEMS Type Condition ICD9-CM Code KBP95-LD Code Onset Dates Condition Status SNOMED Code Problem Primary insomnia F51.01 Active 7613910 Problem Recurrent major depressive disorder, remission status unspecified F33.9 Active 56908364 Problem Brief psychotic disorder F23 Active 1158372 Problem Acquired hypothyroidism E03.9 Active 990087189 Problem Anorexia R63.0 Active 19325835 Problem Essential (primary) hypertension I10 Active 36084855 Problem COPD (chronic obstructive pulmonary disease) J44.9 Active 33720566 Problem Hyperlipidemia, unspecified hyperlipidemia type E78.5 Active 77670369 Problem 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 Active 28988008 Problem Allergy, subsequent encounter T78.40XD Active 596787587 Problem Dementia F03.90 Active 32362346 ALLERGIES No Information ENCOUNTERS Encounter Location Date Diagnosis [facility] [address] [place] [id number] Nov, Dementia F03.90 and COPD (chronic obstructive pulmonary disease) J44.9 [facility] [address] [id number] [place] [id number] Nov, [facility] [address] [id number] [place] [id number] Oct, [facility] [address] [place] [id number] Sep, Anemia, unspecified type D64.9 [facility] [address] [facility] [id number] [place] [address] Sep, [facility] [address] [facility] [id number] [place] [address] Sep, [facility] [address] [id number] [place] [id number] Sep, [facility] [address] [id number] [place] [id number] Aug, [facility] [address] [id number] [place] [id number] Aug, [facility] [address] [facility] [id number] [place] [address] Aug, [facility] [address] [id number] [place] [id number] Aug, [facility] [address] [facility] [id number] [place] [address] Aug, [facility] [address] [facility] [id number] [place] [address] Jul, [facility] [id number] [place] [id number] Jul, [facility] [address] [id number] [place] [id number] Jul, [facility] [address] [id number] [place] [id number] Jun, [facility] [address] [facility] [id number] [place] [address] Jun, [facility] [address] [facility] [place] [id number] Jun, Left hip pain M25.552 and Dementia F03.90 [facility] [address] [id number] [place] [address] 29 May, 2017 [facility] [address] [id number] [place] [id number] May, [facility] [address] [id number] [place] [id number] May, [facility] [address] [facility] [id number] [place] [address] May, [facility] [address] [id number] [place] [id number] Apr, [facility] [address] [facility] [id number] [place] [address] Apr, [facility] [address] [facility] [id number] [place] [address] Apr, [facility] [address] [id number] [place] [id number] Apr, Dementia F03.90 [facility] [address] [facility] [id number] [place] [address] Apr, [facility] [address]65100[address] [place] [address] Apr, [facility] [address] [place] [id number] Apr, Edema of both legs R60.0 [facility] [facility] [id number] [place] [id number] Mar, [facility] [address] [id number] [place] [id number] Mar, [facility] [address] [id number] [place] [id number] Mar, Anorexia R63.0 [facility] [address] [facility] [id number] [place] [address] Mar, [facility] [id number] [place] [id number] Mar, [facility] [address] [id number] [place] [id number] Feb, [facility] [address] [id number] [place] [id number] Feb, [facility] [address] [facility] [id number] [place] [address] Feb, Urinary tract infection without hematuria, site unspecified N39.0 [facility] [address] [id number] [place] [address] January, Anorexia R63.0 [facility] [address] [facility] [id number] [place] [address] January, [facility] [facility] [address] [id number] [place] [id number] January, [facility] [address] [id number] [place] [address] January, D[facility] F03.[address] [facility] [address] [id number] [place] [address] January, [facility] [address] [place] [id number] Dec, Left hip pain M25.552 and Dementia F03.90 [facility] [id number] [place] [address] Dec, [facility] [address] [id number] [place] [id number] Nov, [facility] [address]65100[place] [address] Oct, [facility] [address] [place] [id number] Oct, Dementia F03.90 and Other depression F32.89 [facility] [address] [place] [id number] Oct, Dementia F03.90 ; Essential (primary) hypertension I10 and COPD (chronic obstructive pulmonary disease) J44.9 [facility] [address] [id number] [place] [address] Oct, [facility] [address] [id number] [place] [address] Sep, [facility] [address] [place] [id number] Aug, COPD (chronic obstructive pulmonary disease) J44.9 and Dementia F03.90 [facility] [address] [place] [id number] Jun, Dementia F03.90 and COPD (chronic obstructive pulmonary disease) J44.9 [facility] [address] [place], [place] [id number] Apr, COPD (chronic obstructive pulmonary disease) J44.9 and Essential (primary) hypertension I10 [facility] [id number] [place] [address] Apr, [facility] [id number] [place] [address] Mar, [facility] [address] [address] Mar, COPD (chronic obstructive pulmonary disease) J44.9 [address] [facility] [id number] [place] [address] January, COPD (chronic obstructive pulmonary disease) J44.9 and Allergy, subsequent encounter T78.40XD [facility] [id number] [place] [address] Nov, COPD (chronic obstructive pulmonary disease) J44.9 ; Dementia F03.90 and Essential (primary) hypertension I10 [facility] [id number] [place] [address] Oct, COPD (chronic obstructive pulmonary disease) J44.9 [facility] [id number] [place] [address] Sep, COPD (chronic obstructive pulmonary disease) J44.9 [facility] [id number] [place] [address]- [address] Sep, Essential (primary) hypertension I10 [facility] [address] [place] [address]- [address]88 Sep, Dementia F03.90 and Essential hypertension, benign 401.1 [address] [facility] [id number] [place] [address] Jul, Dementia F03.90 and COPD (chronic obstructive pulmonary disease) J44.9 [facility] [id number] [place] [address]- 6570 Jun, [facility] [address]00565100[place] [address] Jun, [facility] [id number] [place] [address]- 7894 May, Chronic airway obstruction, not elsewhere classified 496 and Essential hypertension, benign 401.1 [facility] [id number] [place] [address]- 7477 Mar, Essential hypertension, benign 401.1 and Dementia 294.20 [facility] [id number] [place] [address]- 8076 January, Dementia 294.20 [facility] [id number] [place] [address]- 0890 Dec, [facility] [id number] [place] [address] Dec, [facility] [address] [place] [id number] Nov, [facility] [address]65100[place] [address] Nov, [facility] [id number] [place] [address]- 7570 Sep, [facility] [address]65100[place] [address] Sep, [facility] [address]65100[place] [address] 385[address] Aug, [facility] [address]65100[place] [address] 6[address] Aug, [facility] [address]65100[place] [address] Jul, [facility] [address]65100[place] [address] 4[address] Jul, [facility] [address]65100[place] [address] Jun, [facility] [place] [facility] [address] [id number] [place] [address] Jun, [facility] [place] [facility] [address] [id number] [place] [address] Mar, [facility] [place] [facility] [address] [id number] [place] [address] Mar, [facility] [place] [facility] [address] [id number] [place] [address]- 7280 Mar, [facility] [place] [facility] [address] [id number] [place] [address]- 2504 Mar, [facility] [place] [facility] [address] [id number] [place] [address]- 4614 Mar, [facility] [place] [facility] [address] [id number] [place] [address] Mar, [facility] [place] [facility] [address] [id number] [place] [address]- 3032 January, [facility] [place] [facility] [address] [id number] [place] [address]- 0499 January, [facility] [place] [facility] [address] [id number] [place] [address]- 9967 January, [facility] [place] [facility] [address] [id number] [place] [address]- 7095 January, [facility] [place] [facility] [address] [id number] [place] [address]- 7373 January, [facility] [place] [facility] [address] [id number] [place] [address]- 6905 Aug, [facility] [place] [facility] [address] [id number] [place] [address]- 8888 Aug, [facility] [place] [facility] [address] [id number] [place] [address] Mar, [facility] [place] [facility] [address] [id number] [place] [address]- 5158 Mar, [facility] [place] [facility] [address] [id number] [place] [address]- 4241 Jun, [facility] [place] [facility] [address] [id number] [place] [address]- 2286 Jun, [facility] [place] [facility] [address] [id number] [place] [address]- 3531 Jun, [facility] [place] [facility] [address] [id number] [place] [address] 2544 Jun, [facility] [place] [facility] [address] [id number] [place] [address]- 0401 Jun, [facility] [place] [facility] [address] [id number] [place] [address]- 8581 Jun, [facility] [place] [facility] [address] [id number] [place] [address]- 9837 Jun, [facility] [place] [facility] [address] [id number] [place] [address]- 2602 Apr, [facility] [place] [facility] [address] [id number] [place] [address]- 4504 Feb, [facility] [place] [facility] [address] [id number] [place] [address]- 5[address] 15 Oct, 2010 [facility] [place] [facility] [address] [id number] [place] [address] 2542 28 Aug, 2010 [facility] [place] [facility] [address] [id number] [place] [address]- [address] 27 Aug, 2010 [facility] [place] [facility] [address] [id number] [place] [address] 2546 14 Aug, 2010 [facility] [place] [facility] [address] [id number] [place] [address]- 2540 14 Aug, 2010 [facility] [place] [facility] [address] [id number] [place] [address]- 4314 Apr, [facility] [address] [facility] [id number] [place] [address]- [address] January, [facility] [address] [facility] [id number] [place] [address]- 9706 January, [facility] [address] [facility] [id number] [place] [address]- 6936 Dec, IMMUNIZATIONS No Known Immunizations SOCIAL HISTORY Never Assessed REASON FOR VISIT Med changes PLAN OF CARE VITAL SIGNS MEDICATIONS Medication Instructions Dosage Frequency Start Date End Date Duration Status Klor-Con M20 20 MEQ Orally Once a day 1 tablet with food 24h Mar, Apr, 30 day(s) Active Lasix 40 MG Orally Once a day 1 tablet 24h Mar, 30 day(s) Active RESULTS No Results PROCEDURES No Known procedures INSTRUCTIONS MEDICATIONS ADMINISTERED No Known Medications
--- OUTSIDE RECORDS SUMMARY | 2018-08-22 16:10 | XMS REPORT ---
Author Author JUAN DANIEL CASTELLANOS Organization [employer] Address Unknown Phone Unavailable Care Team Providers Care Sterile Tech Name Role Phone JUAN DANIEL CASTELLANOS CP Unavailable Allergies No Known Allergies Problems Problem Type Condition Code Onset Dates Condition Status Problem COPD (chronic obstructive pulmonary disease) J44.9 Active Problem Essential hypertension, benign 401.1 Active Problem Dementia F03.90 Active Assessment Dementia F03.90 Active Assessment Essential hypertension, benign 401.1 Active Medications No Known Medications Procedures Procedure Coding System Code Date Stable Visit (10 minutes) CPT-4 69877 Sep 28, 2015 Results No Known Results Summary Purpose [employer] Submission
--- OUTSIDE RECORDS SUMMARY | 2018-08-22 16:10 | XMS REPORT ---
Author Author TEJ CHILEL [facility] Address [address] [place] [address] Care Team Providers Care Newspaper Writer Name Role Phone TEJ CHILEL Unavailable PROBLEMS Type Condition ICD9-CM Code OOP01-JB Code Onset Dates Condition Status SNOMED Code Problem Primary insomnia F51.01 Active 1899365 Problem Recurrent major depressive disorder, remission status unspecified F33.9 Active 11845533 Problem Brief psychotic disorder F23 Active 0279324 Problem Acquired hypothyroidism E03.9 Active 732091082 Problem Anorexia R63.0 Active 88906184 Problem Essential (primary) hypertension I10 Active 10005605 Problem COPD (chronic obstructive pulmonary disease) J44.9 Active 14598833 Problem Hyperlipidemia, unspecified hyperlipidemia type E78.5 Active 22064240 Problem 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 Active 28655169 Problem Allergy, subsequent encounter T78.40XD Active 209824018 Problem Dementia F03.90 Active 03187203 ALLERGIES No Information ENCOUNTERS Encounter Location Date Diagnosis [facility] [address] [id number] [address] Dec, [facility] [address] [place] [id number] Nov, Dementia F03.90 and COPD (chronic obstructive pulmonary disease) J44.9 [facility] [address] [id number] [id number] Nov, [facility] [id number] [place] [id number] Oct, [facility] [address] [place] [id number] Sep, Anemia, unspecified type D64.9 [facility] [address] [id number] [address] Sep, [facility] [place] [facility] [address] [id number], [place] [address] Sep, [facility] [address] [id number][place] [id number] Sep, [facility] [address] [id number] [id number] Aug, [facility] [address] [id number][place] [id number] Aug, [facility] [address] [id number], [place] [address] Aug, [facility] [address] [id number][place] [id number] Aug, [facility] [address] [id number], [place] [address] Aug, [facility] [address] [id number], [place] [address] Jul, [facility] [address] [id number][place] [id number] Jul, [facility] [address] [id number][place] [id number] Jul, [facility] [address] [id number][place] [id number] Jun, [facility] [address] [id number], [place] [address] Jun, [facility] [address] [place] [id number] Jun, Left hip pain M25.552 and Dementia F03.90 [facility] [address] [id number], [place] [address] 29 May, 2017 [facility] [address] [id number][place] [id number] May, [facility] [address] [id number][place] [id number] 05 May, 2017 [facility] [address] [id number], [place] [address] May, [facility] [address] [id number][place] [id number] Apr, [facility] [address] [id number], [place] [address] Apr, [facility] [address] [id number], [place] [address] Apr, [facility] [address] [id number][place] [id number] Apr, Dementia F03.90 [facility] [address] [id number], [place] [address] Apr, [facility] [address] [id number], [place] [address] Apr, [facility] [address] [place] [id number] Apr, Edema of both legs R60.0 [facility] [address] [id number], [place] [id number] Mar, [facility] [id number], [place] [id number] Mar, [facility] [address] [id number], [place] [id number] Mar, Anorexia R63.0 [facility] [address] [id number], [place] [address] Mar, [facility] [address] [id number], [place] [id number] Mar, [facility] [address] [id number], [place] [id number] Feb, [facility] [address] [id number], [place] [id number] Feb, [facility] [address] [id number][place] [address] [address] Feb, Urinary tract infection without hematuria, site unspecified N39.0 [facility] [address] [id number], [place] [address] January, Anorexia R63.0 [facility] [address]00565100[place], [place] [address] January, [facility] [address] [id number] [address] January, [facility] [address]00565100[place], [place] [address] January, Dementia F03.90 [facility] [id number] [place] [id number] January, [facility] [address] [place] [id number] Dec, Left hip pain M25.552 and Dementia F03.90 [facility] [id number] [place] [id number] Dec, [facility] [id number] [place] [id number] Nov, [facility] [address] [id number], [place] [address] Oct, [facility] [address] [place] [id number] Oct, Dementia F03.90 and Other depression F32.89 [facility] [address] [place] [id number] Oct, Dementia F03.90 ; Essential (primary) hypertension I10 and COPD (chronic obstructive pulmonary disease) J44.9 [facility] [address] [id number], [place] [address] Oct, [facility] [address]00565100[place], [place] [address] Sep, [facility] [address] [place] [id number] Aug, COPD (chronic obstructive pulmonary disease) J44.9 and Dementia F03.90 [facility] [address] [place] [id number] Jun, Dementia F03.90 and COPD (chronic obstructive pulmonary disease) J44.9 [facility] [address] [place] [id number] Apr, COPD (chronic obstructive pulmonary disease) J44.9 and Essential (primary) hypertension I10 [facility] [id number] [place] [address]- [address] Apr, [facility] [address] [address] Mar, [facility] [id number] [place] [address]- 3983 Mar, COPD (chronic obstructive pulmonary disease) J44.9 [facility] [id number] [place] [address] January, COPD (chronic obstructive pulmonary disease) J44.9 and Allergy, subsequent encounter T78.40XD [facility] [facility] [id number] [place] [address] Nov, COPD (chronic obstructive pulmonary disease) J44.9 ; Dementia F03.90 and Essential (primary) hypertension I10 [facility] [id number] [place] [address]27- 6446 Oct, COPD (chronic obstructive pulmonary disease) J44.9 [facility] [id number] [place] [address]- 2806 Sep, COPD (chronic obstructive pulmonary disease) J44.9 [facility] [address] [place] [address]5769- 3389 Sep, Essential (primary) hypertension I10 [facility] [id number] [place] [address]605- 1585 Sep, Dementia F03.90 and Essential hypertension, benign 401.1 [facility] [id number] [place] [address]- 7301 Jul, Dementia F03.90 and COPD (chronic obstructive pulmonary disease) J44.9 [facility] [address]00565100[place], [place] [address] Jun, [facility] [id number] [place] [address] 87682- 3556 Jun, [facility] [address]65100[place] [address] May, Chronic airway obstruction, not elsewhere classified 496 and Essential hypertension, benign 401.1 [facility] [id number] [place] [address] 51578- 9142 Mar, Essential hypertension, benign 401.1 and Dementia 294.20 [facility] [id number] [place] [address] 03508- 0442 January, Dementia 294.20 [facility] [id number] [place] [address] 33930- 4479 Dec, [facility] [id number] [place] [address] 35750- 8489 Dec, [facility] [address] [place] [id number] Nov, [facility] [address] [place] [address] 89460- 5221 Nov, [facility] [address]00565100[place], [place] [address]- 250[address] Sep, [facility] [address]00565100[place], [place] [address]- [address] Sep, [facility] [address]65[address] Aug, [facility] [id number] [place] [address] 764936- 0111 Aug, [facility] [address]65100[place], [place] [address]- 5279 Jul, [facility] [address] [place] [address] 02539- 2153 Jul, [facility] [place] [facility] [address] [id number] [place] [address]- 6886 Jun, [facility] [place] [facility] [address] [id number] [place] [address]- [address] Jun, [facility] [place] [facility] [address] [id number] [place] [address]- 8678 Mar, [facility] [place] [facility] [address] [id number] [place] [address]- 8384 Mar, [facility] [place] [facility] [address] [id number] [place] [address]- 7240 Mar, [facility] [place] [facility] [address] [id number] [place] [address]- 4240 Mar, [facility] [place] [facility] [address] [id number] [place] [address]- 1146 Mar, [facility] [place] [facility] [address] [id number] [place] [address]- 8112 Mar, [facility] [place] [facility] [address] [id number] [place] [address]- 2058 January, [facility] [place] [facility] [address] [id number] [place] [address]- 7482 January, [facility] [place] [facility] [address] [id number] [place] [address]- 8217 January, [facility] [place] [facility] [address] [id number] [place] [address]- 7142 January, [facility] [place] [facility] [address] [id number] [place] [address]- 4300 January, [facility] [place] [facility] [address] [id number] [place] [address]- 7209 Aug, [facility] [place] [facility] [address] [id number] [place] [address]- 9025 Aug, [facility] [place] [facility] [address] [id number] [place] [address]- 0245 Mar, [facility] [address] [id number] [place] [address]- 7413 Mar, [facility] [place] [facility] [address] [id number] [place] [address]- 8727 Jun, [facility] [place] [facility] [address] [id number] [place] [address]- 8206 Jun, [facility] [place] [facility] [address] [id number] [place] [address]- 4469 Jun, [facility] [place] [facility] [address] [id number] [place] [address]- 7012 Jun, [facility] [place] [facility] [address] [id number] [place] [address]- 9756 Jun, [facility] [place] [facility] [address] [id number] [place] [address]- 7022 Jun, [facility] [place] [facility] [address] [id number] [place] [address]- 9723 Jun, [facility] [place] [facility] [address] [id number] [place] [address]- 7759 Apr, [facility] [place] [facility] [address] [id number] [place] [address]- 6644 Feb, [facility] [place] [facility] [address] [id number] [place] [address]- 5481 15 Oct, 2010 [facility] [place] [facility] [address] [id number] [place] [address]- 2545 Aug, [facility] [place] [facility] [address] [id number] [place] [address] 2546 27 Aug, 2010 [facility] [place] [facility] [address] [id number] [place] [address]- 2546 14 Aug, 2010 [facility] [place] [facility] [address] [id number] [place] [address]- 4200 Aug, [facility] [address] [id number], [place] [address]- 2546 Apr, [facility] [address] [id number], [place] [address]- 2546 January, [facility] [address] [id number] [address]- 2546 January, [facility] [address] [id number], [place] [address]- 2546 Dec, IMMUNIZATIONS No Known Immunizations SOCIAL [...]
--- OUTSIDE RECORDS SUMMARY | 2018-08-22 16:10 | XMS REPORT ---
Author Author TEJ CHILEL [facility] Address [address] [place] [address] Care Team Providers Care Refrigeration Service Inspector Name Role Phone TEJ CHILEL Unavailable PROBLEMS Type Condition ICD9-CM Code XGT64-FQ Code Onset Dates Condition Status SNOMED Code Problem Primary insomnia F51.01 Active 8297420 Problem Recurrent major depressive disorder, remission status unspecified F33.9 Active 21541562 Problem Brief psychotic disorder F23 Active 9623315 Problem Acquired hypothyroidism E03.9 Active 998701792 Problem Anorexia R63.0 Active 98594158 Problem Essential (primary) hypertension I10 Active 68487851 Problem COPD (chronic obstructive pulmonary disease) J44.9 Active 94844875 Problem Hyperlipidemia, unspecified hyperlipidemia type E78.5 Active 64056239 Problem 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 Active 64478625 Problem Allergy, subsequent encounter T78.40XD Active 444227296 Problem Dementia F03.90 Active 20070421 ALLERGIES No Information ENCOUNTERS Encounter Location Date Diagnosis [facility] [id number] [place] [address] 77857- 2916 Mar, [facility] [address] [place] [address] 62267- 0734 Mar, Ronny Johnston [address] [place] [id number] Feb, Dementia F03.90 [facility] [address] [address] Feb, [facility] [id number] [place] [address] 69111- 7768 January, [facility] [address] [place] [address] 30520- 1312 Dec, Ronny Johnston [address] [place] [id number] Nov, Dementia F03.90 and COPD (chronic obstructive pulmonary disease) J44.9 [facility] [id number] [id number] Nov, [facility] [address] [id number] [id number] Oct, [facility] [address] [place] [id number] Sep, Anemia, unspecified type D64.9 [facility] [address] [facility] [id number] [address] Sep, [facility] [address] [id number] [address] 25[address] Sep, [facility] [address] [id number] [id number] Sep, [facility] [address] [id number] [id number] Aug, [facility] [address] [id number] [id number] Aug, [facility] [address] [id number] [address] 2546 Aug, [facility] [address] [id number] [id number] Aug, [facility] [address] [id number] [address] 25[address] Aug, [facility] [address] [id number] [address] 25[address] Jul, [facility] [address] [id number] [id number] Jul, [facility] [address] [id number] [id number] Jul, [facility] [address] [id number] [id number] Jun, [facility] [address] [facility] [id number] [address] 6[address] Jun, [facility] [address] [place] [id number] Jun, Left hip pain M25.552 and Dementia F03.90 [facility] [address] [facility] [id number] [address] 4[address] May, [facility] [address] [id number] [id number] May, [facility] [place] [facility] [address] [id number] [place]REEK[place] [id number] May, [facility] [address] [facility] [id number] [address] 7599 May, [facility] [address] [id number] [place] [id number] Apr, [facility] [address] [facility] [id number] [place] [address] 4014 Apr, [facility] [address] [facility] [id number] [address] 2503 Apr, [facility] [id number] [place] [id number] Apr, Dementia F03.90 [facility] [address] [facility] [id number] [place] [address] 7142 Apr, [facility] [address] [address] Apr, [facility] [address] [place] [id number] Apr, Edema of both legs R60.0 [facility] [id number] [id number] Mar, [facility] [place] [facility] [id number] [place] [id number] Mar, [facility] [address] [id number] [id number] Mar, Anorexia R63.0 [facility] [address] [facility] [id number] [place] [address] 2546 Mar, [facility] [address] [id number] [place] [id number] Mar, [facility] [address] [id number] [id number] Feb, [facility] [id number] [address] Feb, [facility] [address] [facility] [id number] [address] 8987 Feb, Urinary tract infection without hematuria, site unspecified N39.0 [facility] [address] [address] January, Anorexia R63.0 [facility] [address]100[place] [address] 9[address] January, [facility] [id number] [id number] January, [facility] [address] [facility] [id number] [place] [address]- 8426 January, Dementia F03.90 [facility] [id number] [id number] January, [facility] [address] [place] [id number] Dec, Left hip pain M25.552 and Dementia F03.90 [facility] [address] [id number] [address] Dec, [facility] [address] [id number] [place] [id number] Nov, [facility] [address] [facility] [id number] [place] [address]- 7786 Oct, [facility] Wheeler [facility] [address] [place] [id number] Oct, Dementia F03.90 and Other depression F32.89 [facility] [address] [place] [id number] Oct, Dementia F03.90 ; Essential (primary) hypertension I10 and COPD (chronic obstructive pulmonary disease) J44.9 [facility] [address]100[place] [address] 4[address] Oct, [facility] [address]65100[place] [address]- 6[address] Sep, [facility] [address] [place] [id number] Aug, COPD (chronic obstructive pulmonary disease) J44.9 and Dementia F03.90 [facility] [address] [place] [id number] Jun, Dementia F03.90 and COPD (chronic obstructive pulmonary disease) J44.[address] [facility] [address] [place] [id number] Apr, COPD (chronic obstructive pulmonary disease) J44.9 and Essential (primary) hypertension I10 [facility] [id number] [place] [address] 99649- 8489 Apr, [facility] [id number] [place] [address] 71813- 3195 Mar, [facility] [id number] [place] [address] 97632- 3131 Mar, COPD (chronic obstructive pulmonary disease) J44.9 [facility] [address] [address]- 7042 January, COPD (chronic obstructive pulmonary disease) J44.9 and Allergy, subsequent encounter T78.40XD [facility] [address] [id number] [address] 4648 Nov, COPD (chronic obstructive pulmonary disease) J44.9 ; Dementia F03.90 and Essential (primary) hypertension I10 [facility] [address] [id number] [address]- 1164 09 Oct, 2015 COPD (chronic obstructive pulmonary disease) J44.9 [facility] [id number] [place] [address] 71509- 5121 Sep, COPD (chronic obstructive pulmonary disease) J44.9 [facility] [id number] [place] [address] 39373- 6845 Sep, Essential (primary) hypertension I10 [facility] [id number] [place] [address] 41051- 3764 Sep, Dementia F03.90 and Essential hypertension, benign 401.1 [facility] [id number] [place] [address] 48056- 2895 Jul, Dementia F03.90 and COPD (chronic obstructive pulmonary disease) J44.9 [facility] [id number] [place] [address] 98749- 7683 Jun, [facility] [id number] [place] [address] 10287- 4603 Jun, [facility] [id number] [place] [address] 89179- 3913 May, Chronic airway obstruction, not elsewhere classified 496 and Essential hypertension, benign 401.1 [facility] [id number] [place] [address] 52751- 3413 Mar, Essential hypertension, benign 401.1 and Dementia 294.20 [facility] [id number] [place] [address] 43084- 0642 January, Dementia 294.20 [facility] [id number] [place] [address] 63831- 5244 Dec, [facility] [id number] [place] [address] 92175- 7392 Dec, [facility] [address] [place] [id number] Nov, [facility] [address] [place] [address] 32451- 8307 Nov, [facility] [id number] [place] [address] 81783- 7013 Sep, [facility] [place] [facility] [address] [id number] [place] [address]- 5707 Sep, [facility] [place] [facility] [address] [id number] [place] [address]- 1711 Aug, [facility] [place] [facility] [address] [id number] [place] [address]- 3991 Aug, [facility] [place] [facility] [address] [id number] [place] [address]- 5401 Jul, [facility] [place] [facility] [address] [id number] [place] [address]- 4502 Jul, [facility] [place] [facility] [address] [id number] [place] [address]- 5107 Jun, [facility] [place] [facility] [address] [id number] [place] [address]- 5811 Jun, [facility] [place] [facility] [address] [id number] [place] [address]- 6846 Mar, [facility] [place] [facility] [address] [id number] [place] [address]- 4530 Mar, [facility] [place] [facility] [address] [id number] [place] [address]- 2805 Mar, [facility] [place] [facility] [address] [id number] [place] [address]- 3397 Mar, [facility] [place] [facility] [address] [id number] [place] [address]- 3455 Mar, [facility] [place] [facility] [address] [id number] [place] [address]- 0646 Mar, [facility] [place] [facility] [address] [id number] [place] [address]- 7688 January, [facility] [place] [facility] [address] [id number] [place] [address]- 4409 January, [facility] [place] [facility] [address] [id number] [place] [address]- 4430 January, [facility] [place] [facility] [address] [id number] [place] [address]- 4270 January, [facility] [place] [facility] [address] [id number] [place] [address]- 5425 January, [facility] [place] [facility] [address] [id number] [place] [address]- 3606 Aug, [facility] [place] [facility] [address] [id number] [place] [address]- 7655 Aug, [facility] [place] [facility] [address] [id number] [place] [address]- 3057 Mar, [facility] [place] [facility] [address] [id number] [place] [address]- 2326 Mar, [facility] [place] [facility] [address] [facility] [id number] [place] [address]- 4029 Jun, [facility] [place] [facility] [address] [id number] [place] [address]- 5541 Jun, [facility] [place] [facility] [address] [facility] [id number] [place] [address]- 8489 Jun, [facility] [place] [facility] [address] [facility] [id number] [place] [address]- 4312 Jun, [facility] [place] [facility] [address] [id number] [place] [address]- 8665 Jun, [facility] [place] [facility] [address] [id number] [place] [address]- 1491 Jun, [facility] [place] [facility] [address] [id number] [place] [address]- 8677 Jun, [facility] [place] [facility] [address] [facility] [id number] [place] [address]- 9794 Apr, [facility] [place] [facility] [address] [facility] [id number] [place] [address]- 5402 Feb, [facility] [place] [facility] [address] [id number] [address]- 2546 15 Oct, 2010 [facility] [address] [address]- 5255 Aug, [facility] [address] [address]- 6056 Aug, [facility] [address] [address]- 2668 Aug, [facility] [address] [address]- 2545 Aug, [facility] [address] [place] [address] 87283- 7455 Apr, [facility] [address] [address]- 3408 January, [facility] [address] [address]- 7456 January, [facility] [address] [id number] [address]- 3300 Dec, IMMUNIZATIONS No Known Immunizations SOCIAL HISTORY [...]
--- OUTSIDE RECORDS SUMMARY | 2018-08-22 16:11 | XMS REPORT ---
Author Author TEJ CHILEL [facility] Address [address] [place] [address] Care Team Providers Care Physician Office Specialist Name Role Phone TEJ CHILEL Unavailable PROBLEMS Type Condition ICD9-CM Code RAM11-AU Code Onset Dates Condition Status SNOMED Code Problem Primary insomnia F51.01 Active 2279707 Problem Recurrent major depressive disorder, remission status unspecified F33.9 Active 15096150 Problem Brief psychotic disorder F23 Active 4736773 Problem Acquired hypothyroidism E03.9 Active 613213794 Problem Anorexia R63.0 Active 22726491 Problem Essential (primary) hypertension I10 Active 35711438 Problem COPD (chronic obstructive pulmonary disease) J44.9 Active 87326423 Problem Hyperlipidemia, unspecified hyperlipidemia type E78.5 Active 22631043 Problem 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 Active 61327371 Problem Allergy, subsequent encounter T78.40XD Active 626851819 Problem Dementia F03.90 Active 14754380 ALLERGIES No Information ENCOUNTERS Encounter Location Date Diagnosis [facility] [address] [id number] Feb, Dementia F03.90 [facility] [address] [facility] [id number], [place] [address] Feb, [facility] [address] [id number] [address] January, [facility] [address] [facility] [id number] [address] Dec, [facility] [address] [place] [id number] Nov, Dementia F03.90 and COPD (chronic obstructive pulmonary disease) J44.9 [facility] [address] [id number] [id number] Nov, [facility] [address] [id number] [id number] Oct, [facility] [address] [place] [id number] Sep, Anemia, unspecified type D64.9 [facility] [address] [id number], [place] [address] Sep, [facility] [address] [facility] [id number], [place] [address] Sep, [facility] [address] [id number] [id number] Sep, [facility] [address] [id number] [id number] Aug, [facility] [address] [id number] [id number] Aug, [facility] [address] [id number], [place] [address] Aug, [facility] [address] [id number] [id number] Aug, [facility] [address] [id number], [place] [address] Aug, [facility] [address] [id number], [place] [address] Jul, [facility] [id number] [id number] Jul, [facility] [address] [id number][place] [id number] Jul, [facility] [address] [id number] [address] Jun, [facility] [address] [facility] [id number], [place] [address] Jun, [facility] [address] [place] [id number] Jun, Left hip pain M25.552 and Dementia F03.90 [facility] [address] [facility] [id number], [place] [address] May, [facility] [address] [id number][place] [id number] May, [facility] [place] [facility] [address] [id number][place] [id number] May, [facility] [address] [facility] [id number][place] [address] May, [facility] [place] [facility] [address] [id number][place] [id number] Apr, [facility] [address] [facility] [id number], [place] [address] Apr, [facility] [address] [facility] [id number], [place] [address] Apr, [facility] [address] [id number][place] [id number] Apr, Dementia F03.90 [facility] [address] [facility] [id number], [place] [address] Apr, [facility] [address] [facility] [id number], [place] [address] Apr, [facility] [address] [place] [id number] Apr, Edema of both legs R60.0 [facility] [address] [id number][place] [id number] Mar, [facility] [place] [facility] [address] [id number][place] [id number] Mar, [facility] [address] [id number][place] [id number] Mar, Anorexia R63.0 [facility] [address] [facility] [id number], [place] [address] Mar, [facility] [address] [id number][place] [id number] Mar, [facility] [place] [facility] [id number], [place] [address] Feb, [facility] [id number][place] [id number] Feb, [facility] [address] [id number], [place] [address] Feb, Urinary tract infection without hematuria, site unspecified N39.0 [facility] [address]00565100[place], [place] [address] January, Anorexia R63.0 [facility] [address] [id number], [place] [address] January, [facility] [id number] [id number] January, [facility] [address] [id number] [address] January, Dementia F03.90 [facility] [id number][place] [id number] January, [facility] [address] [place] [id number] Dec, Left hip pain M25.552 and Dementia F03.90 [facility] [id number], [place] [address] Dec, [facility] [id number] [id number] Nov, [facility] [address] [id number], [place] [address] Oct, [facility] [address] [place] [id number] Oct, Dementia F03.90 and Other depression F32.89 [facility] [address] [place] [id number] Oct, Dementia F03.90 ; Essential (primary) hypertension I10 and COPD (chronic obstructive pulmonary disease) J44.9 [facility] [address] [id number], [place] [address] Oct, [facility] [address]00565100[place], [place] [address] Sep, [facility] [address] [place] [id number] Aug, COPD (chronic obstructive pulmonary disease) J44.9 and Dementia F03.90 [facility] [address] [place] [id number] Jun, Dementia F03.90 and COPD (chronic obstructive pulmonary disease) J44.9 [facility] [address] [place] [id number] Apr, COPD (chronic obstructive pulmonary disease) J44.9 and Essential (primary) hypertension I10 [facility] [id number] [place] [address] Apr, [facility] [id number] [place] [address]- [address] Mar, [facility] [address] [address] Mar, COPD (chronic obstructive pulmonary disease) J44.9 [facility] [id number] [place] [address]169 January, COPD (chronic obstructive pulmonary disease) J44.9 and Allergy, subsequent encounter T78.40XD [facility] [address] [id number], [place] [address] Nov, COPD (chronic obstructive pulmonary disease) J44.9 ; Dementia F03.90 and Essential (primary) hypertension I10 [facility] [id number] [place] [address] Oct, COPD (chronic obstructive pulmonary disease) J44.9 [facility] [id number] [place] [address] 2944 Sep, COPD (chronic obstructive pulmonary disease) J44.9 [facility] [address] [id number], [place] [address] Sep, Essential (primary) hypertension [address]00565100[place], [place] [address] Sep, Dementia F03.90 and Essential hypertension, benign 401.1 [facility] [id number] [place] [address]- 9929 Jul, Dementia F03.90 and COPD (chronic obstructive pulmonary disease) J44.9 [facility] [id number] [place] [address]- 8241 Jun, [facility] [id number] [place] [address]397 Jun, [facility] [id number] [place] [address] May, Chronic airway obstruction, not elsewhere classified 496 and Essential hypertension, benign 401.1 [facility] [id number] [place] [address]- 0777 Mar, Essential hypertension, benign 401.1 and Dementia 294.20 [facility] [id number] [place] [address]- 5520 January, Dementia 294.20 [facility] [id number] [place] [address]- 3962 Dec, [facility] [address]00565100[place], [place] [address] Dec, [facility] [address] [place] [id number] Nov, [facility] [address]00565100[place], [place] [address] Nov, [facility] [id number] [place] [address]- 2042 Sep, [facility] [address]00565100[place], [place] [address] Sep, [facility] [id number] [place] [address]- 6214 Aug, [facility] [place] [facility] [address] [id number] [place] [address]- [address]605 Aug, [facility] [place] [facility] [address] [id number] [place] [address]- 0650 Jul, [facility] [place] [facility] [address] [id number] [place] [address]- 8676 Jul, [facility] [place] [facility] [address] [id number] [place] [address]- 6756 Jun, [facility] [place] [facility] [address] [id number] [place] [address]- 9431 Jun, [facility] [place] [facility] [address] [id number] [place] [address]- 3748 Mar, [facility] [place] [facility] [address] [id number] [place] [address]- 4616 Mar, [facility] [place] [facility] [address] [id number] [place] [address]- 9768 Mar, [facility] [place] [facility] [address] [id number] [place] [address]- 9194 Mar, [facility] [place] [facility] [address] [id number] [place] [address]- 4178 Mar, [facility] [place] [facility] [address] [id number] [place] [address]- 1546 Mar, [facility] [place] [facility] [address] [id number], [place] [address]- [address] January, [facility] [place] [facility] [address] [id number] [place] [address]- 8152 January, [facility] [place] [facility] [address] [id number] [place] [address]- 1971 January, [facility] [place] [facility] [address] [id number] [place] [address]- 65[address] January, [facility] [place] [facility] [address] [id number], [place] [address]- 8[address] January, [facility] [place] [facility] [address] [id number] [place] [address]- 5008 Aug, [facility] [place] [facility] [address] [id number] [place] [address]- 0298 Aug, [facility] [place] [facility] [address] [id number] [place] [address]- 0147 Mar, [facility] [place] [facility] [address] [id number] [place] [address]- 5810 Mar, [facility] [place] [facility] [address] [id number] [place] [address]- 2954 Jun, [facility] [place] [facility] [address] [id number] [place] [address]- 0191 Jun, [facility] [place] [facility] [address] [facility] [id number] [place] [address]- 0134 Jun, [facility] [place] [facility] [address] [facility] [id number] [place] [address]- 5373 Jun, [facility] [place] [facility] [address] [facility] [id number] [place] [address]- 5557 Jun, [facility] [place] [facility] [address] [facility] [id number] [place] [address]- 4977 Jun, [facility] [place] [facility] [address] [id number] [place] [address]- 6076 Jun, [facility] [place] [facility] [address] [facility] [id number] [place] [address]- 3853 Apr, [facility] [place] [facility] [address] [id number] [place] [address]- 0395 Feb, [facility] [place] [facility] [address] [id number] [place] [address]- 4720 15 Oct, 2010 [facility] [place] [facility] [address] [facility] [id number] [place] [address]- 6479 Aug, [facility] [place] [facility] [address] [id number], [place] [address]- 5836 Aug, [facility] [address] [id number], [place] [address] 48[address] Aug, [facility] [address]65[address], [place] [address]- [address]100 Aug, [facility] [address] [id number], [place] [address]- 2528 Apr, [facility] [address] [id number], [place] [address]- 6[address] January, [facility] [address] [id number], [place] [address]- 8389 January, [facility] [address] [id number], [place] [address]- 5568 Dec, IMMUNIZATIONS No Known Immunizations SOCIAL HISTORY [...]
--- OUTSIDE RECORDS SUMMARY | 2018-08-22 16:11 | XMS REPORT ---
Author Author TEJ CHILEL [facility] Address [address] [place] [address] Care Team Providers Care Range Operator Name Role Phone TEJ CHILEL Unavailable PROBLEMS Type Condition ICD9-CM Code [id number] Code Onset Dates Condition Status SNOMED Code Problem Primary insomnia F51.01 Active 0693463 Problem Recurrent major depressive disorder, remission status unspecified F33.9 Active 74391457 Problem Brief psychotic disorder F23 Active 8766442 Problem Acquired hypothyroidism E03.9 Active 554900814 Problem Anorexia R63.0 Active 91259983 Problem Essential (primary) hypertension I10 Active 06574020 Problem COPD (chronic obstructive pulmonary disease) J44.9 Active 49580932 Problem Hyperlipidemia, unspecified hyperlipidemia type E78.5 Active 42741480 Problem 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 Active 70504096 Problem Allergy, subsequent encounter T78.40XD Active 187880718 Problem Dementia F03.90 Active 54364862 ALLERGIES No Information ENCOUNTERS Encounter Location Date Diagnosis [facility] [address] [id number] [address] Dec, [facility] [address] [place] [id number] Nov, Dementia F03.90 and COPD (chronic obstructive pulmonary disease) J44.9 [facility] [address] [id number] [id number] Nov, [facility] [id number] [place] [id number] Oct, [facility] [address] [place] [id number] Sep, Anemia, unspecified type D64.9 [facility] [address] [id number] [id number] Sep, [facility] [place] [facility] [address] [id number] [address] Sep, [facility] [address] [id number] [place] [address] Sep, [facility] [address] [id number] [place] [address] Aug, [facility] [address] [id number] [place] [address] Aug, [facility] [address] [id number] [address] Aug, [facility] [address] [id number] [place] [id number] Aug, [facility] [address] [id number] [place] [address] Aug, [facility] [address] [id number] [place] [address] Jul, [facility] [address] [id number] [place] [id number] Jul, [facility] [address] [id number] [place] [id number] Jul, [facility] [address] [id number] [place] [id number] Jun, [facility] [address] [id number] [place] [address] Jun, [facility] [address] [place] [id number] Jun, Left hip pain M25.552 and Dementia F03.90 [facility] [address] [id number] [place] [address] 29 May, 2017 [facility] [address] [id number] [place] [id number] May, [facility] [address] [id number] [place] [id number] 05 May, 2017 [facility] [address] [id number] [place] [address] May, [facility] [address] [id number] [place] [id number] Apr, [facility] [address] [facility] [id number] [place] [address] [address] Apr, [facility] [address] [facility] [id number] [place] [address] Apr, [facility] [address] [id number] [place] [id number] Apr, Dementia F03.90 [facility] [address] [facility] [id number] [place] Apr, [facility] [address] [id number] [address] Apr, [facility] [address] [place] [id number] Apr, Edema of both legs R60.0 [facility] [address] [id number] [place] [id number] Mar, [facility] [id number] [place] [id number] Mar, [facility] [address] [id number] [place] [id number] Mar, Anorexia R63.0 [facility] [address] [facility] [id number] [place] [address] Mar, [facility] [address] [id number] [place] [id number] Mar, [facility] [address] [id number] [place] [id number] Feb, [facility] [address] [id number] [place] [id number] Feb, [facility] [address] [facility] [id number] [place] [address] Feb, Urinary tract infection without hematuria, site unspecified N39.0 [facility] [address] [id number] [address] January, Anorexia R63.0 [facility] [address]00565100[place] [address] January, [facility] [address] [id number] [id number] January, [facility] [address]65[address] [address] January, Dementia F03.90 [facility] [id number] [place] [id number] January, [facility] [address] [place] [address] Dec, Left hip pain M25.552 and Dementia F03.90 [facility] [id number] [place] [id number] Dec, [facility] [id number] [place] [id number] Nov, [facility] [address] [id number] [address] Oct, [facility] [address] [place] [id number] Oct, Dementia F03.90 and Other depression F32.89 [facility] [address] [place] [id number] Oct, Dementia F03.90 ; Essential (primary) hypertension I10 and COPD (chronic obstructive pulmonary disease) J44.9 [facility] [address] [id number] [address] Oct, [facility] [address]00565100[place] [address] Sep, [facility] [address] [place] [id number] Aug, COPD (chronic obstructive pulmonary disease) J44.9 and Dementia F03.90 [facility] [address] [place] [id number] Jun, Dementia F03.90 and COPD (chronic obstructive pulmonary disease) J44.9 [facility] [address] [place] [id number] Apr, COPD (chronic obstructive pulmonary disease) J44.9 and Essential (primary) hypertension I10 [facility] [id number] [place] [address] Apr, [facility] [address] [address] Mar, [facility] [id number] [place] [address]10 Mar, COPD (chronic obstructive pulmonary disease) J44.9 [address] [facility] [id number] [place] [address] January, COPD (chronic obstructive pulmonary disease) J44.9 and Allergy, subsequent encounter T78.40XD [facility] [id number] [place] [address] Nov, COPD (chronic obstructive pulmonary disease) J44.9 ; Dementia F03.90 and Essential (primary) hypertension I10 [facility] [id number] [place] [address]6 Oct, COPD (chronic obstructive pulmonary disease) J44.9 [facility] [id number] [place] [address]- 9917 Sep, COPD (chronic obstructive pulmonary disease) J44.9 [facility] [address] [place] [address]- 2180 Sep, Essential (primary) hypertension I10 [facility] [id number] [place] [address]- [address]666 Sep, Dementia F03.90 and Essential hypertension, benign 401.1 [facility] [id number] [place] [address]- [address]289 Jul, Dementia F03.90 and COPD (chronic obstructive pulmonary disease) J44.9 [facility] [address] [address] Jun, [facility] [id number] [place] [address]- 1743 Jun, [facility] [address] [address] May, Chronic airway obstruction, not elsewhere classified 496 and Essential hypertension, benign 401.1 [facility] [id number] [place] [address]887- 9019 Mar, Essential hypertension, benign 401.1 and Dementia 294.20 [facility] [id number] [place] [address]- 9465 January, Dementia 294.20 [facility] [id number] [place] [address]- 0433 Dec, [facility] [id number] [place] [address]97- 2084 Dec, [facility] [address] [place] [id number] Nov, [facility] [address] [place] [address]74- 1799 Nov, [facility] [address]00565100[place] [address] Sep, [facility] [address]65100[place] [address] 76[address] Sep, [facility] [address] Aug, [facility] [id number] [place] [address]- 3715 Aug, [facility] [address]100[place] [address] Jul, [facility] [address] [place] [address]- 6683 Jul, [facility] [place] [facility] [address] [id number] [place] [address]- 9596 Jun, [facility] [place] [facility] [address] [id number] [place] [address]- 9031 Jun, [facility] [place] [facility] [address] [id number] [place] [address]- 7025 Mar, [facility] [place] [facility] [address] [id number] [place] [address]- 0488 Mar, [facility] [place] [facility] [address] [id number] [place] [address]- 1180 Mar, [facility] [place] [facility] [address] [id number] [place] [address]- 4645 Mar, [facility] [place] [facility] [address] [id number] [place] [address]- 7119 Mar, [facility] [place] [facility] [address] [id number] [place] [address]- 6233 Mar, [facility] [place] [facility] [address] [id number] [place] [address]- 6357 January, [facility] [place] [facility] [address] [id number] [place] [address]- 8124 January, [facility] [place] [facility] [address] [id number] [place] [address]- 6095 January, [facility] [place] [facility] [address] [id number] [place] [address]- 9121 January, [facility] [place] [facility] [address] [id number] [place] [address]- 7860 January, [facility] [place] [facility] [address] [id number] [place] [address]- 6044 Aug, [facility] [place] [facility] [address] [id number] [place] [address]- 7160 Aug, [facility] [place] [facility] [address] [id number] [place] [address]- 5511 Mar, [facility] [address] [id number] [place] [address]- 5164 Mar, [facility] [place] [facility] [address] [id number] [place] [address]- 3623 Jun, [facility] [place] [facility] [address] [id number] [place] [address]- 8709 Jun, [facility] [place] [facility] [address] [id number] [place] [address]- 9968 Jun, [facility] [place] [facility] [address] [id number] [place] [address]- 3615 Jun, [facility] [place] [facility] [address] [id number] [place] [address]- 0962 Jun, [facility] [place] [facility] [address] [id number] [place] [address]- 9945 Jun, [facility] [place] [facility] [address] [id number] [place] [address]- 2438 Jun, [facility] [place] [facility] [address] [id number] [place] [address]- 8190 Apr, [facility] [place] [facility] [address] [facility] [id number] [place] [address]- 4523 Feb, [facility] [place] [facility] [address] [id number] [place] [address]- 0735 15 Oct, 2010 [facility] [place] [facility] [address] [id number] [place] [address]- 2545 Aug, [facility] [place] [facility] [address] [id number] [place] [address] 2546 27 Aug, 2010 [facility] [place] [facility] [address] [id number] [place] [address]- 2546 14 Aug, 2010 [facility] [place] [facility] [address] [id number] [place] [address]- 4489 Aug, [facility] [address] [id number] [address] 2546 Apr, [facility] [address] [id number] [address] 2546 January, [facility] [address] [id number] [address] 2546 January, [facility] [address] [id number] [address] 2546 Dec, IMMUNIZATIONS No Known Immunizations SOCIAL HISTORY Never Assessed REASON FOR VISIT DC Lasix PLAN OF CARE VITAL SIGNS MEDICATIONS Unknown Medications RESULTS No Results PROCEDURES No Known procedures INSTRUCTIONS MEDICATIONS ADMINISTERED No Known Medications
--- OUTSIDE RECORDS SUMMARY | 2018-08-22 16:11 | XMS REPORT ---
Author JUAN DANIEL Álvarez Organization [employer] Address Unknown Phone Unavailable Care Team Providers Care Automobile Accessories Installer Name Role Phone JUAN DANIEL CASTELLANOS CP Unavailable Allergies No Known Allergies Problems Problem Type Condition Code Onset Dates Condition Status Problem Essential (primary) hypertension I10 Active Problem Dementia F03.90 Active Problem Allergy, subsequent encounter T78.40XD Active Assessment COPD (chronic obstructive pulmonary disease) J44.9 Active Problem COPD (chronic obstructive pulmonary disease) J44.9 Active Problem 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 Active Medications No Known Medications Procedures Procedure Coding System Code Date Stable Visit (10 minutes) CPT-4 70568 March 28, 2016 Results No Known Results Summary Purpose [employer] Submission
--- OUTSIDE RECORDS SUMMARY | 2018-08-22 16:11 | XMS REPORT ---
Author Author TEJ CHILEL [facility] Address [address] [place] [address] Care Team Providers Care Life Support Technician Name Role Phone TEJ CHILEL Unavailable PROBLEMS Type Condition ICD9-CM Code HHI80-EU Code Onset Dates Condition Status SNOMED Code Problem Primary insomnia F51.01 Active 4929654 Problem Recurrent major depressive disorder, remission status unspecified F33.9 Active 49257657 Problem Brief psychotic disorder F23 Active 4827370 Problem Acquired hypothyroidism E03.9 Active 262178194 Problem Anorexia R63.0 Active 26261290 Problem Essential (primary) hypertension I10 Active 02096545 Problem COPD (chronic obstructive pulmonary disease) J44.9 Active 78411988 Problem Hyperlipidemia, unspecified hyperlipidemia type E78.5 Active 20276258 Problem 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 Active 34575749 Problem Allergy, subsequent encounter T78.40XD Active 587117220 Problem Dementia F03.90 Active 79322263 ALLERGIES No Information ENCOUNTERS Encounter Location Date Diagnosis [facility] [address] [id number] [id number] Dec, [facility] [address] [place] [id number] Nov, Dementia F03.90 and COPD (chronic obstructive pulmonary disease) J44.9 [facility] [address] [id number] [id number] Nov, [facility] [id number] [place] [id number] Oct, [facility] [address] [place] [id number] Sep, Anemia, unspecified type D64.9 [facility] [address] [id number] [address] Sep, [facility] [place] [facility] [address] [id number], [place] [address] Sep, [facility] [address] [id number][place] [id number] Sep, [facility] [address] [id number][place] [id number] Aug, [facility] [address] [id number][place] [id number] Aug, [facility] [address] [id number], [place] [address]46 Aug, [facility] [address] [id number][place] [id number] Aug, [facility] [address] [id number], [place] [address] Aug, [facility] [address] [id number], [place] [address] Jul, [facility] [address] [id number][place] [id number] Jul, [facility] [address] [id number] [id number] Jul, [facility] [address] [id number][place] [id number] Jun, [facility] [address] [id number], [place] [address] Jun, [facility] [address] [place] [id number] Jun, Left hip pain M25.552 and Dementia F03.90 [facility] [address] [id number], [place] [address] 29 May, 2017 [facility] [address] [id number], [place] [id number] May, [facility] [address] [id number][place] [id number] 05 May, 2017 [facility] [address] [id number], [place] [address] May, [facility] [address] [id number][place] [id number] Apr, [facility] [address] [facility] [id number][place] [address] Apr, [facility] [address] [facility] [id number], [place] [address] Apr, [facility] [address] [id number], [place] [address] Apr, Dementia F03.90 [facility] [address] [facility] [id number], [place] [address] Apr, [facility] [address] [id number], [place] [address] Apr, [facility] [address] [place] [id number] Apr, Edema of both legs R60.0 [facility] [address] [id number], [place] [id number] Mar, [facility] [id number], [place] [address] Mar, [facility] [address] [id number], [place] [id number] Mar, Anorexia R63.0 [facility] [address] [facility] [id number], [place] [address] Mar, [facility] [address] [id number], [place] [id number] Mar, [facility] [address] [id number][place] [id number] Feb, [facility] [address] [id number], [place] [id number] Feb, [facility] [address] [facility] [id number], [place] [address] Feb, Urinary tract infection without hematuria, site unspecified N39.0 [facility] [address] [id number], [place] [address] January, Anorexia R63.0 [facility] [address]00565100[place], [place] [address] January, [facility] [address] [id number] [id number] January, [facility] [address]00565100[place], [place] [address] January, Dementia F03.90 [facility] [id number] [place] [id number] January, [facility] [address] [place] [address] Dec, Left hip pain M25.[address] [facility] [id number] [place] [id number] Dec, [facility] [id number] [place] [id number] Nov, [facility] [address] [id number], [place] [address] Oct, [facility] [address] [place] [address] Oct, Dementia F03.90 and Other depression F32.89 [facility] [address] [place] [address] Oct, Dementia F03.90 ; Essential (primary) hypertension I10 and COPD (chronic obstructive pulmonary disease) J44.9 [facility] [address] [id number], [place] [address] Oct, [facility] [address]00565100[place], [place] [address] Sep, [facility] [address] [place] [id number] Aug, COPD (chronic obstructive pulmonary disease) J44.9 and Dementia F03.90 [facility] [address] [place] [id number] Jun, Dementia F03.90 and COPD (chronic obstructive pulmonary disease) J44.9 [facility] [address] [place] [id number] Apr, COPD (chronic obstructive pulmonary disease) J44.9 and Essential (primary) hypertension I10 [facility] [id number] [place] [address] Apr, [facility] [address] [address] Mar, [facility] [id number] [place] [address] Mar, COPD (chronic obstructive pulmonary disease) J44.9 [address] [id number] [place] [address] January, COPD (chronic obstructive pulmonary disease) J44.9 and Allergy, subsequent encounter T78.40XD [facility] [id number] [place] [address] Nov, COPD (chronic obstructive pulmonary disease) J44.9 ; Dementia F03.90 and Essential (primary) hypertension I10 [facility] [id number] [place] [address]006 Oct, COPD (chronic obstructive pulmonary disease) J44.9 [facility] [id number] [place] [address]- 7114 Sep, COPD (chronic obstructive pulmonary disease) J44.9 [facility] [address] [place] [address]- [address]805 Sep, Essential (primary) hypertension I10 [facility] [id number] [place] [address]- 1719 Sep, Dementia F03.90 and Essential hypertension, benign 401.1 [facility] [id number] [place] [address]60 Jul, Dementia F03.90 and COPD (chronic obstructive pulmonary disease) J44.9 [facility] [address]00565100[place], [place] [address] Jun, [facility] [id number] [place] [address]- [address] Jun, [facility] [address]00565100[place] [address] May, Chronic airway obstruction, not elsewhere classified 496 and Essential hypertension, benign 401.1 [facility] [id number] [place] [address]- 8611 Mar, Essential hypertension, benign 401.1 and Dementia 294.20 [facility] [id number] [place] [address] 69193- 8141 January, Dementia 294.20 [facility] [id number] [place] [address]- 4811 Dec, [facility] [id number] [place] [address]- [address]7 Dec, [facility] [address] [place] [address] Nov, [facility] [address] [place] [address] 81383- 7512 Nov, [facility] [address]65100[place], [place] [address] 0194 Sep, [facility] [address]65100[place], [place] [address]- 8273 Sep, [facility] [address]65[address]10 Aug, [facility] [id number] [place] [address] 100621- 3178 Aug, [facility] [address]65100[place], [place] [address]- 65[address] Jul, [facility] [address] [place] [address] 638[address]- 0998 Jul, [facility] [place] [facility] [address] [id number] [place] [address]- 4[address] Jun, [facility] [place] [facility] [address] [id number] [place] [address]- 4853 Jun, [facility] [place] [facility] [address] [id number] [place] [address]- 2865 Mar, [facility] [place] [facility] [address] [id number] [place] [address]- 0355 Mar, [facility] [place] [facility] [address] [id number] [place] [address]- 8622 Mar, [facility] [place] [facility] [address] [id number] [place] [address]- 4874 Mar, [facility] [place] [facility] [address] [id number] [place] [address]- 7198 Mar, [facility] [place] [facility] [address] [id number] [place] [address]- 6837 Mar, [facility] [place] [facility] [address] [id number] [place] [address]- 7914 January, [facility] [place] [facility] [address] [id number] [place] [address]- 7957 January, [facility] [place] [facility] [address] [id number] [place] [address]- 9176 January, [facility] [place] [facility] [address] [id number] [place] [address]- 7527 January, [facility] [place] [facility] [address] [id number] [place] [address]- 4614 January, [facility] [place] [facility] [address] [id number] [place] [address]- 8139 Aug, [facility] [place] [facility] [address] [id number] [place] [address]- 2888 Aug, [facility] [place] [facility] [address] [id number] [place] [address]- 6578 Mar, [facility] [address] [id number] [place] [address]- 8028 Mar, [facility] [place] [facility] [address] [id number] [place] [address]- 0013 Jun, [facility] [place] [facility] [address] [id number] [place] [address]- 8765 Jun, [facility] [place] [facility] [address] [id number] [place] [address]- 0855 Jun, [facility] [place] [facility] [address] [id number] [place] [address]- 7147 Jun, [facility] [place] [facility] [address] [id number] [place] [address]- 5798 Jun, [facility] [place] [facility] [address] [id number] [place] [address]- 6858 Jun, [facility] [place] [facility] [address] [id number] [place] [address]- 5864 Jun, [facility] [place] [facility] [address] [id number] [place] [address]- 8275 Apr, [facility] [place] [facility] [address] [facility] [id number] [place] [address]- 9163 Feb, [facility] [place] [facility] [address] [id number] [place] [address]- 4162 15 Oct, 2010 [facility] [place] [facility] [address] [id number] [place] [address]- 2544 Aug, [facility] [place] [facility] [address] [id number] [place] [address] 2546 27 Aug, 2010 [facility] [place] [facility] [address] [id number] [place] [address]- 2546 14 Aug, 2010 [facility] [place] [facility] [address] [id number] [place] [address]- 5291 Aug, [facility] [address] [facility] [id number], [place] [address]- 2546 Apr, [facility] [address] [id number], [place] [address]- 2546 January, [facility] [address] [facility] [id number], [place] [address]- 2546 January, [facility] [address] [id number], [place] [address]- 2546 Dec, IMMUNIZATIONS No Known Immunizations SOCIAL [...]
--- OUTSIDE RECORDS SUMMARY | 2018-08-22 16:12 | XMS REPORT ---
Author JUAN DANIEL Álvarez Organization [employer] Address Unknown Phone Unavailable Care Team Providers Care Social Studies Teacher Name Role Phone JUAN DANIEL CASTELLANOS CP Unavailable Allergies No Known Allergies Problems Problem Type Condition Code Onset Dates Condition Status Problem Essential (primary) hypertension I10 Active Problem Dementia F03.90 Active Problem Allergy, subsequent encounter T78.40XD Active Problem COPD (chronic obstructive pulmonary disease) J44.9 Active Problem 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 Active Medications Medication Code System Code Instructions Start Date End Date Status Dosage Incruse Ellipta [facility] [address]-04 62.5 MCG/INH Inhalation Once a day 1 puff Symbicort [facility] [address]-99 80-4.5 MCG/ACT Inhalation Twice a day 2 puffs Lipitor [facility] [address]-31 10 MG Orally Once a day 1 tablet Norvasc [facility] [address]-69 5 MG Orally Once a day 1 tablet Tylenol [facility] [address]-05 325 MG Orally every 4 hrs 2 tablets as needed Flonase [facility] [address]-73 50 MCG/ACT Nasally Once a day 2 spray in each nostril Synthroid [facility] [address]-91 50 mcg Orally Once a day February 18, 2014 1 tablet Celexa [facility] [address]-46 20 mg 1 TAB orally once a day Sep 17, 2013 1 tablet by Oral route 1 time per day Aquacel Ag Foam [facility] [address]87 6 Externally not defined Ventolin HFA [facility] [address]-28 108 (90 Base) MCG/ACT Inhalation every 4 hrs 2 puffs as needed Results No Known Results Summary Purpose [employer] Submission
--- OUTSIDE RECORDS SUMMARY | 2018-08-22 16:12 | XMS REPORT ---
Author Author TEJ CHILEL [facility] Address [address] [place] [address] Care Team Providers Care Credit Review Officer Name Role Phone TEJ CHILEL Unavailable PROBLEMS Type Condition ICD9-CM Code EEP87-FM Code Onset Dates Condition Status SNOMED Code Problem Primary insomnia F51.01 Active 3153090 Problem Recurrent major depressive disorder, remission status unspecified F33.9 Active 35208566 Problem Brief psychotic disorder F23 Active 8543774 Problem Acquired hypothyroidism E03.9 Active 411443022 Problem Anorexia R63.0 Active 40812745 Problem Essential (primary) hypertension I10 Active 58111499 Problem COPD (chronic obstructive pulmonary disease) J44.9 Active 20380567 Problem Hyperlipidemia, unspecified hyperlipidemia type E78.5 Active 47809935 Problem 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 Active 75420460 Problem Allergy, subsequent encounter T78.40XD Active 099054608 Problem Dementia F03.90 Active 88853906 ALLERGIES No Information ENCOUNTERS Encounter Location Date Diagnosis [facility] [address] [id number] [address] Dec, [facility] [address] [place] [id number] Nov, Dementia F03.90 and COPD (chronic obstructive pulmonary disease) J44.9 [facility] [address] [id number] [id number] Nov, [facility] [id number] [place] [id number] Oct, [facility] [address] [place] [id number] Sep, Anemia, unspecified type D64.9 [facility] [address] [id number] [address] Sep, [facility] [place] [facility] [address] [id number], [place] [address] Sep, [facility] [address] [id number] [id number] Sep, [facility] [address] [id number] [id number] Aug, [facility] [address] [id number][place] [id number] Aug, [facility] [address] [id number], [place] [address]46 Aug, [facility] [address] [id number] [id number] Aug, [facility] [address] [id number], [place] [address] Aug, [facility] [address] [id number] [address] Jul, [facility] [address] [id number] [id number] Jul, [facility] [address] [id number] [id number] Jul, [facility] [address] [id number] [id number] Jun, [facility] [address] [id number], [place] [address] Jun, [facility] [address] [place] [id number] Jun, Left hip pain M25.552 and Dementia F03.90 [facility] [address] [id number], [place] [address] 29 May, 2017 [facility] [address] [id number][place] [id number] May, [facility] [address] [id number][place] [id number] 05 May, 2017 [facility] [address] [id number] [address] May, [facility] [address] [id number][place] [id number] Apr, [facility] [address] [facility] [facility] [id number] [address] Apr, [facility] [place] [facility] [address] [facility] [id number], [place] [address] Apr, [facility] [address] [id number] [id number] Apr, Dementia F03.90 [facility] [address] [facility] [id number], [place] [address] Apr, [facility] [address] [id number] [address] Apr, [facility] [address] [place] [id number] Apr, Edema of both legs R60.0 [facility] [place] [facility] [address] [id number] [id number] Mar, [facility] [id number] [id number] Mar, [facility] [address] [id number] [id number] Mar, Anorexia R63.0 [facility] [place] [facility] [address] [address] [facility] [id number], [place] [address] Mar, [facility] [address] [id number], [place] [id number] Mar, [facility] [address] [id number], [place] [id number] Feb, [facility] [address] [id number] [address] Feb, [facility] [address] [address] [facility] [id number], [place] [address] Feb, Urinary tract infection without hematuria, site unspecified N39.0 [facility] [address] [id number] [address] January, Anorexia R63.0 [facility] [address]00565100[place] [address] January, [facility] [address] [id number] [id number] January, [facility] [address]00565100[place], [place] [address] January, Dementia F03.90 [facility] [id number] [place] [id number] January, [facility] [address] [place] [address] Dec, Left hip pain M25.552 and Dementia F03.90 [facility] [id number] [place] [id number] Dec, [facility] [id number] [place] [id number] Nov, [facility] [address] [id number] [address] Oct, [facility] [address] [place] [id number] Oct, Dementia F03.90 and Other depression F32.89 [facility] [address] [place] [address] Oct, Dementia F03.90 ; Essential (primary) hypertension I10 and COPD (chronic obstructive pulmonary disease) J44.9 [facility] [address] [id number] [address] Oct, [facility] [address]65[address] [address] Sep, [facility] [address] [place] [id number] Aug, COPD (chronic obstructive pulmonary disease) J44.[address] [facility] [address] [place] [id number] Jun, Dementia F03.90 and COPD (chronic obstructive pulmonary disease) J44.9 [facility] [address] [place] [id number] Apr, COPD (chronic obstructive pulmonary disease) J44.9 and Essential (primary) hypertension I10 [facility] [id number] [place] [address] Apr, [facility] [address] [address] Mar, [facility] [id number] [place] [address]- [address] Mar, COPD (chronic obstructive pulmonary disease) J44.9 [address] [facility] [id number] [place] [address]- 46[address] January, COPD (chronic obstructive pulmonary disease) J44.9 and Allergy, subsequent encounter T78.40XD [address] [facility] [id number] [place] [address]- 7247 Nov, COPD (chronic obstructive pulmonary disease) J44.9 ; Dementia F03.90 and Essential (primary) hypertension I10 [facility] [id number] [place] [address]- 2346 Oct, COPD (chronic obstructive pulmonary disease) J44.9 [facility] [id number] [place] [address]- 4505 Sep, COPD (chronic obstructive pulmonary disease) J44.9 [facility] [address] [place] [address]- 2882 Sep, Essential (primary) hypertension I10 [facility] [id number] [place] [address]32- 6376 Sep, Dementia F03.90 and Essential hypertension, benign 401.1 [facility] [id number] [place] [address]- 2055 Jul, Dementia F03.90 and COPD (chronic obstructive pulmonary disease) J44.9 [facility] [address]65100[place] [address] Jun, [facility] [id number] [place] [address] 738[address]- 5496 Jun, [facility] [address] [address] May, Chronic airway obstruction, not elsewhere classified 496 and Essential hypertension, benign 401.1 [facility] [id number] [place] [address]- 4047 Mar, Essential hypertension, benign 401.1 and Dementia 294.20 [facility] [id number] [place] [address]46- 9464 January, Dementia 294.20 [facility] [id number] [place] [address] 23360- 1356 Dec, [facility] [id number] [place] [address] 47[address]- 3390 Dec, [facility] [address] [id number] Nov, [facility] [address] [place] [address]- 5492 Nov, [facility] [address]00565100[place] [address]- 5[address] Sep, [facility] [address]65100[place] [address]- 4[address] Sep, [facility] [address] [address] Aug, [facility] [id number] [place] [address] 717850- 2077 Aug, [facility] [address] [address]- 0200 Jul, [facility] [address] [place] [address]32[address]- 9455 Jul, [facility] [place] [facility] [address] [id number] [place] [address]- 7155 Jun, [facility] [place] [facility] [address] [id number] [place] [address]- 6773 Jun, [facility] [place] [facility] [address] [id number] [place] [address]- 0483 Mar, [facility] [place] [facility] [address] [id number] [place] [address]- 9983 Mar, [facility] [place] [facility] [address] [id number] [place] [address]- 3538 Mar, [facility] [place] [facility] [address] [id number] [place] [address]- 1796 Mar, [facility] [place] [facility] [address] [id number] [place] [address]- 9631 Mar, [facility] [place] [facility] [address] [id number] [place] [address]- 2454 Mar, [facility] [place] [facility] [address] [id number] [place] [address]- 5525 January, [facility] [place] [facility] [address] [id number] [place] [address]- 3481 January, [facility] [place] [facility] [address] [id number] [place] [address]- 5808 January, [facility] [place] [facility] [address] [id number] [place] [address]- 8110 January, [facility] [place] [facility] [address] [id number] [place] [address]- 5317 January, [facility] [place] [facility] [address] [id number] [place] [address]- 7560 Aug, [facility] [place] [facility] [address] [id number] [place] [address]- 0986 Aug, [facility] [place] [facility] [address] [id number] [place] [address]- 0112 Mar, [facility] [address] [id number] [place] [address]- 4749 Mar, [facility] [place] [facility] [address] [id number] [place] [address]- 1283 Jun, [facility] [place] [facility] [address] [id number] [place] [address]- 9265 Jun, [facility] [place] [facility] [address] [id number] [place] [address]- 6855 Jun, [facility] [place] [facility] [address] [id number] [place] [address]- 4487 Jun, [facility] [place] [facility] [address] [id number] [place] [address]- 2618 Jun, [facility] [place] [facility] [address] [id number] [place] [address]- 0310 Jun, [facility] [place] [facility] [address] [id number] [place] [address]- 2254 Jun, [facility] [place] [facility] [address] [id number] [place] [address]- 2113 Apr, [facility] [place] [facility] [address] [facility] [address] [facility] [id number] [place] [address]- 2698 Feb, [facility] [place] [facility] [address] [id number] [place] [address]- 0550 15 Oct, 2010 [facility] [place] [facility] [address] [id number] [place] [address]- 254 Aug, [facility] [place] [facility] [address] [id number] [place] [address] 2546 27 Aug, 2010 [facility] [place] [facility] [address] [id number] [place] [address]- 2546 14 Aug, 2010 [facility] [place] [facility] [address] [id number] [place] [address]- 3044 Aug, [facility] [address] [facility] [id number] [place] [address]- 2546 Apr, [facility] [address] [facility] [id number], [place] [address]- 2546 January, [facility] [address] [facility] [id number], [place] [address]- 2546 January, [facility] [address] [facility] [id number] [address]- 2546 Dec, IMMUNIZATIONS No Known Immunizations SOCIAL HISTORY Never Assessed REASON FOR VISIT Increase Synthroid PLAN OF CARE VITAL SIGNS MEDICATIONS Medication Instructions Dosage Frequency Start Date End Date Duration Status Synthroid 75 MCG Orally Once a day 1 tablet 24h January, Active RESULTS No Results PROCEDURES No Known procedures INSTRUCTIONS MEDICATIONS ADMINISTERED No Known Medications
--- OUTSIDE RECORDS SUMMARY | 2018-08-22 16:12 | XMS REPORT ---
Author Author TEJ CHILEL [facility] Address [address] [place] [address] Care Team Providers Care Laboratory Animal Care Veterinarian Name Role Phone TEJ CHILEL Unavailable PROBLEMS Type Condition ICD9-CM Code OYR64-UW Code Onset Dates Condition Status SNOMED Code Problem Primary insomnia F51.01 Active 5098242 Problem Recurrent major depressive disorder, remission status unspecified F33.9 Active 73717979 Problem Brief psychotic disorder F23 Active 0705227 Problem Acquired hypothyroidism E03.9 Active 657664550 Problem Anorexia R63.0 Active 19207450 Problem Essential (primary) hypertension I10 Active 87277644 Problem COPD (chronic obstructive pulmonary disease) J44.9 Active 24149563 Problem Hyperlipidemia, unspecified hyperlipidemia type E78.5 Active 36643954 Problem 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 Active 86738357 Problem Allergy, subsequent encounter T78.40XD Active 205215224 Problem Dementia F03.90 Active 05152196 ALLERGIES No Information ENCOUNTERS Encounter Location Date Diagnosis [facility] [address] [id number] Feb, Dementia F03.90 [facility] [address] [facility] [id number] [address] Feb, [facility] [address] [id number] [address] January, [facility] [address] [facility] [id number] [place] [address] Dec, [facility] [address] [place] [id number] Nov, Dementia F03.90 and COPD (chronic obstructive pulmonary disease) J44.9 [facility] [address] [id number] [place] [id number] Nov, [facility] [address] [id number] [id number] Oct, [facility] [address] [place] [id number] Sep, Anemia, unspecified type D64.9 [facility] [address] [id number] [address] Sep, [facility] [address] [facility] [id number] [address] Sep, [facility] [address] [id number] [place] [id number] Sep, [facility] [address] [id number] [id number] Aug, [facility] [address] [id number] [place] [id number] Aug, [facility] [address] [id number] [address] Aug, [facility] [address] [id number] [place] [id number] Aug, [facility] [address] [id number] [address] Aug, [facility] [address] [id number] [address] Jul, [facility] [id number] [place] [id number] Jul, [facility] [address] [id number] [place] [id number] Jul, [facility] [address] [id number] [place] [id number] Jun, [facility] [address] [facility] [id number] [place] [address] Jun, [facility] [address] [place] [id number] Jun, Left hip pain M25.552 and Dementia F03.90 [facility] [address] [facility] [id number] [place] [address] May, [facility] [address] [id number] [place] [id number] May, [facility] [place] [facility] [address] [id number] [place] [id number] May, [facility] [address] [facility] [id number] [place] [address] May, [facility] [place] [facility] [address] [id number] [place] [id number] Apr, [facility] [address] [facility] [id number] [place] [address] Apr, [facility] [address] [facility] [id number] [place] [address] Apr, [facility] [address] [id number] [place] [id number] Apr, Dementia F03.90 [facility] [address] [facility] [id number] [place] [address] Apr, [facility] [address] [facility] [id number] [place] [address] Apr, [facility] [address] [place] [id number] Apr, Edema of both legs R60.0 [facility] [address] [id number] [place] [id number] Mar, [facility] [place] [facility] [address] [id number] [place] [address] Mar, [facility] [address] [id number] [place] [id number] Mar, Anorexia R63.0 [facility] [address] [facility] [id number] [place] [address] Mar, [facility] [address] [id number] [place] [id number] Mar, [facility] [place] [facility] [id number] [place] [id number] Feb, [facility] [id number] [place] [id number] Feb, [facility] [address] [id number] [address] Feb, Urinary tract infection without hematuria, site unspecified N39.0 [facility] [address]00565100[place] [address] January, Anorexia R63.0 [facility] [address] [id number] [address] January, [facility] [id number] [place] [id number] January, [facility] [address] [id number] [address] January, Dementia F03.90 [facility] [id number] [place] [address] January, [facility] [address] [place] [id number] Dec, Left hip pain M25.552 and Dementia F03.90 [facility] [id number] [place] [id number] Dec, [facility] [id number] [place] [id number] Nov, [facility] [address] [id number] [address] Oct, [facility] [address] [place] [id number] Oct, Dementia F03.90 and Other depression F32.89 [facility] [address] [place] [id number] Oct, Dementia F03.90 ; Essential (primary) hypertension I10 and COPD (chronic obstructive pulmonary disease) J44.9 [facility] [address] [id number] [address] Oct, [facility] [address]00565100[place] [address] Sep, [facility] [address] [place] [id number] Aug, COPD (chronic obstructive pulmonary disease) J44.9 and Dementia F03.90 [facility] [address] [place] [id number] Jun, Dementia F03.90 and COPD (chronic obstructive pulmonary disease) J44.9 [facility] [address] [place] [id number] Apr, COPD (chronic obstructive pulmonary disease) J44.9 and Essential (primary) hypertension I10 [facility] [id number] [place] [address] Apr, [facility] [id number] [place] [address] 4095 Mar, [facility] [address] [address] Mar, COPD (chronic obstructive pulmonary disease) J44.9 [facility] [id number] [place] [address]70 January, COPD (chronic obstructive pulmonary disease) J44.9 and Allergy, subsequent encounter T78.40XD [facility] [address] [id number] [address]71 Nov, COPD (chronic obstructive pulmonary disease) J44.9 ; Dementia F03.90 and Essential (primary) hypertension I10 [facility] [id number] [place] [address]21 Oct, COPD (chronic obstructive pulmonary disease) J44.9 [facility] [id number] [place] [address] 8117 Sep, COPD (chronic obstructive pulmonary disease) J44.9 [facility] [address] [id number] [address] 9[address] Sep, Essential (primary) hypertension [address]00565100[place] [address] Sep, Dementia F03.90 and Essential hypertension, benign 401.1 [facility] [id number] [place] [address]- 0200 Jul, Dementia F03.90 and COPD (chronic obstructive pulmonary disease) J44.9 [facility] [id number] [place] [address]84- 9136 Jun, [facility] [id number] [place] [address]- 4752 Jun, [facility] [id number] [place] [address]- 9454 May, Chronic airway obstruction, not elsewhere classified 496 and Essential hypertension, benign 401.1 [facility] [id number] [place] [address]- 7355 Mar, Essential hypertension, benign 401.1 and Dementia 294.20 [facility] [address] [place] [address]- 8789 January, Dementia 294.20 [facility] [id number] [place] [address] 61019- 0600 Dec, [facility] [address]00565100[place] [address] Dec, [facility] [address] [id number] Nov, [facility] [address]00565100[place] [address] 3846 Nov, [facility] [id number] [place] [address]99- 8062 Sep, [facility] [address]00565100[place] [address]- 8594 Sep, [facility] [id number] [place] [address]481- 8327 Aug, [facility] [place] [facility] [address] [id number] [place] [address]- 2067 Aug, [facility] [place] [facility] [address] [id number] [place] [address]- 9794 Jul, [facility] [place] [facility] [address] [id number] [place] [address]- 2166 Jul, [facility] [place] [facility] [address] [id number] [place] [address]- 6456 Jun, [facility] [place] [facility] [address] [id number] [place] [address]- 0612 Jun, [facility] [place] [facility] [address] [id number] [place] [address]- 0224 Mar, [facility] [place] [facility] [address] [id number] [place] [address]- 6581 Mar, [facility] [place] [facility] [address] [id number] [place] [address]- 3722 Mar, [facility] [place] [facility] [address] [id number] [place] [address]- 0959 Mar, [facility] [place] [facility] [address] [id number] [place] [address]- 0991 Mar, [facility] [place] [facility] [address] [id number] [place] [address]- 6071 Mar, [facility] [place] [facility] [address] [id number] [address]- 2859 January, [facility] [place] [facility] [address] [id number] [place] [address]- 3821 January, [facility] [place] [facility] [address] [id number] [place] [address]- 0440 January, [facility] [place] [facility] [address] [id number] [place] [address]- 0274 January, [facility] [place] [facility] [address] [id number] [address]- 2381 January, [facility] [place] [facility] [address] [id number] [place] [address]- 9760 Aug, [facility] [place] [facility] [address] [id number] [place] [address]- 4376 Aug, [facility] [place] [facility] [address] [id number] [place] [address]- 4379 Mar, [facility] [place] [facility] [address] [id number] [place] [address]- 4976 Mar, [facility] [place] [facility] [address] [id number] [place] [address]- 3771 Jun, [facility] [place] [facility] [address] [id number] [place] [address]- 3701 Jun, [facility] [place] [facility] [address] [facility] [id number] [place] [address]- 2990 Jun, [facility] [place] [facility] [address] [facility] [id number] [place] [address]- 4466 Jun, [facility] [place] [facility] [address] [facility] [id number] [place] [address]- 4793 Jun, [facility] [place] [facility] [address] [facility] [id number] [place] [address]- 6448 Jun, [facility] [place] [facility] [address] [id number] [place] [address]- 0244 Jun, [facility] [place] [facility] [address] [facility] [id number] [place] [address]- 0779 Apr, [facility] [place] [facility] [address] [id number] [place] [address]- 8102 Feb, [facility] [place] [facility] [address] [id number] [place] [address]- 8244 15 Oct, 2010 [facility] [place] [facility] [address] [facility] [id number] [place] [address]- 6095 Aug, [facility] [place] [facility] [address] [id number] [address]- 4986 Aug, [facility] [address] [id number] [address]- 8819 Aug, [facility] [address]65[address] [address]- 1243 Aug, [facility] [address] [id number] [address]- 3990 Apr, [facility] [address] [id number] [address]- 4287 January, [facility] [address] [id number] [address]- 60[address] January, [facility] [address] [id number] [address]- 8468 Dec, IMMUNIZATIONS No Known Immunizations SOCIAL HISTORY Never Assessed REASON FOR VISIT Controlled Med Refill PLAN OF CARE VITAL SIGNS MEDICATIONS Unknown Medications RESULTS No Results PROCEDURES No Known procedures INSTRUCTIONS MEDICATIONS ADMINISTERED No Known Medications
--- OUTSIDE RECORDS SUMMARY | 2018-08-22 16:12 | XMS REPORT ---
Author Author TEJ CHILEL [facility] Address [address] [place] [address] Care Team Providers Care Party Plan Sales Director Name Role Phone TEJ CHILEL Unavailable PROBLEMS Type Condition ICD9-CM Code [id number] Code Onset Dates Condition Status SNOMED Code Problem Primary insomnia F51.01 Active 3834225 Problem Recurrent major depressive disorder, remission status unspecified F33.9 Active 11578282 Problem Brief psychotic disorder F23 Active 3391161 Problem Acquired hypothyroidism E03.9 Active 480719275 Problem Anorexia R63.0 Active 90626922 Problem Essential (primary) hypertension I10 Active 64555057 Problem COPD (chronic obstructive pulmonary disease) J44.9 Active 35900412 Problem Hyperlipidemia, unspecified hyperlipidemia type E78.5 Active 32371602 Problem 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 Active 39753861 Problem Allergy, subsequent encounter T78.40XD Active 274336180 Problem Dementia F03.90 Active 77388032 ALLERGIES No Information ENCOUNTERS Encounter Location Date Diagnosis [facility] [address] [place] [id number] Nov, Dementia F03.90 and COPD (chronic obstructive pulmonary disease) J44.9 [facility] [address] [id number] [place] [id number] Nov, [facility] [address] [id number] [place]INGS[place] [id number] Oct, [facility] [address] [place] [id number] Sep, Anemia, unspecified type D64.9 [facility] [address] [facility] [id number] [place] [address] Sep, [facility] [address] [facility] [id number] SPRINGS[place] [address] Sep, [facility] [address] [id number] SPRINGS[place] [id number] Sep, [facility] [address] [id number] [place]INGS[place] [address] Aug, [facility] [address] [id number] [place] [id number] Aug, [facility] [address] [facility] [id number] [place] [address] Aug, [facility] [address] [id number] [place]INGS[place] [id number] Aug, [facility] [address] [facility] [id number] [address] Aug, [facility] [address] [facility] [id number] [place] [address] Jul, [facility] [id number] [place] [id number] Jul, [facility] [address] [id number] [place]INGS[place] [address] Jul, [facility] [address] [id number] [place]INGS[place] [id number] Jun, [facility] [address] [facility] [id number] [place] [address] Jun, [facility] [address] [facility] [place] [place] [id number] Jun, Left hip pain M25.552 and Dementia F03.90 [facility] [address] [id number] [place] [address] 29 May, 2017 [facility] [address] [id number] [place]INGS[place] [id number] May, [facility] [address] [id number] [place]INGS[place] [address] May, [facility] [address] [facility] [id number] [place] [address] May, [facility] [address] [id number] [place] [address] Apr, [facility] [address] [facility] [id number] [place] [address] Apr, [facility] [address] [facility] [id number] [place] [address] Apr, [facility] [address] [id number] [place]INGS[place] [address] Apr, Dementia F03.90 [facility] [address] [facility] [id number] [place] [address] Apr, [facility] [address]00565100STE[place] [address] Apr, [facility] [address] [place] [id number] Apr, Edema of both legs R60.0 [facility] [id number] [place] [id number] Mar, [facility] [address] [id number] SPRINGS[place] [address] Mar, [facility] [address] [id number] [address] Mar, Anorexia R63.0 [facility] [address] [facility] [id number] [place] [address] Mar, [facility] [id number] [place] [id number] Mar, [facility] [address] [id number] [place] [address] Feb, [facility] [address] [id number] [place] [address] Feb, [facility] [address] [facility] [id number] [address] Feb, Urinary tract infection without hematuria, site unspecified N39.0 [facility] [address] [id number] [address] January, Anorexia R63.0 [facility] [address] [facility] [id number] [place] [address] January, [facility] [address] [id number] [id number] January, [facility] [address] [id number] [address] January, Dementia F03.90 [facility] [address] [id number] [address] January, [facility] [address] [place] [id number] Dec, Left hip pain M25.[address] [facility] [id number] [place] [address] Dec, [facility] [address] [id number] [address] Nov, [facility] [address]00565100[place] [address] Oct, [facility] [address] [place] [address] Oct, Dementia F03.90 and Other depression F32.89 [facility] [address] [place] [id number] Oct, Dementia F03.90 ; Essential (primary) hypertension I10 and COPD (chronic obstructive pulmonary disease) J44.9 [facility] [address] [id number] [address] Oct, [facility] [address] [id number] [address] Sep, [facility] [address] [place] [address] Aug, COPD (chronic obstructive pulmonary disease) J44.9 and Dementia F03.[address] [facility] [address] [place] [address] Jun, Dementia F03.90 and COPD (chronic obstructive pulmonary disease) J44.9 [facility] [address] [place] [id number] Apr, COPD (chronic obstructive pulmonary disease) J44.9 and Essential (primary) hypertension I10 [facility] [id number] [place] [address] Apr, [facility] [id number] [place] [address] Mar, [facility] [address] [address] Mar, COPD (chronic obstructive pulmonary disease) J44.9 [place] [id number] [place] [address] January, COPD (chronic obstructive pulmonary disease) J44.9 and Allergy, subsequent encounter T78.40XD [place] [id number] [place] [address] 2007 Nov, COPD (chronic obstructive pulmonary disease) J44.9 ; Dementia F03.90 and Essential (primary) hypertension I10 [place] [id number] [place] [address] Oct, COPD (chronic obstructive pulmonary disease) J44.9 [facility] [id number] [place] [address]60 Sep, COPD (chronic obstructive pulmonary disease) J44.9 [facility] [id number] [place] [address] Sep, Essential (primary) hypertension I10 [facility] [address] [place] [address]25 Sep, Dementia F03.90 and Essential hypertension, benign 401.1 [place] [id number] [place] [address]- 2682 Jul, Dementia F03.90 and COPD (chronic obstructive pulmonary disease) J44.9 [facility] [id number] [place] [address] Jun, [facility] [address]00565100[place] [address] Jun, [facility] [id number] [place] [address] May, Chronic airway obstruction, not elsewhere classified 496 and Essential hypertension, benign 401.1 [facility] [id number] [place] [address] 9024 Mar, Essential hypertension, benign 401.1 and Dementia 294.20 [facility] [id number] [place] [address] 2934 January, Dementia 294.20 [facility] [id number] [place] [address]- 6083 Dec, [facility] [id number] [place] [address] 4081 Dec, [facility] [address] [place] [id number] Nov, [facility] [address]00565100[place] [address] Nov, [facility] [id number] [place] [address]- 2983 Sep, [facility] [address]00565100[place] [address] 9[address] Sep, [facility] [address]00565100[place] [address] Aug, [facility] [address]00565100[place] [address] 47[address] Aug, [facility] [address]00565100[place] [address] 8156 Jul, [facility] [address]00565100[place] [address]6 Jul, [facility] [address]00565100[place] [address]32 Jun, [facility] [place] [facility] [address] [id number] [place] [address] Jun, [facility] [place] [facility] [address] [id number] [place] Mar, [facility] [place] [facility] [address] [id number] [place] [address] Mar, [facility] [place] [facility] [address] [id number] [place] [address]- 1731 Mar, [facility] [place] [facility] [address] [id number] [place] [address]- 5933 Mar, [facility] [place] [facility] [address] [id number] [place] [address]- 4872 Mar, [facility] [place] [facility] [address] [id number] [place] [address]- 3158 Mar, [facility] [place] [facility] [address] [id number] [place] [address]- 6[address] January, [facility] [place] [facility] [address] [id number] [place] [address]- 5672 January, [facility] [place] [facility] [address] [id number] [place] [address]- 5579 January, [facility] [place] [facility] [address] [id number] [place] [address]- 1734 January, [facility] [place] [facility] [address] [id number] [place] [address]- 2662 January, [facility] [place] [facility] [address] [id number] [place] [address]- 1973 Aug, [facility] [place] [facility] [address] [id number] [place] [address]- 3359 Aug, [facility] [place] [facility] [address] [id number] [place] [address]273 Mar, [facility] [place] [facility] [address] [id number] [place] [address]- 0971 Mar, [facility] [place] [facility] [address] [id number] [place] [address]- 2356 Jun, [facility] [place] [facility] [address] [id number] [place] [address]- 9536 Jun, [facility] [place] [facility] [address] [id number] [place] [address]- 2771 Jun, [facility] [place] [facility] [address] [id number] [place] [address] 2542 Jun, [facility] [place] [facility] [address] [id number] [place] [address]- 5183 Jun, [facility] [place] [facility] [address] [id number] [place] [address]- 9524 Jun, [facility] [place] [facility] [address] [id number] [place] [address]- 7018 Jun, [facility] [place] [facility] [address] [id number] [place] [address]- 3979 Apr, [facility] [place] [facility] [address] [id number] [place] [address]- 2315 Feb, [facility] [place] [facility] [address] [id number] [place] [address]- 7249 15 Oct, 2010 [facility] [place] [facility] [address] [id number] [place] [address] 2549 28 Aug, 2010 [facility] [place] [facility] [address] [id number] [place] [address]- 2543 27 Aug, 2010 [facility] [place] [facility] [address] [id number] [place] [address] 2546 14 Aug, 2010 [facility] [place] [facility] [address] [id number] [place] [address]- 2540 14 Aug, 2010 [facility] [place] [facility] [address] [id number] [place] [address]- 7283 Apr, [facility] [address] [facility] [id number] [place] [address]- [address] January, [facility] [address] [facility] [id number] [place] [address]- 4456 January, [facility] [address] [facility] [id number] [place] [address]- 4166 Dec, IMMUNIZATIONS No Known Immunizations SOCIAL HISTORY Never Assessed REASON FOR VISIT Refill request PLAN OF CARE VITAL SIGNS MEDICATIONS No Known Medications RESULTS No Results PROCEDURES No Known procedures INSTRUCTIONS MEDICATIONS ADMINISTERED No Known Medications
--- OUTSIDE RECORDS SUMMARY | 2018-08-22 16:13 | XMS REPORT ---
Author Author TEJ CHILEL [facility] Address [address] [place] [address] Care Team Providers Care Apigee Developer Name Role Phone TEJ CHILEL Unavailable PROBLEMS Type Condition ICD9-CM Code NUD73-BI Code Onset Dates Condition Status SNOMED Code Problem Primary insomnia F51.01 Active 4826254 Problem Recurrent major depressive disorder, remission status unspecified F33.9 Active 15618161 Problem Brief psychotic disorder F23 Active 9353309 Problem Acquired hypothyroidism E03.9 Active 966055252 Problem Anorexia R63.0 Active 03955465 Problem Essential (primary) hypertension I10 Active 99302453 Problem COPD (chronic obstructive pulmonary disease) J44.9 Active 13228476 Problem Hyperlipidemia, unspecified hyperlipidemia type E78.5 Active 14319963 Problem 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 Active 44626657 Problem Allergy, subsequent encounter T78.40XD Active 354962666 Problem Dementia F03.90 Active 16418010 ALLERGIES No Information ENCOUNTERS Encounter Location Date Diagnosis [facility] [place] [address] [id number] [id number] Dec, [facility] [address] [place] [id number] Nov, Dementia F03.90 and COPD (chronic obstructive pulmonary disease) J44.9 [facility] [address] [id number] [id number] Nov, [facility] [id number] [place] [id number] Oct, [facility] [address] [place] [id number] Sep, Anemia, unspecified type D64.9 [facility] [place] [address] [id number] [address] Sep, [facility] [place] [facility] [address] [id number], [place] [address] Sep, [facility] [address] [id number][place] [id number] Sep, [facility] [address] [id number][place] [id number] Aug, [facility] [address] [id number][place] [id number] Aug, [facility] [address] [id number], [place] [address] Aug, [facility] [address] [id number][place] [id number] Aug, [facility] [address] [id number], [place] [address] Aug, [facility] [address] [id number], [place] [address] Jul, [facility] [address] [id number][place] [id number] Jul, [facility] [address] [id number][place] [id number] Jul, [facility] [address] [id number] [id number] Jun, [facility] [address] [id number], [place] [address] Jun, [facility] [address] [place] [id number] Jun, Left hip pain M25.552 and Dementia F03.90 [facility] [address] [id number], [place] [address] 29 May, 2017 [facility] [address] [id number][place] [id number] May, [facility] [address] [id number], [place] [id number] 05 May, 2017 [facility] [address] [id number], [place] [address] May, [facility] [address] [id number], [place] [id number] Apr, [facility] [address] [facility] [id number][place] [address] Apr, [facility] [address] [facility] [id number], [place] [address] Apr, [facility] [address] [id number], [place] [id number] Apr, Dementia F03.90 [facility] [address] [facility] [id number], [place] [address] Apr, [facility] [address] [id number], [place] [address] Apr, [facility] [address] [place] [place] [id number] Apr, Edema of both legs R60.0 [facility] [address] [id number], [place] [id number] Mar, [facility] [id number], [place] [id number] Mar, [facility] [address] [id number], [place] [id number] Mar, Anorexia R63.0 [facility] [address] [facility] [id number], [place] [address] Mar, [facility] [address] [id number], [place] [id number] Mar, [facility] [address] [id number], [place] [id number] Feb, [facility] [address] [id number], [place] [id number] Feb, [facility] [address] [facility] [id number], [place] [address] Feb, Urinary tract infection without hematuria, site unspecified N39.0 [facility] [place] [address] [id number], [place] [address] January, Anorexia R63.0 [facility] [address]00565100[place], [place] [address] January, [facility] [address] [id number] [id number] January, [facility] [place] [address]00565100[place], [place] [address] January, Dementia F03.90 [facility] [id number] [place] [id number] January, [facility] [address] [place] [id number] Dec, Left hip pain M25.552 and Dementia F03.90 [facility] [id number] [place] [id number] Dec, [facility] [id number] [place] [id number] Nov, [facility] [place] [address] [id number], [place] [address] Oct, [facility] [address] [place] [id number] Oct, Dementia F03.90 and Other depression F32.89 [facility] [address] [place] [id number] Oct, Dementia F03.90 ; Essential (primary) hypertension I10 and COPD (chronic obstructive pulmonary disease) J44.9 [facility] [place] [address] [id number], [place] [address] Oct, [facility] [place] [address]00565100[place], [place] [address] Sep, [facility] [address] [place] [id number] Aug, COPD (chronic obstructive pulmonary disease) J44.9 and Dementia F03.90 [facility] [address] [place] [id number] Jun, Dementia F03.90 and COPD (chronic obstructive pulmonary disease) J44.[address] [facility] [address] [place] [id number] Apr, COPD (chronic obstructive pulmonary disease) J44.9 and Essential (primary) hypertension I10 [facility] [place] [id number] [place] [address] Apr, [facility] [place] [address] [address] Mar, [facility] [place] [id number] [place] [address]- 2517 Mar, COPD (chronic obstructive pulmonary disease) J44.9 [address] [facility] [id number] [place] [address] January, COPD (chronic obstructive pulmonary disease) J44.9 and Allergy, subsequent encounter T78.40XD [place] [id number] [place] [address]- 6[address] Nov, COPD (chronic obstructive pulmonary disease) J44.9 ; Dementia F03.90 and Essential (primary) hypertension I10 [facility] [place] [id number] [place] [address]- 8916 Oct, COPD (chronic obstructive pulmonary disease) J44.9 [facility] [place] [id number] [place] [address]257- 4926 Sep, COPD (chronic obstructive pulmonary disease) J44.9 [facility] [place] [id number] [place] [address]35[address]- 9533 Sep, Essential (primary) hypertension I10 [facility] [place] [id number] [place] [address]83- 9932 Sep, Dementia F03.90 and Essential hypertension, benign 401.1 [facility] [place] [id number] [place] [address]19- [address] Jul, Dementia F03.90 and COPD (chronic obstructive pulmonary disease) J44.9 [facility] [place] [address]00565100[place], [place] [address] Jun, [facility] [place] [id number] [place] [address] 36695- 5568 Jun, [facility] [place] [address]65[address] [address] May, Chronic airway obstruction, not elsewhere classified 496 and Essential hypertension, benign 401.1 [facility] [place] [id number] [place] [address]67- 4844 Mar, Essential hypertension, benign 401.1 and Dementia 294.20 [facility] [place] [id number] [place] [address]955- 7044 January, Dementia 294.20 [facility] [place] [id number] [place] [address] 98487- 2635 Dec, [facility] [place] [id number] [place] [address]003- [address]25 Dec, [facility] [address] [place] [id number] Nov, [facility] [place] [id number] [place] [address]3859- 0681 Nov, [facility] [place] [address]65100[place], [place] [address] 0[address] Sep, [facility] [place] [address]65[address], [place] [address] Sep, [facility] [place] [address]65[address]- [address] Aug, [facility] [place] [id number] [place] [address] 516522- 8134 Aug, [facility] [place] [address]65[address], [place] [address] Jul, [facility] [place] [id number] [place] [address] 35548- 2142 Jul, [facility] [place] [facility] [address] [id number] [place] [address]- [address] Jun, [facility] [place] [facility] [address] [id number] [place] [address]- 6463 Jun, [facility] [place] [facility] [address] [id number] [place] [address]- 9301 Mar, [facility] [place] [facility] [address] [id number] [place] [address]- 0805 Mar, [facility] [place] [facility] [address] [id number] [place] [address]- 4396 Mar, [facility] [place] [facility] [address] [id number] [place] [address]- 7180 Mar, [facility] [place] [facility] [address] [id number] [place] [address]- 8161 Mar, [facility] [place] [facility] [address] [id number] [place] [address]- 5318 Mar, [facility] [place] [facility] [address] [id number] [place] [address]- 5[address] January, [facility] [place] [facility] [address] [id number] [place] [address]- 1596 January, [facility] [place] [facility] [address] [id number] [place] [address]- 0576 January, [facility] [place] [facility] [address] [id number] [place] [address]- 9140 January, [facility] [place] [facility] [address] [id number] [place] [address]- 6018 January, [facility] [place] [facility] [address] [id number] [place] [address]- 3924 Aug, [facility] [place] [facility] [address] [id number] [place] [address]- 7328 Aug, [facility] [place] [facility] [address] [id number] [place] [address]- 6946 Mar, [facility] [address] [id number] [place] [address]- 6072 Mar, [facility] [place] [facility] [address] [id number] [place] [address]- 7751 Jun, [facility] [place] [facility] [address] [id number] [place] [address]- 8990 Jun, [facility] [place] [facility] [address] [id number] [place] [address]- 5372 Jun, [facility] [place] [facility] [address] [id number] [place] [address]- 2819 Jun, [facility] [place] [facility] [address] [id number] [place] [address]- 9238 Jun, [facility] [place] [facility] [address] [id number] [place] [address]- 1704 Jun, [facility] [place] [facility] [address] [id number] [place] [address]- 5780 Jun, [facility] [place] [facility] [address] [id number] [place] [address]- 9628 Apr, [facility] [place] [facility] [address] [facility] [id number] [place] [address]- 2624 Feb, [facility] [place] [facility] [address] [id number] [place] [address]- 4303 15 Oct, 2010 [facility] [place] [facility] [address] [id number] [place] [address]- 2541 Aug, [facility] [place] [facility] [address] [id number] [place] [address] 2546 27 Aug, 2010 [facility] [place] [facility] [address] [id number] [place] [address]- 2546 14 Aug, 2010 [facility] [place] [facility] [address] [id number] [place] [address]- 2128 Aug, [facility] [place] [address] [facility] [id number], [place] [address]- 99[address] Apr, [facility] [place] [address] [facility] [id number], [place] [address] 2546 January, [facility] [place] [address] [facility] [id number], [place] [address] 2546 January, [facility] [place] [address] [facility] [id number] [address] 2546 Dec, IMMUNIZATIONS No Known Immunizations SOCIAL HISTORY Never Assessed REASON FOR VISIT Routine visit PLAN OF CARE Activity Details Follow Up prn Reason: VITAL SIGNS MEDICATIONS Medication Instructions Dosage Frequency Start Date End Date Duration Status Flonase 50 MCG/ACT Nasally Once a day 2 spray in each nostril 24h Active Ibuprofen 400 mg Orally every 6 hours as needed 1 tablet with food or milk as needed Dec, Active Symbicort 80-4.5 MCG/ACT Inhalation Twice a day 2 puffs 12h Active Incruse Ellipta 62.5 MCG/INH Inhalation Once a day 1 puff 24h Active Tylenol 325 MG Orally every 4 hrs 2 tablets as needed 4h Active Exelon 9.5 MG/24HR Transdermal Once a day 1 patch to skin 24h January, Active Synthroid 75 MCG Orally Once a day 1 tablet 24h January, Active Melatonin 3 MG Orally Once a day 1 tablet at bedtime as needed with food 24h Apr, Active Cyanocobalamin 1000 MCG/ML Injection every 2 weeks 1000mcg Active Namzaric 14-10 MG Orally Once a day 1 capsule in the evening 24h Apr, 30 day(s) Active Toprol XL 50 MG Orally Once a day 1 tablet 24h 24 Apr, 2017 30 day(s) Active Tylenol 325 MG Orally 2 times a day 2 tablets 12h Nov, Active Vitamin D3 1000 UNIT Orally Once a day 2 tablets 24h Active Tramadol HCl 50 mg Orally 2 times a day 2 tablets 12h Feb, 28 days Active RESULTS No Results PROCEDURES Procedure Date Ordered Result Body Site Stable Visit (10 minutes) Jun 24, 2017 INSTRUCTIONS MEDICATIONS ADMINISTERED No Known Medications
--- OUTSIDE RECORDS SUMMARY | 2018-08-22 16:13 | XMS REPORT ---
Author Author TEJ CHILEL [facility] Address [address] [place] [address] Care Team Providers Care [employer] Name Role Phone TEJ CHILEL Unavailable PROBLEMS Type Condition ICD9-CM Code HYG53-WP Code Onset Dates Condition Status SNOMED Code Problem Primary insomnia F51.01 Active 4407476 Problem Recurrent major depressive disorder, remission status unspecified F33.9 Active 56597570 Problem Brief psychotic disorder F23 Active 7704474 Problem Acquired hypothyroidism E03.9 Active 013455435 Problem Anorexia R63.0 Active 53289175 Problem Essential (primary) hypertension I10 Active 93258243 Problem COPD (chronic obstructive pulmonary disease) J44.9 Active 68017716 Problem Hyperlipidemia, unspecified hyperlipidemia type E78.5 Active 61649156 Problem 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 Active 74099809 Problem Allergy, subsequent encounter T78.40XD Active 905137937 Problem Dementia F03.90 Active 92780867 ALLERGIES No Information ENCOUNTERS Encounter Location Date Diagnosis [facility] [address] [place] [id number] Nov, Dementia F03.90 and COPD (chronic obstructive pulmonary disease) J44.9 [facility] [address] [id number] [place] [id number] Nov, [facility] [address] [id number] [place] [id number] Oct, [facility] [address] [place] [id number] Sep, Anemia, unspecified type D64.9 [facility] [address] [facility] [id number] [place] [address] Sep, [facility] [address] [facility] [id number] [place] [address] Sep, [facility] [address] [id number] [place] [id number] Sep, [facility] [address] [id number] [place] [address] Aug, [facility] [address] [id number] [place] [id number] Aug, [facility] [address] [facility] [id number] [place] [address] Aug, [facility] [address] [id number] [place] [id number] Aug, [facility] [address] [facility] [id number] [place] [address] Aug, [facility] [address] [facility] [id number] [place] [address] Jul, [facility] [id number] [place] [id number] Jul, [facility] [address] [id number] [place] [address] Jul, [facility] [address] [id number] [place] [address] Jun, [facility] [address] [facility] [id number] [place] [address] Jun, [facility] [address] [facility] [place] [id number] Jun, Left hip pain M25.552 and Dementia F03.90 [facility] [address] [id number] [place] [address] 29 May, 2017 [facility] [address] [id number] [place] [id number] May, [facility] [address] [id number] [place] [address] May, [facility] [address] [facility] [id number] [place] [address] May, [facility] [address] [id number] [place] [id number] Apr, [facility] [address] [facility] [id number] [place] [address] Apr, [facility] [address] [facility] [id number] [place] [address] Apr, [facility] [place] [facility] [address] [id number] [place] [address] Apr, Dementia F03.90 [facility] [address] [facility] [id number] [place] [address] Apr, [facility] [address] [place] [address] Apr, [facility] [address] [place] [id number] Apr, Edema of both legs R60.0 [facility] [id number] [place] [address] Mar, [facility] [place] [facility] [address] [id number] [place] [address] Mar, [facility] [address] [id number] [place] [address] Mar, Anorexia R63.0 [facility] [address] [facility] [id number] [place] [address] Mar, [facility] [id number] [place] [address] Mar, [facility] [address] [id number] [place] [address] Feb, [facility] [place] [facility] [address] [id number] [place] [address] Feb, [facility] [address] [facility] [id number] [place] [address] Feb, Urinary tract infection without hematuria, site unspecified N39.0 [facility] [address] [id number] [place] [address] January, Anorexia R63.0 [facility] [address] [facility] [id number] [place] [address] January, [facility] [address] [id number] [place] [address] January, [facility] [address] [id number] [place] [address] January, Dementia F03.90 [facility] [address] [id number] [place] [address] January, [facility] [address] [place] [address] Dec, Left hip pain M25.552 and Dementia F03.90 [facility] [id number] [place] [address] Dec, [facility] [address] [id number] [place] [address] Nov, [facility] [address]65100[address] [place] [address] Oct, [facility] [address] [place], [place] [id number] Oct, Dementia F03.90 and Other depression F32.89 [facility] [address] [place] [id number] Oct, Dementia F03.90 ; Essential (primary) hypertension I10 and COPD (chronic obstructive pulmonary disease) J44.9 [facility] [address] [id number] [place] [address] Oct, [facility] [address] [id number] [place] [address] Sep, [facility] [address] [place] [id number] Aug, COPD (chronic obstructive pulmonary disease) J44.9 and Dementia F03.90 [facility] [address] [place] [id number] Jun, Dementia F03.90 and COPD (chronic obstructive pulmonary disease) J44.9 [facility] [address] [place] [id number] Apr, COPD (chronic obstructive pulmonary disease) J44.9 and Essential (primary) hypertension I10 [facility] [id number] [place] [address] Apr, [facility] [id number] [place] [address] Mar, [facility] [address] [address] Mar, COPD (chronic obstructive pulmonary disease) J44.9 [facility] [id number] [place] [address] January, COPD (chronic obstructive pulmonary disease) J44.9 and Allergy, subsequent encounter T78.40XD [facility] [id number] [place] [address] Nov, COPD (chronic obstructive pulmonary disease) J44.9 ; Dementia F03.90 and Essential (primary) hypertension I10 [facility] [id number] [place] [address] Oct, COPD (chronic obstructive pulmonary disease) J44.9 [facility] [id number] [place] [address] Sep, COPD (chronic obstructive pulmonary disease) J44.9 [facility] [id number] [place] [address]99 Sep, Essential (primary) hypertension I10 [facility] [address] [place] [address] 4834 Sep, Dementia F03.90 and Essential hypertension, benign 401.1 [facility] [id number] [place] [address] 3618 Jul, Dementia F03.90 and COPD (chronic obstructive pulmonary disease) J44.9 [facility] [id number] [place] [address] 9767 Jun, [facility] [address]65100[place] [address] Jun, [facility] [address] [place] [address] 4084 May, Chronic airway obstruction, not elsewhere classified 496 and Essential hypertension, benign 401.1 [facility] [id number] [place] [address]87- 1659 Mar, Essential hypertension, benign 401.1 and Dementia 294.20 [facility] [id number] [place] [address]- [address]496 January, Dementia 294.20 [facility] [id number] [place] [address]- 8898 Dec, [facility] [address] [place] [address]- [address] Dec, [facility] [address] [place] [address] Nov, [facility] [address] [address] Nov, [facility] [address] [place] [address]164- 7521 Sep, [facility] [address]65[address] [address] 3[address] Sep, [facility] [address] [address] 69[address] Aug, [facility] [address] [address] 37[address] Aug, [facility] [address] [place] [address]- 8686 Jul, [facility] [address] [address] 8146 Jul, [facility] [address] [address]- 6725 Jun, [facility] [place] [facility] [address] [id number] [place] Jun, [facility] [place] [facility] [address] [id number] [place] [address] Mar, [facility] [place] [facility] [address] [id number] [place] [address] Mar, [facility] [place] [facility] [address] [id number] [place] [address]- 6566 Mar, [facility] [place] [facility] [address] [id number] [place] [address]- 6866 Mar, [facility] [place] [facility] [address] [id number] [place] [address]- 5213 Mar, [facility] [place] [facility] [address] [id number] [place] [address]- 6221 Mar, [facility] [place] [facility] [address] [id number] [place] [address] January, [facility] [place] [facility] [address] [id number] [place] [address]- 8312 January, [facility] [place] [facility] [address] [id number] [place] [address]- 9191 January, [facility] [place] [facility] [address] [id number] [place] [address]- 4819 January, [facility] [place] [facility] [address] [id number] [place] [address]- 1328 January, [facility] [place] [facility] [address] [id number] [place] [address]- 0081 Aug, [facility] [place] [facility] [address] [id number] [place] [address]- 2737 Aug, [facility] [place] [facility] [address] [id number] [place] Mar, [facility] [place] [facility] [address] [id number] [place] [address]- 2972 Mar, [facility] [place] [facility] [address] [id number] [place] [address]- 9963 Jun, [facility] [place] [facility] [address] [id number] [place] [address]- 2526 Jun, [facility] [place] [facility] [address] [id number] [place] [address]- 4011 Jun, [facility] [place] [facility] [address] [id number] [place] [address] 254 Jun, [facility] [place] [facility] [address] [id number] [place] [address]- 1121 Jun, [facility] [place] [facility] [address] [id number] [place] [address]- 2298 Jun, [facility] [place] [facility] [address] [id number] [place] [address] Jun, [facility] [place] [facility] [address] [id number] [place] [address]- 1749 Apr, [facility] [place] [facility] [address] [id number] [place] [address]- 1513 Feb, [facility] [place] [facility] [address] [id number] [place] [address]- 7048 15 Oct, 2010 [facility] [place] [facility] [address] [id number] [place] [address] 2541 28 Aug, 2010 [facility] [place] [facility] [address] [id number] [place] [address]- 2547 27 Aug, 2010 [facility] [place] [facility] [address] [id number] [place] [address] 2546 14 Aug, 2010 [facility] [place] [facility] [address] [id number] [place] [address]- 2549 14 Aug, 2010 [facility] [place] [facility] [address] [id number] [place] [address]- 3421 Apr, [facility] [address] [facility] [id number] [place] [address]- [address] January, [facility] [address] [facility] [id number] [place] [address]- 7926 January, [facility] [address] [facility] [id number] [place] [address]- 4[address] Dec, IMMUNIZATIONS No Known Immunizations SOCIAL HISTORY Never Assessed REASON FOR VISIT Elevated blood pressure PLAN OF CARE VITAL SIGNS MEDICATIONS Medication Instructions Dosage Frequency Start Date End Date Duration Status Norvasc 10 MG Orally Once a day 1 tablet 24h Active RESULTS No Results PROCEDURES No Known procedures INSTRUCTIONS MEDICATIONS ADMINISTERED No Known Medications
--- OUTSIDE RECORDS SUMMARY | 2018-08-22 16:13 | XMS REPORT ---
Author Author TEJ CHILEL [facility] Address [address] [place] [address] Care Team Providers Care Lithopone Charger Name Role Phone TEJ CHILEL Unavailable PROBLEMS Type Condition ICD9-CM Code ALK58-KM Code Onset Dates Condition Status SNOMED Code Problem Primary insomnia F51.01 Active 2714213 Problem Recurrent major depressive disorder, remission status unspecified F33.9 Active 74052808 Problem Brief psychotic disorder F23 Active 9518149 Problem Acquired hypothyroidism E03.9 Active 877203771 Problem Anorexia R63.0 Active 63393083 Problem Essential (primary) hypertension I10 Active 53160446 Problem COPD (chronic obstructive pulmonary disease) J44.9 Active 89689910 Problem Hyperlipidemia, unspecified hyperlipidemia type E78.5 Active 37793462 Problem 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 Active 10576743 Problem Allergy, subsequent encounter T78.40XD Active 015701000 Problem Dementia F03.90 Active 88299168 ALLERGIES No Information ENCOUNTERS Encounter Location Date Diagnosis [facility] [address] [id number] [id number] Dec, [facility] [address] [place] [id number] Nov, Dementia F03.90 and COPD (chronic obstructive pulmonary disease) J44.9 [facility] [address] [id number] [id number] Nov, [facility] [id number] [place] [id number] Oct, [facility] [address] [place] [id number] Sep, Anemia, unspecified type D64.9 [facility] [address] [id number] [address] Sep, [facility] [place] [facility] [address] [id number] [address] Sep, [facility] [address] [id number] [place] [id number] Sep, [facility] [address] [id number] [place] [id number] Aug, [facility] [address] [id number] [place] [id number] Aug, [facility] [address] [id number] [place] [address] 2546 Aug, [facility] [address] [id number] [place] [id number] Aug, [facility] [address] [id number] [place] [address] Aug, [facility] [address] [id number] [place] [address] Jul, [facility] [address] [id number] [place] [id number] Jul, [facility] [address] [id number] [place] [id number] Jul, [facility] [address] [id number] [place] [id number] Jun, [facility] [address] [id number] [place] [address] Jun, [facility] [address] [place] [id number] Jun, Left hip pain M25.552 and Dementia F03.90 [facility] [address] [id number] [address] 29 May, 2017 [facility] [address] [id number] [place] [id number] May, [facility] [address] [id number] [place] [id number] 05 May, 2017 [facility] [address] [id number] [place] [address] May, [facility] [address] [id number] [place] [id number] Apr, [facility] [address] [facility] [id number] [place] [address] Apr, [facility] [address] [facility] [id number] [place] [address] Apr, [facility] [address] [id number] [id number] Apr, Dementia F03.90 [facility] [address] [facility] [id number] [place] [address] Apr, [facility] [address] [id number] [address] Apr, [facility] [address] [place] [id number] Apr, Edema of both legs R60.0 [facility] [address] [id number] [place] [id number] Mar, [facility] [id number] [place] [address] Mar, [facility] [address] [id number] [place] [id number] Mar, Anorexia R63.0 [facility] [address] [facility] [id number] [place] [address] Mar, [facility] [address] [id number] [place] [id number] Mar, [facility] [address] [id number] [place] [id number] Feb, [facility] [address] [id number] [place] [id number] Feb, [facility] [address] [facility] [id number] [place] [address] Feb, Urinary tract infection without hematuria, site unspecified N39.0 [facility] [address] [id number] [address] January, Anorexia R63.0 [facility] [address]00565100[place] [address] January, [facility] [address] [id number] [id number] January, [facility] [address]00565100[place] [address] January, Dementia F03.90 [facility] [id number] [place] [id number] January, [facility] [address] [place] [address] Dec, Left hip pain M25.552 and Dementia F03.90 [facility] [id number] [place] [id number] Dec, [facility] [id number] [place] [id number] Nov, [facility] [address] [id number] [address] Oct, [facility] [address] [place] [id number] Oct, Dementia F03.90 and Other depression F32.89 [facility] [address] [place] [id number] Oct, Dementia F03.90 ; Essential (primary) hypertension I10 and COPD (chronic obstructive pulmonary disease) J44.9 [facility] [address] [id number] [address] Oct, [facility] [address]00565100[place] [address] Sep, [facility] [address] [place] [id number] Aug, COPD (chronic obstructive pulmonary disease) J44.9 and Dementia F03.90 [facility] [address] [place] [id number] Jun, Dementia F03.90 and COPD (chronic obstructive pulmonary disease) J44.9 [facility] [address] [place], [place] [id number] Apr, COPD (chronic obstructive pulmonary disease) J44.9 and Essential (primary) hypertension I10 [facility] [id number] [place] [address]- [address]774 Apr, [facility] [address] [address] Mar, [facility] [id number] [place] [address]- 2072 Mar, COPD (chronic obstructive pulmonary disease) J44.9 [address] [facility] [id number] [place] [address]- [address] January, COPD (chronic obstructive pulmonary disease) J44.9 and Allergy, subsequent encounter T78.40[address] [place] [id number] [place] [address]- 2041 Nov, COPD (chronic obstructive pulmonary disease) J44.9 ; Dementia F03.90 and Essential (primary) hypertension I10 [facility] [id number] [place] [address]- 4036 Oct, COPD (chronic obstructive pulmonary disease) J44.9 [facility] [id number] [place] [address] 32367- 5391 Sep, COPD (chronic obstructive pulmonary disease) J44.9 [facility] [address] [place] [address]- 8496 Sep, Essential (primary) hypertension I10 [facility] [id number] [place] [address] 96[address]- 1028 Sep, Dementia F03.90 and Essential hypertension, benign 401.1 [facility] [id number] [place] [address]78[address]- 0093 Jul, Dementia F03.90 and COPD (chronic obstructive pulmonary disease) J44.9 [facility] [address]00565100[place] [address]- [address]45 Jun, [facility] [id number] [place] [address] 79854- 9236 Jun, [facility] [address]00565100[place] [address] May, Chronic airway obstruction, not elsewhere classified 496 and Essential hypertension, benign 401.1 [facility] [id number] [place] [address] 97778- 6799 Mar, Essential hypertension, benign 401.1 and Dementia 294.20 [facility] [id number] [place] [address] 01707- 5879 January, Dementia 294.20 [facility] [id number] [place] [address] 90704- 7743 Dec, [facility] [id number] [place] [address] 55672- 3828 Dec, [facility] [address] [place] [id number] Nov, [facility] [id number] [place] [address] 24466- 0342 Nov, [facility] [address]00565100[place] [address]- 9060 Sep, [facility] [address]00565100[place] [address]- 6788 Sep, [facility] [address]100[place] [address] Aug, [facility] [id number] [place] [address] 781428- 9876 Aug, [facility] [address]00565100[place] [address]- 6614 Jul, [facility] [address] [place] [address] 73983- 2987 Jul, [facility] [place] [facility] [address] [id number] [place] [address]- 1912 Jun, [facility] [place] [facility] [address] [id number] [place] [address]- 6877 Jun, [facility] [place] [facility] [address] [id number] [place] [address]- 5494 Mar, [facility] [place] [facility] [address] [id number] [place] [address]- 7876 Mar, [facility] [place] [facility] [address] [id number] [place] [address]- 3841 Mar, [facility] [place] [facility] [address] [id number] [place] [address]- 3765 Mar, [facility] [place] [facility] [address] [id number] [place] [address]- 2901 Mar, [facility] [place] [facility] [address] [id number] [place] [address]- 8295 Mar, [facility] [place] [facility] [address] [id number] [place] [address]- 6175 January, [facility] [place] [facility] [address] [id number] [place] [address]- 5942 January, [facility] [place] [facility] [address] [id number] [place] [address]- 0321 January, [facility] [place] [facility] [address] [id number] [place] [address]- 0180 January, [facility] [place] [facility] [address] [id number] [place] [address]- 1186 January, [facility] [place] [facility] [address] [id number] [place] [address]- 5209 Aug, [facility] [place] [facility] [address] [id number] [place] [address]- 3602 Aug, [facility] [place] [facility] [address] [id number] [place] [address]- 1953 Mar, [facility] [address] [id number] [place] [address]- 2211 Mar, [facility] [place] [facility] [address] [id number] [place] [address]- 2831 Jun, [facility] [place] [facility] [address] [id number] [place] [address]- 3429 Jun, [facility] [place] [facility] [address] [id number] [place] [address]- 6720 Jun, [facility] [place] [facility] [address] [id number] [place] [address]- 8890 Jun, [facility] [place] [facility] [address] [id number] [place] [address]- 7245 Jun, [facility] [place] [facility] [address] [id number] [place] [address]- 1495 Jun, [facility] [place] [facility] [address] [id number] [place] [address]- 7441 Jun, [facility] [place] [facility] [address] [id number] [place] [address]- 6990 Apr, [facility] [place] [facility] [address] [facility] [id number] [place] [address]- 2756 Feb, [facility] [place] [facility] [address] [id number] [place] [address]- 3473 15 Oct, 2010 [facility] [place] [facility] [address] [id number] [place] [address]- 2547 Aug, [facility] [place] [facility] [address] [id number] [place] [address] 2546 27 Aug, 2010 [facility] [place] [facility] [address] [id number] [place] [address]- 2546 14 Aug, 2010 [facility] [place] [facility] [address] [id number] [place] [address]- 5858 Aug, [facility] [address] [facility] [id number] [address]- 2546 Apr, [facility] [address] [id number] [address]- 2546 January, [facility] [address] [facility] [id number] [address]- 2546 January, [facility] [address] [id number] [address]- 2546 Dec, IMMUNIZATIONS No Known Immunizations SOCIAL [...]
--- OUTSIDE RECORDS SUMMARY | 2018-08-22 16:14 | XMS REPORT ---
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 Name Role Phone TEJ CHILEL Unavailable PROBLEMS Type Condition ICD9-CM Code NEF76-XG Code Onset Dates Condition Status SNOMED Code Problem Primary insomnia F51.01 Active 7836743 Problem Recurrent major depressive disorder, remission status unspecified F33.9 Active 61223385 Problem Brief psychotic disorder F23 Active 8776239 Problem Acquired hypothyroidism E03.9 Active 518991868 Problem Anorexia R63.0 Active 99380659 Problem Essential (primary) hypertension I10 Active 06228129 Problem COPD (chronic obstructive pulmonary disease) J44.9 Active 16257435 Problem Hyperlipidemia, unspecified hyperlipidemia type E78.5 Active 50139004 Problem 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 Active 25861215 Problem Allergy, subsequent encounter T78.40XD Active 332583520 Problem Dementia F03.90 Active 77387126 ALLERGIES No Information ENCOUNTERS Encounter Location Date Diagnosis [place] [address] [id number] [address] January, [place] [address] [place] [address] Dec, [facility] [address] [place] [id number] Nov, Dementia F03.90 and COPD (chronic obstructive pulmonary disease) J44.9 [facility] [address] [id number] [id number] Nov, [place] [id number] [place] [address] [id number] 13 Oct, 2017 [facility] [address] [place] [id number] Sep, Anemia, unspecified type D64.9 [place] [address] [id number], [place] [address] Sep, [facility] [address] [facility] [id number], [place] [address] Sep, [facility] [address] [id number][place] [id number] Sep, [facility] [address] [id number] [id number] Aug, [facility] [address] [id number][place] [id number] Aug, [facility] [address] [facility] [id number], [place] [address] Aug, [facility] [address] [id number][place] [id number] Aug, [facility] [address], [place] [address] Aug, [facility] [address] [facility] [id number], [place] [address] Jul, [facility] [id number] [id number] Jul, [facility] [address] [id number][place] [id number] Jul, [facility] [id number][place] [id number] Jun, [facility] [address] [facility] [id number], [place] [address] Jun, [facility] [address] [facility] [address] [place] [id number] Jun, Left hip pain M25.552 and Dementia F03.90 [facility] [address] [id number], [place] [address] 29 May, 2017 [facility] [address] [id number][place] [id number] 13 May, 2017 [facility] [address] [id number][place] [id number] May, [facility] [address] [facility] [id number], [place] [address] May, [facility] [address] [id number][place] [id number] Apr, [facility] [address] [facility] [id number][place] [address] Apr, [facility] [address] [facility] [id number][place] [address] Apr, [facility] [address] [id number][place] [id number] Apr, Dementia F03.90 [facility] [address] [facility] [id number], [place] [address] Apr, [facility] [address], [place] [address] Apr, [facility] [address] [place] [id number] Apr, Edema of both legs R60.0 [facility] [address] [id number] [id number] Mar, [facility] [address] [id number], [place] [id number] Mar, [facility] [address] [id number][place] [id number] Mar, Anorexia R63.0 [facility] [address] [facility] [id number], [place] [address] Mar, [facility] [address] [id number][place] [id number] Mar, [facility] [address] [id number][place] [id number] Feb, [facility] [address] [id number][place] [id number] Feb, [facility] [address] [id number], [place] [address] Feb, Urinary tract infection without hematuria, site unspecified N39.0 [facility] [address]65100[place], [place] [address] January, Anorexia R63.0 [facility] [address], [place] [address] January, [facility] [id number] [place] [address] [id number] January, [facility] [address]65100[place], [place] [address] January, Dementia F03.90 [facility] [id number] [place] [address] [id number] January, [facility] [address] [place] [id number] Dec, Left hip pain M25.552 and Dementia F03.90 [facility] [id number], [place] [id number] Dec, [facility] [id number] [place] [id number] Nov, [facility] [address] [id number], [place] [address] Oct, [facility] [address] [place] [id number] Oct, Dementia F03.90 and Other depression F32.89 [facility] [address] [place] [id number] Oct, Dementia F03.90 ; Essential (primary) hypertension I10 and COPD (chronic obstructive pulmonary disease) J44.9 [facility] [address]65100[place], [place] [address] Oct, [facility] [address] [id number], [place] [address] Sep, [facility] [address] [place] [id number] Aug, COPD (chronic obstructive pulmonary disease) J44.9 and Dementia F03.90 [facility] [address] [place] [id number] Jun, Dementia F03.90 and COPD (chronic obstructive pulmonary disease) J44.9 [facility] [address] [place] [id number] Apr, COPD (chronic obstructive pulmonary disease) J44.9 and Essential (primary) hypertension I10 [facility] [address] [address] Apr, [facility] [address] [address] Mar, [facility] [address] [address] Mar, COPD (chronic obstructive pulmonary disease) J44.9 [facility] [id number] [place] [address] January, COPD (chronic obstructive pulmonary disease) J44.9 and Allergy, subsequent encounter T78.40XD [facility] [id number] [place] [address] Nov, COPD (chronic obstructive pulmonary disease) J44.9 ; Dementia F03.90 and Essential (primary) hypertension I10 [facility] [id number] [place] [address] Oct, COPD (chronic obstructive pulmonary disease) J44.9 [facility] [id number] [place] [address]- [address] Sep, COPD (chronic obstructive pulmonary disease) J44.9 [facility] [id number] [place] [address] 62[address]- 6[address] Sep, Essential (primary) hypertension I10 [facility] [id number] [place] [address] 59[address] Sep, Dementia F03.90 and Essential hypertension, benign 401.1 [facility] [address] [place] [address]- [address] Jul, Dementia F03.90 and COPD (chronic obstructive pulmonary disease) J44.9 [facility] [id number] [place] [address] Jun, [facility] [address] [id number] [address] Jun, [facility] [id number] [place] [address] 624469- 8316 May, Chronic airway obstruction, not elsewhere classified 496 and Essential hypertension, benign 401.1 [facility] [id number] [place] [address]654- [address] Mar, Essential hypertension, benign 401.1 and Dementia 294.20 [facility] [id number] [place] [address]666- 0710 January, Dementia 294.20 [facility] [id number] [place] [address]- 6120 Dec, [facility] [address] [place] [address]- 3456 Dec, [facility] [address] [place] [id number] Nov, [facility] [address]100[place], [place] [address] Nov, [facility] [address]65100[place], [place] [address]- 1607 Sep, [facility] [address]65100[place], [place] [address]- 78[address] Sep, [facility] [address] [id number] [address] Aug, [facility] [address] Aug, [facility] [address] [place] [address]- 6311 Jul, [facility] [place] [facility] [address] [id number] [place] [address]- 76[address] Jul, [facility] [place] [facility] [address] [id number] [place] [address]- 5356 Jun, [facility] [place] [facility] [address] [id number] [place] [address]- 6230 Jun, [facility] [place] [facility] [address] [id number] [place] [address]- 6256 Mar, [facility] [place] [facility] [address] [id number] [place] [address] Mar, [facility] [place] [facility] [address] [id number] [place] [address]- 3449 Mar, [facility] [place] [facility] [address] [id number] [place] [address]- 0225 Mar, [facility] [place] [facility] [address] [id number] [place] [address]- 5719 Mar, [facility] [place] [facility] [address] [id number] [place] [address]- 4853 Mar, [facility] [place] [facility] [address] [id number] [place] [address]- 6981 January, [facility] [place] [facility] [address] [id number] [place] [address]- 1020 January, [facility] [place] [facility] [address] [id number], [place] [address]- 3280 January, [facility] [place] [facility] [address] [id number] [place] [address]- 6889 January, [facility] [place] [facility] [address] [id number] [place] [address]- 2889 January, [facility] [place] [facility] [address] [id number] [place] [address]- 4296 Aug, [facility] [place] [facility] [address] [id number] [place] [address]- 6769 27 Aug, 2013 [facility] [place] [facility] [address] [id number] [place] [address]- 2384 Mar, [facility] [place] [facility] [address] [id number] [place] [address]- 7696 Mar, [facility] [place] [facility] [address] [id number] [place] [address]- 2220 Jun, [facility] [place] [facility] [address] [id number] [place] [address]- 6003 Jun, [facility] [place] [facility] [address] [id number] [place] [address]- 9158 Jun, [facility] [place] [facility] [address] [id number] [place] [address]- 5634 Jun, [facility] [place] [facility] [address] [id number] [place] [address]- 0084 Jun, [facility] [place] [facility] [address] [id number] [place] [address]- 3991 Jun, [facility] [place] [facility] [address] [id number] [place] [address]- 5617 Jun, [facility] [place] [facility] [address] [facility] [id number] [place] [address]- 7490 Apr, [facility] [place] [facility] [address] [id number] [place] [address]- 3167 Feb, [facility] [place] [facility] [address] [id number] [place] [address]- 5626 15 Oct, 2010 [facility] [place] [facility] [address] [id number] [place] [address]- 9508 28 Aug, 2010 [facility] [place] [facility] [address] [id number] [place] [address]- 2547 27 Aug, 2010 [facility] [place] [facility] [address] [id number] [place] [address] Aug, [facility] [address] [facility] [id number], [place] [address]- 25[address] Aug, [facility] [address] [id number], [place] [address]- 2546 Apr, [facility] [address] [id number], [place] [address]- 2546 January, [facility] [address] [id number], [place] [address]- 2546 January, [facility] [address] [facility] [id number], [place] [address]- 2546 Dec, IMMUNIZATIONS No Known Immunizations SOCIAL [...]
--- OUTSIDE RECORDS SUMMARY | 2018-08-22 16:14 | XMS REPORT ---
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 Name Role Phone TEJ CHILEL Unavailable PROBLEMS Type Condition ICD9-CM Code ARJ45-VW Code Onset Dates Condition Status SNOMED Code Problem Primary insomnia F51.01 Active 7160358 Problem Recurrent major depressive disorder, remission status unspecified F33.9 Active 52324066 Problem Brief psychotic disorder F23 Active 0234335 Problem Acquired hypothyroidism E03.9 Active 551449924 Problem Anorexia R63.0 Active 36941335 Problem Essential (primary) hypertension I10 Active 19935201 Problem COPD (chronic obstructive pulmonary disease) J44.9 Active 62630884 Problem Hyperlipidemia, unspecified hyperlipidemia type E78.5 Active 60918449 Problem 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 Active 55946441 Problem Allergy, subsequent encounter T78.40XD Active 430188112 Problem Dementia F03.90 Active 92938876 ALLERGIES No Information ENCOUNTERS Encounter Location Date Diagnosis [facility] [address] [place] [id number] Nov, Dementia F03.90 and COPD (chronic obstructive pulmonary disease) J44.9 [facility] [address] [id number] [id number] Nov, [facility] [address] [id number][place] [id number] Oct, [facility] [address] [place] [id number] Sep, Anemia, unspecified type D64.9 [facility] [address] [facility] [id number], [place] [address] Sep, [facility] [address] [facility] [id number][place] [address] Sep, [facility] [address] [id number][place] [id number] Sep, [facility] [address] [id number][place] [id number] Aug, [facility] [address] [id number][place] [address] Aug, [facility] [address] [facility] [id number], [place] [address] Aug, [facility] [address] [id number][place] [id number] Aug, [facility] [address] [facility] [id number], [place] [address] Aug, [facility] [address] [facility] [id number], [place] [address] Jul, [facility] [id number], [place] [id number] Jul, [facility] [address] [id number] [id number] Jul, [facility] [address] [id number][place] [address] Jun, [facility] [address] [facility] [id number], [place] [address] Jun, [facility] [address] [facility] [place] [place] [address] Jun, Left hip pain M25.552 and Dementia F03.90 [facility] [address] [id number], [place] [address] 29 May, 2017 [facility] [address] [id number][place] [id number] May, [facility] [address] [id number][place] [id number] May, [facility] [address] [facility] [id number], [place] [address] May, [facility] [address] [id number], [place] [id number] Apr, [facility] [address] [facility] [id number], [place] [address] Apr, [facility] [address] [facility] [id number], [place] [address] Apr, [facility] [address] [id number][place] [address] Apr, Dementia F03.90 [facility] [address] [facility] [id number][place] [address] Apr, [facility] [address]00565100[address], [place] [address] Apr, [facility] [address] [place] [id number] Apr, Edema of both legs R60.0 [facility] [id number], [place] [id number] Mar, [facility] [address] [id number], [place] [id number] Mar, [facility] [address] [id number], [place] [id number] Mar, Anorexia R63.0 [facility] [address] [facility] [id number], [place] [address] Mar, [facility] [id number], [place] [id number] Mar, [facility] [address] [id number], [place] [address] Feb, [facility] [address] [id number], [place] [address] Feb, [facility] [address] [facility] [id number], [place] [address] Feb, Urinary tract infection without hematuria, site unspecified N39.0 [facility] [address] [id number], [place] [address] January, Anorexia R63.0 [facility] [address] [facility] [id number], [place] [address] January, [facility] [address] [id number], [place] [id number] January, [facility] [address] [id number], [place] [address] January, Dementia F03.90 [facility] [address] [id number], [place] [address] January, [facility] [address] [place] [address] Dec, Left hip pain M25.552 and Dementia F03.90 [facility] [id number], [place] [address] Dec, [facility] [address] [id number], [place] [address] Nov, [facility] [address]00565100J[place], [place] [address] Oct, [facility] [address] [place], [place] [id number] Oct, Dementia F03.90 and Other depression F32.89 [facility] [address] [place] [address] Oct, Dementia F03.90 ; Essential (primary) hypertension I10 and COPD (chronic obstructive pulmonary disease) J44.9 [facility] [address] [id number], [place] [address] Oct, [facility] [address] [id number], [place] [address] Sep, [facility] [address] [place] [id number] Aug, COPD (chronic obstructive pulmonary disease) J44.9 and Dementia F03.90 [facility] [address] [place], [place] [id number] Jun, Dementia F03.90 and COPD (chronic obstructive pulmonary disease) J44.9 [facility] [address] [place] [id number] Apr, COPD (chronic obstructive pulmonary disease) J44.9 and Essential (primary) hypertension I10 [facility] [id number] [place] [address] Apr, [facility] [id number] [place] [address] Mar, [facility] [address] [address] Mar, COPD (chronic obstructive pulmonary disease) J44.9 [facility] [id number] [place] [address] January, COPD (chronic obstructive pulmonary disease) J44.9 and Allergy, subsequent encounter T78.40XD [place] [id number] [place] [address] Nov, COPD (chronic obstructive pulmonary disease) J44.9 ; Dementia F03.90 and Essential (primary) hypertension I10 [facility] [id number] [place] [address] Oct, COPD (chronic obstructive pulmonary disease) J44.9 [facility] [id number] [place] [address] Sep, COPD (chronic obstructive pulmonary disease) J44.9 [facility] [id number] [place] [address] Sep, Essential (primary) hypertension I10 [facility] [address] [place] [address] Sep, Dementia F03.90 and Essential hypertension, benign 401.1 [facility] [id number] [place] [address] Jul, Dementia F03.90 and COPD (chronic obstructive pulmonary disease) J44.9 [facility] [id number] [place] [address] Jun, [facility] [address]00565100[place], [place] [address] Jun, [facility] [address] [place] [address] May, Chronic airway obstruction, not elsewhere classified 496 and Essential hypertension, benign 401.1 [facility] [id number] [place] [address]- 9521 Mar, Essential hypertension, benign 401.1 and Dementia 294.20 [facility] [id number] [place] [address]- [address] January, Dementia 294.20 [facility] [id number] [place] [address]6083- 1816 Dec, [facility] [id number] [place] [address]- [address] Dec, [facility] [address] [place] [id number] Nov, [facility] [address]65100[place], [place] [address] Nov, [facility] [id number] [place] [address]- 1509 Sep, [facility] [address]65100[place], [place] [address] Sep, [facility] [address]65100[place], [place] [address] Aug, [facility] [address]65100[place], [place] [address] Aug, [facility] [address]65100[place], [place] [address] 65[address] Jul, [facility] [address]65100[place], [place] [address] Jul, [facility] [address]65100[place], [place] [address] Jun, [facility] [place] [facility] [address] [id number] [place] Jun, [facility] [place] [facility] [address] [id number] [place] [address] Mar, [facility] [place] [facility] [address] [id number] [place] [address] Mar, [facility] [place] [facility] [address] [id number] [place] [address]- 8027 Mar, [facility] [place] [facility] [address] [id number] [place] [address]- 7[address] Mar, [facility] [place] [facility] [address] [id number] [place] [address]- 9361 Mar, [facility] [place] [facility] [address] [id number] [place] [address]- 2964 Mar, [facility] [place] [facility] [address] [id number] [place] [address]- 1795 January, [facility] [place] [facility] [address] [id number] [place] [address]- 3859 January, [facility] [place] [facility] [address] [id number] [place] [address]- 4516 January, [facility] [place] [facility] [address] [id number] [place] [address]- 1603 January, [facility] [place] [facility] [address] [id number] [place] [address]- 8536 January, [facility] [place] [facility] [address] [id number] [place] [address]- 7511 Aug, [facility] [place] [facility] [address] [id number] [place] [address]- 0761 Aug, [facility] [place] [facility] [address] [id number] [place] [address] Mar, [facility] [place] [facility] [address] [id number] [place] [address]- 7013 Mar, [facility] [place] [facility] [address] [id number] [place] [address]- 7935 Jun, [facility] [place] [facility] [address] [id number] [place] [address]- 5946 Jun, [facility] [place] [facility] [address] [id number] [place] [address]- 5327 Jun, [facility] [place] [facility] [address] [id number] [place] [address] 2548 Jun, [facility] [place] [facility] [address] [id number] [place] [address]- [address] Jun, [facility] [place] [facility] [address] [id number] [place] [address]- 2674 Jun, [facility] [place] [facility] [address] [id number] [place] [address]- 1097 Jun, [facility] [place] [facility] [address] [id number] [place] [address]- 7600 Apr, [facility] [place] [facility] [address] [id number] [place] [address]- 7701 Feb, [facility] [place] [facility] [address] [id number] [place] [address]- 7664 15 Oct, 2010 [facility] [place] [facility] [address] [id number] [place] [address] 2548 28 Aug, 2010 [facility] [place] [facility] [address] [id number] [place] [address]- 2543 27 Aug, 2010 [facility] [place] [facility] [address] [id number] [place] [address] 2546 14 Aug, 2010 [facility] [place] [facility] [address] [id number] [place] [address]- 2541 14 Aug, 2010 [facility] [place] [facility] [address] [id number] [place] [address]- 7919 Apr, [facility] [address] [facility] [id number] [place] [address]- [address] January, [facility] [address] [facility] [id number] [place] [address]- 2546 January, [facility] [address] [facility] [id number] [place] [address]- 2546 Dec, IMMUNIZATIONS No Known Immunizations SOCIAL HISTORY Never Assessed REASON FOR VISIT Increased fluid PLAN OF CARE VITAL SIGNS MEDICATIONS Medication Instructions Dosage Frequency Start Date End Date Duration Status Lasix 40 mg Orally twice a day 1 tablet 12h Feb, Mar, 05 days Active Klor-Con M20 20 meq Orally twice a day 1 tablet with food Feb, Mar, 05 days Active RESULTS No Results PROCEDURES No Known procedures INSTRUCTIONS MEDICATIONS ADMINISTERED No Known Medications
--- OUTSIDE RECORDS SUMMARY | 2018-08-22 16:14 | XMS REPORT ---
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
--- OUTSIDE RECORDS SUMMARY | 2018-08-22 16:14 | XMS REPORT ---
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 Name Role Phone JUAN DANIEL CASTELLANOS CP Unavailable Allergies No Known Allergies Problems Problem Type Condition Code Onset Dates Condition Status Problem Essential (primary) hypertension I10 Active Problem Dementia F03.90 Active Problem Allergy, subsequent encounter T78.40XD Active Assessment COPD (chronic obstructive pulmonary disease) J44.9 Active Assessment Essential (primary) hypertension I10 Active Problem COPD (chronic obstructive pulmonary disease) J44.9 Active Problem 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 Active Medications No Known Medications Procedures Procedure Coding System Code Date Stable Visit (10 minutes) CPT-4 99387 May 16, 2016 Results No Known Results Summary Purpose [employer] Submission
--- OUTSIDE RECORDS SUMMARY | 2018-08-22 16:14 | XMS REPORT ---
Author Author TEJ CHILEL [facility] Address [address] [place] [address] Care Team Providers Care Line Puller Name Role Phone TEJ CHILEL Unavailable PROBLEMS Type Condition ICD9-CM Code BIL74-CO Code Onset Dates Condition Status SNOMED Code Problem Primary insomnia F51.01 Active 7699433 Problem Recurrent major depressive disorder, remission status unspecified F33.9 Active 84015202 Problem Brief psychotic disorder F23 Active 9712858 Problem Acquired hypothyroidism E03.9 Active 999562108 Problem Anorexia R63.0 Active 34611785 Problem Essential (primary) hypertension I10 Active 48293136 Problem COPD (chronic obstructive pulmonary disease) J44.9 Active 97551053 Problem Hyperlipidemia, unspecified hyperlipidemia type E78.5 Active 78834674 Problem 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 Active 99147665 Problem Allergy, subsequent encounter T78.40XD Active 163837087 Problem Dementia F03.90 Active 55431255 ALLERGIES No Information ENCOUNTERS Encounter Location Date Diagnosis [facility] [address] [id number] Feb, Dementia F03.90 [facility] [address] [facility] [id number], [place] [address] Feb, [facility] [address] [id number], [place] [address] January, [facility] [address] [facility] [id number][place] [address] Dec, [facility] [address] [place] [id number] Nov, Dementia F03.90 and COPD (chronic obstructive pulmonary disease) J44.9 [facility] [place] [address] [id number] [id number] Nov, [facility] [place] [address] [id number] [id number] Oct, [facility] [address] [place] [id number] Sep, Anemia, unspecified type D64.9 [facility] [address] [id number], [place] [address] Sep, [facility] [address] [facility] [id number], [place] [address] Sep, [facility] [address] [id number][place] [id number] Sep, [facility] [address] [id number] [id number] Aug, [facility] [address] [id number][place] [address] Aug, [facility] [address] [id number], [place] [address] Aug, [facility] [address] [id number][place] [address] Aug, [facility] [address] [id number], [place] [address] Aug, [facility] [address] [id number], [place] [address] Jul, [facility] [id number], [place] [id number] Jul, [facility] [address] [id number][place] [address] Jul, [facility] [address] [id number][place] [id number] Jun, [facility] [address] [facility] [id number], [place] [address] Jun, [facility] [address] [place] [id number] Jun, Left hip pain M25.552 and Dementia F03.90 [facility] [address] [facility] [id number], [place] [address] May, [facility] [address] [id number], [place] [address] May, [facility] [place] [facility] [address] [id number][place] [id number] May, [facility] [address] [facility] [id number], [place] [address] May, [facility] [place] [facility] [address] [id number][place] [id number] Apr, [facility] [address] [facility] [id number], [place] [address] Apr, [facility] [address] [facility] [id number], [place] [address] Apr, [facility] [address] [id number][place] [address] Apr, Dementia F03.90 [facility] [address] [facility] [id number], [place] [address] Apr, [facility] [address] [facility] [id number], [place] [address] Apr, [facility] [address] [place] [address] Apr, Edema of both legs R60.0 [facility] [address] [id number], [place] [id number] Mar, [facility] [place] [facility] [address] [id number][place] [id number] Mar, [facility] [address] [id number][place] [address] Mar, Anorexia R63.0 [facility] [address] [facility] [id number], [place] [address] Mar, [facility] [address] [id number], [place] [id number] Mar, [facility] [place] [facility] [id number], [place] [id number] Feb, [facility] [id number], [place] [id number] Feb, [facility] [address] [id number], [place] [address] Feb, Urinary tract infection without hematuria, site unspecified N39.0 [facility] [address]00565100[place], [place] [address] January, Anorexia R63.0 [facility] [address] [id number], [place] [address] January, [facility] [id number], [place] [address] January, [facility] [address] [id number], [place] [address] January, Dementia F03.90 [facility] [id number], [place] [address] January, [facility] [address] [place] [id number] Dec, Left hip pain M25.[address] [facility] [id number] [address] Dec, [facility] [id number] [address] Nov, [facility] [address] [id number], [place] [address] Oct, [facility] [address] [place] [id number] Oct, Dementia F03.90 and Other depression F32.89 [facility] [address] [place] [id number] Oct, Dementia F03.90 ; Essential (primary) hypertension I10 and COPD (chronic obstructive pulmonary disease) J44.9 [facility] [address] [id number], [place] [address] Oct, [facility] [address]00565100[place], [place] [address] Sep, [facility] [address] [place] [address] Aug, COPD (chronic obstructive pulmonary disease) J44.9 and Dementia F03.90 [facility] [address] [place] [id number] Jun, Dementia F03.90 and COPD (chronic obstructive pulmonary disease) J44.9 [facility] [address] [place] [id number] Apr, COPD (chronic obstructive pulmonary disease) J44.9 and Essential (primary) hypertension I10 [facility] [id number] [place] [address] Apr, [facility] [id number] [place] [address] Mar, [facility] [address] [address] Mar, COPD (chronic obstructive pulmonary disease) J44.9 [facility] [id number] [place] [address] January, COPD (chronic obstructive pulmonary disease) J44.9 and Allergy, subsequent encounter T78.40XD [facility] [address] [id number], [place] [address] Nov, COPD (chronic obstructive pulmonary disease) J44.9 ; Dementia F03.90 and Essential (primary) hypertension I10 [facility] [id number] [place] [address] Oct, COPD (chronic obstructive pulmonary disease) J44.9 [facility] [id number] [place] [address] Sep, COPD (chronic obstructive pulmonary disease) J44.9 [facility] [address] [id number], [place] [address] Sep, Essential (primary) hypertension [address]00565100[place], [place] [address] Sep, Dementia F03.90 and Essential hypertension, benign 401.1 [facility] [id number] [place] [address] Jul, Dementia F03.90 and COPD (chronic obstructive pulmonary disease) J44.9 [facility] [id number] [place] [address]- 2413 Jun, [facility] [id number] [place] [address]- 3537 Jun, [facility] [id number] [place] [address]- 68[address] May, Chronic airway obstruction, not elsewhere classified 496 and Essential hypertension, benign 401.1 [facility] [id number] [place] [address]- 0885 Mar, Essential hypertension, benign 401.1 and Dementia 294.20 [facility] [address] [place] [address]- 6[address] January, Dementia 294.20 [facility] [id number] [place] [address]- 0201 Dec, [facility] [address]00565100[place], [place] [address] Dec, [facility] [address] [place] [id number] Nov, [facility] [address]00565100[place], [place] [address] Nov, [facility] [id number] [place] [address]- 6026 Sep, [facility] [address]00565100[place], [place] [address]- 450[address] Sep, [facility] [address] [place] [address]- 9724 Aug, [facility] [place] [facility] [address] [id number] [place] [address]- [address] Aug, [facility] [place] [facility] [address] [id number] [place] [address]- 1018 Jul, [facility] [place] [facility] [address] [id number] [place] [address]- 8286 Jul, [facility] [place] [facility] [address] [id number] [place] [address]- 6556 Jun, [facility] [place] [facility] [address] [id number] [place] [address]- 8646 Jun, [facility] [place] [facility] [address] [id number] [place] [address]- 9646 Mar, [facility] [place] [facility] [address] [id number] [place] [address]- 5695 Mar, [facility] [place] [facility] [address] [id number] [place] [address]- 4918 Mar, [facility] [place] [facility] [address] [id number] [place] [address]- 9301 Mar, [facility] [place] [facility] [address] [id number] [place] [address]- 0542 Mar, [facility] [place] [facility] [address] [id number] [place] [address]- 0909 Mar, [facility] [place] [facility] [address] [id number], [place] [address] 4[address] January, [facility] [place] [facility] [address] [id number] [place] [address]- 3451 January, [facility] [place] [facility] [address] [id number] [place] [address]- 8221 January, [facility] [place] [facility] [address] [id number] [place] [address]- 5958 January, [facility] [place] [facility] [address] [id number], [place] [address]- 450[address] January, [facility] [place] [facility] [address] [id number] [place] [address]- 7457 Aug, [facility] [place] [facility] [address] [id number] [place] [address]- 2969 Aug, [facility] [place] [facility] [address] [id number] [place] [address]- 1319 Mar, [facility] [place] [facility] [address] [id number] [place] [address]- 9697 Mar, [facility] [place] [facility] [address] [id number] [place] [address]- 2787 Jun, [facility] [place] [facility] [address] [id number] [place] [address]- 7570 Jun, [facility] [place] [facility] [address] [facility] [id number] [place] [address]- 1883 Jun, [facility] [place] [facility] [address] [facility] [id number] [place] [address]- 1915 Jun, [facility] [place] [facility] [address] [facility] [id number] [place] [address]- 6055 Jun, [facility] [place] [facility] [address] [facility] [id number] [place] [address]- 8726 Jun, [facility] [place] [facility] [address] [id number] [place] [address]- 9818 Jun, [facility] [place] [facility] [address] [facility] [id number] [place] [address]- 8531 Apr, [facility] [place] [facility] [address] [id number] [place] [address]- 6584 Feb, [facility] [place] [facility] [address] [id number] [place] [address]- 8436 15 Oct, 2010 [facility] [place] [facility] [address] [facility] [id number] [place] [address]- 7[address] Aug, [facility] [place] [facility] [address] [facility] [id number], [place] [address] Aug, [facility] [address] [id number], [place] [address] 1689 Aug, [facility] [address] [id number], [place] [address]- 2933 Aug, [facility] [address] [id number], [place] [address]- 3816 Apr, [facility] [address] [facility] [id number], [place] [address] January, [facility] [address]65100[place], [place] [address]- [address] January, [facility] [address] [facility] [id number], [place] [address]- [address]199 Dec, IMMUNIZATIONS No Known Immunizations SOCIAL HISTORY Never Assessed REASON FOR VISIT Medication reconcilliation PLAN OF CARE VITAL SIGNS MEDICATIONS Medication Instructions Dosage Frequency Start Date End Date Duration Status Flonase 50 MCG/ACT Nasally Once a day 2 spray in each nostril 24h Active Sertraline HCl 25 MG Orally Once a day 1 tablet 24h Jul, 30 day (s) Active Cyanocobalamin 1000 MCG/ML Injection every 2 weeks 1000mcg Active Ibuprofen 400 mg Orally every 6 hours as needed 1 tablet with food or milk as needed Dec, Active Toprol XL 50 MG Orally Once a day 1 tablet 24h Apr, 30 day(s) Active Lisinopril 20 MG Orally Once a day 1 tablet 24h Active Aquacel Ag Foam 6 Externally to colostomy site daily as needed Active Risperidone 0.5 MG Orally twice a day 1 tablet 12h Jul, Active Namzaric 14-10 MG Orally Once a day 1 capsule in the evening 24h Apr, 30 day(s) Active Synthroid 75 MCG Orally Once a day 1 tablet 24h January, Active Melatonin 3 MG Orally Once a day 1 tablet at bedtime as needed with food 24h Apr, Active Klor-Con M20 20 MEQ Orally Once a day 1 tablet with food 24h Active Vitamin D3 1000 UNIT Orally Once a day 2 tablets 24h Active Incruse Ellipta 62.5 MCG/INH Inhalation Once a day 1 puff 24h Active Tramadol HCl 50 mg Orally 2 times a day 2 tablets 12h 30 Feb, 2017 28 days Active Symbicort 80-4.5 MCG/ACT Inhalation Twice a day 2 puffs 12h Active ProAir HFA 108 (90 Base) MCG/ACT Inhalation every 6 hrs 2 puffs as needed 6h Active RESULTS No Results PROCEDURES No Known procedures INSTRUCTIONS MEDICATIONS ADMINISTERED No Known Medications
--- OUTSIDE RECORDS SUMMARY | 2018-08-22 16:15 | XMS REPORT ---
Author Author TEJ CHILEL [facility] Address [address] [place] [address] Care Team Providers Care Proposal Lead Writer Name Role Phone ETJ CHILEL Unavailable PROBLEMS Type Condition ICD9-CM Code FTE13-YR Code Onset Dates Condition Status SNOMED Code Problem Primary insomnia F51.01 Active 8668163 Problem Recurrent major depressive disorder, remission status unspecified F33.9 Active 54013335 Problem Acquired hypothyroidism E03.9 Active 614956165 Problem Anorexia R63.0 Active 85286267 Problem Essential (primary) hypertension I10 Active 86091988 Problem COPD (chronic obstructive pulmonary disease) J44.9 Active 97801363 Problem Hyperlipidemia, unspecified hyperlipidemia type E78.5 Active 44956597 Problem 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 Active 98961973 Problem Allergy, subsequent encounter T78.40XD Active 308419511 Problem Dementia F03.90 Active 31390140 ALLERGIES No Information SOCIAL HISTORY Never Assessed PLAN OF CARE Activity Details Follow Up 2 Months Reason: VITAL SIGNS MEDICATIONS Medication Instructions Dosage Frequency Start Date End Date Duration Status Synthroid 50 mcg Orally Once a day 1 tablet 24h January, Active Flonase 50 MCG/ACT Nasally Once a day 2 spray in each nostril 24h Active Albuterol 90 mcg/actuation 2 puffs by Inhalation route 4 times per day PRN Aug, Active Lipitor 10 MG Orally Once a day 1 tablet 24h Active Melatonin 3 MG Orally Once a day 1 tablet at bedtime as needed with food 24h Apr, Active Aquacel Ag Foam 6 Active Incruse Ellipta 62.5 MCG/INH Inhalation Once a day 1 puff 24h Active Symbicort 80-4.5 MCG/ACT Inhalation Twice a day 2 puffs 12h Active Celexa 20 mg 1 tablet by Oral route 1 time per day Aug, Active Aricept 10 mg Orally Once a day After 30 days will increase to 20mg daily 1 tablet at bedtime Oct, Active Ventolin HFA 108 (90 Base) MCG/ACT Inhalation every 4 hrs 2 puffs as needed 4h Active Tylenol 325 MG Orally every 4 hrs 2 tablets as needed 4h Active Norvasc 5 MG Orally Once a day 1 tablet 24h Active RESULTS No Results PROCEDURES Procedure Date Ordered Result Body Site Minor complication (15 mins) Nov 12, 2016 IMMUNIZATIONS No Known Immunizations
--- OUTSIDE RECORDS SUMMARY | 2018-08-22 16:15 | XMS REPORT ---
Author Author TEJ CHILEL [facility] Address [address] [place] [address] Care Team Providers Care Threat Analyst Name Role Phone TEJ CHILEL Unavailable PROBLEMS Type Condition ICD9-CM Code SHJ81-VU Code Onset Dates Condition Status SNOMED Code Problem Primary insomnia F51.01 Active 7141158 Problem Recurrent major depressive disorder, remission status unspecified F33.9 Active 59508158 Problem Acquired hypothyroidism E03.9 Active 107872277 Problem Anorexia R63.0 Active 86046652 Problem Essential (primary) hypertension I10 Active 88725593 Problem COPD (chronic obstructive pulmonary disease) J44.9 Active 58599257 Problem Hyperlipidemia, unspecified hyperlipidemia type E78.5 Active 40788757 Problem 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
--- OUTSIDE RECORDS SUMMARY | 2018-08-22 16:15 | XMS REPORT ---
Author Author JUAN DANIEL CASTELLANOS [facility] Address [address] [place] [address] Care Team Providers Care Limited Radiology Technician Name Role Phone JUAN DANIEL CASTELLANOS Unavailable PROBLEMS Type Condition ICD9-CM Code [id number] Code Onset Dates Condition Status SNOMED Code Problem Primary insomnia F51.01 Active 1378987 Problem Recurrent major depressive disorder, remission status unspecified F33.9 Active 85340057 Problem Brief psychotic disorder F23 Active 4749973 Problem Acquired hypothyroidism E03.9 Active 744218823 Problem Anorexia R63.0 Active 57200861 Problem Essential (primary) hypertension I10 Active 52719754 Problem COPD (chronic obstructive pulmonary disease) J44.9 Active 25484779 Problem Hyperlipidemia, unspecified hyperlipidemia type E78.5 Active 93691099 Problem 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 Active 95291602 Problem Allergy, subsequent encounter T78.40XD Active 497154248 Problem Dementia F03.90 Active 78445398 ALLERGIES No Information ENCOUNTERS Encounter Location Date Diagnosis [facility] [address] [place] [id number] Nov, Dementia F03.90 and COPD (chronic obstructive pulmonary disease) J44.9 [facility] [address] [id number] [place] [id number] Nov, [facility] [address] [id number] [place] [id number] 13 Oct, 2017 [facility] [address] [place] [id number] Sep, Anemia, unspecified type D64.9 [facility] [address] [facility] [id number] [place] [address] Sep, [facility] [address] [facility] [id number] [place] [address] Sep, [facility] [address] [id number] [place] [id number] Sep, [facility] [address] [id number] [place] [id number] Aug, [facility] [place] [facility] [id number] [place] [id number] Aug, [facility] [address] [facility] [id number] [place] [address] Aug, [facility] [place] [facility] [address] [id number] [place] [id number] Aug, [facility] [address] [facility] [id number] [place] [address] Aug, [facility] [address] [id number] [place] [address] Jul, [facility] [address] [id number] [place] [address] Jul, [facility] [place] [facility] [address] [id number] [place] [id number] Jul, [facility] [id number] [place] [id number] Jun, [facility] [address] [id number] [place] [address] Jun, [facility] [address] [place] [id number] Jun, Left hip pain M25.552 and Dementia F03.90 [facility] [address] [facility] [id number] [place] [address] 29 May, 2017 [facility] [place] [facility] [address] [id number] [place] [address] May, [facility] [place] [facility] [address] [id number] [place] [id number] May, [facility] [address] [facility] [id number] [place] [address] May, [facility] [id number] [place] [address] Apr, [facility] [address]00565100[address] [address] Apr, [facility] [address]65100[place] [address] Apr, [facility] [address] [id number] [place] [address] Apr, Dementia F03.90 [facility] [address]00565100[place] [address] Apr, [facility] [id number] [place] [address] Apr, [facility] [address] [place] [id number] Apr, Edema of both legs R60.0 [facility] [address] [id number] [place] [address] Mar, [facility] [id number] [place] [id number] Mar, [facility] [id number] [place] [id number] Mar, Anorexia R63.0 [facility] [address]00565100[place] [address] Mar, [facility] [id number] [place] [address] Mar, [facility] [address] [id number] [place] [address] Feb, [facility] [id number] [place] [address] Feb, [facility] [address] [id number] [place] [address] Feb, Urinary tract infection without hematuria, site unspecified N39.0 [facility] [address] [id number] [place] [address] January, Anorexia R63.0 [facility] [address] [id number] [place] [address] January, [facility] [address] [id number] [place] [id number] January, [facility] [address]65100[place] [address] January, Dementia F03.90 [facility] [id number] [place] [id number] January, [facility] [address] [place] [id number] Dec, Left hip pain M25.552 and Dementia F03.90 [facility] [id number] [place] [address] Dec, [facility] [address] [id number] [place] [id number] Nov, [facility] [address]65100[place] [address] Oct, [facility] [address] [place] [id number] Oct, Dementia F03.90 and Other depression F32.89 [facility] [address] [place] [id number] Oct, Dementia F03.90 ; Essential (primary) hypertension I10 and COPD (chronic obstructive pulmonary disease) J44.9 [facility] [address]65100[place] [address] Oct, [facility] [address] [id number] [place] [address] Sep, [facility] [address] [place] [id number] Aug, COPD (chronic obstructive pulmonary disease) J44.9 and Dementia F03.90 [facility] [address] [place] [id number] Jun, Dementia F03.90 and COPD (chronic obstructive pulmonary disease) J44.9 [facility] [address] [place] [id number] Apr, COPD (chronic obstructive pulmonary disease) J44.9 and Essential (primary) hypertension I10 [facility] [id number] [place] [address] Apr, [facility] [id number] [place] [address]- 1580 Mar, [facility] [id number] [place] [address]- [address] Mar, COPD (chronic obstructive pulmonary disease) J44.9 [facility] [id number] [place] [address] January, COPD (chronic obstructive pulmonary disease) J44.9 and Allergy, subsequent encounter T78.40[address] [place] [id number] [place] [address] Nov, COPD (chronic obstructive pulmonary disease) J44.9 ; Dementia F03.90 and Essential (primary) hypertension I10 [facility] [id number] [place] [address] Oct, COPD (chronic obstructive pulmonary disease) J44.9 [place] [id number] [place] [address]- 57[address] Sep, COPD (chronic obstructive pulmonary disease) J44.9 [place] [id number] [place] [address] Sep, Essential (primary) hypertension I10 [facility] [id number] [place] [address]14 Sep, Dementia F03.90 and Essential hypertension, benign 401.1 [place] [place] [id number] [place] [address] 96[address] Jul, Dementia F03.90 and COPD (chronic obstructive pulmonary disease) J44.9 [facility] [id number] [place] [address]- [address] Jun, [place] [address]00565100[place] [address] Jun, [facility] [address] [place] [address] 5834 May, Chronic airway obstruction, not elsewhere classified 496 and Essential hypertension, benign 401.1 [facility] [address] [place] [address]- 1206 Mar, Essential hypertension, benign 401.1 and Dementia 294.20 [facility] [id number] [place] [address]- 2316 January, Dementia 294.20 [facility] [id number] [place] [address]246- 8666 Dec, [facility] [address]00565100[place] [address] Dec, [facility] [address] [place] [id number] Nov, [facility] [address]00565100[place] [address] Nov, [facility] [address]00565100[place] [address]- 5536 Sep, [facility] [address]65100[place] [address] Sep, [facility] [address]65100[place] [address]- 47[address] Aug, [facility] [address] [id number] [address]- 74[address] Aug, [facility] [address]65100[place] [address]- 2546 Jul, [facility] [address]65100[place] [address]- 2546 Jul, [facility] [address]65100[place] [address]- 7617 Jun, [facility] [place] [facility] [address] [id number] [place] [address]- 87[address] Jun, [facility] [place] [facility] [address] [id number] [place] [address]- 4[address] Mar, [facility] [place] [facility] [address] [id number] [place] [address]- 7083 Mar, [facility] [place] [facility] [address] [id number] [place] [address]- [address] Mar, [facility] [place] [facility] [address] [id number] [place] [address]- 9415 Mar, [facility] [place] [facility] [address] [id number] [place] [address]- 3940 Mar, [facility] [place] [facility] [address] [id number] [place] [address]- 7342 Mar, [facility] [place] [facility] [address] [id number] [place] [address]- 5[address] January, [facility] [place] [facility] [address] [id number] [place] [address]- 1786 January, [facility] [place] [facility] [address] [id number] [place] [address]- 4859 January, [facility] [place] [facility] [address] [id number] [place] [address]- 8416 January, [facility] [place] [facility] [address] [id number] [place] [address]- 7924 January, [facility] [place] [facility] [address] [id number] [place] [address]- 3930 Aug, [facility] [place] [facility] [address] [id number] [place] [address]- 4926 Aug, [facility] [place] [facility] [address] [id number] [place] [address] Mar, [facility] [place] [facility] [address] [id number] [place] [address]- 9529 Mar, [facility] [place] [facility] [address] [id number] [place] [address]- 0685 Jun, [facility] [place] [facility] [address] [id number] [place] [address]- 9658 Jun, [facility] [place] [facility] [address] [id number] [place] [address]- 4916 Jun, [facility] [place] [facility] [address] [id number] [place] [address]- 5374 Jun, [facility] [place] [facility] [address] [id number] [place] [address]- 5737 Jun, [facility] [place] [facility] [address] [id number] [place] [address]- 9500 Jun, [facility] [place] [facility] [address] [id number] [place] [address]- 0407 Jun, [facility] [place] [facility] [address] [id number] [place] [address]- 4147 Apr, [facility] [place] [facility] [address] [id number] [place] [address]- 7997 Feb, [facility] [place] [facility] [address] [id number] [place] [address]- 9851 15 Oct, 2010 [facility] [place] [facility] [address] [id number] [place] [address]- [address]791 28 Aug, 2010 [facility] [place] [facility] [address] [id number] [place] [address]- 2543 27 Aug, 2010 [facility] [place] [facility] [address] [id number] [place] [address]- 7806 Aug, [facility] [place] [facility] [address] [id number] [place] [address]- 1052 14 Aug, 2010 [facility] [place] [facility] [address] [id number] [place] [address]- 7077 Apr, [facility] [place] [facility] [address] [facility] [id number] [place] [address]- [address] January, [facility] [address] [facility] [id number] [address] January, [facility] [address] [facility] [id number] [place] [address]- 2033 Dec, IMMUNIZATIONS No Known Immunizations SOCIAL HISTORY Never Assessed REASON FOR VISIT Increased back pain PLAN OF CARE VITAL SIGNS MEDICATIONS Medication Instructions Dosage Frequency Start Date End Date Duration Status Tramadol HCl 50 mg Orally every 6 hrs 1 tablet as needed 6h 30 Feb, 2017 Active RESULTS No Results PROCEDURES No Known procedures INSTRUCTIONS MEDICATIONS ADMINISTERED No Known Medications
--- OUTSIDE RECORDS SUMMARY | 2018-08-22 16:15 | XMS REPORT ---
Author Author JUAN DANIEL CASTELLANOS [facility] Address [address] [place] [address] Care Team Providers Care Naturopathic Oncology Provider Name Role Phone JUAN DANIEL CASTELLANOS Unavailable PROBLEMS Type Condition ICD9-CM Code MWF65-QB Code Onset Dates Condition Status SNOMED Code Problem Primary insomnia F51.01 Active 5207596 Problem Recurrent major depressive disorder, remission status unspecified F33.9 Active 98857184 Problem Brief psychotic disorder F23 Active 9490012 Problem Acquired hypothyroidism E03.9 Active 063576277 Problem Anorexia R63.0 Active 67239577 Problem Essential (primary) hypertension I10 Active 15788583 Problem COPD (chronic obstructive pulmonary disease) J44.9 Active 51971295 Problem Hyperlipidemia, unspecified hyperlipidemia type E78.5 Active 14896648 Problem 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 Active 99854911 Problem Allergy, subsequent encounter T78.40XD Active 042163385 Problem Dementia F03.90 Active 30891819 ALLERGIES No Information ENCOUNTERS Encounter Location Date Diagnosis [facility] [address] [place] [id number] Nov, Dementia F03.90 and COPD (chronic obstructive pulmonary disease) J44.9 [facility] [address] [id number][place] [id number] Nov, [facility] [address] [id number][place] [id number] 13 Oct, 2017 [facility] [address] [place] [id number] Sep, Anemia, unspecified type D64.9 [facility] [place] [address] [facility] [id number], [place] [address] Sep, [facility] [place] [address] [facility] [id number], [place] [address] Sep, [facility] [address] [id number][place] [address] Sep, [facility] [address] [id number], [place] [id number] Aug, [facility] [place] [facility] [id number], [place] [address] Aug, [facility] [address] [facility] [id number], [place] [address] Aug, [facility] [place] [facility] [address] [id number], [place] [id number] Aug, [facility] [address] [facility] [id number], [place] [address] Aug, [facility] [address] [id number], [place] [address] Jul, [facility] [address] [id number] [id number] Jul, [facility] [place] [facility] [address] [id number], [place] [id number] Jul, [facility] [id number], [place] [address] Jun, [facility] [address] [id number], [place] [address] Jun, [facility] [address] [place] [address] Jun, Left hip pain M25.552 and Dementia F03.90 [facility] [address] [facility] [id number], [place] [address] 29 May, 2017 [facility] [place] [facility] [address] [id number], [place] [address] May, [facility] [place] [facility] [address] [id number], [place] [address] May, [facility] [address] [facility] [id number], [place] [address] May, [facility] [id number], [place] [id number] Apr, [facility] [address]00565100[place], [place] [address] Apr, [facility] [address]00565100[place], [place] [address] Apr, [facility] [place] [facility] [address] [id number], [place] [address] Apr, Dementia F03.90 [facility] [address]00565100[place], [place] [address] Apr, [facility] [place] [facility] [address] [place] [address] Apr, [facility] [address] [place] [address] Apr, Edema of both legs R60.0 [facility] [address] [id number], [place] [id number] Mar, [facility] [place] [facility] [id number] [place] [id number] Mar, [facility] [place] [facility] [id number] [place] [id number] Mar, Anorexia R63.0 [facility] [address]00565100[place], [place] [address] Mar, [facility] [id number], [place] [address] Mar, [facility] [address] [id number], [place] [address] Feb, [facility] [place] [facility] [id number], [place] [address] Feb, [facility] [address] [id number], [place] [address] Feb, Urinary tract infection without hematuria, site unspecified N39.0 [facility] [address] [id number], [place] [address] January, Anorexia R63.0 [facility] [place] [address] [id number], [place] [address] January, [facility] [address] [id number], [place] [address] January, [facility] [place] [address]00565100[place], [place] [address] January, Dementia F03.90 [facility] [id number] [place] [id number] January, [facility] [address] [place] [address] Dec, Left hip pain M25.552 and Dementia F03.90 [facility] [id number], [place] [address] Dec, [facility] [address] [id number], [place] [address] Nov, [facility] [place] [address]00565100[place], [place] [address] Oct, [facility] [address] [place] [id number] Oct, Dementia F03.90 and Other depression F32.89 [facility] [address] [place], [place] [address] Oct, Dementia F03.90 ; Essential (primary) hypertension I10 and COPD (chronic obstructive pulmonary disease) J44.9 [facility] [place] [address]00565100[place], [place] [address] Oct, [facility] [place] [address] [id number], [place] [address] Sep, [facility] [address] [place] [id number] Aug, COPD (chronic obstructive pulmonary disease) J44.9 and Dementia F03.90 [facility] [address] [place] [address] Jun, Dementia F03.90 and COPD (chronic obstructive pulmonary disease) J44.9 [facility] [address] [place], [place] [address] Apr, COPD (chronic obstructive pulmonary disease) J44.9 and Essential (primary) hypertension I10 [facility] [place] [id number] [place] [address] 230[address] Apr, [facility] [place] [id number] [place] [address]- 1019 Mar, [facility] [place] [id number] [place] [address]- [address]13 Mar, COPD (chronic obstructive pulmonary disease) J44.9 [facility] [place] [id number] [place] [address]- [address] January, COPD (chronic obstructive pulmonary disease) J44.9 and Allergy, subsequent encounter T78.40XD [facility] [id number] [place] [address] Nov, COPD (chronic obstructive pulmonary disease) J44.9 ; Dementia F03.90 and Essential (primary) hypertension I10 [facility] [place] [id number] [place] [address]- 9063 Oct, COPD (chronic obstructive pulmonary disease) J44.9 [place] [facility] [id number] [place] [address]- 5428 Sep, COPD (chronic obstructive pulmonary disease) J44.9 [facility] [id number] [place] [address]- 8[address] Sep, Essential (primary) hypertension I10 [facility] [place] [id number] [place] [address]18- 2715 Sep, Dementia F03.90 and Essential hypertension, benign 401.1 [place] [id number] [place] [address]- 5822 Jul, Dementia F03.90 and COPD (chronic obstructive pulmonary disease) J44.9 [facility] [place] [id number] [place] [address]443- 9444 Jun, [place] [address]00565100[place], [place] [address] Jun, [facility] [place] [address] [place] [address]856- 7860 May, Chronic airway obstruction, not elsewhere classified 496 and Essential hypertension, benign 401.1 [facility] [place] [address] [place] [address]334- 3406 Mar, Essential hypertension, benign 401.1 and Dementia 294.20 [facility] [place] [id number] [place] [address]56- 4456 January, Dementia 294.20 [facility] [place] [id number] [place] [address] 28702- 5296 Dec, [facility] [place] [address]00565100[place], [place] [address] Dec, [facility] [address] [place] [id number] Nov, [facility] [place] [address]00565100[place], [place] [address] Nov, [facility] [place] [address]00565100[place], [place] [address] Sep, [facility] [place] [address]00565100[place], [place] [address] Sep, [facility] [place] [address]00565100[place], [place] [address] Aug, [facility] [place] [address] [id number], [place] [address]- 5586 Aug, [facility] [place] [address]65[address], [place] [address]- 2546 Jul, [facility] [place] [address]65100[place], [place] [address]- [address]46 Jul, [facility] [place] [address]65[address], [place] [address]- 1833 Jun, [facility] [place] [facility] [address] [id number] [place] [address]- 7859 Jun, [facility] [place] [facility] [address] [id number] [place] [address]- 4[address] Mar, [facility] [place] [facility] [address] [id number] [place] [address]- 0876 Mar, [facility] [place] [facility] [address] [id number] [place] [address]- 5713 Mar, [facility] [place] [facility] [address] [id number] [place] [address]- 1499 Mar, [facility] [place] [facility] [address] [id number] [place] [address]- 8941 Mar, [facility] [place] [facility] [address] [id number] [place] [address]- 7798 Mar, [facility] [place] [facility] [address] [id number] [place] [address]- 7901 January, [facility] [place] [facility] [address] [id number] [place] [address]- 3944 January, [facility] [place] [facility] [address] [id number] [place] [address]- 1258 January, [facility] [place] [facility] [address] [id number] [place] [address]- 5815 January, [facility] [place] [facility] [address] [id number] [place] [address]- 9539 January, [facility] [place] [facility] [address] [id number] [place] [address]- 1929 Aug, [facility] [place] [facility] [address] [id number] [place] [address]- 7015 Aug, [facility] [place] [facility] [address] [id number] [place] [address] Mar, [facility] [place] [facility] [address] [id number] [place] [address]- 9613 Mar, [facility] [place] [facility] [address] [id number] [place] [address]- 4095 Jun, [facility] [place] [facility] [address] [id number] [place] [address]- 2247 Jun, [facility] [place] [facility] [address] [id number] [place] [address]- 7686 Jun, [facility] [place] [facility] [address] [id number] [place] [address]- 2362 Jun, [facility] [place] [facility] [address] [id number] [place] [address]- 4549 Jun, [facility] [place] [facility] [address] [id number] [place] [address]- 0814 Jun, [facility] [place] [facility] [address] [id number] [place] [address]- 9425 Jun, [facility] [place] [facility] [address] [id number] [place] [address]- 6027 Apr, [facility] [place] [facility] [address] [id number] [place] [address]- 3652 Feb, [facility] [place] [facility] [address] [id number] [place] [address]- 3635 15 Oct, 2010 [facility] [place] [facility] [address] [id number] [place] [address]- 9622 28 Aug, 2010 [facility] [place] [facility] [address] [id number] [place] [address]- 2545 27 Aug, 2010 [facility] [place] [facility] [address] [id number] [place] [address]- 3466 Aug, [facility] [place] [facility] [address] [id number] [place] [address]- 6861 14 Aug, 2010 [facility] [place] [facility] [address] [id number] [place] [address]- 3222 Apr, [facility] [place] [facility] [address] [facility] [id number] [place] [address]- 5577 January, [facility] [place] [address] [facility] [id number], [place]- 6832 January, [facility] [place] [address] [facility] [id number] [place] [address]70 Dec, IMMUNIZATIONS No Known Immunizations SOCIAL HISTORY Never Assessed REASON FOR VISIT Refill request PLAN OF CARE VITAL SIGNS MEDICATIONS No Known Medications RESULTS No Results PROCEDURES No Known procedures INSTRUCTIONS MEDICATIONS ADMINISTERED No Known Medications
--- OUTSIDE RECORDS SUMMARY | 2018-08-22 16:15 | XMS REPORT ---
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
--- OUTSIDE RECORDS SUMMARY | 2018-08-22 16:15 | XMS REPORT ---
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
--- OUTSIDE RECORDS SUMMARY | 2018-08-22 16:15 | XMS REPORT ---
Author JUAN DANIEL Álvarez Organization [employer] Address Unknown Phone Unavailable Care Team Providers Care File Drawer Finisher Name Role Phone JUAN DANIEL CASTELLANOS CP [...] Instructions Start Date End Date Status Dosage Melatonin [facility] [address]-62 3 MG Orally Once a day Apr 22, 2016 1 tablet at bedtime as needed with food Results No Known Results Summary Purpose [employer] Submission
--- OUTSIDE RECORDS SUMMARY | 2018-08-22 16:16 | XMS REPORT ---
Author Author TEJ CHILEL [facility] Address [address] [place] [address] Care Team Providers Care Chef De Froid Name Role Phone TEJ CHILEL Unavailable PROBLEMS Type Condition ICD9-CM Code WME91-ST Code Onset Dates Condition Status SNOMED Code Problem Primary insomnia F51.01 Active 7490166 Problem Recurrent major depressive disorder, remission status unspecified F33.9 Active 55224266 Problem Acquired hypothyroidism E03.9 Active 008226313 Problem Anorexia R63.0 Active 71477323 Problem Essential (primary) hypertension I10 Active 22376739 Problem COPD (chronic obstructive pulmonary disease) J44.9 Active 38199603 Problem Hyperlipidemia, unspecified hyperlipidemia type E78.5 Active 03158513 Problem 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 Active 18509539 Problem Allergy, subsequent encounter T78.40XD Active 682246451 Problem Dementia F03.90 Active 31252244 ALLERGIES No Information SOCIAL HISTORY Never Assessed PLAN OF CARE VITAL SIGNS MEDICATIONS Medication Instructions Dosage Frequency Start Date End Date Duration Status Aquacel Ag Foam 6 Active Ibuprofen 400 mg Orally every 6 hours as needed 1 tablet with food or milk as needed Dec, Active Aricept 10 mg Orally Once a day 2 tablets 24h Oct, Active Norvasc 5 MG Orally Once a day 1 tablet 24h Active Lexapro 20 mg Orally Once a day 1 tablet 24h Oct, 30 day(s) Active Synthroid 50 mcg Orally Once a day 1 tablet 24h January, Active Tylenol 325 MG Orally every 4 hrs 2 tablets as needed 4h Active Tylenol 325 MG Orally 2 times a day 2 tablets 12h Nov, Active Ventolin HFA 108 (90 Base) MCG/ACT Inhalation every 4 hrs 2 puffs as needed 4h Active Flonase 50 MCG/ACT Nasally Once a day 2 spray in each nostril 24h Active Incruse Ellipta 62.5 MCG/INH Inhalation Once a day 1 puff 24h Active Melatonin 3 MG Orally Once a day 1 tablet at bedtime as needed with food 24h Apr, Active Exelon 9.5 MG/24HR Transdermal Once a day 1 patch to skin 24h January, Active Symbicort 80-4.5 MCG/ACT Inhalation Twice a day 2 puffs 12h Active RESULTS No Results PROCEDURES No Known procedures IMMUNIZATIONS No Known Immunizations
--- OUTSIDE RECORDS SUMMARY | 2018-08-22 16:16 | XMS REPORT ---
Author Author TEJ CHILEL [facility] Address [address] [place] [address] Care Team Providers Care Forester Aide Name Role Phone TEJ CHILEL Unavailable PROBLEMS Type Condition ICD9-CM Code NWP32-PH Code Onset Dates Condition Status SNOMED Code Problem Primary insomnia F51.01 Active 1945257 Problem Recurrent major depressive disorder, remission status unspecified F33.9 Active 54711017 Problem Brief psychotic disorder F23 Active 6567806 Problem Acquired hypothyroidism E03.9 Active 510565182 Problem Anorexia R63.0 Active 68767455 Problem Essential (primary) hypertension I10 Active 62374641 Problem COPD (chronic obstructive pulmonary disease) J44.9 Active 16709183 Problem Hyperlipidemia, unspecified hyperlipidemia type E78.5 Active 17320640 Problem 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 Active 58553480 Problem Allergy, subsequent encounter T78.40XD Active 352084592 Problem Dementia F03.90 Active 21295120 ALLERGIES No Information ENCOUNTERS Encounter Location Date Diagnosis [facility] [address] [id number] Feb, Dementia F03.90 [facility] [address] [facility] [id number], [place] [address] Feb, [facility] [address] [id number] [address] January, [facility] [address] [facility] [id number] [address] Dec, [facility] [address] [place] [id number] Nov, Dementia F03.90 and COPD (chronic obstructive pulmonary disease) J44.9 [facility] [address] [id number] [id number] Nov, [facility] [address] [id number] [id number] Oct, [facility] [address] [place] [id number] Sep, Anemia, unspecified type D64.9 [facility] [address] [id number], [place] [address] Sep, [facility] [address] [facility] [id number], [place] [address] Sep, [facility] [address] [id number] [address] Sep, [facility] [address] [id number] [address] Aug, [facility] [address] [id number] [id number] Aug, [facility] [address] [id number], [place] [address] Aug, [facility] [address] [id number] [id number] Aug, [facility] [address] [id number] [address] Aug, [facility] [address] [id number], [place] [address] Jul, [facility] [id number] [address] Jul, [facility] [address] [id number] [id number] Jul, [facility] [address] [id number] [address] Jun, [facility] [address] [facility] [id number], [place] [address] Jun, [facility] [address] [place] [id number] Jun, Left hip pain M25.552 and Dementia F03.90 [facility] [address] [facility] [id number], [place] [address] May, [facility] [address] [id number] [address] May, [facility] [place] [facility] [address] [id number][place] [id number] May, [facility] [address] [facility] [id number] [address] May, [facility] [place] [facility] [address] [id number][place] [address] Apr, [facility] [address] [facility] [id number], [place] [address] Apr, [facility] [address] [facility] [id number], [place] [address] Apr, [facility] [address] [id number] [id number] Apr, Dementia F03.90 [facility] [address] [facility] [id number], [place] [address] Apr, [facility] [address] [facility] [id number], [place] [address] Apr, [facility] [address] [place] [id number] Apr, Edema of both legs R60.0 [facility] [address] [id number] [id number] Mar, [facility] [place] [facility] [address] [id number][place] [id number] Mar, [facility] [address] [id number] [id number] Mar, Anorexia R63.0 [facility] [address] [facility] [id number], [place] [address] Mar, [facility] [address] [id number] [id number] Mar, [facility] [place] [facility] [id number], [place] [address] Feb, [facility] [id number][place] [address] Feb, [facility] [address] [id number], [place] [address] Feb, Urinary tract infection without hematuria, site unspecified N39.0 [facility] [address]00565100[place], [place] [address] January, Anorexia R63.0 [facility] [address] [id number], [place] [address] January, [facility] [id number], [place] [address] January, [facility] [address] [id number] [address] January, Dementia F03.90 [facility] [id number][place] [address] January, [facility] [address] [place] [id number] Dec, Left hip pain M25.552 and Dementia F03.90 [facility] [id number], [place] [address] Dec, [facility] [id number], [place] [address] Nov, [facility] [address] [id number], [place] [address] Oct, [facility] [address] [place] [id number] Oct, Dementia F03.90 and Other depression F32.89 [facility] [address] [place] [id number] Oct, Dementia F03.90 ; Essential (primary) hypertension I10 and COPD (chronic obstructive pulmonary disease) J44.9 [facility] [address] [id number], [place] [address] Oct, [facility] [address]00565100[place], [place] [address] Sep, [facility] [address] [place] [id number] Aug, COPD (chronic obstructive pulmonary disease) J44.9 and Dementia F03.90 [facility] [address] [place] [address] Jun, Dementia F03.90 and COPD (chronic obstructive pulmonary disease) J44.9 [facility] [address] [place] [id number] Apr, COPD (chronic obstructive pulmonary disease) J44.9 and Essential (primary) hypertension I10 [facility] [id number] [place] [address] Apr, [facility] [id number] [place] [address]- [address]686 Mar, [facility] [address] [address] Mar, COPD (chronic obstructive pulmonary disease) J44.9 [facility] [id number] [place] [address] January, COPD (chronic obstructive pulmonary disease) J44.9 and Allergy, subsequent encounter T78.40XD [facility] [address] [id number], [place] [address] Nov, COPD (chronic obstructive pulmonary disease) J44.9 ; Dementia F03.90 and Essential (primary) hypertension I10 [facility] [id number] [place] [address]8 Oct, COPD (chronic obstructive pulmonary disease) J44.9 [facility] [id number] [place] [address]83 Sep, COPD (chronic obstructive pulmonary disease) J44.9 [facility] [address] [id number], [place] [address] Sep, Essential (primary) hypertension [address]65100[place], [place] [address] Sep, Dementia F03.90 and Essential hypertension, benign 401.1 [facility] [id number] [place] [address] 6446 Jul, Dementia F03.90 and COPD (chronic obstructive pulmonary disease) J44.9 [facility] [id number] [place] [address]- 6593 Jun, [facility] [id number] [place] [address]- 5778 Jun, [facility] [id number] [place] [address]- 4529 May, Chronic airway obstruction, not elsewhere classified 496 and Essential hypertension, benign 401.1 [facility] [id number] [place] [address]- 1454 Mar, Essential hypertension, benign 401.1 and Dementia 294.20 [facility] [address] [place] [address]- 8484 January, Dementia 294.20 [facility] [id number] [place] [address]- 4443 Dec, [facility] [address]00565100[place], [place] [address] Dec, [facility] [address] [place] [id number] Nov, [facility] [address]00565100[place], [place] [address] Nov, [facility] [id number] [place] [address]- 8038 Sep, [facility] [address]00565100[place], [place] [address]- [address] Sep, [facility] [address] [place] [address]- 4131 Aug, [facility] [place] [facility] [address] [id number] [place] [address] Aug, [facility] [place] [facility] [address] [id number] [place] [address]- 83[address] Jul, [facility] [place] [facility] [address] [id number] [place] [address]- [address] Jul, [facility] [place] [facility] [address] [id number] [place] [address]- 5426 Jun, [facility] [place] [facility] [address] [id number] [place] [address]- 9[address] Jun, [facility] [place] [facility] [address] [id number] [place] [address]- 8671 Mar, [facility] [place] [facility] [address] [id number] [place] [address]- 4689 Mar, [facility] [place] [facility] [address] [id number] [place] [address]- 8463 Mar, [facility] [place] [facility] [address] [id number] [place] [address]- 6[address] Mar, [facility] [place] [facility] [address] [id number] [place] [address]- 5668 Mar, [facility] [place] [facility] [address] [id number] [place] [address]- 5694 Mar, [facility] [place] [facility] [address] [id number], [place] [address]- [address] January, [facility] [place] [facility] [address] [id number] [place] [address]- 45[address] January, [facility] [place] [facility] [address] [id number] [place] [address]- 7849 January, [facility] [place] [facility] [address] [id number] [place] [address]- 7241 January, [facility] [place] [facility] [address] [id number], [place] [address]- 67[address] January, [facility] [place] [facility] [address] [id number] [place] [address]- 9792 Aug, [facility] [place] [facility] [address] [id number] [place] [address]- 1770 Aug, [facility] [place] [facility] [address] [id number] [place] [address]- 0606 Mar, [facility] [place] [facility] [address] [id number] [place] [address] Mar, [facility] [place] [facility] [address] [id number] [place] [address]- 3371 Jun, [facility] [place] [facility] [address] [id number] [place] [address]- 8128 Jun, [facility] [place] [facility] [address] [facility] [id number] [place] [address]- 7034 Jun, [facility] [place] [facility] [address] [facility] [id number] [place] [address]- 7499 Jun, [facility] [place] [facility] [address] [facility] [id number] [place] [address]- 6102 Jun, [facility] [place] [facility] [address] [facility] [id number] [place] [address]- 9944 Jun, [facility] [place] [facility] [address] [id number] [place] [address]- 0755 Jun, [facility] [place] [facility] [address] [facility] [id number] [place] [address]- 6660 Apr, [facility] [place] [facility] [address] [id number] [place] [address]- 1449 Feb, [facility] [place] [facility] [address] [id number] [place] [address]- 4311 15 Oct, 2010 [facility] [place] [facility] [address] [facility] [id number] [place] [address]- 3434 Aug, [facility] [place] [facility] [address] [facility] [id number], [place] [address]- 2546 Aug, [facility] [address] [id number], [place] [address] 46[address] Aug, [facility] [address] [facility] [id number], [place] [address]- [address]26 Aug, [facility] [address] [id number], [place] [address] 6643 Apr, [facility] [address] [id number], [place] [address] 8743 January, [facility] [address] [id number], [place] [address] January, [facility] [address] [id number], [place] [address]- [address] Dec, IMMUNIZATIONS No Known Immunizations SOCIAL HISTORY Never Assessed REASON FOR VISIT UTI treatment PLAN OF CARE VITAL SIGNS MEDICATIONS Medication Instructions Dosage Frequency Start Date End Date Duration Status Cipro 500 mg Orally Twice a day 1 tablet 12h 28 Aug, 2017 4 Sep, 2017 07 days Active RESULTS No Results PROCEDURES No Known procedures INSTRUCTIONS MEDICATIONS ADMINISTERED No Known Medications
--- OUTSIDE RECORDS SUMMARY | 2018-08-22 16:16 | XMS REPORT ---
Author Author TEJ CHILEL [facility] Address [address] [place] [address] Care Team Providers Care Welding Machine Operator Ultrasonic Name Role Phone TEJ CHILEL Unavailable PROBLEMS Type Condition ICD9-CM Code ZIX66-CK Code Onset Dates Condition Status SNOMED Code Problem Primary insomnia F51.01 Active 3513039 Problem Recurrent major depressive disorder, remission status unspecified F33.9 Active 61774179 Problem Brief psychotic disorder F23 Active 8183245 Problem Acquired hypothyroidism E03.9 Active 914891168 Problem Anorexia R63.0 Active 95074710 Problem Essential (primary) hypertension I10 Active 59939911 Problem COPD (chronic obstructive pulmonary disease) J44.9 Active 55654179 Problem Hyperlipidemia, unspecified hyperlipidemia type E78.5 Active 91757797 Problem 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 Active 98648789 Problem Allergy, subsequent encounter T78.40XD Active 529488403 Problem Dementia F03.90 Active 57179155 ALLERGIES No Information ENCOUNTERS Encounter Location Date Diagnosis [place] [id number] [address] January, [place] [id number] [place] [address] Dec, [facility] [address] [place] [id number] Nov, Dementia F03.90 and COPD (chronic obstructive pulmonary disease) J44.9 [facility] [address] [id number] [id number] Nov, [place] [id number] [place] [address] [id number] 13 Oct, 2017 [facility] [address] [place] [id number] Sep, Anemia, unspecified type D64.9 [facility] [address] [id number], [place] [address] Sep, [facility] [address] [facility] [id number][place] [address] Sep, [facility] [address] [id number][place] [id number] Sep, [facility] [address] [id number] [id number] Aug, [facility] [address] [id number] [id number] Aug, [facility] [address] [facility] [id number], [place] [address] Aug, [facility] [address] [id number] [id number] Aug, [facility] [address]65[address] [address] Aug, [facility] [address] [facility] [id number], [place] [address] Jul, [facility] [id number] [id number] Jul, [facility] [address] [id number][place] [id number] Jul, [facility] [id number][place] [id number] Jun, [facility] [address] [facility] [id number], [place] [address] Jun, [facility] [address] [facility] [address] [place] [id number] Jun, Left hip pain M25.552 and Dementia F03.90 [facility] [address] [id number], [place] [address] 29 May, 2017 [facility] [address] [id number][place] [id number] 13 May, 2017 [facility] [address] [id number][place] [id number] May, [facility] [address] [facility] [id number], [place] [address] May, [facility] [address] [id number], [place] [id number] Apr, [facility] [address] [facility] [id number], [place] [address]- 2011 Apr, [facility] [address] [facility] [id number][place] [address] Apr, [facility] [address] [id number][place] [id number] Apr, Dementia F03.90 [facility] [address] [facility] [id number], [place] [address] Apr, [facility] [address]65[address] [address] Apr, [facility] [address] [place] [id number] Apr, Edema of both legs R60.0 [facility] [address] [id number], [place] [id number] Mar, [facility] [address] [id number] [id number] Mar, [facility] [address] [id number], [place] [id number] Mar, Anorexia R63.0 [facility] [address] [facility] [id number], [place] [address] Mar, [facility] [address] [id number], [place] [id number] Mar, [facility] [address] [id number], [place] [id number] Feb, [facility] [address] [id number][place] [id number] Feb, [facility] [address] [id number] [address] Feb, Urinary tract infection without hematuria, site unspecified N39.0 [facility] [address] [address] January, Anorexia R63.0 [facility] [address]00565100[place] [address] January, [facility] [id number] [place] [id number] January, [facility] [address]00565100[place] [address] January, Dementia F03.90 [facility] [id number] [place] [id number] January, [facility] [address] [place] [id number] Dec, Left hip pain M25.552 and Dementia F03.90 [facility] [id number], [place] [address] Dec, [facility] [id number] [place] [id number] Nov, [facility] [address] [id number] [address] Oct, [facility] [address] [place] [id number] Oct, Dementia F03.90 and Other depression F32.89 [facility] [address] [place] [id number] Oct, Dementia F03.90 ; Essential (primary) hypertension I10 and COPD (chronic obstructive pulmonary disease) J44.9 [facility] [address]00565100[place] [address] Oct, [facility] [address] [id number] [address] Sep, [facility] [address] [place] [id number] Aug, COPD (chronic obstructive pulmonary disease) J44.9 and Dementia F03.90 [facility] [address] [place] [id number] Jun, Dementia F03.90 and COPD (chronic obstructive pulmonary disease) J44.9 [facility] [address] [place] [id number] Apr, COPD (chronic obstructive pulmonary disease) J44.9 and Essential (primary) hypertension I10 [facility] [address] [address] Apr, [facility] [address] [address] Mar, [facility] [address] [address] Mar, COPD (chronic obstructive pulmonary disease) J44.9 [facility] [id number] [place] [address] January, COPD (chronic obstructive pulmonary disease) J44.9 and Allergy, subsequent encounter T78.40XD [facility] [id number] [place] [address] Nov, COPD (chronic obstructive pulmonary disease) J44.9 ; Dementia F03.90 and Essential (primary) hypertension I10 [facility] [id number] [place] [address]- [address]641 Oct, COPD (chronic obstructive pulmonary disease) J44.9 [facility] [id number] [place] [address]30[address]- 3837 Sep, COPD (chronic obstructive pulmonary disease) J44.9 [facility] [id number] [place] [address]- 5123 Sep, Essential (primary) hypertension I10 [facility] [id number] [place] [address]- 2375 Sep, Dementia F03.90 and Essential hypertension, benign 401.1 [facility] [address] [place] [address] Jul, Dementia F03.90 and COPD (chronic obstructive pulmonary disease) J44.9 [facility] [id number] [place] [address]175- 0883 Jun, [facility] [address] 0504265100[place] [address] Jun, [facility] [id number] [place] [address] 679331- 2116 May, Chronic airway obstruction, not elsewhere classified 496 and Essential hypertension, benign 401.1 [facility] [id number] [place] [address] 704444- 2835 Mar, Essential hypertension, benign 401.1 and Dementia 294.20 [facility] [id number] [place] [address]201- 0773 January, Dementia 294.20 [facility] [id number] [place] [address]371- 2546 Dec, [facility] [address] [place] [address]- [address]75 Dec, [facility] [address] [place] [id number] Nov, [facility] [address]65100[place] [address]- 6[address] Nov, [facility] [address]00565100[place] [address]- 9[address] Sep, [facility] [address]65100[place] [address]- 6727 Sep, [facility] [address] [id number]- 2434 Aug, [facility] [address] [address] Aug, [facility] [address] [place] [address] 82756- 2476 Jul, [facility] [place] [facility] [address] [id number] [place] [address]- 2629 Jul, [facility] [place] [facility] [address] [id number] [place] [address]- 7313 Jun, [facility] [place] [facility] [address] [id number] [place] [address]- 6382 Jun, [facility] [place] [facility] [address] [id number] [place] [address]- 1866 Mar, [facility] [place] [facility] [address] [id number] [place] [address] Mar, [facility] [place] [facility] [address] [id number] [place] [address]- 8606 Mar, [facility] [place] [facility] [address] [id number] [place] [address]- 2668 Mar, [facility] [place] [facility] [address] [id number] [place] [address]- 0361 Mar, [facility] [place] [facility] [address] [id number] [place] [address]- 6494 Mar, [facility] [place] [facility] [address] [id number] [place] [address]- 0425 January, [facility] [place] [facility] [address] [id number] [place] [address]- 9446 January, [facility] [place] [facility] [address] [id number] [address]- 2787 January, [facility] [place] [facility] [address] [id number] [place] [address]- 9808 January, [facility] [place] [facility] [address] [id number] [place] [address]- 1697 January, [facility] [place] [facility] [address] [id number] [place] [address]- 6258 Aug, [facility] [place] [facility] [address] [id number] [place] [address]- 7751 27 Aug, 2013 [facility] [place] [facility] [address] [id number] [place] [address]- 1838 Mar, [facility] [place] [facility] [address] [id number] [place] [address]- 4856 Mar, [facility] [place] [facility] [address] [id number] [place] [address]- 9764 Jun, [facility] [place] [facility] [address] [id number] [place] [address]- 5210 Jun, [facility] [place] [facility] [address] [id number] [place] [address]- 4688 Jun, [facility] [place] [facility] [address] [id number] [place] [address]- 9931 Jun, [facility] [place] [facility] [address] [id number] [place] [address]- 5880 Jun, [facility] [place] [facility] [address] [id number] [place] [address]- 1788 Jun, [facility] [place] [facility] [address] [id number] [place] [address]- 9842 Jun, [facility] [place] [facility] [address] [facility] [id number] [place] [address]- 0859 Apr, [facility] [place] [facility] [address] [id number] [place] [address]- 4027 Feb, [facility] [place] [facility] [address] [id number] [place] [address]- 1219 15 Oct, 2010 [facility] [place] [facility] [address] [id number] [place] [address]- 5285 28 Aug, 2010 [facility] [place] [facility] [address] [id number] [place] [address]- 2542 27 Aug, 2010 [facility] [place] [facility] [address] [id number] [place]- [address] Aug, [facility] [address] [facility] [id number] [address]- 2546 Aug, [facility] [address] [id number] [address]- 2546 Apr, [facility] [address] [id number] [address]- 2546 January, [facility] [address] [id number], [place] [address]- 2546 January, [facility] [address] [facility] [id number], [place] [address]- 2546 Dec, IMMUNIZATIONS No Known Immunizations SOCIAL [...]
--- OUTSIDE RECORDS SUMMARY | 2018-08-22 16:17 | XMS REPORT ---
Author Author TEJ CHILEL [facility] Address [address] [place] [address] Care Team Providers Care Drug And Alcohol Treatment Specialist Name Role Phone TEJ CHILEL Unavailable PROBLEMS Type Condition ICD9-CM Code XFE20-SD Code Onset Dates Condition Status SNOMED Code Problem Primary insomnia F51.01 Active 0802879 Problem Recurrent major depressive disorder, remission status unspecified F33.9 Active 18933879 Problem Brief psychotic disorder F23 Active 0855163 Problem Acquired hypothyroidism E03.9 Active 213613744 Problem Anorexia R63.0 Active 96278290 Problem Essential (primary) hypertension I10 Active 99951545 Problem COPD (chronic obstructive pulmonary disease) J44.9 Active 17140088 Problem Hyperlipidemia, unspecified hyperlipidemia type E78.5 Active 53903217 Problem 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 Active 76150443 Problem Allergy, subsequent encounter T78.40XD Active 635316690 Problem Dementia F03.90 Active 78300166 ALLERGIES No Information ENCOUNTERS Encounter Location Date Diagnosis [facility] [address] [id number] [address] Dec, [facility] [address] [place] [id number] Nov, Dementia F03.90 and COPD (chronic obstructive pulmonary disease) J44.9 [facility] [address] [id number] [id number] Nov, [facility] [id number] [place] [id number] Oct, [facility] [address] [place] [id number] Sep, Anemia, unspecified type D64.9 [facility] [address] [id number] [address] Sep, [facility] [place] [facility] [address] [id number] [place] [address] Sep, [facility] [address] [id number] [place] [id number] Sep, [facility] [address] [id number] [place] [id number] Aug, [facility] [address] [id number] [place] [id number] Aug, [facility] [address] [id number] [place] [address]46 Aug, [facility] [address] [id number] [place]ILL[place] [id number] Aug, [facility] [address] [id number] [address] Aug, [facility] [address] [id number] [place] [address] Jul, [facility] [address] [id number] [place] [id number] Jul, [facility] [address] [id number] [place] [id number] Jul, [facility] [address] [id number] [place] [id number] Jun, [facility] [address] [id number] [place] [address] Jun, [facility] [address] [place] [id number] Jun, Left hip pain M25.552 and Dementia F03.90 [facility] [address] [id number] [place] [address] 29 May, 2017 [facility] [address] [id number] [place]ILL[place] [id number] May, [facility] [address] [id number] [place] [id number] 05 May, 2017 [facility] [address] [id number] [place] [address] May, [facility] [address] [id number] [place] [id number] Apr, [facility] [address] [facility] [id number] [place] [address] [address] Apr, [facility] [address] [facility] [id number] [place] [address] Apr, [facility] [address] [id number] [place] [id number] Apr, Dementia F03.90 [facility] [address] [facility] [id number] [place] [address] Apr, [facility] [address] [id number] [address] Apr, [facility] [address] [place] [id number] Apr, Edema of both legs R60.0 [facility] [address] [id number] [place] [id number] Mar, [facility] [id number] [id number] Mar, [facility] [address] [id number] [id number] Mar, Anorexia R63.0 [facility] [address] [facility] [id number] [place] [address] Mar, [facility] [address] [id number] [place] [id number] Mar, [facility] [address] [id number] [place] [id number] Feb, [facility] [address] [id number] [place]ILL[place] [id number] Feb, [facility] [address] [facility] [id number] [place]ILL[place] [address] Feb, Urinary tract infection without hematuria, site unspecified N39.0 [facility] [address] [id number] [address] January, Anorexia R63.0 [facility] [address]00565100[place] [address] January, [facility] [address] [id number] [id number] January, [facility] [address]00565100[place] [address] January, Dementia F03.90 [facility] [id number] [place] [id number] January, [facility] [address] [place] [id number] Dec, Left hip pain M25.552 and Dementia F03.90 [facility] [id number] [place] [address] [id number] Dec, [facility] [id number] [place] [address] [id number] Nov, [facility] [address] [id number] [address] Oct, [facility] [address] [place] [id number] Oct, Dementia F03.90 and Other depression F32.89 [facility] [address] [place] [id number] Oct, Dementia F03.90 ; Essential (primary) hypertension I10 and COPD (chronic obstructive pulmonary disease) J44.9 [facility] [address] [id number] [address] Oct, [facility] [address]00565100[place] [address] Sep, [facility] [address] [place] [id number] Aug, COPD (chronic obstructive pulmonary disease) J44.9 and Dementia F03.90 [facility] [address] [place] [id number] Jun, Dementia F03.90 and COPD (chronic obstructive pulmonary disease) J44.9 [facility] [address] [place] [id number] Apr, COPD (chronic obstructive pulmonary disease) J44.9 and Essential (primary) hypertension I10 [facility] [id number] [place] [address] Apr, [facility] [address] [address] Mar, [facility] [id number] [place] [address] Mar, COPD (chronic obstructive pulmonary disease) J44.9 [id number] [place] [address] January, COPD (chronic obstructive pulmonary disease) J44.9 and Allergy, subsequent encounter T78.40XD [id number] [place] [address] 74[address] Nov, COPD (chronic obstructive pulmonary disease) J44.9 ; Dementia F03.90 and Essential (primary) hypertension I10 [facility] [id number] [place] [address]6 Oct, COPD (chronic obstructive pulmonary disease) J44.9 [facility] [id number] [place] [address] 1813 Sep, COPD (chronic obstructive pulmonary disease) J44.9 [facility] [address] [place] [address]- [address]93 Sep, Essential (primary) hypertension I10 [facility] [id number] [place] [address]- 3168 Sep, Dementia F03.90 and Essential hypertension, benign 401.1 [facility] [id number] [place] [address]- 6[address] Jul, Dementia F03.90 and COPD (chronic obstructive pulmonary disease) J44.9 [facility] [address]00565[address] [address] Jun, [facility] [id number] [place] [address]- 77[address] Jun, [facility] [address] May, Chronic airway obstruction, not elsewhere classified 496 and Essential hypertension, benign 401.1 [facility] [id number] [place] [address]- 1726 Mar, Essential hypertension, benign 401.1 and Dementia 294.20 [facility] [id number] [place] [address]- 5623 January, Dementia 294.20 [facility] [id number] [place] [address]35[address]- 1715 Dec, [facility] [id number] [place] [address]60- 7864 Dec, [facility] [address] [place] [id number] Nov, [facility] [id number] [place] [address] 88166- 7827 Nov, [facility] [address]00565100[place] [address] 74[address] Sep, [facility] [address]00565100[place] [address]- 9[address] Sep, [facility] [address]00565100[place]- [address] Aug, [facility] [id number] [place] [address]11- 4510 Aug, [facility] [address]00565100[place] [address]- 18[address] Jul, [facility] [id number] [place] [address] 86709- 0300 Jul, [facility] [place] [facility] [address] [id number] [place] [address]- 9071 Jun, [facility] [place] [facility] [address] [id number] [place] [address]- 3472 Jun, [facility] [place] [facility] [address] [id number] [place] [address]- 1668 Mar, [facility] [place] [facility] [address] [id number] [place] [address]- 1733 Mar, [facility] [place] [facility] [address] [id number] [place] [address]- 74[address] Mar, [facility] [place] [facility] [address] [id number] [place] [address]- 4569 Mar, [facility] [place] [facility] [address] [id number] [place] [address]- 8075 Mar, [facility] [place] [facility] [address] [id number] [place] [address]- 4784 Mar, [facility] [place] [facility] [address] [id number] [place] [address]- [address] January, [facility] [place] [facility] [address] [id number] [place] [address]- 1074 January, [facility] [place] [facility] [address] [id number] [place] [address]- 0718 January, [facility] [place] [facility] [address] [id number] [place] [address]- 2654 January, [facility] [place] [facility] [address] [id number] [place] [address]- 4933 January, [facility] [place] [facility] [address] [id number] [place] [address]- 7669 Aug, [facility] [place] [facility] [address] [id number] [place] [address]- 7786 Aug, [facility] [place] [facility] [address] [id number] [place] [address]- 0880 Mar, [facility] [address] [id number] [place] [address]- 0199 Mar, [facility] [place] [facility] [address] [id number] [place] [address]- 8362 Jun, [facility] [place] [facility] [address] [id number] [place] [address]- 7374 Jun, [facility] [place] [facility] [address] [id number] [place] [address]- 1876 Jun, [facility] [place] [facility] [address] [id number] [place] [address]- 7735 Jun, [facility] [place] [facility] [address] [id number] [place] [address]- 8412 Jun, [facility] [place] [facility] [address] [id number] [place] [address]- 5069 Jun, [facility] [place] [facility] [address] [id number] [place] [address]- 8468 Jun, [facility] [place] [facility] [address] [id number] [place] [address]- 4336 Apr, [facility] [place] [facility] [address] [facility] [id number] [place] [address]- 1063 Feb, [facility] [place] [facility] [address] [id number] [place] [address]- 8471 15 Oct, 2010 [facility] [place] [facility] [address] [id number] [place] [address]- 2541 Aug, [facility] [place] [facility] [address] [id number] [place] [address] 2546 27 Aug, 2010 [facility] [place] [facility] [address] [id number] [place] [address]- 2546 14 Aug, 2010 [facility] [place] [facility] [address] [id number] [place] [address]- 2026 Aug, [facility] [address] [id number] [address] 2546 Apr, [facility] [address] [id number] [address] 2546 January, [facility] [address] [id number] [address] 2546 January, [facility] [address] [id number] [address] 2546 Dec, IMMUNIZATIONS No Known Immunizations SOCIAL HISTORY Never Assessed REASON FOR VISIT Refill request PLAN OF CARE VITAL SIGNS MEDICATIONS Unknown Medications RESULTS No Results PROCEDURES No Known procedures INSTRUCTIONS MEDICATIONS ADMINISTERED No Known Medications
--- OUTSIDE RECORDS SUMMARY | 2018-08-22 16:18 | XMS REPORT ---
Author Author TEJ CHILEL [facility] Address [address] [place] [address] Care Team Providers Care Computer Animator Name Role Phone TEJ CHILEL Unavailable PROBLEMS Type Condition ICD9-CM Code BKQ40-MC Code Onset Dates Condition Status SNOMED Code Problem Primary insomnia F51.01 Active 0523513 Problem Recurrent major depressive disorder, remission status unspecified F33.9 Active 93179210 Problem Acquired hypothyroidism E03.9 Active 952093435 Problem Anorexia R63.0 Active 36658650 Problem Essential (primary) hypertension I10 Active 33596721 Problem COPD (chronic obstructive pulmonary disease) J44.9 Active 14412721 Problem Hyperlipidemia, unspecified hyperlipidemia type E78.5 Active 87518543 Problem 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 Active 57260364 Problem Allergy, subsequent encounter T78.40XD Active 431492078 Problem Dementia F03.90 Active 92824524 ALLERGIES Unknown Allergies SOCIAL HISTORY No smoking Hx information available PLAN OF CARE VITAL SIGNS MEDICATIONS Unknown Medications RESULTS No Results PROCEDURES No Known procedures IMMUNIZATIONS No Known Immunizations
--- OUTSIDE RECORDS SUMMARY | 2018-08-22 16:18 | XMS REPORT ---
Author Author TEJ CHILEL [facility] Address [address] [place] [address] Care Team Providers Care Booster Assembler Name Role Phone TEJ CHILEL Unavailable PROBLEMS Type Condition ICD9-CM Code KEG00-VD Code Onset Dates Condition Status SNOMED Code Problem Primary insomnia F51.01 Active 0667373 Problem Recurrent major depressive disorder, remission status unspecified F33.9 Active 73544259 Problem Acquired hypothyroidism E03.9 Active 260310730 Problem Anorexia R63.0 Active 40623350 Problem Essential (primary) hypertension I10 Active 00801658 Problem COPD (chronic obstructive pulmonary disease) J44.9 Active 10461274 Problem Hyperlipidemia, unspecified hyperlipidemia type E78.5 Active 16633833 Problem 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 Active 25409401 Problem Allergy, subsequent encounter T78.40XD Active 410502324 Problem Dementia F03.90 Active 21536544 ALLERGIES No Information SOCIAL HISTORY Never Assessed PLAN OF CARE VITAL SIGNS MEDICATIONS Unknown Medications RESULTS No Results PROCEDURES No Known procedures IMMUNIZATIONS No Known Immunizations
--- OUTSIDE RECORDS SUMMARY | 2018-08-22 16:18 | XMS REPORT ---
Author Author TEJ CHILEL [facility] Address [address] [place] [address] Care Team Providers Care Cargo Router Name Role Phone TEJ CHILEL Unavailable PROBLEMS Type Condition ICD9-CM Code OKU30-UZ Code Onset Dates Condition Status SNOMED Code Problem Primary insomnia F51.01 Active 6710442 Problem Recurrent major depressive disorder, remission status unspecified F33.9 Active 24929983 Problem Acquired hypothyroidism E03.9 Active 682269162 Problem Anorexia R63.0 Active 15905571 Problem Essential (primary) hypertension I10 Active 11299049 Problem COPD (chronic obstructive pulmonary disease) J44.9 Active 24443675 Problem Hyperlipidemia, unspecified hyperlipidemia type E78.5 Active 81022837 Problem 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 Active 96483221 Problem Allergy, subsequent encounter T78.40XD Active 029019964 Problem Dementia F03.90 Active 38713620 ALLERGIES No Information SOCIAL HISTORY Never Assessed PLAN OF CARE VITAL SIGNS MEDICATIONS Medication Instructions Dosage Frequency Start Date End Date Duration Status Lexapro 20 mg Orally Once a day 1 tablet 24h Oct, 30 day(s) Active RESULTS No Results PROCEDURES No Known procedures IMMUNIZATIONS No Known Immunizations
--- OUTSIDE RECORDS SUMMARY | 2018-08-22 16:18 | XMS REPORT ---
Author Author TEJ CHILEL [facility] Address [address] [place] [address] Care Team Providers Care Post Closing Specialist Name Role Phone TEJ CHILEL Unavailable PROBLEMS Type Condition ICD9-CM Code JPI94-[id number] Code Onset Dates Condition Status SNOMED Code Problem Primary insomnia F51.01 Active 0681365 Problem Recurrent major depressive disorder, remission status unspecified F33.9 Active 34025565 Problem Brief psychotic disorder F23 Active 5550740 Problem Acquired hypothyroidism E03.9 Active 412005779 Problem Anorexia R63.0 Active 51281524 Problem Essential (primary) hypertension I10 Active 48729606 Problem COPD (chronic obstructive pulmonary disease) J44.9 Active 13476233 Problem Hyperlipidemia, unspecified hyperlipidemia type E78.5 Active 08819322 Problem 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 Active 73721180 Problem Allergy, subsequent encounter T78.40XD Active 229598886 Problem Dementia F03.90 Active 96049110 ALLERGIES No Information ENCOUNTERS Encounter Location Date Diagnosis [place] [address] [id number] [address] January, [place] [id number] [place] [address] Dec, [facility] [address] [place] [id number] Nov, Dementia F03.90 and COPD (chronic obstructive pulmonary disease) J44.9 [facility] [address] [id number] [id number] Nov, [place] [id number] [place] [id number] 13 Oct, 2017 [facility] [address] [place] [id number] Sep, Anemia, unspecified type D64.9 [place] [address] [id number], [place] [address] Sep, [facility] [address] [facility] [id number], [place] [address] Sep, [facility] [address] [id number][place] [id number] Sep, [facility] [address] [id number] [id number] Aug, [facility] [address] [id number][place] [id number] Aug, [facility] [address] [facility] [id number], [place] [address] Aug, [facility] [address] [id number][place] [id number] Aug, [facility] [address]00565100[place], [place] [address] Aug, [facility] [address] [facility] [id number], [place] [address] Jul, [facility] [id number][place] [id number] Jul, [facility] [address] [id number][place] [id number] Jul, [facility] [id number][place] [id number] Jun, [facility] [address] [facility] [id number][place] [address] Jun, [facility] [address] [place] [id number] Jun, Left hip pain M25.552 and Dementia F03.90 [facility] [address] [id number], [place] [address] 29 May, 2017 [facility] [address] [id number][place] [id number] 13 May, 2017 [facility] [address] [id number], [place] [id number] May, [facility] [address] [facility] [id number], [place] [address] May, [facility] [address] [id number][place] [id number] Apr, [facility] [address] [facility] [id number][place] [id number] Apr, [facility] [address] [facility] [id number][place] [address] Apr, [facility] [address] [id number][place] [id number] Apr, Dementia F03.90 [facility] [address] [facility] [id number], [place] [address] Apr, [facility] [address]00565100[place], [place] [address] Apr, [facility] [address] [place] [id number] Apr, Edema of both legs R60.0 [facility] [address] [id number][place] [id number] Mar, [facility] [address] [id number][place] [id number] Mar, [facility] [address] [id number][place] [id number] Mar, Anorexia R63.0 [facility] [address] [facility] [id number], [place] [address] Mar, [facility] [address] [id number], [place] [id number] Mar, [facility] [address] [id number][place] [id number] Feb, [facility] [address] [id number], [place] [id number] Feb, [facility] [address] [id number], [place] [address] Feb, Urinary tract infection without hematuria, site unspecified N39.0 [facility] [address]00565100[place], [place] [address] January, Anorexia R63.0 [facility] [address]00565100[place], [place] [address] January, [facility] [id number] [place] [id number] January, [facility] [address]00565100[place], [place] [address] January, Dementia F03.90 [facility] [id number] [place] [id number] January, [facility] [address] [place] [id number] Dec, Left hip pain M25.552 and Dementia F03.90 [facility] [id number], [place] [id number] Dec, [facility] [id number] [place] [id number] Nov, [facility] [address] [id number], [place] [address] Oct, [facility] [address] [place] [id number] Oct, Dementia F03.90 and Other depression F32.89 [facility] [address] [place] [id number] Oct, Dementia F03.90 ; Essential (primary) hypertension I10 and COPD (chronic obstructive pulmonary disease) J44.9 [facility] [address]00565100[place], [place] [address] Oct, [facility] [address] [id number], [place] [address] Sep, [facility] [address] [place] [id number] Aug, COPD (chronic obstructive pulmonary disease) J44.9 and Dementia F03.90 [facility] [address] [place] [id number] Jun, Dementia F03.90 and COPD (chronic obstructive pulmonary disease) J44.9 [facility] [address] [place] [id number] Apr, COPD (chronic obstructive pulmonary disease) J44.9 and Essential (primary) hypertension I10 [facility] [address] [address] Apr, [facility] [address] [address] Mar, [facility] [address] [address] Mar, COPD (chronic obstructive pulmonary disease) J44.9 [facility] [id number] [place] [address] January, COPD (chronic obstructive pulmonary disease) J44.9 and Allergy, subsequent encounter T78.40XD [facility] [id number] [place] [address]88 Nov, COPD (chronic obstructive pulmonary disease) J44.9 ; Dementia F03.90 and Essential (primary) hypertension I10 [facility] [id number] [place] [address]- 1160 Oct, COPD (chronic obstructive pulmonary disease) J44.9 [facility] [id number] [place] [address]- 3466 Sep, COPD (chronic obstructive pulmonary disease) J44.9 [facility] [id number] [place] [address]- 6215 Sep, Essential (primary) hypertension I10 [facility] [id number] [place] [address] Sep, Dementia F03.90 and Essential hypertension, benign 401.1 [facility] [address] [place] [address]- [address] Jul, Dementia F03.90 and COPD (chronic obstructive pulmonary disease) J44.9 [facility] [id number] [place] [address]- 2453 Jun, [facility] [address] [id number] Jun, [facility] [id number] [place] [address]- 8031 May, Chronic airway obstruction, not elsewhere classified 496 and Essential hypertension, benign 401.1 [facility] [id number] [place] [address]49475- 3484 Mar, Essential hypertension, benign 401.1 and Dementia 294.20 [facility] [id number] [place] [address] 208042- 1067 January, Dementia 294.20 [facility] [id number] [place] [address]- 0409 Dec, [facility] [id number] [place] [address]- 8306 Dec, [facility] [address] [place] [id number] Nov, [facility] [address]00565100[place], [place] [address]- [address] Nov, [facility] [address]65100[place], [place] [address]- 78[address] Sep, [facility] [address]65100[place], [place] [address]- 00[address] Sep, [facility] [address] [id number] [address] Aug, [facility] [address]65100[place] Aug, [facility] [id number] [place] [address]07- 8405 Jul, [facility] [place] [facility] [address] [id number] [place] [address]- 0958 Jul, [facility] [place] [facility] [address] [id number] [place] [address]- [address] Jun, [facility] [place] [facility] [address] [id number] [place] [address]- 1739 Jun, [facility] [place] [facility] [address] [id number] [place] [address]- 4838 Mar, [facility] [place] [facility] [address] [id number] [place] [address] Mar, [facility] [place] [facility] [address] [id number] [place] [address]- 4831 Mar, [facility] [place] [facility] [address] [id number] [place] [address]- 0448 Mar, [facility] [place] [facility] [address] [id number] [place] [address]- 6065 Mar, [facility] [place] [facility] [address] [id number] [place] [address]- 5020 Mar, [facility] [place] [facility] [address] [id number] [place] [address]- 2262 January, [facility] [place] [facility] [address] [id number] [place] [address]- 9071 January, [facility] [place] [facility] [address] [id number], [place] [address]- 3892 January, [facility] [place] [facility] [address] [id number] [place] [address]- 6457 January, [facility] [place] [facility] [address] [id number] [place] [address]- 2268 January, [facility] [place] [facility] [address] [id number] [place] [address]- 2673 Aug, [facility] [place] [facility] [address] [id number] [place] [address]- 4936 27 Aug, 2013 [facility] [place] [facility] [address] [id number] [place] [address]- 4889 Mar, [facility] [place] [facility] [address] [id number] [place] [address]- 5146 Mar, [facility] [place] [facility] [address] [id number] [place] [address]- 5237 Jun, [facility] [place] [facility] [address] [id number] [place] [address]- 1054 Jun, [facility] [place] [facility] [address] [id number] [place] [address]- 3848 Jun, [facility] [place] [facility] [address] [id number] [place] [address]- 6526 Jun, [facility] [place] [facility] [address] [id number] [place] [address]- 1473 Jun, [facility] [place] [facility] [address] [id number] [place] [address]- 0653 Jun, [facility] [place] [facility] [address] [id number] [place] [address]- 8110 Jun, [facility] [place] [facility] [address] [facility] [id number] [place] [address]- 4341 Apr, [facility] [place] [facility] [address] [id number] [place] [address]- 1120 Feb, [facility] [place] [facility] [address] [id number] [place] [address]- 5425 15 Oct, 2010 [facility] [place] [facility] [address] [id number] [place] [address]- 0891 28 Aug, 2010 [facility] [place] [facility] [address] [id number] [place] [address]- 2548 27 Aug, 2010 [facility] [place] [facility] [address] [id number] [place]- [address] Aug, [facility] [address] [facility] [id number], [place] [address]- 2546 Aug, [facility] [address] [id number], [place] [address]- 2546 Apr, [facility] [address] [id number], [place] [address]- 2546 January, [facility] [address] [id number], [place] [address]- 2546 January, [facility] [address] [facility] [id number], [place] [address] 2546 Dec, IMMUNIZATIONS No Known Immunizations SOCIAL HISTORY Never Assessed REASON FOR VISIT increase [facility] PLAN OF CARE VITAL SIGNS MEDICATIONS Medication Instructions Dosage Frequency Start Date End Date Duration Status Risperidone 0.5 MG Orally Once a day 1 tablet 24h Jul, Active RESULTS No Results PROCEDURES No Known procedures INSTRUCTIONS MEDICATIONS ADMINISTERED No Known Medications
--- OUTSIDE RECORDS SUMMARY | 2018-08-22 16:19 | XMS REPORT ---
Author Author TEJ CHILEL [facility] Address [address] [place] [address] Care Team Providers Care Mill Beam Fitter Name Role Phone TEJ CHILEL Unavailable PROBLEMS Type Condition ICD9-CM Code UVE11-SY Code Onset Dates Condition Status SNOMED Code Problem Primary insomnia F51.01 Active 9451237 Problem Recurrent major depressive disorder, remission status unspecified F33.9 Active 56506780 Problem Brief psychotic disorder F23 Active 7573802 Problem Acquired hypothyroidism E03.9 Active 521015601 Problem Anorexia R63.0 Active 42707706 Problem Essential (primary) hypertension I10 Active 69789334 Problem COPD (chronic obstructive pulmonary disease) J44.9 Active 55959822 Problem Hyperlipidemia, unspecified hyperlipidemia type E78.5 Active 23719768 Problem 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 Active 14323757 Problem Allergy, subsequent encounter T78.40XD Active 937107819 Problem Dementia F03.90 Active 52698285 ALLERGIES No Information ENCOUNTERS Encounter Location Date Diagnosis [facility] [address] [id number] [id number] Dec, [facility] [address] [place] [id number] Nov, Dementia F03.90 and COPD (chronic obstructive pulmonary disease) J44.9 [facility] [address] [id number] [id number] Nov, [facility] [id number] [place] [id number] Oct, [facility] [address] [place] [id number] Sep, Anemia, unspecified type D64.9 [facility] [address] [id number] [address] Sep, [facility] [place] [facility] [address] [id number] [address] Sep, [facility] [address] [id number] [id number] Sep, [facility] [address] [id number] [id number] Aug, [facility] [address] [id number] [place] [id number] Aug, [facility] [address] [id number] [address]46 Aug, [facility] [address] [id number] [place] [id number] Aug, [facility] [address] [id number] [address] Aug, [facility] [address] [id number] [address] Jul, [facility] [address] [id number] [place] [id number] Jul, [facility] [address] [id number] [address] Jul, [facility] [address] [id number] [place] [id number] Jun, [facility] [address] [id number] [address] Jun, [facility] [address] [place] [id number] Jun, Left hip pain M25.552 and Dementia F03.90 [facility] [address] [id number] [address] 29 May, 2017 [facility] [address] [id number] [place] [id number] May, [facility] [address] [id number] [id number] 05 May, 2017 [facility] [address] [id number] [address] May, [facility] [address] [id number] [place] [id number] Apr, [facility] [address] [facility] [id number] [place] [address] Apr, [facility] [address] [facility] [id number] [address] Apr, [facility] [address] [id number] [id number] Apr, Dementia F03.90 [facility] [address] [facility] [id number] [place] [address] Apr, [facility] [address] [id number] [address] Apr, [facility] [address] [place] [id number] Apr, Edema of both legs R60.0 [facility] [address] [id number] [place] [id number] Mar, [facility] [id number] [id number] Mar, [facility] [address] [id number] [place] [address] Mar, Anorexia R63.0 [facility] [address] [facility] [id number] [place] [address] Mar, [facility] [address] [id number] [place] [address] Mar, [facility] [address] [id number] [place] [id number] Feb, [facility] [address] [id number] [place] [id number] Feb, [facility] [address] [facility] [id number] [place] [address] Feb, Urinary tract infection without hematuria, site unspecified N39.0 [facility] [address] [id number] [address] January, Anorexia R63.0 [facility] [address]00565[address] [address] January, [facility] [address] [id number] [id number] January, [facility] [address]00565100[place] [address] January, Dementia F03.90 [facility] [id number] [place] [id number] January, [facility] [address] [place] [address] Dec, Left hip pain M25.552 and Dementia F03.90 [facility] [id number] [place] [id number] Dec, [facility] [id number] [place] [id number] Nov, [facility] [address] [id number] [address] Oct, [facility] [address] [place] [address] Oct, Dementia F03.90 and Other depression F32.89 [facility] [address] [place] [id number] Oct, Dementia F03.90 ; Essential (primary) hypertension I10 and COPD (chronic obstructive pulmonary disease) J44.9 [facility] [address] [id number] [address] Oct, [facility] [address]00565100[place] [address] Sep, [facility] [address] [place] [id number] Aug, COPD (chronic obstructive pulmonary disease) J44.9 and Dementia F03.90 [facility] [address] [place] [id number] Jun, Dementia F03.90 and COPD (chronic obstructive pulmonary disease) J44.9 [facility] [address] [place] [id number] Apr, COPD (chronic obstructive pulmonary disease) J44.9 and Essential (primary) hypertension I10 [facility] [id number] [place] [address] Apr, [facility] [address] [address] Mar, [facility] [id number] [place] [address] Mar, COPD (chronic obstructive pulmonary disease) J44.9 [place] [facility] [id number] [place] [address] January, COPD (chronic obstructive pulmonary disease) J44.9 and Allergy, subsequent encounter T78.40XD [place] [facility] [id number] [place] [address] Nov, COPD (chronic obstructive pulmonary disease) J44.9 ; Dementia F03.90 and Essential (primary) hypertension I10 [facility] [id number] [place] [address] Oct, COPD (chronic obstructive pulmonary disease) J44.9 [facility] [id number] [place] [address] 85[address]- 3547 Sep, COPD (chronic obstructive pulmonary disease) J44.9 [facility] [id number] [place] [address]74 Sep, Essential (primary) hypertension I10 [facility] [id number] [place] [address] Sep, Dementia F03.90 and Essential hypertension, benign 401.1 [facility] [id number] [place] [address]- [address]32 Jul, Dementia F03.90 and COPD (chronic obstructive pulmonary disease) J44.9 [facility] [address]65100[place] [address] Jun, [facility] [id number] [place] [address]- [address] Jun, [facility] [address] [address] May, Chronic airway obstruction, not elsewhere classified 496 and Essential hypertension, benign 401.1 [facility] [id number] [place] [address]- 4542 Mar, Essential hypertension, benign 401.1 and Dementia 294.20 [facility] [id number] [place] [address]- 9398 January, Dementia 294.20 [facility] [id number] [place] [address]709- 5837 Dec, [facility] [id number] [place] [address]- 2413 Dec, [facility] [address] [place] [id number] Nov, [facility] [id number] [place] [address]9860- 9083 Nov, [facility] [address] [address]- 7[address] Sep, [facility] [address] [address]- 7[address] Sep, [facility] [address] Aug, [facility] [id number] [place] [address]677- 6578 Aug, [facility] [address] [address]- 17[address] Jul, [facility] [id number] [place] [address] 91441- 0860 Jul, [facility] [place] [facility] [address] [id number] [place] [address]- [address]26 Jun, [facility] [place] [facility] [address] [id number] [place] [address]- 1435 Jun, [facility] [place] [facility] [address] [id number] [place] [address]- 8013 Mar, [facility] [place] [facility] [address] [id number] [place] [address]- 9639 Mar, [facility] [place] [facility] [address] [id number] [place] [address]- 5867 Mar, [facility] [place] [facility] [address] [id number] [place] [address]- 4897 Mar, [facility] [place] [facility] [address] [id number] [place] [address]- 0514 Mar, [facility] [place] [facility] [address] [id number] [place] [address]- 4782 Mar, [facility] [place] [facility] [address] [id number] [place] [address]- 0174 January, [facility] [place] [facility] [address] [id number] [place] [address]- 8[address] January, [facility] [place] [facility] [address] [id number] [place] [address]- 2318 January, [facility] [place] [facility] [address] [id number] [place] [address]- 18[address] January, [facility] [place] [facility] [address] [id number] [place] [address]- 7137 January, [facility] [place] [facility] [address] [id number] [place] [address]- 4252 Aug, [facility] [place] [facility] [address] [id number] [place] [address]- 5248 Aug, [facility] [place] [facility] [address] [id number] [place] [address]- 6788 Mar, [facility] [address] [id number] [place] [address]- 3186 Mar, [facility] [place] [facility] [address] [id number] [place] [address]- 7008 Jun, [facility] [place] [facility] [address] [id number] [place] [address]- 5251 Jun, [facility] [place] [facility] [address] [id number] [place] [address]- 3350 Jun, [facility] [place] [facility] [address] [id number] [place] [address]- 3338 Jun, [facility] [place] [facility] [address] [id number] [place] [address]- 3018 Jun, [facility] [place] [facility] [address] [id number] [place] [address]- 9255 Jun, [facility] [place] [facility] [address] [id number] [place] [address]- 2549 Jun, [facility] [place] [facility] [address] [id number] [place] [address]- 8463 Apr, [facility] [place] [facility] [address] [facility] [id number] [place] [address]- 3032 Feb, [facility] [place] [facility] [address] [id number] [place] [address]- 9516 15 Oct, 2010 [facility] [place] [facility] [address] [id number] [place] [address]- 2548 Aug, [facility] [place] [facility] [address] [id number] [place] [address] 2546 27 Aug, 2010 [facility] [place] [facility] [address] [id number] [place] [address]- 2546 14 Aug, 2010 [facility] [place] [facility] [address] [id number] [place] [address]- 7539 Aug, [facility] [address] [facility] [id number] [address]- 2546 Apr, [facility] [address] [id number] [address]- 2546 January, [facility] [address] [id number] [address]- 2546 January, [facility] [address] [id number] [address]- 2546 Dec, IMMUNIZATIONS No Known Immunizations SOCIAL [...]
--- OUTSIDE RECORDS SUMMARY | 2018-08-22 16:19 | XMS REPORT ---
Author Author TEJ CHILEL [facility] Address [address] [place] [address] Care Team Providers Care Pre Coder Name Role Phone TEJ CHILEL Unavailable PROBLEMS Type Condition ICD9-CM Code MQU97-DU Code Onset Dates Condition Status SNOMED Code Problem Primary insomnia F51.01 Active 1968473 Problem Recurrent major depressive disorder, remission status unspecified F33.9 Active 88574439 Problem Acquired hypothyroidism E03.9 Active 557010261 Problem Anorexia R63.0 Active 07112155 Problem Essential (primary) hypertension I10 Active 98201459 Problem COPD (chronic obstructive pulmonary disease) J44.9 Active 72119814 Problem Hyperlipidemia, unspecified hyperlipidemia type E78.5 Active 10401124 Problem 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 Active 96390356 Problem Allergy, subsequent encounter T78.40XD Active 690310292 Problem Dementia F03.90 Active 74431019 ALLERGIES No Information SOCIAL HISTORY Never Assessed PLAN OF CARE VITAL SIGNS MEDICATIONS Medication Instructions Dosage Frequency Start Date End Date Duration Status Symbicort 80-4.5 MCG/ACT Inhalation Twice a day 2 puffs 12h Active Tylenol 325 MG Orally 2 times a day 2 tablets 12h Nov, Active Norvasc 5 MG Orally Once a day 1 tablet 24h Active Synthroid 50 mcg Orally Once a day 1 tablet 24h January, Active Aricept 10 mg Orally Once a day 1 tablet at bedtime 24h Oct, Active Sertraline HCl 25 MG Orally Once a day 1 tablet 24h Active Namenda 5 mg Orally Twice a day 1 tablet 12h Active Tylenol 325 MG Orally every 4 hrs 2 tablets as needed 4h Active Ibuprofen 400 mg Orally every 6 hours as needed 1 tablet with food or milk as needed Dec, Active Exelon 9.5 MG/24HR Transdermal Once a day 1 patch to skin 24h January, Active Remeron 15 mg Orally Once a day 1/2 tablet 24h Feb, 30 day(s) Active Cyanocobalamin 1000 MCG/ML Injection every 2 weeks 1000mcg Active Melatonin 3 MG Orally Once a day 1 tablet at bedtime as needed with food 24h Apr, Active Flonase 50 MCG/ACT Nasally Once a day 2 spray in each nostril 24h Active Risperidone 0.5 MG Orally Once a day 1 tablet 24h Active Incruse Ellipta 62.5 MCG/INH Inhalation Once a day 1 puff 24h Active Vitamin D3 1000 UNIT Orally Once a day 2 tablets 24h Active RESULTS No Results PROCEDURES No Known procedures IMMUNIZATIONS No Known Immunizations
--- OUTSIDE RECORDS SUMMARY | 2018-08-22 16:19 | XMS REPORT ---
Author Author JUAN DANIEL CASTELLANOS Organization [employer] Address Unknown Phone Unavailable Care Team Providers Care Hose Cementer Name Role Phone JUAN DANIEL CASTELLANOS CP Unavailable Allergies No Known Allergies Problems Problem Type Condition Code Onset Dates Condition Status Problem Essential (primary) hypertension I10 Active Problem Dementia F03.90 Active Problem Allergy, subsequent encounter T78.40XD Active Assessment Dementia F03.90 Active Assessment COPD (chronic obstructive pulmonary disease) J44.9 Active Problem COPD (chronic obstructive pulmonary disease) J44.9 Active Problem 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 Active Medications No Known Medications Procedures Procedure Coding System Code Date Stable Visit (10 minutes) CPT-4 22534 Jul 04, 2016 Results No Known Results Summary Purpose [employer] Submission
--- OUTSIDE RECORDS SUMMARY | 2018-08-22 16:19 | XMS REPORT ---
Author Author MORAIMA PUGH [facility] Address [address] [place] [address] Care Team Providers Care Boiler Fitter Name Role Phone MORAIMA PUGH Unavailable PROBLEMS Type Condition ICD9-CM Code GFV32-RP Code Onset Dates Condition Status SNOMED Code Problem Primary insomnia F51.01 Active 4578927 Problem Recurrent major depressive disorder, remission status unspecified F33.9 Active 59266094 Problem Brief psychotic disorder F23 Active 0886147 Problem Acquired hypothyroidism E03.9 Active 865569094 Problem Anorexia R63.0 Active 31672372 Problem Essential (primary) hypertension I10 Active 60488857 Problem COPD (chronic obstructive pulmonary disease) J44.9 Active 06753391 Problem Hyperlipidemia, unspecified hyperlipidemia type E78.5 Active 28714919 Problem 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 Active 27598421 Problem Allergy, subsequent encounter T78.40XD Active 975895263 Problem Dementia F03.90 Active 73430202 ALLERGIES No Information ENCOUNTERS Encounter Location Date Diagnosis [facility] [id number] [address] January, [facility] [id number] [address] Dec, [facility] [address] [facility] [place] [id number] Nov, Dementia F03.90 and COPD (chronic obstructive pulmonary disease) J44.9 [facility] [address] [id number] [id number] Nov, [facility] [id number] [place] [id number] Oct, [facility] [address] [place] [id number] Sep, Anemia, unspecified type D64.9 [facility] [id number], [place] [address] Sep, [facility] [address] [facility] [id number], [place] [address] Sep, [facility] [address] [id number][place] [id number] Sep, [facility] [id number] [id number] Aug, [facility] [place] [facility] [address] [id number][place] [id number] Aug, [facility] [address] [facility] [id number], [place] [address] Aug, [facility] [address] [id number] [id number] Aug, [facility] [address]65[address], [place] [address] Aug, [facility] [id number], [place] [address] Jul, [facility] [id number] [id number] Jul, [facility] [id number][place] [id number] Jul, [facility] [id number], [place] [id number] Jun, [facility] [address] [facility] [id number], [place] [address] Jun, [facility] [address] [place] [id number] Jun, Left hip pain M25.552 and Dementia F03.90 [facility] [address] [facility] [id number], [place] [address] 29 May, 2017 [facility] [id number], [place] [id number] 13 May, 2017 [facility] [address] [id number], [place] [id number] May, [facility] [address] [facility] [id number], [place] [address] May, [facility] [address] [id number], [place] [id number] Apr, [facility] [address] [facility] [id number], [place] [address] Apr, [facility] [address] [facility] [id number], [place] [id number] Apr, [facility] [address] [id number] [id number] Apr, Dementia F03.90 [facility] [address] [id number], [place] [address] Apr, [facility] [address]00565[address], [place] [address] Apr, [facility] [address] [place] [id number] Apr, Edema of both legs R60.0 [facility] [address] [id number], [place] [id number] Mar, [facility] [id number], [place] [id number] Mar, [facility] [id number], [place] [address] Mar, Anorexia R63.0 [facility] [address] [facility] [id number], [place] [address] Mar, [facility] [address] [id number], [place] [id number] Mar, [facility] [address] [id number], [place] [id number] Feb, [facility] [address] [id number], [place] [id number] Feb, [facility] [address]65[address], [place] [address] Feb, Urinary tract infection without hematuria, site unspecified N39.0 [facility] [address], [place] [address] January, Anorexia R63.0 [facility] [address], [place] [address] January, [facility] [address] [id number] [id number] January, [facility] [address]65100[place], [place] [address] January, Dementia F03.90 [facility] [id number] [place] [id number] January, [facility] [address] [place] [id number] Dec, Left hip pain M25.552 and Dementia F03.90 [facility] [address] [id number] [id number] Dec, [facility] [id number] [place] [id number] Nov, [facility] [address]00565[address], [place] [address] Oct, [facility] [address] [place] [id number] Oct, Dementia F03.90 and Other depression F32.89 [facility] [address] [place] [id number] Oct, Dementia F03.90 ; Essential (primary) hypertension I10 and COPD (chronic obstructive pulmonary disease) J44.9 [facility] [address], [place] [address] Oct, [facility] [address] [id number], [place] [address] Sep, [facility] [address] [place] [id number] Aug, COPD (chronic obstructive pulmonary disease) J44.9 and Dementia F03.90 [facility] [address] [place] [id number] Jun, Dementia F03.90 and COPD (chronic obstructive pulmonary disease) J44.9 [facility] [address] [place] [id number] Apr, COPD (chronic obstructive pulmonary disease) J44.9 and Essential (primary) hypertension I10 [facility] [id number] [place] [address] Apr, [facility] [id number] [place] [address] Mar, [facility] [address] [address] Mar, COPD (chronic obstructive pulmonary disease) J44.9 [facility] [id number] [place] [address] January, COPD (chronic obstructive pulmonary disease) J44.9 and Allergy, subsequent encounter T78.40XD [facility] [id number] [place] [address] Nov, COPD (chronic obstructive pulmonary disease) J44.9 ; Dementia F03.90 and Essential (primary) hypertension I10 [facility] [id number] [place] [address]89 Oct, COPD (chronic obstructive pulmonary disease) J44.9 [facility] [id number] [place] [address]- [address] Sep, COPD (chronic obstructive pulmonary disease) J44.9 [facility] [id number] [place] [address]- 6163 Sep, Essential (primary) hypertension I10 [facility] [id number] [place] [address] 9967 Sep, Dementia F03.90 and Essential hypertension, benign 401.1 [facility] [address] [address] Jul, Dementia F03.90 and COPD (chronic obstructive pulmonary disease) J44.9 [facility] [address], [place] [address] Jun, [facility] [address], [place] [address] Jun, [facility] [id number] [place] [address] 483940- 9570 May, Chronic airway obstruction, not elsewhere classified 496 and Essential hypertension, benign 401.1 [facility] [id number] [place] [address]- 6554 Mar, Essential hypertension, benign 401.1 and Dementia 294.20 [facility] [id number] [place] [address]- 5897 January, Dementia 294.20 [facility] [id number] [place] [address]- 0830 Dec, [facility] [address], [place] [address] Dec, [facility] [address] [place] [id number] Nov, [facility] [address], [place] [address] Nov, [facility] [address], [place] [address] Sep, [facility] [address], [place] [address]- 70[address] Sep, [facility] [address], [place] [address]- [address] Aug, [facility] [address], [place] [address] 7[address] Aug, [facility] [address], [place] [address] 6[address] Jul, [facility] [place] [facility] [address] [id number] [place] [address]- 69[address] Jul, [facility] [place] [facility] [address] [id number] [place] [address]- 7[address] Jun, [facility] [place] [facility] [address] [id number] [place] [address] Jun, [facility] [place] [facility] [address] [id number] [place] [address]- 8096 Mar, [facility] [place] [facility] [address] [id number] [place] [address]- 6[address] Mar, [facility] [place] [facility] [address] [id number] [place] [address]- 3[address] Mar, [facility] [place] [facility] [address] [id number] [place] [address]- 3596 Mar, [facility] [place] [facility] [address] [id number] [place] [address]- 3472 Mar, [facility] [place] [facility] [address] [id number] [place] [address]- 6031 Mar, [facility] [place] [facility] [address] [id number] [place] [address]- 0417 January, [facility] [place] [facility] [address] [id number] [place] [address]- 8117 January, [facility] [place] [facility] [address] [id number] [place] [address]- 38[address] January, [facility] [place] [facility] [address] [id number] [place] [address]- 9952 January, [facility] [place] [facility] [address] [id number] [place] [address]- 3479 January, [facility] [place] [facility] [address] [id number] [place] [address]- 3668 Aug, [facility] [place] [facility] [address] [id number] [place] [address]- 1135 Aug, [facility] [place] [facility] [address] [id number] [place] [address]- 1502 Mar, [facility] [place] [facility] [address] [id number] [place] [address]- 5875 Mar, [facility] [place] [facility] [address] [id number] [place] [address]- 4800 Jun, [facility] [place] [facility] [address] [id number] [place] [address]- 3469 Jun, [facility] [place] [facility] [address] [id number] [place] [address]- 2874 Jun, [facility] [place] [facility] [address] [id number] [place] [address]- 0699 Jun, [facility] [place] [facility] [address] [id number] [place] [address]- 7612 Jun, [facility] [place] [facility] [address] [id number] [place] [address]- 5969 Jun, [facility] [place] [facility] [address] [id number] [place] [address]- 8306 Jun, [facility] [place] [facility] [address] [id number] [place] [address]- 5269 Apr, [facility] [place] [facility] [address] [id number] [place] [address]- 0963 Feb, [facility] [place] [facility] [address] [id number] [place] [address]- 8663 15 Oct, 2010 [facility] [place] [facility] [address] [id number] [place] [address]- 2109 Aug, [facility] [place] [facility] [address] [id number] [place] [address] 27 Aug, 2010 [facility] [place] [facility] [address] [id number] [place] [address] 14 Aug, 2010 [facility] [place] [facility] [address] [facility] [id number], [place] [address]- 2546 Aug, [facility] [address] [facility] [id number], [place] [address]- 2546 Apr, [facility] [address] [facility] [id number], [place] [address]- 2546 January, [facility] [address] [facility] [id number], [place] [address]- 2546 January, [facility] [address] [facility] [id number], [place] [address]- 2546 Dec, IMMUNIZATIONS No Known Immunizations SOCIAL HISTORY Never Assessed REASON FOR VISIT UTI treatment PLAN OF CARE VITAL SIGNS MEDICATIONS Medication Instructions Dosage Frequency Start Date End Date Duration Status Macrobid 100 MG Orally every 12 hrs 1 capsule with food 12h Aug, Aug, 7 day(s) Active RESULTS No Results PROCEDURES No Known procedures INSTRUCTIONS MEDICATIONS ADMINISTERED No Known Medications
--- OUTSIDE RECORDS SUMMARY | 2018-08-22 16:21 | XMS REPORT | Continuity of Care Document ---
Author Author [facility] Address Unknown Phone Unavailable Allergies Active Description Code Type Severity Reaction Onset Reported/Identified Relationship to Patient Clinical Status Yes NO KNOWN DRUG ALLERGIES UNKNOWN NO KNOWN DRUG ALLERG Yes No Known Drug Allergies [id number] Drug Allergy Unknown N/A 01/24/2014 Medications Medication Packaging Start Date Stop Date Route Dosage Sig IBUPROFEN TAB 400 MG (MOTRIN) MG 03/01/2017 PRN Q4H ACETAMINOPHEN ORAL TABLET 325mg(Tylenol) MG 01/30/2017 02/09/2017 PRN EVERY 6 Hour POLYETHYLENE GLYCOL POWDER UD PWD (MIRALAX 17GM UNIT DOSE PAKS) gm 01/30/2017 02/09/2017 PRN Q3H ESCITALOPRAM TAB 10 MG (LEXAPRO) MG 01/30/2017 02/28/2017 QPM&1700 CALMOSEPTINE OINT TUBE (RISAMINE OINT) marija 01/30/2017 02/06/2017 PRN QID LOPERAMIDE CAP 2 MG (IMMODIUM) MG 01/30/2017 02/06/2017 PRN QID ALBUTEROL INHALER MDI 8 GM (VENTOLIN HFA) PUFF (S) 01/30/2017 03/01/2017 PRN Q6H ALUM/MAG/SIMETH 30CC LIQ (MYLANTA PLUS) cc 01/30/2017 02/09/2017 PRN Q4H LACTULOSE SYRUP LIQ 20 GM/30CC (CHRONULAC SYRUP) GM 01/30/2017 02/09/2017 PRN BID DONEPEZIL TAB 10 MG (ARICEPT) MG 02/28/2017 Daily&2000 BUDESONIDE/FORMOTEROL INH 80 /4.5 MCG (SYMBICORT ) PUFFS 01/30/2017 03/01/2017 BID&0800,2000 MILK OF MAGNESIA LIQ ml 01/30/2017 02/06/2017 PRN BID FLUTICASONE NASAL INHALER MDI 50 MCG (FLONASE NOSE SPRAY) SPRAY(S) 01/30/2017 02/28/2017 QHS&2100 MELATONIN TAB 3 MG (MELATONIN) MG 01/30/2017 02/28/2017 QHS&2100 TRAZODONE TAB 50 MG (DESYREL) MG 03/01/2017 PRN QHS ALBUTEROL INHALER MDI 8 GM (VENTOLIN HFA) PUFF (S) 01/31/2017 01/31/2017 PRN ONCE IPRATROPIUM/ALBUTEROL INH SOLN (DUO-NEB INH SOLN) MLS 01/31/2017 02/13/2017 BID&0800,2000 AMLODIPINE TAB 5 MG (NORVASC) MG 03/01/2017 Daily&0900 Rivastigmine TD Patch 24 hour 9.5mg (EXELON) MG 01/31/2017 02/09/2017 Daily&0900 BISACODYL SUPPOS SUP 10 MG (DULCOLAX SUPPOS) MG 01/31/2017 03/02/2017 PRN Daily LEVOTHYROXINE TAB 50 MCG (SYNTHROID) MCG 01/31/2017 03/01/2017 Daily&0900 RISPERIDONE DISSOLVABLE TAB 0.5 MG (RISPERDAL M-TAB) MG 01/31/2017 02/07/2017 PRN Q6H DIVALPROEX SPRINKLE CAP 125 MG (DEPAKOTE SPRINKLE) MG 01/31/2017 02/07/2017 PRN Q6H Memantine oral tablet 10mg (NAMENDA) MG 01/31/2017 01/31/2017 ONCE&1300 DONEPEZIL TAB 10 MG (ARICEPT) MG 01/31/2017 ONCE&1300 Memantine oral tablet 10mg (NAMENDA) MG 02/01/2017 02/03/2017 Daily&0900 Memantine oral tablet 5mg (NAMENDA) MG 02/01/2017 02/03/2017 Daily&0900 DONEPEZIL TAB 10 MG (ARICEPT) MG 03/02/2017 Daily&0900 VITAMIN D-3 TAB 1000 UNITS (VITAMIN D-3) UNITS 02/01/2017 03/02/2017 Daily&0900 CYANOCBALAMIN VIAL INJ 1000 MCG/CC (VIT B12 VIAL) MCG 02/02/2017 03/02/2017 Q2WK&0900 Memantine oral tablet 5mg (NAMENDA) MG 02/04/2017 02/13/2017 BID&0800,2000 RISPERIDONE TAB 0.5 MG (RISPERDAL) MG 02/04/2017 03/05/2017 Daily&1200 SERTRALINE TAB 25 MG (ZOLOFT) MG 02/05/2017 ONCE&1353 SERTRALINE TAB 25 MG (ZOLOFT) MG 03/07/2017 Daily&0900 DIVALPROEX SPRINKLE CAP 125 MG (DEPAKOTE SPRINKLE) MG 02/06/2017 03/08/2017 PRN Q6H Rivastigmine TD Patch 24 hour 9.5mg (EXELON) Dose(s) 02/10/2017 02/19/2017 Daily&0900 Memantine oral tablet 5mg (NAMENDA) MG 02/11/2017 02/20/2017 BID&0800,2000 Problems Date Dx Coded Attending Type Code Diagnosis Diagnosed By 11/28/2009 JUAN DANIEL CASTELLANOS MD 294.10 DEMENTIA IN CONDITIONS CLASSIFIED ELSEWHERE WITHOUT BEHAVIORAL DISTURBANCE 11/28/2009 JUAN DANIEL CASTELLANOS MD 294.10 DEMENTIA IN CONDITIONS CLASSIFIED ELSEWHERE WITHOUT BEHAVIORAL DISTURBANCE 11/28/2009 JUAN DANIEL CASTELLANOS MD 294.10 DEMENTIA IN CONDITIONS CLASSIFIED ELSEWHERE WITHOUT BEHAVIORAL DISTURBANCE 11/28/2009 JUAN DANIEL CASTELLANOS MD 294.10 DEMENTIA IN CONDITIONS CLASSIFIED ELSEWHERE WITHOUT BEHAVIORAL DISTURBANCE 11/28/2009 MILTON ZAMORA DO 294.10 DEMENTIA IN CONDITIONS CLASSIFIED ELSEWHERE WITHOUT BEHAVIORAL DISTURBANCE 11/28/2009 JUAN DANIEL CASTELLANOS MD 294.10 DEMENTIA IN CONDITIONS CLASSIFIED ELSEWHERE WITHOUT BEHAVIORAL DISTURBANCE 01/08/2010 JUAN DANIEL CASTELLANOS MD 244.9 HYPOTHYROIDISM 01/08/2010 JUAN DANIEL CASTELLANOS MD.90 ARTHRITIS/ ARTHROPATHY, UNSPECIFIED 01/08/2010 JUAN DANIEL CASTELLANOS MD 244.9 HYPOTHYROIDISM 01/08/2010 JUAN DANIEL CASTELLANOS MD.90 ARTHRITIS/ ARTHROPATHY, UNSPECIFIED 01/08/2010 JUAN DANIEL CASTELLANOS MD 244.9 HYPOTHYROIDISM 01/08/2010 JUAN DANIEL CASTELLANOS MD6.90 ARTHRITIS/ ARTHROPATHY, UNSPECIFIED 01/08/2010 JUAN DANIEL CASTELLANOS MD 244.9 HYPOTHYROIDISM 01/08/2010 JUAN DANIEL CASTELLANOS MD.90 ARTHRITIS/ ARTHROPATHY, UNSPECIFIED 01/08/2010 MILTON ZAMORA DO 244.9 HYPOTHYROIDISM 01/08/2010 MILTON ZAMORA DO 716.90 ARTHRITIS/ ARTHROPATHY, UNSPECIFIED 01/08/2010 JUAN DANIEL CASTELLANOS MD 244.9 HYPOTHYROIDISM 01/08/2010 JUAN DANIEL CASTELLANOS MD 716.90 ARTHRITIS/ ARTHROPATHY, UNSPECIFIED 01/29/2010 JUAN DANIEL CASTELLANOS MD 493.90 ASTHMA UNSPECIFIED 01/29/2010 JUAN DANIEL CASTELLANOS MD 493.90 ASTHMA UNSPECIFIED 01/29/2010 JUAN DANIEL CASTELLANOS MD 493.90 ASTHMA UNSPECIFIED 01/29/2010 JASMIN SMITH, JUAN DANIEL 493.90 ASTHMA UNSPECIFIED 01/29/2010 MILTON ZAMORA DO 493.90 ASTHMA UNSPECIFIED 01/29/2010 JASMIN SMITH, JUAN DANIEL 493.90 ASTHMA UNSPECIFIED 09/17/2010 JUAN DANIEL CASTELLANOS MD 790.29 ABNORMAL GLUCOSE 09/17/2010 JUAN DANIEL CASTELLANOS MD 790.29 ABNORMAL GLUCOSE 09/17/2010 JUAN DANIEL CASTELLANOS MD 790.29 ABNORMAL GLUCOSE 09/17/2010 JUAN DAINEL CASTELLANOS MD 790.29 ABNORMAL GLUCOSE 09/17/2010 MILTON ZAMORA DO 790.29 ABNORMAL GLUCOSE 09/17/2010 JUAN DANIEL CASTELLANOS MD 790.29 ABNORMAL GLUCOSE 11/06/2010 JUAN DANIEL CASTELLANOS MD 780.4 DIZZINESS AND VERTIGO 11/06/2010 JUAN DANIEL CASTELLANOS MD 780.4 DIZZINESS AND VERTIGO 11/06/2010 JUAN DANIEL CASTELLANOS MD 780.4 DIZZINESS AND VERTIGO 11/06/2010 JUAN DANIEL CASTELLANOS MD 780.4 DIZZINESS AND VERTIGO 11/06/2010 MILTON ZAMORA DO 780.4 DIZZINESS AND VERTIGO 11/06/2010 JUAN DANIEL CASTELLANOS MD 780.4 DIZZINESS AND VERTIGO 06/03/2012 Ot 493.92 ASTHMA, UNSPECIFIED, W (ACUTE) EXACERBAT 06/03/2012 Ot 786.05 SHORTNESS OF BREATH 04/15/2013 JUAN DANIEL CASTELLANOS MD 593.9 UNSPECIFIED DISORDER OF KIDNEY AND URETER 04/15/2013 JUAN DANIEL CASTELLANOS MD 593.9 UNSPECIFIED DISORDER OF KIDNEY AND URETER 04/15/2013 JUAN DANIEL CASTELLANOS MD 593.9 UNSPECIFIED DISORDER OF KIDNEY AND URETER 04/15/2013 JUAN DANIEL CASTELLANOS MD 593.9 UNSPECIFIED DISORDER OF KIDNEY AND URETER 04/15/2013 MILTON ZAMORA DO 593.9 UNSPECIFIED DISORDER OF KIDNEY AND URETER 04/15/2013 JUAN DANIEL CASTELLANOS MD 593.9 UNSPECIFIED DISORDER OF KIDNEY AND URETER 01/23/2014 OLEKSANDR [place] Ot 914.1 ABRASION HAND-INFECTED 01/23/2014 OLEKSANDR [place] Ot E000.8 OTHER EXTERNAL CAUSE STATUS 01/23/2014 OLEKSANDR [place] Ot E849.0 ACCIDENT IN HOME 01/23/2014 OLEKSANDR [place] Ot E906.8 INJ NEC CAUSED BY ANIMAL 01/23/2014 OLEKSANDR [place] Ot V06.1 [id number], COMBINED [ 01/26/2014 JUAN DANIEL CASTELLANOS MD Ot 112.1 CANDIDAL VULVOVAGINITIS 01/26/2014 JUAN DANIEL CASTELLANOS MD Ot 244.9 HYPOTHYROIDISM NOS 01/26/2014 JUAN DANIEL CASTELLANOS MD Ot 294.20 DEMENTIA, UNSPECIFIED, WITHOUT BEHAVIORA 01/26/2014 JUAN DANIEL CASTELLANOS MD Ot 493.90 ASTHMA, UNSPECIFIED 01/26/2014 JUAN DANIEL CASTELLANOS MD Ot 585.9 CHRONIC KIDNEY DISEASE, UNSPECIFIED 01/26/2014 JUAN DANIEL CASTELLANOS MD Ot 682.3 CELLULITIS OF ARM 01/26/2014 JUAN DANIEL CASTELLANOS MD Ot 682.4 CELLULITIS OF HAND 01/26/2014 JUAN DANIEL CASTELLANOS MD Ot 882.1 OPN WOUND HAND-COMPLICAT 01/26/2014 JUAN DANIEL CASTELLANOS MD Ot E849.0 ACCIDENT IN HOME 01/26/2014 JUAN DANIEL CASTELLANOS MD Ot E906.3 ANIMAL BITE NEC 01/26/2014 JUAN DANIEL CASTELLANOS MD Ot V03.82 PROPHYLACTIC VACC AGAINST STREPTOCOCCUS 01/26/2014 JUAN DANIEL CASTELLANOS MD Ot V10.05 HX OF COLONIC MALIGNANCY 01/26/2014 JUAN DANIEL CASTELLANOS MD, Ot V45.72 ACQRD ABSENCE INTESTINE - LARGE/SMALL 04/19/2014 JUAN DANIEL CASTELLANOS MD 727.3 OTHER BURSITIS DISORDERS 04/19/2014 JUAN DANIEL CASTELLANOS MD 727.3 OTHER BURSITIS DISORDERS 04/19/2014 MILTON ZAMORA DO 727.3 OTHER BURSITIS DISORDERS 04/19/2014 JUAN DANIEL CASTELLANOS MD 727.3 OTHER BURSITIS DISORDERS 06/18/2014 DEMOND ALCOCER [employer] Ot 682.0 CELLULITIS OF FACE 06/18/2014 DEMOND ALCOCER [employer] SUPER[employer] Ot 784.2 SWELLING IN HEAD NECK 06/18/2014 DEMOND ALCOCER [employer] SUPERVIS[employer] Ot 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 06/18/2014 DEMOND ALCOCER [employer] SUPERVISOR Ot E000.8 OTHER EXTERNAL CAUSE STATUS 06/18/2014 DEMOND ALCOCER [employer] SUPERVISOR Ot E888.9 FALL NOS 07/28/2014 JUAN DANIEL CASTELLANOS MD 701.5 OTHER ABNORMAL GRANULATION TISSUE 07/28/2014 MILTON ZAMORA DO 701.5 OTHER ABNORMAL GRANULATION TISSUE 07/28/2014 JUAN DANIEL CASTELLANOS MD 701.5 OTHER ABNORMAL GRANULATION TISSUE 08/25/2014 MILTON ZAMORA DO 401.1 BENIGN ESSENTIAL HYPERTENSION 08/25/2014 JUAN DANIEL CASTELLANOS MD 401.1 BENIGN ESSENTIAL HYPERTENSION 09/29/2014 JUAN DANIEL CASTELLANOS MD 784.0 HEADACHE 08/14/2015 JASMIN SMITH, JUAN DANIEL [place] Ot Z09 08/14/2015 JUAN DANIEL CASTELLANOS MD, Ot Z87.440 08/21/2015 JASMIN SMITH, JUAN DANIEL [place] Ot Z09 08/21/2015 JASMIN SMITH, JUAN DANIEL [place] Ot Z87.440 01/30/2017 CAIN BOUCHER 244.9 01/30/2017 CAIN BOUCHER 266.2 01/30/2017 CAIN BOUCHER 268.9 01/30/2017 CAIN BOUCHER 272.4 OTHER AND UNSPECIFIED HYPERLIPIDEMIA 01/30/2017 CAIN BOUCHER A 290.41 01/30/2017 CAIN BOUCHER 331.0 01/30/2017 CAIN BOUCHER 401.0 01/30/2017 CAIN BOUCHER 493.90 ASTHMA, UNSPECIFIED 01/30/2017 CAIN BOUCHER 530.81 ESOPHAGEAL REFLUX 01/30/2017 CAIN BOUCHER 783.21 LOSS OF WEIGHT 01/30/2017 CAIN BOUCHER E03.9 HYPOTHYROIDISM, UNSPECIFIED 01/30/2017 CAIN BOUCHER E53.8 DEFICIENCY OF OTHER SPECIFIED B GROUP VITAMINS 01/30/2017 CAIN BOUCHER E55.9 VITAMIN D DEFICIENCY, UNSPECIFIED 01/30/2017 CAIN BOUCHER E78.5 HYPERLIPIDEMIA, UNSPECIFIED 01/30/2017 CAIN BOUCHER A F01.51 01/30/2017 CAIN BOUCHER G30.9 ALZHEIMER'S DISEASE, UNSPECIFIED 01/30/2017 CAIN BOUCHER I10 ESSENTIAL (PRIMARY) HYPERTENSION 01/30/2017 CAIN BOUCHER J45.909 UNSPECIFIED ASTHMA, UNCOMPLICATED 01/30/2017 CAIN BOUCHER K21.9 GASTRO-ESOPHAGEAL REFLUX DISEASE WITHOUT ESOPHAGITIS 01/30/2017 CAIN BOUCHER R63.4 ABNORMAL WEIGHT LOSS 02/11/2017 JUAN DANIEL CASTELLANOS MD, Ot Z87.440 PERSONAL HISTORY OF URINARY (TRACT) INFE 02/17/2017 JUAN DANIEL CASTELLANOS MD, Ot Z87.440 PERSONAL HISTORY OF URINARY (TRACT) INFE 03/11/2017 JUAN DANIEL CASTELLANOS MD, Ot M54.5 LOW BACK PAIN 03/11/2017 JUAN DANIEL CASTELLANOS MD Ot R82.90 UNSPECIFIED ABNORMAL FINDINGS IN URINE 04/02/2017 JUAN DANIEL CASTELLANOS MD, Ot M54.5 LOW BACK PAIN 04/02/2017 JUAN DANIEL CASTELLANOS MD Ot R82.90 UNSPECIFIED ABNORMAL FINDINGS IN URINE 04/11/2017 JUAN DANIEL CASTELLANOS MD, Ot M54.5 LOW BACK PAIN 04/11/2017 JUAN DANIEL CASTELLANOS MD Ot R82.90 UNSPECIFIED ABNORMAL FINDINGS IN URINE 04/23/2017 JUAN DANIEL CASTELLANOS MD Ot Z09 ENCNTR FOR F/U EXAM AFT TRTMT FOR COND O 04/23/2017 JUAN DANIEL CASTELLANOS MD Ot Z87.440 PERSONAL HISTORY OF URINARY (TRACT) INFE 04/23/2017 JUAN DANIEL CASTELLANOS MD Ot Z87.440 PERSONAL HISTORY OF URINARY (TRACT) INFE 04/23/2017 JUAN DANIEL CASTELLANOS MD, Ot M54.5 LOW BACK PAIN 04/23/2017 JUAN DANIEL CASTELLANOS MD Ot R82.90 UNSPECIFIED ABNORMAL FINDINGS IN URINE 04/23/2017 IRA SMITH FACC, JOESPH HENNESSYP CCDS Ot R06.02 SHORTNESS OF BREATH 04/24/2017 JUAN DANIEL CASTELLANOS MD Ot Z09 ENCNTR FOR F/U EXAM AFT TRTMT FOR COND O 04/24/2017 JUAN DANIEL CASTELLANOS MD Ot Z87.440 PERSONAL HISTORY OF URINARY (TRACT) INFE 04/24/2017 JUAN DANIEL CASTELLANOS MD Ot Z87.440 PERSONAL HISTORY OF URINARY (TRACT) INFE 04/24/2017 JUAN DANIEL CASTELLANOS MD Ot M54.5 LOW BACK PAIN 04/24/2017 JUAN DANIEL CASTELLANOS MD Ot R82.90 UNSPECIFIED ABNORMAL FINDINGS IN URINE 04/24/2017 IRA HENNESSYC, ALI FACP CCDS Ot R06.02 SHORTNESS OF BREATH 05/08/2017 IRA SMITH FACC, ALI FACP CCDS Ot R06.02 SHORTNESS OF BREATH 05/09/2017 IRA HENNESSYC, ALI FACP CCDS Ot G30.8 OTHER ALZHEIMER'S DISEASE 05/09/2017 IRA HENNESSYC, ALI FACP CCDS Ot I10 ESSENTIAL (PRIMARY) HYPERTENSION 05/09/2017 IRA HENNESSYC, ALI FACP CCDS Ot M79.89 OTHER SPECIFIED SOFT TISSUE DISORDERS 05/09/2017 IRA SMITH FACC, ALI FACP CCDS Ot R06.02 SHORTNESS OF BREATH 05/09/2017 IRA SMITH FACC, ALI FACP CCDS Ot R55 SYNCOPE AND COLLAPSE 05/20/2017 IRA HENNESSYC, ALI FACP CCDS Ot G30.8 OTHER ALZHEIMER'S DISEASE 05/20/2017 IRA SMITH FACC, ALI FACP CCDS Ot I10 ESSENTIAL (PRIMARY) HYPERTENSION 05/20/2017 IRA HENNESSYC, ALI FACP CCDS Ot M79.89 OTHER SPECIFIED SOFT TISSUE DISORDERS 05/20/2017 IRA SMITH FACC, ALI FACP CCDS Ot R06.02 SHORTNESS OF BREATH 05/20/2017 IRA SMITH FACC, ALI FACP CCDS Ot R55 SYNCOPE AND COLLAPSE 05/20/2017 IRA SMITH FACC, ALI FACP CCDS Ot G30.8 OTHER ALZHEIMER'S DISEASE 05/20/2017 IRA SMITH FACC, ALI FACP CCDS Ot I10 ESSENTIAL (PRIMARY) HYPERTENSION 05/20/2017 IRA SMITH FACC, ALI FACP CCDS Ot M79.89 OTHER SPECIFIED SOFT TISSUE DISORDERS 05/20/2017 IRA HENNESSYC, ALI FACP CCDS Ot R06.02 SHORTNESS OF BREATH 05/20/2017 IRA SMITH FACC, ALI FACP CCDS Ot R55 SYNCOPE AND COLLAPSE 05/30/2017 IRA SMITH [facility], ALI FACP CCDS Ot G30.8 OTHER ALZHEIMER'S DISEASE 05/30/2017 IRA SMITH [facility], ALI FACP CCDS Ot I10 ESSENTIAL (PRIMARY) HYPERTENSION 05/30/2017 IRA SMITH [facility], ALI FACP CCDS Ot M79.89 OTHER SPECIFIED SOFT TISSUE DISORDERS 05/30/2017 IRA SMITH [facility], ALI FACP CCDS Ot R06.02 SHORTNESS OF BREATH 05/30/2017 IRA SMITH [facility], ALI FACP CCDS Ot R55 SYNCOPE AND COLLAPSE 06/03/2017 IRA SMITH [facility], ALI FACP CCDS Ot G30.8 OTHER ALZHEIMER'S DISEASE 06/03/2017 IRA SMITH [facility], ALI FACP CCDS Ot I10 ESSENTIAL (PRIMARY) HYPERTENSION 06/03/2017 IRA SMITH [facility], ALI FACP CCDS Ot M79.89 OTHER SPECIFIED SOFT TISSUE DISORDERS 06/03/2017 IRA SMITH [facility], ALI FACP CCDS Ot R06.02 SHORTNESS OF BREATH 06/03/2017 IRA SMITH [facility], ALI FACP CCDS Ot R55 SYNCOPE AND COLLAPSE 08/25/2017 JUAN DANIEL CASTELLANOS MD Ot R41.82 ALTERED MENTAL STATUS, UNSPECIFIED 08/25/2017 JUAN DANIEL CASTELLANOS MD, Ot R82.90 UNSPECIFIED ABNORMAL FINDINGS IN URINE 08/29/2017 JUAN DANIEL CASTELLANOS MD Ot R41.82 ALTERED MENTAL STATUS, UNSPECIFIED 08/29/2017 JUAN DANIEL CASTELLANOS MD, Ot R82.90 UNSPECIFIED ABNORMAL FINDINGS IN URINE 08/29/2017 JUAN DANIEL CASTELLANOS MD, Ot R41.82 ALTERED MENTAL STATUS, UNSPECIFIED 08/29/2017 JUAN DANIEL CASTELLANOS MD Ot R82.90 UNSPECIFIED ABNORMAL FINDINGS IN URINE 08/29/2017 JUAN DANIEL CASTELLANOS MD, Ot Z09 ENCNTR FOR F/U EXAM AFT TRTMT FOR COND O 08/29/2017 JUAN DANIEL CASTELLANOS MD, Ot Z87.440 PERSONAL HISTORY OF URINARY (TRACT) INFE 08/29/2017 JUAN DANIEL CASTELLANOS MD, Ot Z87.440 PERSONAL HISTORY OF URINARY (TRACT) INFE 08/29/2017 JUAN DANIEL CASTELLANOS MD, Ot M54.5 LOW BACK PAIN 08/29/2017 HUERTER MD, JUAN DANIEL F Ot R82.90 UNSPECIFIED ABNORMAL FINDINGS IN URINE 08/29/2017 IRA SMITH [facility], ALI FACP CCDS Ot G30.8 OTHER ALZHEIMER'S DISEASE 08/29/2017 IRA SMITH [facility], ALI FACP CCDS Ot I10 ESSENTIAL (PRIMARY) HYPERTENSION 08/29/2017 IRA SMITH [facility], ALI FACP CCDS Ot M79.89 OTHER SPECIFIED SOFT TISSUE DISORDERS 08/29/2017 IRA SMITH [facility], ALI FACP CCDS Ot R06.02 SHORTNESS OF BREATH 08/29/2017 IRA SMITH [facility], ALI FACP CCDS Ot R55 SYNCOPE AND COLLAPSE 08/29/2017 IRA SMITH [facility], ALI FACP CCDS Ot G30.8 OTHER ALZHEIMER'S DISEASE 08/29/2017 IRA SMITH [facility], ALI FACP CCDS Ot I10 ESSENTIAL (PRIMARY) HYPERTENSION 08/29/2017 IRA SMITH [facility], ALI FACP CCDS Ot M79.89 OTHER SPECIFIED SOFT TISSUE DISORDERS 08/29/2017 IRA SMITH [facility], ALI FACP CCDS Ot R06.02 SHORTNESS OF BREATH 08/29/2017 IRA SMITH [facility], ALI FACP CCDS Ot R55 SYNCOPE AND COLLAPSE 08/29/2017 JUAN DANIEL CASTELLANOS MD Ot R41.82 ALTERED MENTAL STATUS, UNSPECIFIED 08/29/2017 JUAN DANIEL CASTELLANOS MD Ot R82.90 UNSPECIFIED ABNORMAL FINDINGS IN URINE 09/17/2017 JUAN DANIEL CASTELLANOS MD Ot R41.82 ALTERED MENTAL STATUS, UNSPECIFIED 09/17/2017 JUAN DANIEL CASTELLANOS MD Ot R82.90 UNSPECIFIED ABNORMAL FINDINGS IN URINE 09/18/2017 JUAN DANIEL CASTELLANOS MD Ot R41.82 ALTERED MENTAL STATUS, UNSPECIFIED 09/18/2017 JUAN DANIEL CASTELLANOS MD Ot R82.90 UNSPECIFIED ABNORMAL FINDINGS IN URINE 06/11/2018 SCOTT OSORIO MD Ot E03.9 HYPOTHYROIDISM, UNSPECIFIED 06/11/2018 SCOTT OSORIO MD Ot E78.00 PURE HYPERCHOLESTEROLEMIA, UNSPECIFIED 06/11/2018 SCOTT OSORIO MD Ot F03.90 UNSPECIFIED DEMENTIA WITHOUT BEHAVIORAL 06/11/2018 SCOTT OSORIO MD Ot F32.9 MAJOR DEPRESSIVE DISORDER, SINGLE EPISOD 06/11/2018 SCOTT OSORIO MD Ot I10 ESSENTIAL (PRIMARY) HYPERTENSION 06/11/2018 SCOTT OSORIO MD, Ot J43.9 EMPHYSEMA, UNSPECIFIED 06/11/2018 SCOTT OSORIO MD, Ot R07.81 PLEURODYNIA 06/11/2018 SCOTT OSORIO MD, Ot R40.2142 COMA SCALE, EYES OPEN, SPONTANEOUS, EMR 06/11/2018 SCOTT OSORIO MD, Ot R40.2252 COMA SCALE, BEST VERBAL RESPONSE, ORIENT 06/11/2018 SCOTT OSORIO MD, Ot R40.2362 COMA SCALE, BEST MOTOR RESPONSE, OBEYS C 06/11/2018 SCOTT OSORIO MD, Ot S52.501A UNSP FRACTURE OF THE LOWER END OF RIGHT 06/11/2018 SCOTT OSORIO MD, Ot S52.601A UNSP FRACTURE OF LOWER END OF RIGHT ULNA 06/11/2018 SCOTT OSORIO MD, Ot W19.XXXA UNSPECIFIED FALL, INITIAL ENCOUNTER 06/11/2018 SCOTT OSORIO MD, Ot Y92.[address] IN RESIDENTIAL PLACE 06/11/2018 SCOTT OSORIO MD, Ot Z79.51 RESIDENTIAL (CURRENT) USE OF INHALED STERO 06/11/2018 SCOTT OSORIO MD Ot Z85.048 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, RECT 06/11/2018 SCOTT OSORIO MD, Ot Z87.440 PERSONAL HISTORY OF URINARY (TRACT) INFE 06/11/2018 SCOTT OSORIO MD Ot Z93.3 COLOSTOMY STATUS 06/15/2018 SCOTT OSORIO MD Ot E03.9 HYPOTHYROIDISM, UNSPECIFIED 06/15/2018 SCOTT OSORIO MD Ot E78.00 PURE HYPERCHOLESTEROLEMIA, UNSPECIFIED 06/15/2018 SCOTT OSORIO MD Ot F03.90 UNSPECIFIED DEMENTIA WITHOUT BEHAVIORAL 06/15/2018 SCOTT OSORIO MD Ot F32.9 MAJOR DEPRESSIVE DISORDER, SINGLE EPISOD 06/15/2018 SCOTT OSORIO MD Ot I10 ESSENTIAL (PRIMARY) HYPERTENSION 06/15/2018 SCOTT OSORIO MD, Ot J43.9 EMPHYSEMA, UNSPECIFIED 06/15/2018 SCOTT OSORIO MD Ot R07.81 PLEURODYNIA 06/15/2018 SCOTT OSORIO MD, Ot R40.2142 COMA SCALE, EYES OPEN, SPONTANEOUS, EMR 06/15/2018 SCOTT OSORIO MD, Ot R40.2252 COMA SCALE, BEST VERBAL RESPONSE, ORIENT 06/15/2018 SCOTT OSORIO MD, Ot R40.2362 COMA SCALE, BEST MOTOR RESPONSE, OBEYS C 06/15/2018 SCOTT OSORIO MD, Ot S52.501A UNSP FRACTURE OF THE LOWER END OF RIGHT 06/15/2018 SCOTT OSORIO MD, Ot S52.601A UNSP FRACTURE OF LOWER END OF RIGHT ULNA 06/15/2018 SCOTT OSORIO MD, Ot W19.XXXA UNSPECIFIED FALL, INITIAL ENCOUNTER 06/15/2018 SCOTT OSORIO MD, Ot Y92.[address] IN RESIDENTIAL PLACE 06/15/2018 SCOTT OSORIO MD, Ot Z79.51 RESIDENTIAL (CURRENT) USE OF INHALED STERO 06/15/2018 SCOTT OSORIO MD, Ot Z85.048 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, RECT 06/15/2018 SCOTT OSORIO MD, Ot Z87.440 PERSONAL HISTORY OF URINARY (TRACT) INFE 06/15/2018 SCOTT OSORIO MD Ot Z93.3 COLOSTOMY STATUS 06/25/2018 JUAN DANIEL CASTELLANOS MD, Ot Z09 ENCNTR FOR F/U EXAM AFT TRTMT FOR COND O 06/25/2018 JUAN DANIEL CASTELLANOS MD, Ot Z87.440 PERSONAL HISTORY OF URINARY (TRACT) INFE 06/25/2018 JUAN DANIEL CASTELLANOS MD Ot Z87.440 PERSONAL HISTORY OF URINARY (TRACT) INFE 06/25/2018 JUAN DANIEL CASTELLANOS MD Ot M54.5 LOW BACK PAIN 06/25/2018 JUAN DANIEL CASTELLANOS MD Ot R82.90 UNSPECIFIED ABNORMAL FINDINGS IN URINE 06/25/2018 IRA SMITH FACRaymond, ALI FACP CCDS Ot G30.8 OTHER ALZHEIMER'S DISEASE 06/25/2018 IRA SMITH FACC, ALI FACP CCDS Ot I10 ESSENTIAL (PRIMARY) HYPERTENSION 06/25/2018 IRA SMITH FACRaymond, ALI FACP CCDS Ot M79.89 OTHER SPECIFIED SOFT TISSUE DISORDERS 06/25/2018 IRA SMITH FAC, ALI FACP CCDS Ot R06.02 SHORTNESS OF BREATH 06/25/2018 IRA SMITH FAC, ALI FACP CCDS Ot R55 SYNCOPE AND COLLAPSE 06/25/2018 IRA SMITH FAC, ALI FACP CCDS Ot G30.8 OTHER ALZHEIMER'S DISEASE 06/25/2018 IRA SMITH FAC, ALI FACP CCDS Ot I10 ESSENTIAL (PRIMARY) HYPERTENSION 06/25/2018 IRA SMITH [facility], ALI FACP CCDS Ot M79.89 OTHER SPECIFIED SOFT TISSUE DISORDERS 06/25/2018 IRA SMITH [facility], ALI FACP CCDS Ot R06.02 SHORTNESS OF BREATH 06/25/2018 IRA SMITH [facility], ALI FACP CCDS Ot R55 SYNCOPE AND COLLAPSE 06/25/2018 JUAN DANIEL CASTELLANOS MD Ot R41.82 ALTERED MENTAL STATUS, UNSPECIFIED 06/25/2018 JUAN DANIEL CASTELLANOS MD Ot R82.90 UNSPECIFIED ABNORMAL FINDINGS IN URINE 06/26/2018 JUAN DANIEL CASTELLANOS MD Ot J93.9 PNEUMOTHORAX, UNSPECIFIED 06/26/2018 JUAN DANIEL CASTELLANOS MD, Ot J93.9 PNEUMOTHORAX, UNSPECIFIED 07/20/2018 JUAN DANIEL CASTELLANOS MD Ot B96.1 KLEBSIELLA PNEUMONIAE THE CAUSE OF DI 07/20/2018 JUAN DANIEL CASTELLANOS MD Ot D63.8 ANEMIA IN OTHER CHRONIC DISEASES CLASSIF 07/20/2018 JUAN DANIEL CASTELLANOS MD Ot E03.9 HYPOTHYROIDISM, UNSPECIFIED 07/20/2018 JUAN DANIEL CASTELLANOS MD Ot E78.00 PURE HYPERCHOLESTEROLEMIA, UNSPECIFIED 07/20/2018 JUAN DANIEL CASTELLANOS MD Ot E86.0 DEHYDRATION 07/20/2018 JUAN DANIEL CASTELLANOS MD, Ot E87.5 HYPERKALEMIA 07/20/2018 JUAN DANIEL CASTELLANOS MD Ot F02.80 DEMENTIA IN OTH DISEASES CLASSD ELSWHR W 07/20/2018 JUAN DANIEL CASTELLANOS MD, Ot G30.9 ALZHEIMER'S DISEASE, UNSPECIFIED 07/20/2018 JUAN DANIEL CASTELLANOS MD Ot I10 ESSENTIAL (PRIMARY) HYPERTENSION 07/20/2018 JUAN DANIEL CASTELLANOS MD, Ot J43.9 EMPHYSEMA, UNSPECIFIED 07/20/2018 JUAN DANIEL CASTELLANOS MD, Ot J45.909 UNSPECIFIED ASTHMA, UNCOMPLICATED 07/20/2018 JUAN DANIEL CASTELLANOS MD, Ot N39.0 URINARY TRACT INFECTION, SITE NOT SPECIF 07/20/2018 JUAN DANIEL CASTELLANOS MD, Ot S05.12XA CONTUSION OF EYEBALL AND ORBITAL TISSUES 07/20/2018 JUAN DANIEL CASTELLANOS MD, Ot W19.XXXA UNSPECIFIED FALL, INITIAL ENCOUNTER 07/20/2018 JUAN DANIEL CASTELLANOS MD, Ot Y92.[address] IN RESIDENTIAL PLACE 07/20/2018 JUAN DANIEL CASTELLANOS MD Ot Z66 DO NOT RESUSCITATE 07/20/2018 JUAN DANIEL CASTELLANOS MD, Ot Z79.899 OTHER RESIDENTIAL (CURRENT) DRUG THERAPY 07/20/2018 JUAN DANIEL CASTELLANOS MD, Ot Z85.038 PERSONAL HISTORY OF MALIGNANT NEOPLASM O 07/20/2018 JUAN DANIEL CASTELLANOS MD, Ot Z87.820 PERSONAL HISTORY OF TRAUMATIC BRAIN INJU 07/20/2018 JUAN DANIEL CASTELLANOS MD, Ot Z93.3 COLOSTOMY STATUS 07/20/2018 JUAN DANIEL CASTELLANOS MD, Ot J93.9 PNEUMOTHORAX, UNSPECIFIED 07/20/2018 JUAN DANIEL CASTELLANOS MD, Ot B96.1 KLEBSIELLA PNEUMONIAE THE CAUSE OF DI 07/20/2018 JUAN DANIEL CASTELLANOS MD, Ot D63.8 ANEMIA IN OTHER CHRONIC DISEASES CLASSIF 07/20/2018 JUAN DANIEL CASTELLANOS MD, Ot E03.9 HYPOTHYROIDISM, UNSPECIFIED 07/20/2018 JUAN DANIEL CASTELLANOS MD Ot E78.00 PURE HYPERCHOLESTEROLEMIA, UNSPECIFIED 07/20/2018 JUAN DANIEL CASTELLANOS MD Ot E86.0 DEHYDRATION 07/20/2018 JUAN DANIEL CASTELLANOS MD, Ot E87.5 HYPERKALEMIA 07/20/2018 JUAN DANIEL CASTELLANOS MD Ot F02.80 DEMENTIA IN OTH DISEASES CLASSD ELSWHR W 07/20/2018 JUAN DANIEL CASTELLANOS MD, Ot G30.9 ALZHEIMER'S DISEASE, UNSPECIFIED 07/20/2018 JUAN DANIEL CASTELLANOS MD, Ot I10 ESSENTIAL (PRIMARY) HYPERTENSION 07/20/2018 JUAN DANIEL CASTELLANOS MD, Ot J43.9 EMPHYSEMA, UNSPECIFIED 07/20/2018 JUAN DANIEL CASTELLANOS MD, Ot J45.909 UNSPECIFIED ASTHMA, UNCOMPLICATED 07/20/2018 JUAN DANIEL CASTELLANOS MD, Ot N39.0 URINARY TRACT INFECTION, SITE NOT SPECIF 07/20/2018 JUAN DANIEL CASTELLANOS MD, Ot S05.12XA CONTUSION OF EYEBALL AND ORBITAL TISSUES 07/20/2018 JUAN DANIEL CASTELLANOS MD, Ot W19.XXXA UNSPECIFIED FALL, INITIAL ENCOUNTER 07/20/2018 JUAN DANIEL CASTELLANOS MD, Ot Y92.[address] IN RESIDENTIAL PLACE 07/20/2018 JUAN DANIEL CASTELLANOS MD, Ot Z66 DO NOT RESUSCITATE 07/20/2018 JUAN DANIEL CASTELLANOS MD, Ot Z79.899 OTHER RESIDENTIAL (CURRENT) DRUG THERAPY 07/20/2018 JUAN DANIEL CASTELLANOS MD, Ot Z85.038 PERSONAL HISTORY OF MALIGNANT NEOPLASM O 07/20/2018 JUAN DANIEL CASTELLANOS MD, Ot Z87.820 PERSONAL HISTORY OF TRAUMATIC BRAIN INJU 07/20/2018 JUAN DANIEL CASTELLANOS MD, Ot Z93.3 COLOSTOMY STATUS Procedures Code Description [place] [address] ROUTINE VENIPUNCTURE 02/17/2014 [id number] [facility] 02/17/2014 [id number] ROUTINE VENIPUNCTURE 04/19/2014 [id number] [facility] 04/19/2014 Results Test Result Range Complete urinalysis with reflex to culture - 01/18/17 16:45 Urine color determination YELLOW NRG Urine clarity determination SLIGHTLY CLOUDY NRG Urine pH measurement by test strip 5 5-9 Specific gravity of urine by test strip 1.030 1.016- 1.022 Urine protein assay by test strip, semi-quantitative 2+ NEGATIVE Urine glucose detection by automated test strip NEGATIVE NEGATIVE Erythrocytes detection in urine sediment by light microscopy 1+ NEGATIVE Urine ketones detection by automated test strip NEGATIVE NEGATIVE Urine nitrite detection by test strip NEGATIVE NEGATIVE Urine total bilirubin detection by test strip NEGATIVE NEGATIVE Urine urobilinogen measurement by automated test strip (mass/volume) NORMAL NORMAL Urine leukocyte esterase detection by dipstick 1+ NEGATIVE Automated urine sediment erythrocyte count by microscopy (number/high power field) NONE NRG Automated urine sediment leukocyte count by microscopy (number/high power field ) [HPF] NRG Bacteria detection in urine sediment by light microscopy TRACE NRG Squamous epithelial cells detection in urine sediment by light microscopy 5-10 NRG Crystals detection in urine sediment by light microscopy PRESENT NRG Casts detection in urine sediment by light microscopy NONE NRG Mucus detection in urine sediment by light microscopy MODERATE NRG Complete urinalysis with reflex to culture NO NRG Amorphous sediment detection in urine sediment by light microscopy FEW JANE URATES NRG Vitamin D, 25 OH - 01/30/17 11:35 Vitamin D, 25 OH 12.20 ng/mL 25.00-100.00 MRSA Screen - 01/30/17 11:35 FINAL CULTURE RESULTS MRSA Negative Nasal Culture MEDIA PLATED Setup at 12:08 on 01/30/2017 Lipid Panel - 01/31/17 05:03 C/HDL 3.3 3.7-6.7 Cholesterol 163 mg/dL 100-240 HDL 49 mg/dL 30-85 LDL-Calculated 101 mg/dL 0-100 Trig 65 mg/dL 35-160 VLDL 13 mg/dL 0-42 Magnesium - 02/05/17 13:26 Mg++ 2.2 mg/dL 1.6-2.6 EKG - 02/05/17 13:26 EKG Complete EKG - 02/07/17 05:37 EKG Complete Complete urinalysis with reflex to culture - 03/10/17 20:38 Urine color determination YELLOW NRG Urine clarity determination SLIGHTLY CLOUDY NRG Urine pH measurement by test strip 6 5-9 Specific gravity of urine by test strip 1.010 1.016- 1.022 Urine protein assay by test strip, semi-quantitative 1+ NEGATIVE Urine glucose detection by automated test strip NEGATIVE NEGATIVE Erythrocytes detection in urine sediment by light microscopy 5+ NEGATIVE Urine ketones detection by automated test strip NEGATIVE NEGATIVE Urine nitrite detection by test strip NEGATIVE NEGATIVE Urine total bilirubin detection by test strip NEGATIVE NEGATIVE Urine urobilinogen measurement by automated test strip (mass/volume) NORMAL NORMAL Urine leukocyte esterase detection by dipstick 3+ NEGATIVE Automated urine sediment erythrocyte count by microscopy (number/high power field) [HPF] NRG Automated urine sediment leukocyte count by microscopy (number/high power field ) TNTC NRG Bacteria detection in urine sediment by light microscopy LARGE NRG Squamous epithelial cells detection in urine sediment by light microscopy 0-2 NRG Crystals detection in urine sediment by light microscopy NONE NRG Casts detection in urine sediment by light microscopy NONE NRG Mucus detection in urine sediment by light microscopy NEGATIVE NRG Complete urinalysis with reflex to culture YES NRG Bacterial urine culture - 03/10/17 20:38 Bacterial urine culture [id number] NRG COLONY COUNT >100,000/ML NRG FTX;REPORTABLE SENSITIVITY REPORTED 03/12/17 12:05 NRG FREE TEXT ENTRY 2 PLUS, NRG FREE TEXT ENTRY 3 MIXED GRAM POSITIVES <10,000/ML NRG Bacterial susceptibility panel - 03/10/17 20:38 Gentamicin susceptibility test by minimum inhibitory concentration < = NRG Trimethoprim/sulfamethoxazole susceptibility test by minimum inhibitoryconcentration <= NRG Ampicillin susceptibility test by minimum inhibitory concentration > = NRG Tobramycin susceptibility test by minimum inhibitory concentration < = NRG Cefazolin susceptibility test by minimum inhibitory concentration < = NRG Ceftriaxone susceptibility test by minimum inhibitory concentration <= NRG Ampicillin/sulbactam susceptibility test by minimum inhibitory concentration 16 NRG Piperacillin/tazobactam susceptibility test by minimum inhibitory concentration <= NRG Ciprofloxacin susceptibility test by minimum inhibitory concentration <= NRG Meropenem susceptibility test by minimum inhibitory concentration < = NRG Nitrofurantoin susceptibility test by minimum inhibitory concentration <= NRG Aztreonam susceptibility test by minimum inhibitory concentration < = NRG Extended spectrum beta lactamase (ESBL) producing bacteria susceptibility test by minimum inhibitory concentration - NRG Complete urinalysis with reflex to culture - 08/23/17 11:40 Urine color determination YELLOW NRG Urine clarity determination SLIGHTLY CLOUDY NRG Urine pH measurement by test strip 5 5-9 Specific gravity of urine by test strip 1.020 1.016- 1.022 Urine protein assay by test strip, semi-quantitative 2+ NEGATIVE Urine glucose detection by automated test strip NEGATIVE NEGATIVE Erythrocytes detection in urine sediment by light microscopy 4+ NEGATIVE Urine ketones detection by automated test strip 2+ NEGATIVE Urine nitrite detection by test strip POSITIVE NEGATIVE Urine total bilirubin detection by test strip NEGATIVE NEGATIVE Urine urobilinogen measurement by automated test strip (mass/volume) NORMAL NORMAL Urine leukocyte esterase detection by dipstick 3+ NEGATIVE Automated urine sediment erythrocyte count by microscopy (number/high power field) NONE NRG Automated urine sediment leukocyte count by microscopy (number/high power field ) TNTC NRG Bacteria detection in urine sediment by light microscopy LARGE NRG Crystals detection in urine sediment by light microscopy NONE NRG Casts detection in urine sediment by light microscopy NONE NRG Mucus detection in urine sediment by light microscopy NEGATIVE NRG Complete urinalysis with reflex to culture NO NRG Bacterial urine culture - 08/23/17 11:40 Bacterial urine culture [id number] NRG COLONY COUNT 10,000/ML - 100,000/ML NRG FTX;REPORTABLE SENSITIVITY REPORTED AT 0747, 08-25-17 NR FREE TEXT ENTRY 3 MIXED GRAM POSITIVE [facility] Bacterial susceptibility panel - 08/23/17 11:40 Gentamicin susceptibility test by minimum inhibitory concentration < = NRG Trimethoprim/sulfamethoxazole susceptibility test by minimum inhibitoryconcentration <= NRG Ampicillin susceptibility test by minimum inhibitory concentration R NRG Tobramycin susceptibility test by minimum inhibitory concentration < = NRG Cefazolin susceptibility test by minimum inhibitory concentration < = NRG Ceftriaxone susceptibility test by minimum inhibitory concentration <= NRG Ampicillin/sulbactam susceptibility test by minimum inhibitory concentration S NRG Piperacillin/tazobactam susceptibility test by minimum inhibitory concentration <= NRG Ciprofloxacin susceptibility test by minimum inhibitory concentration <= NRG Meropenem susceptibility test by minimum inhibitory concentration < = NRG Nitrofurantoin susceptibility test by minimum inhibitory concentration <= NRG Aztreonam susceptibility test by minimum inhibitory concentration < = NRG Extended spectrum beta lactamase (ESBL) producing bacteria susceptibility test by minimum inhibitory concentration - NR Complete blood count (CBC) with automated white blood cell (WBC) differential - 07/18/18 20:52 Blood leukocytes automated count (number/volume) 6.8 10*3/uL 4.3-11.0 Blood erythrocytes automated count (number/volume) 3.15 10*6/uL 4.35-5.85 Venous blood hemoglobin measurement (mass/volume) 9.6 g/dL 11.5-16.0 Blood hematocrit (volume fraction) 29 % 35-52 Automated erythrocyte mean corpuscular volume 92 [foz_us] 80-99 Automated erythrocyte mean corpuscular hemoglobin (mass per erythrocyte) 31 pg 25-34 Automated erythrocyte mean corpuscular hemoglobin concentration measurement ( mass/volume) 33 g/dL 32-36 Automated erythrocyte distribution width ratio 14.2 % 10.0-14.5 Automated blood platelet count (count/volume) 279 10*3/uL 130-400 Automated blood platelet mean volume measurement 10.4 [foz_us] 7.4-10.4 Automated blood neutrophils/100 leukocytes 71 % 42-75 Automated blood lymphocytes/100 leukocytes 10 % 12-44 Blood monocytes/100 leukocytes 14 % 0-12 Automated blood eosinophils/100 leukocytes 4 % 0-10 Automated blood basophils/100 leukocytes 1 % 0-10 Blood neutrophils automated count (number/volume) 4.9 10*3 1.8-7.8 Blood lymphocytes automated count (number/volume) 0.7 10*3 1.0-4.0 Blood monocytes automated count (number/volume) 1.0 10*3 0.0-1.0 Automated eosinophil count 0.3 10*3/uL 0.0-0.3 Automated blood basophil count (count/volume) 0.1 10*3/uL 0.0-0.1 PT panel in platelet poor plasma by coagulation assay - 07/18/18 20:52 Prothrombin time (PT) in platelet poor plasma by coagulation assay 13.4 s 12.2-14.7 INR in platelet poor plasma or blood by coagulation assay 1.0 0.8-1.4 Activated partial thromboplastin time (aPTT) in platelet poor plasma bycoagulation assay - 07/18/18 20:52 Activated partial thromboplastin time (aPTT) in platelet poor plasma bycoagulation assay 27 s 24-35 Comprehensive metabolic panel - 07/18/18 20:52 Serum or plasma sodium measurement (moles/volume) 131 mmol/L 135-145 Serum or plasma potassium measurement (moles/volume) 5.8 mmol/L 3.6-5.0 Serum or plasma chloride measurement (moles/volume) 101 mmol/L 98-107 Carbon dioxide 19 mmol/L 21-32 Serum or plasma anion gap determination (moles/volume) 11 mmol/L 5-14 Serum or plasma urea nitrogen measurement (mass/volume) 47 mg/dL 7-18 Serum or plasma creatinine measurement (mass/volume) 1.85 mg/dL 0.60-1.30 Serum or plasma urea nitrogen/creatinine mass ratio 25 NRG Serum or plasma creatinine measurement with calculation of estimated glomerular filtration rate 27 NRG Serum or plasma glucose measurement (mass/volume) 99 mg/dL 70-105 Serum or plasma calcium measurement (mass/volume) 9.3 mg/dL 8.5-10.1 Serum or plasma total bilirubin measurement (mass/volume) 0.3 mg/dL 0.1-1.0 Serum or plasma alkaline phosphatase measurement (enzymatic activity/volume) 108 U/L 40-136 Serum or plasma aspartate aminotransferase measurement (enzymatic activity/ volume) 15 U/L 5-34 Serum or plasma alanine aminotransferase measurement (enzymatic activity/volume ) 15 U/L 0-55 Serum or plasma protein measurement (mass/volume) 6.4 g/dL 6.4-8.2 Serum or plasma albumin measurement (mass/volume) 3.4 g/dL 3.2-4.5 CALCIUM CORRECTED 9.8 mg/dL 8.5-10.1 Magnesium - 07/18/18 20:52 Magnesium 1.8 mg/dL 1.8-2.4 Serum or plasma troponin i.cardiac measurement (mass/volume) - 07/18/18 20:52 Serum or plasma troponin i.cardiac measurement (mass/volume) < ng/ mL <0.30 Complete urinalysis with reflex to culture - 07/18/18 22:07 Urine color determination YELLOW NRG Urine clarity determination VERY CLOUDY NRG Urine pH measurement by test strip 5 5-9 Specific gravity of urine by test strip 1.020 1.016- 1.022 Urine protein assay by test strip, semi-quantitative 1+ NEGATIVE Urine glucose detection by automated test strip NEGATIVE NEGATIVE Erythrocytes detection in urine sediment by light microscopy 2+ NEGATIVE Urine ketones detection by automated test strip 1+ NEGATIVE Urine nitrite detection by test strip NEGATIVE NEGATIVE Urine total bilirubin detection by test strip NEGATIVE NEGATIVE Urine urobilinogen measurement by automated test strip (mass/volume) NORMAL NORMAL Urine leukocyte esterase detection by dipstick 3+ NEGATIVE Automated urine sediment erythrocyte count by microscopy (number/high power field) NONE NRG Automated urine sediment leukocyte count by microscopy (number/high power field ) > [HPF] NRG Bacteria detection in urine sediment by light microscopy LARGE NRG Squamous epithelial cells detection in urine sediment by light microscopy NONE NRG Crystals detection in urine sediment by light microscopy NONE NRG Casts detection in urine sediment by light microscopy NONE NRG Mucus detection in urine sediment by light microscopy NEGATIVE NRG Complete urinalysis with reflex to culture YES NRG Bacterial urine culture - 07/18/18 22:07 Bacterial urine culture [id number] NRG COLONY COUNT >100,000/ML NRG FTX;REPORTABLE RML SENT ID 07/19 18:06 NRG FREE TEXT ENTRY 3 RML SENT SENSITIVTY 07/20 12:05 NRG RML Sensitivity Panel - 07/18/18 22:07 Gentamicin susceptibility test by minimum inhibitory concentration < = NRG Trimethoprim/sulfamethoxazole susceptibility test by minimum inhibitoryconcentration <= NRG Levofloxacin susceptibility test by minimum inhibitory concentration <= NRG Ampicillin susceptibility test by minimum inhibitory concentration R NRG Cefazolin susceptibility test by minimum inhibitory concentration < = NRG Ceftriaxone susceptibility test by minimum inhibitory concentration <= NRG Ciprofloxacin susceptibility test by minimum inhibitory concentration <= NRG Meropenem susceptibility test by minimum inhibitory concentration < = NRG Nitrofurantoin susceptibility test by minimum inhibitory concentration 32 NRG Amoxicillin and clavulanate potassium susc OLLIE <= NRG Complete blood count (CBC) with automated white blood cell (WBC) differential - 07/19/18 04:55 Blood leukocytes automated count (number/volume) 6.7 10*3/uL 4.3-11.0 Blood erythrocytes automated count (number/volume) 2.92 10*6/uL 4.35-5.85 Venous blood hemoglobin measurement (mass/volume) 8.9 g/dL 11.5-16.0 Blood hematocrit (volume fraction) 27 % 35-52 Automated erythrocyte mean corpuscular volume 93 [foz_us] 80-99 Automated erythrocyte mean corpuscular hemoglobin (mass per erythrocyte) 31 pg 25-34 Automated erythrocyte mean corpuscular hemoglobin concentration measurement ( mass/volume) 33 g/dL 32-36 Automated erythrocyte distribution width ratio 14.2 % 10.0-14.5 Automated blood platelet count (count/volume) 244 10*3/uL 130-400 Automated blood platelet mean volume measurement 11.0 [foz_us] 7.4-10.4 Automated blood neutrophils/100 leukocytes 67 % 42-75 Automated blood lymphocytes/100 leukocytes 11 % 12-44 Blood monocytes/100 leukocytes 17 % 0-12 Automated blood eosinophils/100 leukocytes 4 % 0-10 Automated blood basophils/100 leukocytes 1 % 0-10 Blood neutrophils automated count (number/volume) 4.5 10*3 1.8-7.8 Blood lymphocytes automated count (number/volume) 0.7 10*3 1.0-4.0 Blood monocytes automated count (number/volume) 1.1 10*3 0.0-1.0 Automated eosinophil count 0.3 10*3/uL 0.0-0.3 Automated blood basophil count (count/volume) 0.1 10*3/uL 0.0-0.1 Comprehensive metabolic panel - 07/19/18 04:55 Serum or plasma sodium measurement (moles/volume) 131 mmol/L 135-145 Serum or plasma potassium measurement (moles/volume) 5.1 mmol/L 3.6-5.0 Serum or plasma chloride measurement (moles/volume) 106 mmol/L 98-107 Carbon dioxide 16 mmol/L 21-32 Serum or plasma anion gap determination (moles/volume) 9 mmol/L 5-14 Serum or plasma urea nitrogen measurement (mass/volume) 41 mg/dL 7-18 Serum or plasma creatinine measurement (mass/volume) 1.56 mg/dL 0.60-1.30 Serum or plasma urea nitrogen/creatinine mass ratio 26 NRG Serum or plasma creatinine measurement with calculation of estimated glomerular filtration rate 33 NRG Serum or plasma glucose measurement (mass/volume) 93 mg/dL 70-105 Serum or plasma calcium measurement (mass/volume) 8.5 mg/dL 8.5-10.1 Serum or plasma total bilirubin measurement (mass/volume) 0.2 mg/dL 0.1-1.0 Serum or plasma alkaline phosphatase measurement (enzymatic activity/volume) 96 U/L 40-136 Serum or plasma aspartate aminotransferase measurement (enzymatic activity/ volume) 15 U/L 5-34 Serum or plasma alanine aminotransferase measurement (enzymatic activity/volume ) 14 U/L 0-55 Serum or plasma protein measurement (mass/volume) 5.6 g/dL 6.4-8.2 Serum or plasma albumin measurement (mass/volume) 2.9 g/dL 3.2-4.5 CALCIUM CORRECTED 9.4 mg/dL 8.5-10.1 Complete blood count (CBC) with automated white blood cell (WBC) differential - 07/20/18 07:34 Blood leukocytes automated count (number/volume) 6.3 10*3/uL 4.3-11.0 Blood erythrocytes automated count (number/volume) 2.86 10*6/uL 4.35-5.85 Venous blood hemoglobin measurement (mass/volume) 8.6 g/dL 11.5-16.0 Blood hematocrit (volume fraction) 27 % 35-52 Automated erythrocyte mean corpuscular volume 94 [foz_us] 80-99 Automated erythrocyte mean corpuscular hemoglobin (mass per erythrocyte) 30 pg 25-34 Automated erythrocyte mean corpuscular hemoglobin concentration measurement ( mass/volume) 32 g/dL 32-36 Automated erythrocyte distribution width ratio 14.1 % 10.0-14.5 Automated blood platelet count (count/volume) 256 10*3/uL 130-400 Automated blood platelet mean volume measurement 9.8 [foz_us] 7.4-10.4 Automated blood neutrophils/100 leukocytes 73 % 42-75 Automated blood lymphocytes/100 leukocytes 9 % 12-44 Blood monocytes/100 leukocytes 15 % 0-12 Automated blood eosinophils/100 leukocytes 3 % 0-10 Automated blood basophils/100 leukocytes 1 % 0-10 Blood neutrophils automated count (number/volume) 4.6 10*3 1.8-7.8 Blood lymphocytes automated count (number/volume) 0.5 10*3 1.0-4.0 Blood monocytes automated count (number/volume) 0.9 10*3 0.0-1.0 Automated eosinophil count 0.2 10*3/uL 0.0-0.3 Automated blood basophil count (count/volume) 0.0 10*3/uL 0.0-0.1 Whole blood basic metabolic panel - 07/20/18 07:34 Serum or plasma sodium measurement (moles/volume) 134 mmol/L 135-145 Serum or plasma potassium measurement (moles/volume) 4.7 mmol/L 3.6-5.0 Serum or plasma chloride measurement (moles/volume) 109 mmol/L 98-107 Carbon dioxide 17 mmol/L 21-32 Serum or plasma anion gap determination (moles/volume) 8 mmol/L 5-14 Serum or plasma urea nitrogen measurement (mass/volume) 20 mg/dL 7-18 Serum or plasma creatinine measurement (mass/volume) 1.00 mg/dL 0.60-1.30 Serum or plasma urea nitrogen/creatinine mass ratio 20 NRG Serum or plasma creatinine measurement with calculation of estimated glomerular filtration rate 55 NRG Serum or plasma glucose measurement (mass/volume) 72 mg/dL 70-105 Serum or plasma calcium measurement (mass/volume) 8.4 mg/dL 8.5-10.1 Encounters ACCT No. Visit Date/Time Discharge Status Pt. Type Provider Facility Loc./Unit Complaint [id number] 09/29/2014 14:56:00 09/29/2014 23:59:59 CLS Outpatient JASMIN SMITH, JUAN DANIEL [id number] 08/25/2014 15:44:00 08/25/2014 23:59:59 CLS Outpatient MILTON ZAMORA DO [id number] 07/28/2014 15:07:00 07/28/2014 23:59:59 CLS Outpatient JUAN DANIEL CASTELLANOS MD [id number] 04/19/2014 09:53:00 04/19/2014 23:59:59 CLS Outpatient JUAN DANIEL CASTELLANOS MD [id number] 02/17/2014 08:29:00 02/17/2014 23:59:59 CLS Outpatient JUAN DANIEL CASTELLANOS MD [id number] 09/17/2013 10:23:00 09/17/2013 23:59:59 CLS Outpatient JUAN DANIEL CASTELLANOS MD [id number] 07/24/2018 09:30:00 07/24/2018 23:59:00 DIS Outpatient CAIN MCKEON [id number] 01/30/2017 11:26:00 02/12/2017 12:35:00 [id number] 01/30/2017 15:08:01 Document Registration [id number] 07/18/2018 22:25:00 07/20/2018 16:15:00 DIS Inpatient JUAN DANIEL CASTELLANOS MD [facility] 4TH FALL VS SYNCOPE, DEHYDRATION,ACUTE RENAL FAILURE,DE [id number] 06/25/2018 13:36:00 06/25/2018 23:59:59 CLS Outpatient JUAN DANIEL CASTELLANOS MD [facility] RAD PNEUMONIA [id number] 06/11/2018 01:48:00 06/11/2018 03:39:00 DIS Emergency SCOTT OSORIO MD [facility] ER FALL,RT WRIST RIB PAIN [id number] 08/23/2017 14:23:00 08/23/2017 23:59:59 CLS Outpatient JUAN DANIEL CASTELLANOS MD [facility] GLC [id number] 05/08/2017 09:34:00 05/08/2017 23:59:59 CLS Outpatient JOESPH ROTH MD, FACC, FACP CCDS [facility] CARD SOB [id number] 04/24/2017 07:43:00 04/24/2017 23:59:59 CLS Outpatient JOESPH ROTH MD, FACC, FACP CCDS [facility] CARD SOB [id number] 03/10/2017 20:38:00 03/10/2017 23:59:59 CLS Outpatient JUAN DANIEL CASTELLANOS MD [facility] GLC BACK PAIN [id number] 01/18/2017 17:38:00 01/18/2017 23:59:59 CLS Outpatient JUAN DANIEL CASTELLANOS MD [facility] GLC [id number] 07/23/2015 13:12:00 07/23/2015 23:59:59 CLS Outpatient JUAN DANIEL CASTELLANOS MD [facility] GLC [id number] 07/23/2015 12:40:00 07/23/2015 23:59:59 CLS Outpatient UJAN DANIEL CASTELLANOS MD [facility] GLC POST ANTIBIOTIC TX OF UTI [id number] 06/18/2014 13:58:00 06/18/2014 17:20:00 DIS Emergency DEMOND ALCOCER APRN [facility] ER FACIAL SWELLING [id number] 01/24/2014 09:33:00 01/26/2014 13:45:00 DIS Inpatient JUAN DANIEL CASTELLANOS MD [facility] 4TH RT HAND/ARM CELLULITIS [id number] 01/23/2014 11:34:00 01/23/2014 15:16:00 DIS Emergency OLEKSANDR W[place] [facility] ER ANIMAL SCRATCH [id number] 04/23/2017 09:11:00 Document Registration [id number] 06/03/2012 00:27:00 Document Registration
--- NOTE | 2018-08-22 17:05 | History & Physicial (CHS) ---
HPI History of Present Illness: 9-year-old female who is a resident at [facility] presents to emergency room with low-grade fever and decreased level of consciousness according to staff. Apparently she is also had a slight cough. Speaking to staff at [facility] they were concerned she may have aspirated. Source: RN/MD Exam Limitations: clinical condition Date seen by provider: Aug 22, 2018 Time Seen by Provider: 17:20 Attending Physician Lb Mac MD PCP Patric Li MD Consult Date of Admission Aug 22, 2018 at 15:00 Home Medications Home Medications Reviewed patient Home Medication Reconciliation performed by pharmacy medication reconciliations reproduction technician and/or nursing. Patients Allergies have been reviewed. Allergies Coded Allergies: No Known Drug Allergies (Verified , 01/24/14) ARW-Ajbyww-Qyvswz Hx Patient Social History Alcohol Use: Denies Use Recreational Drug Use: No Smoking Status: Unknown if Ever Smoked 2nd Hand Smoke Exposure: No Recent Foreign Travel: No Contact w/other who traveled: No Recent Hopitalizations: Yes Recent Infectious Disease Expo: No Immunizations Up To Date Tetanus Booster (TDap): Less than 5yrs Date of Pneumonia Vaccine: January 24, 2014 Date of Influenza Vaccine: Jul 14, 2018 Family Medical History Family History: Family history: Diabetes mellitus 19 MOTHER Parkinson's disease 19 FATHER No Family History of: Abdominal aortic aneurysm Review of Systems (CHC) Constitutional: see HPI Reviewed Test Results Reviewed Test Results Lab Laboratory Tests Test 08/22/18 14:00 08/22/18 14:19 Range/Units White Blood Count 6.7 4.3-11.0 10^3/uL Red Blood Count 3.03 L 4.35-5.85 10^6/uL Hemoglobin 9.2 L 11.5-16.0 G/DL Hematocrit 30 L 35-52 % Mean Corpuscular Volume 98 80-99 FL Mean Corpuscular Hemoglobin 30 25-34 PG Mean Corpuscular Hemoglobin Concent 31 L 32-36 G/DL Red Cell Distribution Width 14.4 10.0-14.5 % Platelet Count 188 130-400 10^3/uL Mean Platelet Volume 12.6 H 7.4-10.4 FL Neutrophils (%) (Auto) 72 42-75 % Lymphocytes (%) (Auto) 8 L 12-44 % Monocytes (%) (Auto) 13 H 0-12 % Eosinophils (%) (Auto) 6 0-10 % Basophils (%) (Auto) 1 0-10 % Neutrophils # (Auto) 4.9 1.8-7.8 X 10^3 Lymphocytes # (Auto) 0.5 L 1.0-4.0 X 10^3 Monocytes # (Auto) 0.9 0.0-1.0 X 10^3 Eosinophils # (Auto) 0.4 H 0.0-0.3 10^3/uL Basophils # (Auto) 0.0 0.0-0.1 10^3/uL Neutrophils % (Manual) 69 % Lymphocytes % (Manual) 7 % Monocytes % (Manual) 16 % Eosinophils % (Manual) 7 % Basophils % (Manual) 1 % Band Neutrophils 0 % Blood Morphology Comment NORMAL Sodium Level 142 135-145 MMOL/L Potassium Level 5.4 H 3.6-5.0 MMOL/L Chloride Level 114 H 98-107 MMOL/L Carbon Dioxide Level 20 L 21-32 MMOL/L Anion Gap 8 5-14 MMOL/L Blood Urea Nitrogen 61 H 7-18 MG/DL Creatinine 1.50 H 0.60-1.30 MG/DL Estimat Glomerular Filtration Rate 34 BUN/Creatinine Ratio 41 Glucose Level 86 70-105 MG/DL Lactic Acid Level 0.62 0.50-2.00 MMOL/L Calcium Level 9.4 8.5-10.1 MG/DL Corrected Calcium 10.0 8.5-10.1 MG/DL Total Bilirubin 0.3 0.1-1.0 MG/DL Aspartate Amino Transf (AST/SGOT) 20 5-34 U/L Alanine Aminotransferase (ALT/SGPT) 17 0-55 U/L Alkaline Phosphatase 99 40-136 U/L Total Protein 6.3 L 6.4-8.2 GM/DL Albumin 3.3 3.2-4.5 GM/DL Urine Color YELLOW Urine Clarity SLIGHTLY CLOUDY Urine pH 5 5-9 Urine Specific [place] 1.020 1.016-1.022 Urine Protein 1+ H NEGATIVE Urine Glucose (UA) NEGATIVE NEGATIVE Urine Ketones 1+ H NEGATIVE Urine Nitrite NEGATIVE NEGATIVE Urine Bilirubin NEGATIVE NEGATIVE Urine Urobilinogen NORMAL NORMAL MG/DL Urine Leukocyte Esterase 1+ H NEGATIVE Urine RBC (Auto) 2+ H NEGATIVE Urine RBC 2-5 H /HPF Urine WBC RARE /HPF Urine Squamous Epithelial Cells 0-2 /HPF Urine Crystals NONE /LPF Urine Bacteria NEGATIVE /HPF Urine Casts NONE /LPF Urine Mucus NEGATIVE /LPF Urine Culture Indicated NO Radiology NAME: FATOU LUBIN REC#: [id number] PT STATUS: REG ER : 1945 PHYSICIAN: NNAMDI MOON MD ADMIT DATE: 08/22/18/ER Signed Date of Exam: 08/22/18 CHEST 1 VIEW, AP/PA ONLY INDICATION: Weakness and pneumonia. TIME OF EXAM: 2:09 PM Comparison is made with prior chest from 07/18/2018. FINDINGS: The heart size is normal. The pulmonary vascularity is unremarkable. The lungs are clear. No infiltrate, effusion or pneumothorax is detected. IMPRESSION: No acute cardiopulmonary process is detected. Dictated by: Dictated on workstation # [id number] Dict: 08/22/18 1421 Trans: 08/22/18 1521 Interpreted by: GUERDA GALLO MD Electronically signed by: GUERDA GALLO MD 08/22/18 1521 Physical Exam-(CHC) Physical Exam Vital Signs VS - Last 72 Hours, by Label 08/22/18 08/22/18 08/22/18 08/22/18 13:50 16:23 16:30 19:48 Temp 100.1 Pulse 96 96 Resp 20 16 B/P (MAP) 135/61 (85) 94/70 (78) Pulse Ox 96 96 92 92 O2 Delivery Room Air Room Air Room Air Room Air 08/22/18 08/23/18 08/23/18 08/23/18 20:03 00:00 04:00 08:00 Temp 97.2 98.8 99.0 Pulse 90 93 96 Resp 12 16 0 B/P (MAP) 135/66 (89) 144/61 (88) 134/76 (95) Pulse Ox 95 94 94 92 O2 Delivery Room Air Room Air Room Air Room Air Capillary Refill : Less Than 3 Seconds General Appearance: no apparent distress Eyes: Bilateral Eye Normal Inspection Neck: non-tender Respiratory: crackles Cardiovascular: regular rate, rhythm Gastrointestinal: soft Rectal: deferred Back: normal inspection Extremities: normal capillary refill Neurologic/Psychiatric: other (Does moan with responses) Skin: warm/dry Lymphatic: no adenopathy Assessment/Plan Assessment/Plan Admission Dx 1. Dehydration 2. Febrile illness this may be related to UTI versus early aspiration Admission Status: Inpatient Order (span 2 midnights) Reason for Inpatient Admission: Further monitoring of her decreased mentation as well as fever. She will be started on IV Rocephin. Assessment & Plan 1. Dehydration -Initiation of IV fluids has been started in the emergency department 2. Febrile illness this may be related to UTI versus early aspiration -She has been started on IV ceftriaxone 1 g and this will be continued daily. -blood cultures pending -Recheck chest x-ray in the morning as well as UA LB MAC MD Aug 22, 2018 17:05
[2018-08-22] MEDS: NS IV 1000 ML 1,000 ML IV SCH (18:30)
[2018-08-22 20:03] VITALS: BP 135/66
[2018-08-23] VITALS (7 sets, daily range): BP systolic 134–156; BP diastolic 61–76
[2018-08-23] MEDS: NS IV 1000 ML 1,000 ML IV SCH ×3 (02:30→19:03)
[2018-08-23 06:56] LABS: BASOPHILS % (AUTO) 1 % (0-10); EOSINOPHILS # (AUTO) 0.2 10^3/uL (0.0-0.3); EOSINOPHILS % (AUTO) 3 % (0-10); HEMATOCRIT 29 % (35-52); HEMOGLOBIN 8.9 G/DL (11.5-16.0); LYMPHOCYTES # (AUTO) 0.5 X 10^3 (1.0-4.0); LYMPHOCYTES % (AUTO) 9 % (12-44); MEAN CORPUSCULAR HEMOGLOBIN 31 PG (25-34); MEAN CORPUSCULAR HGB CONC 31 G/DL (32-36); MEAN CORPUSCULAR VOLUME 98 FL (80-99); MEAN PLATELET VOLUME 12.5 FL (7.4-10.4); MONOCYTES % (AUTO) 16 % (0-12); NEUTROPHILS # (AUTO) 4.4 X 10^3 (1.8-7.8); NEUTROPHILS % (AUTO) 72 % (42-75); PLATELET COUNT 198 10^3/uL (130-400); RED BLOOD COUNT 2.91 10^6/uL (4.35-5.85); RED CELL DISTRIBUTION WIDTH 14.6 % (10.0-14.5); WHITE BLOOD COUNT 6.1 10^3/uL (4.3-11.0)
[2018-08-23 07:20] LABS: ALBUMIN 2.9 GM/DL (3.2-4.5); BILIRUBIN,TOTAL 0.2 MG/DL (0.1-1.0); CALCIUM 8.9 MG/DL (8.5-10.1); CREATININE SERUM 1.22 MG/DL (0.60-1.30); POTASSIUM 4.8 MMOL/L (3.6-5.0)
[2018-08-23 07:33] LABS: BILIRUBIN,URINE NEGATIVE (NEGATIVE); CLARITY,URINE CLEAR; COLOR,URINE YELLOW; GLUCOSE, URINE (UA) NEGATIVE (NEGATIVE); KETONES,URINE 2+ (NEGATIVE); LEUKOCYTE ESTERASE ,URINE 2+ (NEGATIVE); NITRITE,URINE NEGATIVE (NEGATIVE); PH,URINE 5 (5-9); PROTEIN,URINE 2+ (NEGATIVE); UROBILINOGEN,URINE NORMAL (NORMAL)
[2018-08-23 08:18] LABS: BACTERIA,URINE NEGATIVE /HPF; RBC,URINE 0-2 /HPF; URIC ACID CRYSTALS,URINE LARGE /LPF
--- NOTE | 2018-08-23 08:45 | Diagnostic Imaging Report ---
INDICATION: Pneumonia. COMPARISON: 08/22/2018. FINDINGS: Single view of the chest demonstrates clear lungs bilaterally. The heart is normal. There is no pneumothorax. Osseous structures are normal. IMPRESSION: Negative chest. Dictated by: Dictated on workstation # [id number]
--- NOTE | 2018-08-23 08:54 | Progress Note (SOAP) ---
Subjective Subjective/Events-last exam Patient lying in bed awake. She does not answer questions. She does respond by turning head to verbal. Review of Systems Date Seen by Provider: Aug 23, 2018 Time Seen by Provider: 07:45 Focused Exam Lactate Level 08/22/18 14:00: Lactic Acid Level 0.62 Objective Exam Last Set of Vital Signs Vital Signs Date Time Temp Pulse Resp B/P (MAP) Pulse Ox O2 Delivery O2 Flow Rate FiO2 08/23/18 08:00 92 Room Air 08/23/18 04:00 99.0 96 0 134/76 (95) Capillary Refill : Less Than 3 Seconds I&O Intake and Output 08/23/18 00:00 Intake Total 100 ml Output Total 500 ml Balance -400 ml Intake Oral 100 ml Output Urine Total 500 ml Daily Weight Change Unsure General: No Acute Distress Neck: Supple Lungs: Other (Expiratory wheezing heard primarily in the apical regions) Heart: Regular Rate Abdomen: Normal Bowel Sounds, Soft Psych/Mental Status: Other (Unchanged) Results/Procedures Lab Laboratory Tests 08/22/18 14:00: White Blood Count 6.7, Red Blood Count 3.03L, Hemoglobin 9.2L, Hematocrit 30L, Mean Corpuscular Volume 98, Mean Corpuscular Hemoglobin 30, Mean Corpuscular Hemoglobin Concent 31L, Red Cell Distribution Width 14.4, Platelet Count 188, Mean Platelet Volume 12.6H, Neutrophils (%) (Auto) 72, Lymphocytes (%) (Auto) 8L , Monocytes (%) (Auto) 13H, Eosinophils (%) (Auto) 6, Basophils (%) (Auto) 1, Neutrophils # (Auto) 4.9, Lymphocytes # (Auto) 0.5L, Monocytes # (Auto) 0.9, Eosinophils # (Auto) 0.4H, Basophils # (Auto) 0.0, Neutrophils % (Manual) 69, Lymphocytes % (Manual) 7, Monocytes % (Manual) 16, Eosinophils % (Manual) 7, Basophils % (Manual) 1, Band Neutrophils 0, Blood Morphology Comment NORMAL, Sodium Level 142, Potassium Level 5.4H, Chloride Level 114H, Carbon Dioxide Level 20L, Anion Gap 8, Blood Urea Nitrogen 61H, Creatinine 1.50H, Estimat Glomerular Filtration Rate 34, BUN/Creatinine Ratio 41, Glucose Level 86, Lactic Acid Level 0.62, Calcium Level 9.4, Corrected Calcium 10.0, Total Bilirubin 0.3, Aspartate Amino Transf (AST/SGOT) 20, Alanine Aminotransferase ( ALT/SGPT) 17, Alkaline Phosphatase 99, Total Protein 6.3L, Albumin 3.3 08/22/18 14:19: Urine Color YELLOW, Urine Clarity SLIGHTLY CLOUDY, Urine pH 5, Urine Specific [place] 1.020, Urine Protein 1+H, Urine Glucose (UA) NEGATIVE, Urine Ketones 1+H , Urine Nitrite NEGATIVE, Urine Bilirubin NEGATIVE, Urine Urobilinogen NORMAL, Urine Leukocyte Esterase 1+H, Urine RBC (Auto) 2+H, Urine RBC 2-5H, Urine WBC RARE, Urine Squamous Epithelial Cells 0-2, Urine Crystals NONE, Urine Bacteria NEGATIVE, Urine Casts NONE, Urine Mucus NEGATIVE, Urine Culture Indicated NO 08/23/18 05:20: Urine Color YELLOW, Urine Clarity CLEAR, Urine pH 5, Urine Specific [place] 1.020, Urine Protein 2+H, Urine Glucose (UA) NEGATIVE, Urine Ketones 2+H, Urine Nitrite NEGATIVE, Urine Bilirubin NEGATIVE, Urine Urobilinogen NORMAL, Urine Leukocyte Esterase 2+H, Urine RBC (Auto) 1+H, Urine RBC 0-2, Urine WBC 10-25H, Urine Squamous Epithelial Cells 2-5, Urine Crystals PRESENTH, Urine Bacteria NEGATIVE, Urine Casts NONE, Urine Mucus NEGATIVE, Urine Culture Indicated YES, Urine Uric Acid Crystals LARGEH 08/23/18 06:20: White Blood Count 6.1, Red Blood Count 2.91L, Hemoglobin 8.9L, Hematocrit 29L, Mean Corpuscular Volume 98, Mean Corpuscular Hemoglobin 31, Mean Corpuscular Hemoglobin Concent 31L, Red Cell Distribution Width 14.6H, Platelet Count 198, Mean Platelet Volume 12.5H, Neutrophils (%) (Auto) 72, Lymphocytes (%) (Auto) 9L , Monocytes (%) (Auto) 16H, Eosinophils (%) (Auto) 3, Basophils (%) (Auto) 1, Neutrophils # (Auto) 4.4, Lymphocytes # (Auto) 0.5L, Monocytes # (Auto) 1.0, Eosinophils # (Auto) 0.2, Basophils # (Auto) 0.0, Sodium Level 142, Potassium Level 4.8, Chloride Level 116H, Carbon Dioxide Level 16L, Anion Gap 10, Blood Urea Nitrogen 47H, Creatinine 1.22, Estimat Glomerular Filtration Rate 44, BUN/ Creatinine Ratio 39, Glucose Level 76, Calcium Level 8.9, Corrected Calcium 9.8 , Total Bilirubin 0.2, Aspartate Amino Transf (AST/SGOT) 24, Alanine Aminotransferase (ALT/SGPT) 15, Alkaline Phosphatase 91, Total Protein 6.0L, Albumin 2.9L Microbiology 08/22/18 Influenza Types A,B Antigen (OLLIE) - Final, Complete Radiology NAME: FATOU LUBIN REC#: [id number] PT STATUS: REG ER : 1945 PHYSICIAN: NNAMDI MOON MD ADMIT DATE: 08/22/18/ER Signed Date of Exam: 08/22/18 CHEST 1 VIEW, AP/PA ONLY INDICATION: Weakness and pneumonia. TIME OF EXAM: 2:09 PM Comparison is made with prior chest from 07/18/2018. FINDINGS: The heart size is normal. The pulmonary vascularity is unremarkable. The lungs are clear. No infiltrate, effusion or pneumothorax is detected. IMPRESSION: No acute cardiopulmonary process is detected. Dictated by: Dictated on workstation # [id number] Dict: 08/22/18 1421 Trans: 08/22/18 1521 Interpreted by: GUERDA GALLO MD Electronically signed by: GUERDA GALLO MD 08/22/18 1521 Assessment/Plan Assessment/Plan Assessment & Plan 1. Dehydration -Initiation of IV fluids has been started in the emergency department 08/23/2018 -IV fluids continue at 125 mL/h -Check electrolytes in the morning of August 24 2. Febrile illness this may be related to UTI versus early aspiration -She has been started on IV ceftriaxone 1 g and this will be continued daily. -blood cultures pending -Recheck chest x-ray in the morning as well as UA 08/23/2018 -Chest x-ray was read out as clear this morning. -Urine culture pending from this morning -Day number 2 of ceftriaxone Clinical Quality Measures DVT/VTE Risk/Contraindication: Risk Factor Score Per Nursin RFS Level Per Nursing on Admit: 4+=Very High DARÍO MAC MD Aug 23, 2018 08:54
[2018-08-23] MEDS: RT-ALBUTEROL SULF 2.5 MG/3 ML PRE-MIX VIAL INH SCH ×2 (14:56→21:24)
[2018-08-23] MEDS: cefTRIAXone 1 GM/NS 50 ML IVPB IV SCH ×2 (15:29)
[2018-08-23] MEDS ORDERED: meTOproloL SUCCINATE 50 MG (TOPROL XL) TAB PO SCH (21:45)
[2018-08-23] MEDS: risperiDONE 1 MG (RisperDAL) TAB PO SCH (22:14)
[2018-08-24] VITALS (7 sets, daily range): BP systolic 125–165; BP diastolic 60–95
[2018-08-24] MEDS: NS IV 1000 ML 1,000 ML IV SCH ×2 (03:43→09:02)
[2018-08-24] MEDS: RT-ALBUTEROL SULF 2.5 MG/3 ML PRE-MIX VIAL INH SCH ×3 (07:18→21:50)
[2018-08-24 07:24] LABS: BUN/CREATININE RATIO 32; CALCIUM 8.6 MG/DL (8.5-10.1); CARBON DIOXIDE 14 MMOL/L (21-32); CHLORIDE 118 MMOL/L (98-107); CREATININE SERUM 0.88 MG/DL (0.60-1.30); GFR ESTIMATED > 60; GLUCOSE 63 MG/DL (70-105); POTASSIUM 4.4 MMOL/L (3.6-5.0); SODIUM 143 MMOL/L (135-145)
[2018-08-24] MEDS: risperiDONE 1 MG (RisperDAL) TAB PO SCH ×2 (09:00→21:04)
[2018-08-24] MEDS: lisINopril 20 MG (PRINIVIL) TABLET PO SCH (09:00)
[2018-08-24] MEDS: meTOproloL SUCCINATE 50 MG (TOPROL XL) TAB PO SCH (09:01)
[2018-08-24 09:09] LABS: HEMOGLOBIN 10.3 G/DL (11.5-16.0); MEAN PLATELET VOLUME 13.1 FL (7.4-10.4); RED BLOOD COUNT 3.19 10^6/uL (4.35-5.85); RED CELL DISTRIBUTION WIDTH 14.5 % (10.0-14.5); WHITE BLOOD COUNT 4.7 10^3/uL (4.3-11.0)
--- NOTE | 2018-08-24 10:25 | ST Dysphagia Evaluation ---
Speech Evaluation-General Medical Diagnosis Pneumonia Onset Date: Aug 22, 2018 Therapy Diagnosis Therapy Diagnosis: Dysphagia Precautions Precautions: Fall, Aspiration Precautions/Isolations: Standard Precautions Referral Referring Physician: Dr. Ramires Reason for Referral: Evaluation/Treatment Medical History Reviewed History: Yes Social History Home: Residential Speech PLF/Current-Dysphagia Prior Level of Function Patient lived in a local longterm where she received assistance with all of her daily needs. Subjective Patient was resting but was able to arouse with her name spoken and a tactile touch to the face. Cognitive Status Patient Orientation: Confused Patient was able to answer y/n questions x3 related to herself. Oral Motor Skills Dentition: Natural Current Food Consistancy: Full Liquids Ability to Follow Directions: Fair Oral Expression Ability: Moderate Impairment Voice Voice Phonatory-Based Quality: Breathy Voice Pitch: Mildly Low Voice Loudness: Moderately Soft/Quiet Face Facial Symmetry: Symmetrical Oral-Facial Assessment Oral-Facial Dentition: Teeth Labial Seal Description: Reduced ROM, Weak Smile: Reduced ROM Puff Cheeks: Reduced Strength Lingual Protrusion: Abnormal Patient is very weak. Lingual ROM: Abnormal Patient is very weak. Patient is very weak. Gag Reflex Response: Normal Pharynx Velopharyngeal Move.: Normal Volitional Dry Swallow: Yes Voluntary Cough: Yes Can Clear Throat Volitionally: Yes Productive Cough: No Productive Throat Clear: Yes Dysphagia Evaluation Consistencies Presented: Thin Liquid, Pearl Thick Liquid, Honey Thick Liquid, Pureed Oral Phase: Unable to Form Bolus Pharyngeal Phase: Decreased A/P Bolus Transit, Multiple Swallow Attempts, Delayed Swallow Funct. Velo/Pharyngeal Symptom: Cough After Swallow Dietary Recommendations: Pureed Liquid Recommendations: Honey Consistancy Patient is recommended for honey consistency liquids and puree diet level. Nurse was present for oral trials and patient was given her oral meds in applesauce. Patient was able to swallow her meds with multiple swallows. Diet level discussed with nurse Klein. Swallowing Precautions: Alternate Liquids/Solids, Double Swallow, Decreased Bolus 1/2 Tsp, Liquids from Spoon, No Straw, Small Bites and Sips, Sitting Upright 90 Degrees, Sitting 90 Degrees 30 Post Intake Dysphagia Evaluation Summary Patient's level of alert is decreased. Patient alerted with her name said and a gentle touch to the face. Patient was able to take meds in applesauce without difficulty utilizing multiple swallows and followed with small sips of thickened water. Patient will need to sit up as close to 90 degrees as possible for all intake and 20-30 minutes post intake. Her oral motor ROM, strength and coordination are decreased. Her diet level should be puree with honey consistency liquids. Barriers to Learning Patient has dementia. Speech Short Term Goals Short Term Goals Short Term Goals 1) Patient will demo safe intake of modified diet at 90% with assistance. 2) Patient will utilize compensatory strategies as directed for safe oral intake at 80% accuracy. Speech Senior Care Goals Welding Machine Operator Friction Goals Patient will maintain adequate nutrition/hydration via safe effective swallow function. Speech-Plan Patient/Family Goals Patient/Family Goals: Patient will return to the longterm once she is medically stable. Treatment Plan Speech Therapy Treatment Plan: Continue Plan of Care Patient is recommended for skilled ST services. Treatment Duration: Aug 24, 2018 Frequency: 5 times per week Estimated Hrs Per Day: .5 hour per day Rehab Potential: Fair Barriers to Learning: Patient has dementia. Pt/Family Agrees to Plan: Yes Safety Risks/Education Teaching Recipient: Patient Teaching Methods: Discussion Response to Teaching: Verbalize Understanding Education Topics Provided: Safety of oral intake. Time Speech Therapy Time In: 09:00 Speech Therapy Time Out: 09:30 Total Billed Time: 30 Billed Treatment Time 1, TYLER Ballard Aug 24, 2018 10:25
[2018-08-24] MEDS: 1/2 NS IV SOLUTION 1,000 ML IV SCH (12:25)
[2018-08-24] MEDS ORDERED: BABY SHAMPOO OU (13:15)
[2018-08-24] MEDS ORDERED: [UNRECOGNIZED DRUG - SUPPLY] TOP (13:15)
[2018-08-24] MEDS ORDERED: CLOT15CR5 TP (13:15)
[2018-08-24] MEDS ORDERED: AMLO5TAB7 PO (13:15)
[2018-08-24] MEDS ORDERED: PHARMACY TO DOSE SQ SCH (14:15)
[2018-08-24] MEDS: cefTRIAXone 1 GM/NS 50 ML IVPB IV SCH ×2 (14:53)
[2018-08-24] MEDS ORDERED: ENOXAPARIN 40 MG/0.4 ML (LOVENOX) SYR SC SCH (15:00)
[2018-08-24] MEDS ORDERED: UMECLIDINIUM BROMIDE (INCRUSE ELLIPTA) 7'S IH SCH (15:00)
--- NOTE | 2018-08-24 16:37 | Progress Note (SOAP) ---
Subjective Subjective/Events-last exam Afebrile. Nurses noted coughing with medications. Review of Systems Date Seen by Provider: Aug 24, 2018 Time Seen by Provider: 10:00 Focused Exam Lactate Level 08/22/18 14:00: Lactic Acid Level 0.62 Objective Exam Last Set of Vital Signs Vital Signs Date Time Temp Pulse Resp B/P (MAP) Pulse Ox O2 Delivery O2 Flow Rate FiO2 08/24/18 15:25 95 Room Air 08/24/18 12:00 98.9 92 12 132/95 (107) Capillary Refill : Less Than 3 Seconds I&O Intake and Output 08/24/18 00:00 Intake Total 3700 ml Output Total 850 ml Balance 2850 ml Intake Oral 650 ml IV Total 3050 ml Output Urine Total 850 ml # Bowel Movements 1 General: Other (sleeping but alert when addressed by name) Lungs: Clear to Auscultation, Normal Air Movement Heart: Regular Rate Abdomen: Normal Bowel Sounds, Soft Neuro: Other (alert to self only, answers questions about self yes and no, but "I don't know" to most everything else) Results/Procedures Lab Laboratory Tests 08/24/18 06:47: White Blood Count 4.7, Red Blood Count 3.19L, Hemoglobin 10.3L, Hematocrit 31L, Mean Corpuscular Volume 98, Mean Corpuscular Hemoglobin 32, Mean Corpuscular Hemoglobin Concent 33, Red Cell Distribution Width 14.5, Platelet Count 177, Mean Platelet Volume 13.1H, Sodium Level 143, Potassium Level 4.4, Chloride Level 118H, Carbon Dioxide Level 14L, Anion Gap 11, Blood Urea Nitrogen 28H, Creatinine 0.88, Estimat Glomerular Filtration Rate > 60, BUN/Creatinine Ratio 32, Glucose Level 63L, Calcium Level 8.6 Microbiology 08/22/18 Blood Culture - Preliminary, Resulted No growth 08/22/18 Influenza Types A,B Antigen (OLLIE) - Final, Complete 08/23/18 Urine Culture - Final, Complete NO GROWTH Radiology NAME: FATOU LUBIN [facility] REC#: [id number] PT STATUS: REG ER : 1945 PHYSICIAN: NNAMDI MOON MD ADMIT DATE: 08/22/18/ER Signed Date of Exam: 08/22/18 CHEST 1 VIEW, AP/PA ONLY INDICATION: Weakness and pneumonia. TIME OF EXAM: 2:09 PM Comparison is made with prior chest from 07/18/2018. FINDINGS: The heart size is normal. The pulmonary vascularity is unremarkable. The lungs are clear. No infiltrate, effusion or pneumothorax is detected. IMPRESSION: No acute cardiopulmonary process is detected. Dictated by: Dictated on workstation # [id number] Dict: 08/22/18 1421 Trans: 08/22/18 1521 Interpreted by: GUERDA GALLO MD Electronically signed by: GUERDA GALLO MD 08/22/18 1521 Assessment/Plan Assessment/Plan Assessment & Plan 1. Dehydration -Initiation of IV fluids has been started in the emergency department 08/23/2018 -IV fluids continue at 125 mL/h -Check electrolytes in the morning of August 2408/24- improving, but remains mildly tachycardic, change IVF to 1/2NS due to increasing Cl and decreasing CO2 2. Febrile illness this may be related to UTI versus early aspiration -She has been started on IV ceftriaxone 1 g and this will be continued daily. -blood cultures pending -Recheck chest x-ray in the morning as well as UA 08/23/2018 -Chest x-ray was read out as clear this morning. -Urine culture pending from this morning -Day number 2 of ceftriaxone 08/24 Afebrile, no clear source given CXR unremarkable, urine culture neg, blood cx neg to date. Continue ceftriaxone 3. Swallowing dysfunction- swallow eval requested this am, will follow up recommendations 4. Mental status concerns- 08/24 answering yes/no questions and denies concerns, per half-way contact, this is baseline for her 5. DVT ppx- SCDs, enoxaparin Clinical Quality Measures DVT/VTE Risk/Contraindication: Risk Factor Score Per Nursin RFS Level Per Nursing on Admit: 4+=Very High CATRACHITO WELLS MD Aug 24, 2018 16:37
[2018-08-24] MEDS ORDERED: NON-FORMULARY MEDICATION 1 EA EA (Melatonin 3 MG) PO SCH (21:00)
[2018-08-24] MEDS ORDERED: MELATONIN 3 MG TABLET PO SCH (21:00)
[2018-08-24] MEDS ORDERED: NON-FORMULARY MEDICATION 1 EA EA (Budesonide/Formoterol Fumarate (Symbicort 80-4.5 Mcg Inh IH SCH (21:00)
[2018-08-24] MEDS: RT-ADVAIR HFA 45/21 MCG PER PUFF IH SCH (21:50)
[2018-08-25] MEDS: 1/2 NS IV SOLUTION 1,000 ML IV SCH ×2 (03:11→08:28)
[2018-08-25 03:58] VITALS: BP 132/73
[2018-08-25] MEDS ORDERED: LEVOTHYROXINE 75 MCG (LEVOTHROID) TABLET PO SCH (06:30)
[2018-08-25 06:51] LABS: HEMOGLOBIN 8.7 G/DL (11.5-16.0); MEAN PLATELET VOLUME 11.7 FL (7.4-10.4); RED BLOOD COUNT 2.83 10^6/uL (4.35-5.85); RED CELL DISTRIBUTION WIDTH 14.5 % (10.0-14.5); WHITE BLOOD COUNT 4.4 10^3/uL (4.3-11.0)
[2018-08-25] MEDS ORDERED: KCL 20 MEQ TAB (K-DUR) PO SCH (07:00)
[2018-08-25 07:12] LABS: BUN/CREATININE RATIO 23; CALCIUM 8.6 MG/DL (8.5-10.1); CARBON DIOXIDE 18 MMOL/L (21-32); CHLORIDE 114 MMOL/L (98-107); GFR ESTIMATED > 60; SODIUM 141 MMOL/L (135-145)
[2018-08-25] MEDS: RT-ALBUTEROL SULF 2.5 MG/3 ML PRE-MIX VIAL INH SCH (07:22)
[2018-08-25] MEDS: RT-ADVAIR HFA 45/21 MCG PER PUFF IH SCH (07:25)
[2018-08-25 07:27] LABS: GLUCOSE 59 MG/DL (70-105)
[2018-08-25 07:55] VITALS: BP 139/72
[2018-08-25] MEDS ORDERED: amLODIPine 5 MG (NORVASC) TAB PO SCH (09:00)
[2018-08-25] MEDS ORDERED: NON-FORMULARY MEDICATION 1 EA EA (Potassium Chloride 20 MEQ) PO SCH (09:00)
[2018-08-25] MEDS ORDERED: NON-FORMULARY MEDICATION 1 EA EA (Memantine HCl/Donepezil HCl (Namzaric 28 mg-10 mg Capsul PO SCH (09:00)
[2018-08-25] MEDS ORDERED: NON-FORMULARY MEDICATION 1 EA EA (Amlodipine Besylate 5 MG) PO SCH (09:00)
[2018-08-25] MEDS ORDERED: UMECLIDINIUM BROMIDE (INCRUSE ELLIPTA) 7'S IH SCH (09:00)
[2018-08-25] MEDS: risperiDONE 1 MG (RisperDAL) TAB PO SCH (09:01)
[2018-08-25] MEDS: meTOproloL SUCCINATE 50 MG (TOPROL XL) TAB PO SCH (09:02)
[2018-08-25] MEDS: lisINopril 20 MG (PRINIVIL) TABLET PO SCH (09:02)
--- NOTE | 2018-08-25 11:05 | Speech Therapy Daily Note ---
Speech Daily Progress Note Subjective Date Seen by Provider: Aug 25, 2018 Time Seen by Provider: 00:20 Patient was more alert this morning and able to answer simple questions. Objective Patient demonstrated good swallow function for puree diet without s/s of aspiration. Assessment Assessment Current Status: Fair Progress Speech Short Term Goals Short Term Goals Short Term Goals 1) Patient will demo safe intake of modified diet at 90% with assistance. 2) Patient will utilize compensatory strategies as directed for safe oral intake at 80% accuracy. Speech Snf Goals Medical Administrative Technician Goals Patient will maintain adequate nutrition/hydration via safe effective swallow function. Speech-Plan Patient/Family Goals Patient/Family Goals: Patient will return to the [facility] when she is medically stable. Treatment Plan Speech Therapy Treatment Plan: Continue Plan of Care Patient continues to need skilled ST services for safe oral intake. Treatment Duration: Aug 31, 2018 Frequency: 5 times per week Estimated Hrs Per Day: .5 hour per day Rehab Potential: Fair Barriers to Learning: Patient has dementia. Pt/Family Agrees to Plan: Yes Safety Risks/Education Safety Risk Comments: Patient needs to stay on the modified diet level for safest oral intake. Teaching Recipient: Patient Teaching Methods: Discussion Response to Teaching: Reinforcement Needed Education Topics Provided: Safety of oral intake. Time Speech Therapy Time In: 10:00 Speech Therapy Time Out: 10:30 Total Billed Time: 30 Billed Treatment Time 1HOMER BETHANIA ST Aug 25, 2018 11:05
[2018-08-25] MEDS ORDERED: CEFD300C3 PO (11:08)
--- NOTE | 2018-08-25 11:11 | Discharge Instructions ---
Discharge [facility] Discharge Medications New, Converted or Re-Newed RX: Transmitted to Pharmacy New Medications: Cefdinir (Cefdinir) 300 Mg Capsule 300 MG PO BID for 5 Days, #10 CAP 0 Refills Continued Medications: Albuterol Sulfate (Proair Hfa) 1 Puff Puff 2 PUFF IH Q6H PRN for SHORTNESS OF BREATH, INHALER 1 PUFF = 90 MCG Amlodipine Besylate (Amlodipine Besylate) 5 Mg Tablet 5 MG PO DAILY, TAB HOLD FOR BP 100/60 OR PULSE <60 [Aquacel-Ag Foam Pad] () TOP DAILY PRN for IRRITATION APPLY TO STOMA [Baby Shampoo] () OU HS APPLY TO BILATERAL EYES TOPICALLY AT BEDTIME FOR BLEPHARTIS; SCRUB EYE LIDS Budesonide/Formoterol Fumarate (Symbicort 80-4.5 Mcg Inhaler) 10.2 Gm Hfa.aer.ad 2 PUFF IH BID, INHALER Cholecalciferol (Vitamin D3) (Vitamin D3) 1,000 Unit Capsule 2000 UNIT PO DAILY, CAP Clotrimazole (Clotrimazole) 15 Gm Cream..g. TP BID, TUBE APPLY TO ARM PITS Cyanocobalamin (Cyanocobalamin Injection) 1,000 Mcg/Ml Inj 1000 MCG IM EVERY 14 DAYS, VIAL Fluticasone Propionate (Fluticasone Propionate) 16 Gm [place].susp 2 SPRAYS NS HS, EA Ibuprofen (Ibuprofen) 400 Mg Tablet 400 MG PO Q6H PRN for PAIN-MILD, TAB Levothyroxine Sodium (Levothyroxine Sodium) 75 Mcg Tablet 75 MCG PO DAILY, TAB Lisinopril (Lisinopril) 20 Mg Tablet 20 MG PO DAILY, TAB HOLD FOR BP LESS THAN 100/60 AND PULSE LESS THAN 60 Melatonin (Melatonin) 3 Mg Tablet 3 MG PO HS, TAB Memantine HCl/Donepezil HCl (Namzaric 28 mg-10 mg Capsule) 1 Each Cap.spr.24 1 CAP PO DAILY, CAP Metoprolol Succinate (Toprol Xl) 50 Mg Tab.er.24h 50 MG PO DAILY, TAB Ondansetron HCl (Zofran) 8 Mg Tablet 8 MG PO Q6H PRN for NAUSEA/VOMITING-1ST LINE, TAB Potassium Chloride (Potassium Chloride) 20 Meq Tablet.er 20 MEQ PO DAILY, TAB Risperidone (Risperidone) 1 Mg Tablet 1 MG PO BID, TAB Tramadol HCl (Tramadol HCl) 50 Mg Tablet 100 MG PO BID, TAB Umeclidinium [place] (Incruse Ellipta) 62.5 Mcg Blst.w.dev 1 PUFF IH 1500, INHALER Patient Instructions Goal/Follow Up Appt: You will be seen at the nursing facility. Patient Instructions: You need to be on a pureed diet and liquids should be honey consistency to avoid aspiration. Also recommended to sit up as straight as possible for eating and drinking and stay upright 20-30 minutes after if possible. Activity & Diet Discharge Diet: Other Diet (see instructions) Copy Copies To 1: NICKI Lacy BETHANY N MD Aug 25, 2018 11:10
--- NOTE | 2018-08-25 11:14 | Discharge Summary ---
Diagnosis/Chief Complaint Date of Admission Aug 22, 2018 Date of Discharge Aug 25, 2018 Admission Diagnosis Admission Diagnosis 1. Dehydration 2. Febrile illness this may be related to UTI versus early aspiration Discharge Diagnosis 1. Dehydration -Initiation of IV fluids has been started in the emergency department 08/23/2018 -IV fluids continue at 125 mL/h -Check electrolytes in the morning of August 2408/24- improving, but remains mildly tachycardic, changed IVF to 1/2NS due to increasing Cl and decreasing CO2 2. Febrile illness this may be related to UTI versus early aspiration -She has been started on IV ceftriaxone 1 g and this will be continued daily. -blood cultures pending -Recheck chest x-ray in the morning as well as UA 08/23/2018 -Chest x-ray was read out as clear this morning. -Urine culture pending from this morning -Day number 2 of ceftriaxone 08/24 Afebrile, no clear source given CXR unremarkable, urine culture neg, blood cx neg to date. Continue ceftriaxone 08/25- no clear source of infection with CXR unremarkable and cultures negative, discharged on cefdinir for 5 more days. 3. Swallowing dysfunction- swallow eval done and speech therapy recommended pureed diet and honey thickened liquids. 4. Mental status concerns- 08/24 answering yes/no questions and denies concerns, per half-way contact, this is baseline for her 08/25 interactive and speaking in appropriate sentences, but not oriented to time or location. Chief Complaint/HPI Chief Complaint/HPI 9-year-old female who is a resident at [facility] presents to emergency room with low-grade fever and decreased level of consciousness according to staff. Apparently she is also had a slight cough. Speaking to staff at [facility] they were concerned she may have aspirated. Discharge Summary-Simple/Stand Consultations Discharge Physical Examination Allergies: Coded Allergies: No Known Drug Allergies (Verified , 01/24/14) Vitals & I&Os Vital Sign - Last 12Hours Date Time Temp Pulse Resp B/P (MAP) Pulse Ox O2 Delivery O2 Flow Rate FiO2 08/25/18 08:00 Room Air 08/25/18 07:55 96.0 68 18 139/72 (94) 98 Intake and Output 08/25/18 00:00 Intake Total 1050 ml Output Total 875 ml Balance 175 ml Hospital Course See final discharge diagnosis. Labs Laboratory Tests Test 08/24/18 06:47 08/25/18 06:35 08/25/18 08:24 Range/Units White Blood Count 4.7 4.4 4.3-11.0 10^3/uL Red Blood Count 3.19 L 2.83 L 4.35-5.85 10^6/uL Hemoglobin 10.3 L 8.7 L 11.5-16.0 G/DL Hematocrit 31 L 28 L 35-52 % Mean Corpuscular Volume 98 98 80-99 FL Mean Corpuscular Hemoglobin 32 31 25-34 PG Mean Corpuscular Hemoglobin Concent 33 32 32-36 G/DL Red Cell Distribution Width 14.5 14.5 10.0-14.5 % Platelet Count 177 185 130-400 10^3/uL Mean Platelet Volume 13.1 H 11.7 H 7.4-10.4 FL Sodium Level 143 141 135-145 MMOL/L Potassium Level 4.4 4.0 3.6-5.0 MMOL/L Chloride Level 118 H 114 H 98-107 MMOL/L Carbon Dioxide Level 14 L 18 L 21-32 MMOL/L Anion Gap 11 9 5-14 MMOL/L Blood Urea Nitrogen 28 H 18 7-18 MG/DL Creatinine 0.88 0.80 0.60-1.30 MG/DL Estimat Glomerular Filtration Rate > 60 > 60 BUN/Creatinine Ratio 32 23 Glucose Level 63 L 59 *L 70-105 MG/DL Calcium Level 8.6 8.6 8.5-10.1 MG/DL Glucometer 102 70-110 MG/DL Radiology Reviewed NAME: FATOU LUBIN REC#: [id number] PT STATUS: REG ER : 1945 PHYSICIAN: NNAMDI MOON MD ADMIT DATE: 08/22/18/ER Signed Date of Exam: 08/22/18 CHEST 1 VIEW, AP/PA ONLY INDICATION: Weakness and pneumonia. TIME OF EXAM: 2:09 PM Comparison is made with prior chest from 07/18/2018. FINDINGS: The heart size is normal. The pulmonary vascularity is unremarkable. The lungs are clear. No infiltrate, effusion or pneumothorax is detected. IMPRESSION: No acute cardiopulmonary process is detected. Dictated by: Dictated on workstation # [id number] Dict: 08/22/18 1421 Trans: 08/22/18 1521 Interpreted by: GUERDA GALLO MD Electronically signed by: GUERDA GALLO MD 08/22/18 1521 Discharge Instructions to patient/family Please see electronic discharge instructions given to patient. Discharge Medications Reviewed and agree with Discharge Medication list on patient's Discharge Instruction sheet Clinical Quality Measures DVT/VTE Risk/Contraindication: Risk Factor Score Per Nursin RFS Level Per Nursing on Admit: 4+=Very High Copy Copies To 1: NICKI Lacy BETHANY N MD Aug 25, 2018 11:14
[2018-08-25 12:00] VITALS: BP 131/65
[2018-08-25 15:55] VITALS: BP 131/65
== END 2018-08-25 15:55 | DRG 641 ==
LOC: EDUNIT# 13:50 → ER 13:51 → 4TH 15:00 → UNDOADMOB 15:00 → 4TH 16:30 → OBSVTOIN 08-24 14:00 → INTOOBSV 08-24 14:15 → 4TH 08-25 08:32 → UNDODISIN 08-25 15:55
PROVIDERS: ADMIT Family Medicine; ATTEND Family Medicine
DX: E86.0 Dehydration (principal); N39.0 Urinary tract infection, site not specified; T17.908A Unspecified foreign body in respiratory tract, part unspecified causing other injury, initial encounter; R13.10 Dysphagia, unspecified; R05 Cough; J43.9 Emphysema, unspecified; J30.2 Other seasonal allergic rhinitis; E78.00 Pure hypercholesterolemia, unspecified; I10 Essential (primary) hypertension; F03.90 Unspecified dementia, unspecified severity, without behavioral disturbance, psychotic disturbance, mood disturbance, and anxiety; E03.9 Hypothyroidism, unspecified; M19.91 Primary osteoarthritis, unspecified site; M54.9 Dorsalgia, unspecified; R26.2 Difficulty in walking, not elsewhere classified; G47.9 Sleep disorder, unspecified; F32.9 Major depressive disorder, single episode, unspecified; E66.9 Obesity, unspecified; Z68.31 Body mass index [BMI] 31.0-31.9, adult; Z85.038 Personal history of other malignant neoplasm of large intestine; Z87.820 Personal history of traumatic brain injury; Z90.49 Acquired absence of other specified parts of digestive tract; Z93.3 Colostomy status
CPT/HCPCS: 36415; 51702; 71045; 80048; 80053; 81000; 82962; 83605; 85007; 85025; 85027; 87040; 87088; 87804; 94640; 94760; G0378

== ENCOUNTER 2019-06-03 18:27 | Emergency (ER) | payer MEDICARE, MEDICAID ==
[~2019-06-03] VITALS: Ht 170 cm; Wt 86.3 kg
[~2019-06-03 18:27] MED LIST changes: -AMLO5TAB7 PO; +AMLO5TAB9 PO; +BABY SHAMPOO OU; +CLOT15CR5 TP; +[UNRECOGNIZED DRUG - SUPPLY] TOP
--- NOTE | 2019-06-03 18:58 | ED Fall/Injury ---
General Chief Complaint: Trauma-Non Activation Stated Complaint: FELL Nursing Triage Note: Pt to [facility] via [facility] with C-collar in place. Pt is a resident at [facility] and reports an unwitnessed fall from W/C. Pt denies LOC. Pt states she "hurts everywhere". Pt has Hx of dementia. History of Present Illness Date Seen by Provider: Jun 03, 2019 Time Seen by Provider: 18:48 Initial Comments Patient comes in for Fall via EMS from shelter. Patient reports neck and back pain located at C5 and T5. Patient was found out of her wheel chair on the ground by shelter staff. No visible injuries reported. Patient has underlying dementia. Occurred: just prior to arrival Injuries/Pain Location: neck, back Loss of Consciousness: no loss of consciousness Associated Symptoms (Fall): Denies Symptoms Allergies and Home Medications Allergies Coded Allergies: No Known Drug Allergies (Verified , 01/24/14) Home Medications Albuterol Sulfate 1 Puff Puff, 2 PUFF IH Q6H PRN for SHORTNESS OF BREATH, (Reported) 1 PUFF = 90 MCG Amlodipine Besylate 5 Mg Tablet, 5 MG PO DAILY, (Reported) HOLD FOR BP 100/60 OR PULSE <60 Budesonide/Formoterol Fumarate 10.2 Gm Hfa.aer.ad, 2 PUFF IH BID, (Reported) Cefdinir 300 Mg Capsule, 300 MG PO BID Prescribed by: CATRACHITO WELLS on 08/25/18 1108 Cholecalciferol (Vitamin D3) 1,000 Unit Capsule, 2,000 UNIT PO DAILY, (Reported) Clotrimazole 15 Gm Cream..g., TP BID, (Reported) APPLY TO ARM PITS Cyanocobalamin 1,000 Mcg/Ml Inj, 1,000 MCG IM EVERY 14 DAYS, (Reported) Fluticasone Propionate 16 Gm Polaris.susp, 2 SPRAYS NS HS, (Reported) Ibuprofen 400 Mg Tablet, 400 MG PO Q6H PRN for PAIN-MILD, (Reported) Levothyroxine Sodium 75 Mcg Tablet, 75 MCG PO DAILY, (Reported) Lisinopril 20 Mg Tablet, 20 MG PO DAILY, (Reported) HOLD FOR BP LESS THAN 100/60 AND PULSE LESS THAN 60 Melatonin 3 Mg Tablet, 3 MG PO HS, (Reported) Memantine HCl/Donepezil HCl 1 Each Cap.spr.24, 1 CAP PO DAILY, (Reported) Metoprolol Succinate 50 Mg Tab.er.24h, 50 MG PO DAILY, (Reported) Ondansetron HCl 8 Mg Tablet, 8 MG PO Q6H PRN for NAUSEA/VOMITING-1ST LINE, (Reported) Potassium Chloride 20 Meq Tablet.er, 20 MEQ PO DAILY, (Reported) Risperidone 1 Mg Tablet, 1 MG PO BID, (Reported) Tramadol HCl 50 Mg Tablet, 100 MG PO BID, (Reported) Umeclidinium [place] 62.5 Mcg Blst.w.dev, 1 PUFF IH 1500, (Reported) [Aquacel-Ag Foam Pad] , TOP DAILY PRN for IRRITATION, (Reported) APPLY TO STOMA [Baby Shampoo] , OU HS, (Reported) APPLY TO BILATERAL EYES TOPICALLY AT BEDTIME FOR BLEPHARTIS; SCRUB EYE LIDS Patient Home Medication List Home Medication List Reviewed: Yes Review of Systems Review of Systems Constitutional: no symptoms reported Eyes: No Symptoms Reported Ears, Nose, Mouth, Throat: no symptoms reported Respiratory: no symptoms reported Cardiovascular: no symptoms reported Gastrointestinal: no symptoms reported Genitourinary: no symptoms reported : No Musculoskeletal: back pain, neck pain Skin: no symptoms reported Psychiatric/Neurological: No Symptoms Reported Past Popvrpt-Jzqcvh-Wknvxh Hx Patient Social History 2nd Hand Smoke Exposure: No Recent Foreign Travel: No Contact w/Someone Who Travel: No Recent Infectious Disease Expo: No Recent Hopitalizations: Yes Immunizations Up To Date Tetanus Booster (TDap): Less than 5yrs Date of Pneumonia Vaccine: January 24, 2014 Date of Influenza Vaccine: Jul 14, 2018 Seasonal Allergies Seasonal Allergies: Yes Past Medical History Surgeries: Yes (COLO-RECTAL CANCER, COLOSTOMY) Bowel Surgery Respiratory: Yes (ASTHMA) Asthma, COPD, Emphysema Cardiac: Yes High Cholesterol, Hypertension Neurological: Yes (BILATERAL SUBDURAL HEMATOMAS 2013) Dementia, Traumatic Brain Injury Reproductive Disorders: No Genitourinary: Yes UTI-Chronic Gastrointestinal: Yes (COLON CANCER WITH RESECTION AND COLOSTOMY) Musculoskeletal: Yes (WALKING DIFFICULTY) Arthritis, Chronic Back Pain Endocrine: Yes Hypothyroidsim HEENT: Yes (RHINITIS, BLEPHARITIS, CHALAZION) Cancer: Yes Colon Did You Recieve Any Treatments: Yes What Type of Treatment Did You: Surgical Intervention Psychosocial: Yes Sleep Difficulties, Depression Integumentary: Yes (CELLULLITIS) Blood Disorders: No Family Medical History Family history: Diabetes mellitus 19 MOTHER Parkinson's disease 19 FATHER No Family History of: Abdominal aortic aneurysm Physical Exam Vital Signs Vital Signs - First Documented 06/03/19 18:45 Temp 36.8 Pulse 80 Resp 18 B/P (MAP) 138/76 (96) Pulse Ox 98 O2 Delivery Room Air Capillary Refill : Less Than 3 Seconds Height, Weight, BMI Height: 5'5.00" Weight: 189lbs. 11.2oz. 86.944898ei; 29.00 BMI Method:Estimated General Appearance: no apparent distress HEENT: PERRL/EOMI Neck: supple, tender midline Cardiovascular: regular rate, rhythm Respiratory: lungs clear, normal breath sounds, no respiratory distress Peripheral Pulses: 2+ Radial Pulses (R), 2+ Radial Pulses (L) Gastrointestinal: non tender, soft Back: vertebral tenderness Extremities: normal range of motion, non-tender, normal inspection, no pedal edema, no calf tenderness Neurologic/Psychiatric: alert, normal mood/affect Skin: normal color, warm/dry Progress/Results/Core Measures Results/Orders My Orders Orders - DEMOND ALCOCER APRN Ct Head/Cervical Spine Wo (06/03/19 18:50) T-Spine 3v-Ap, Lat, Swimmers (06/03/19 18:50) Pelvis (06/03/19 18:50) Vital Signs/I&O 06/03/19 18:45 Temp 36.8 Pulse 80 Resp 18 B/P (MAP) 138/76 (96) Pulse Ox 98 O2 Delivery Room Air Blood Pressure Mean: 96 Departure Impression Primary Impression: Compression fracture of T10 vertebra Qualified Codes: S22.070A - Wedge compression fracture of t9-t10 vertebra, initial encounter for closed fracture Disposition: HOME, SELF-CARE Condition: Stable (her previous diagnoses) Departure-Patient Inst. Decision time for Depature: 19:53 Referrals: JUAN DANIEL CASTELLANOS MD (PCP/Family) Primary Care Physician Patient Instructions: Vertebral Compression Fracture Add. Discharge Instructions: All discharge instructions reviewed with patient and/or family. Voiced understanding. Scripts Docusate Sodium (Colace) 100 Mg Capsule 100 MG PO DAILY, #30 CAP Prov: DEMOND ALCOCER APRN 06/03/19 Tramadol HCl (Ultram) 50 Mg Tablet 50 MG PO Q6H PRN for PAIN-MODERATE, #20 TAB Prov: DEMOND ALCOCER APRN 06/03/19 DEMOND ALCOCER APRN Jun 03, 2019 18:58
--- NOTE | 2019-06-03 19:35 | Diagnostic Imaging Report ---
PROCEDURE: CT head and CT cervical spine without contrast. TECHNIQUE: Multiple contiguous axial images were obtained through the brain and cervical spine without the use of intravenous contrast. Sagittal and coronal reformations through the cervical spine were then performed. Auto Exposure Controls were utilized during the CT exam to meet ALARA standards for radiation dose reduction. INDICATION: Fall. Injury. COMPARISON: Comparison is made with a prior CT from July 18, 2018. FINDINGS: Age-related global volume loss is again demonstrated and not significantly changed. There are no CT findings of acute intracranial hemorrhage or of an abnormal extra-axial collection. There is no intracranial mass effect or shift. The ventricles remain prominent but not significantly changed from the prior examination and commensurate with the degree of volume loss with no crowding of the sulci of the high vertex. There are no findings of territorial loss of johnson-white differentiation. There is a stable remote lacunar infarct in the left thalamus. There is no new low-density within the basal ganglia or within the niharika. The basilar cisterns are patent. Mastoid air cells are clear. There is no air-fluid level within the paranasal sinuses. Orbital contents are unremarkable. There are no CT findings of an acute calvarial fracture. Cervical spine again demonstrates multilevel cervical degenerative disc disease and facet arthropathy. Alignment is stable compared to the prior exam. There is normal alignment of the craniocervical junction. There is a normal relationship of the lateral masses of C1 and C2. The facets are normally aligned. There is no abnormal facet joint or disc space widening. Vertebral body heights are maintained. No acute cervical spine fracture is evident. There are no findings to suggest high-grade canal stenosis. Lung apices are clear. Soft tissues of the neck demonstrate no acute process. There are calcifications at the carotid bifurcations. IMPRESSION: 1. Global volume loss with background microvascular changes and remote left lacunar infarct. 2. No evidence of an acute intracranial abnormality. There is no hemorrhage, mass effect, or hydrocephalus. There is no calvarial fracture. 3. Background degenerative disc disease and facet arthropathy with stable cervical spine alignment. No traumatic malalignment or acute cervical spine fracture evident. 4. Atherosclerosis. Dictated by: Dictated on workstation # [id number]
--- NOTE | 2019-06-03 19:42 | Diagnostic Imaging Report ---
EXAMINATION: Pelvis. INDICATION: Fall. FINDINGS: There are no findings of hip dislocation. There is no plain film evidence of proximal femoral fracture. There is no diastasis of the pubic symphysis or of the SI joints. There does, however, appear to be abnormal cortical disruption of the right superior and inferior pubic rami. This does appears to have a significant degree of callus and is likely remote in nature. IMPRESSION: 1. There are right superior and inferior pubic rami fractures present but these do appear to likely have some callus and are likely subacute to remote in nature. If right-sided hip pain this could be further assessed with CT imaging. 2. No evidence of proximal femoral fracture or hip dislocation. Dictated by: Dictated on workstation # [id number]
--- NOTE | 2019-06-03 19:44 | Diagnostic Imaging Report ---
EXAMINATION: Three views of the thoracic spine. INDICATION: Fall. COMPARISON: Correlation made to a prior CT of the thoracic and lumbar spine from 07/18/2018. FINDINGS: Superior endplate fracture of L1 is unchanged from the prior examination as is the inferior endplate of L2. There is a new compression fracture demonstrated of T10 of indeterminate age. Remainder of the vertebral body heights appear maintained. There is mild dextroscoliosis. IMPRESSION: Remote L1 and L2 compression fractures with a new T10 compression fracture of indeterminate age. Dictated by: Dictated on workstation # [id number]
--- NOTE | 2019-06-03 19:52 | NUR ---
[facility] called and notified that pt is ready for transportation back to facility.
[2019-06-03] MEDS ORDERED: DOCU-143 PO (19:56)
[2019-06-03] MEDS ORDERED: TRAM-42 PO (19:56)
[2019-06-03] MEDS ORDERED: RX-TRAMADOL 50 MG (ULTRAM) TAB PPK#4 PO STA (19:58)
[2019-06-03 21:05] VITALS: BP 132/79
== END 2019-06-03 21:05 | disposition home or self-care (01) ==
LOC: EDUNIT# 18:27 → ER 18:38
DX: S22.070A Wedge compression fracture of T9-T10 vertebra, initial encounter for closed fracture (principal); I10 Essential (primary) hypertension; E78.00 Pure hypercholesterolemia, unspecified; J43.9 Emphysema, unspecified; F03.90 Unspecified dementia, unspecified severity, without behavioral disturbance, psychotic disturbance, mood disturbance, and anxiety; E03.9 Hypothyroidism, unspecified; F32.9 Major depressive disorder, single episode, unspecified; Z87.820 Personal history of traumatic brain injury; Z87.440 Personal history of urinary (tract) infections; Z79.51 Long term (current) use of inhaled steroids; Z85.038 Personal history of other malignant neoplasm of large intestine; W05.0XXA Fall from non-moving wheelchair, initial encounter; Y92.129 Unspecified place in nursing home as the place of occurrence of the external cause
CPT/HCPCS: 70450; 72072; 72125; 72170